=== PATIENT | male | born 1950 | race Caucasian/White ===

== ENCOUNTER 2017-06-23 09:01 | Observation (INO) ==
[2017-06-23 09:45] LABS: Basophils # 0.1 K/mm3 (0-0.2); Basophils % 0.6 % (0.1-2.0); Eosinophils # 0.2 K/mm3 (0.0-0.4); Eosinophils % 2.4 % (0.1-12.0); Hematocrit 41.6 % (42.0-52.0); Hemoglobin 13.8 g/dL (14.1-18.0); Lymphocytes # 0.9 K/mm3 (0.7-4.5); Lymphocytes % 11.2 K/mm3 (10-50); Mean Corpuscular HGB Conc 33.2 g/dL (31.8-35.4); Mean Corpuscular Hemoglobin 28.6 pg (27.0-31.2); Mean Corpuscular Volume 86.3 fl (80-94); Mean Platelet Volume 7.8 fl (7.4-10.4); Monocytes # 0.6 K/mm3 (0.1-1.0); Monocytes % 6.6 % (1.7-9.3); Neutrophils # 6.6 K/mm3 (1.8-7.8); Neutrophils % 79.2 % (37.0-80.0); Platelet Count 255 K/mm3 (142-424); Red Blood Count 4.83 M/mm3 (4.60-6.20); Red Cell Distribution Width 14.7 % (11.5-17.5); White Blood Count 8.3 K/mm3 (4.8-10.8)
[2017-06-23 09:49] LABS: INR 0.99 (0.9-1.1); Prothrombin Time 10.7 seconds (9.4-11.8)
[2017-06-23 09:51] LABS: Albumin Level 3.3 gm/dL (3.4-5.0); Albumin/Globulin Ratio 0.9 (1.1-1.8); Anion Gap 12.6 mEq/L (5-15); Bilirubin,Total 0.4 mg/dL (0.2-1.0); Calcium 8.9 mg/dL (8.5-10.1); Globulin 3.8 gm/dl (1.3-3.2); Total Protein,Serum 7.1 gm/dL (6.4-8.2)
[2017-06-23 09:55] LABS: Potassium 2.6 mmoL/L (3.5-5.1)
--- NOTE | 2017-06-23 10:07 | Emergency Department Note ---
ED Disposition Clinical Impression: Fall, Brain atrophy, Sinusitis, Diverticulosis, Degenerative arthritis, Esophageal abnormality, Post concussion syndrome, Anticoagulation management encounter, Nausea, Hypokalemia Disposition: Home, Self-Care Condition on Discharge: Fair Referrals: Riley Delatorre MD [Primary Care Provider] - - Critical Care Critical Care Time: No Attestation: On 06/23/17, the high probability of a clinically significant, sudden or life threatening deterioration of the following system(s) required my full and direct attention, intervention and personal management. The time I documented below is in addition to time spent performing reported procedures but includes the following listed in this critical care notation. Medical Decision Making - Atul Inquiry Pt receiving controlled substance: No Atul was queried for this patient: No Vital Signs: 06/23/17 09:02 06/23/17 10:02 Temperature 97.7 F 97.5 F L Temperature Source Oral Oral Pulse Rate [Right Radial] 65 63 Respiratory Rate 18 20 Blood Pressure [Right Arm] 186/99 187/99 Blood Pressure Mean [Right Arm] 128 128 Blood Pressure Source [Right Arm] Automatic Cuff Automatic Cuff Blood Pressure Position [Right Arm] Supine Supine 02 Sat by Pulse Oximetry 92 L 94 L Oxygen Delivery Method Room Air Room Air - Lab Data Lab Results 06/23/17 09:15: WBC 8.3, RBC 4.83, Hgb 13.8 L, Hct 41.6 L, MCV 86.3, MCH 28.6, MCHC 33.2, RDW 14.7, Plt Count 255, MPV 7.8, Neut % (Auto) 79.2, Lymph % (Auto) 11.2, [place] % (Auto) 6.6, Eos % (Auto) 2.4, Baso % (Auto) 0.6, Neut # (Auto) 6.6 , Lymph # (Auto) 0.9, [place] # (Auto) 0.6, Eos # (Auto) 0.2, Baso # (Auto) 0.1 06/23/17 09:15: PT 10.7, INR 0.99 06/23/17 09:15: Sodium 140, Potassium 2.6 L*, Chloride 100, Carbon Dioxide 30, Anion Gap 12.6, BUN 15, Creatinine 1.25, Estimated Creat Clear 95, Estimated GFR 58 L, Est GFR ( Amer) 70, Glucose 176 H, Calcium 8.9, Total Bilirubin 0.4, AST 11 L, ALT 41, Alkaline Phosphatase 130 H, Total Protein 7.1, Albumin 3.3 L, Globulin 3.8 H, Albumin/Globulin Ratio 0.9 L Result diagrams: 06/23/17 09:15 06/23/17 09:15 Orders (Tests/Meds): ED MEDICATIONS Discontinued Medications Generic Name Dose Route Start Last Admin Trade Name Milesq PRN Reason Stop Dose Admin Meclizine HCl 50 mg 06/23/17 11:13 06/23/17 11:20 Antivert 25mg Tablet PO 06/23/17 11:14 50 mg ONCE ONE Administration Morphine Sulfate 1 mg 06/23/17 10:24 06/23/17 10:37 Morphine 2mg/Ml Syringe IV 06/23/17 10:25 1 mg ONCE ONE Administration Ondansetron HCl 4 mg 06/23/17 10:07 06/23/17 10:08 Zofran 4mg/2ml Vial IV 06/23/17 10:08 4 mg ONCE ONE Administration Potassium Chloride 20 meq 06/23/17 10:24 06/23/17 10:37 Klor-Con 20meq Tablet PO 06/23/17 10:25 20 meq ONCE ONE Administration Potassium Chloride 20 meq 06/23/17 11:13 Klor-Con 20meq Tablet PO 06/23/17 11:14 ONCE ONE - Radiology Data #1 Image(s): Chest, Shoulder, Elbow Image Reviewed: Yes I have reviewed radiologist's interpretation Preliminary Findings: Normal/NAD Chest x-ray abnormality with limitations of exam. - CT Data CT Scan: Head, C-Spine, Pelvis, L-Spine Time Received: 11:[address] Reviewed: Yes: I have viewed the radiologist's interpretation Medical Decision Narrative: The patient underwent primary and secondary survey before going to CT scan. I repeated the secondary survey when he returned. Unchanged. She became nauseous and I gave him Zofran. 1020 patient complained of left facial numbness I did a neurological examination and he had equal bilateral symmetrical pinprick sensation. Moved 4 extremities with gravity, deep tendon reflexes are 2+ equal symmetrical and Babinski was downgoing. 1030 the patient was given potassium supplement 20 mEq p.o. 1130 Am Attempted attempted to ambulate the patient and he was very unsteady and had to go back to bed Fall HPI - General Chief Complaint: Fall Stated Complaint: fall Time Seen by Provider: 06/23/17 09:10 Mode of Arrival: EMS Limitations: Physical Limitations Description of Symptoms (Recalled from ER Triage Doc. by RN): pt fell around 0840 on back porch steps while trying to keep the dog inside. pt feel backwards onto the steps on concrete and onto . pt c/o lumbar and thoracic back pain, neck pain and right shoulder pain. breief loc for approx 2-3 min, pt on eliquis. pt a&o, denies clark or nausea - History of Present Illness HPI Narrative: I read the nursing triage above. 66 years old white male with multiple medical problems on Eliquis anticoagulation therapy. Him and his were going down the steps towards the garage when he lost his balance at the 6 step fell and landed on the right side of his body. He had momentary loss of consciousness. Ambulance was called and he was brought to the ED complaining of lower back pain and right shoulder pain. No nausea no vomiting no chest pain no abdominal pain. He has mild neck pain. The patient took his potassium and Eliquis this morning. Onset (ago): minute(s) (30 minutes.) Fall from: standing Fall witnessed: yes, by family Place fall occurred: home Loss of consciousness: yes Length of LOC: minutes(s) (2-3 minutes per nurisng staff.) Prolonged down time: no Symptoms prior to fall: none Context: tripped/slipped Location of injury: head, back (lower back and right shoulder pain. ) Location of injury - extremities: Right: shoulder Severity: moderate Quality: dull Associated symptoms (after fall): headache, other (nausea. ) - Related Data Home Medications Medication Instructions Recorded Confirmed apixaban 5 mg tablet 5 mg PO DAILY 90 Days 03/22/17 06/23/17 clonidine HCl 0.1 mg tablet 0.1 mg PO BID 90 Days 03/22/17 06/23/17 furosemide 40 mg tablet 20 mg PO DAILY 30 Days 03/22/17 06/23/17 hydrochlorothiazide 25 mg tablet 25 mg PO DAILY 90 Days 03/22/17 06/23/17 omeprazole 20 mg capsule,delayed 20 mg PO DAILY 30 Days 03/22/17 06/23/17 release Albuterol Sulfate [Albuterol HFA 2 puffs IH Q4-6H PRN 06/23/17 06/23/17 Inhaler] Aspirin [Aspir 81] 81 mg PO DAILY 06/23/17 06/23/17 Lisinopril [Lisinopril 40mg Tablet] 40 mg PO DAILY 06/23/17 06/23/17 Losartan/Hydrochlorothiazide 50 each PO DAILY 06/23/17 06/23/17 [Losartan-Hctz 50-12.5 mg Tab] Metformin HCl [Metformin 500mg 500 mg PO BID 06/23/17 06/23/17 Tablet] Potassium Chloride [K-Tab ER 20 40 meq PO HS 06/23/17 06/23/17 mEq] Pravastatin Sodium [Pravachol 20mg 20 mg PO HS 06/23/17 06/23/17 Tablet] diazePAM [Valium] 2 mg PO BID 06/23/17 06/23/17 Allergies Allergy/AdvReac Type Severity Reaction Status Date / Time No Known Allergies Allergy Unverified 06/14/17 08:21 [facility] History I have reviewed the patient's past medical history: Yes Medical History: Reports:: Atrial Fibrillation, Chronic Obstructive Pulmonary Disease (COPD), Coronary Artery Disease, Diabetes Mellitus Type 2, Gastroesophageal Reflux Disease(GERD), Hypertension Comment: TONIO, Anxiety, Hearing loss Laterality Cases: Bilateral: Myringotomy (Ear Tubes) Other Surgeries: Yes: Sinus Surgery - Social History Smoking Status: Former smoker Alcohol Intake: never Alcohol Intake Frequency:: other Substance Use Type: denies use Occupational Status: retired Housing: house Household Members: spouse - Psychiatric History Expresses thoughts of harming self/others: None Suicide Plan Description: No Plan Family Hx:: Diabetes, Hypertension, Coronary Artery Disease ROS Obtained: Yes All systems reviewed & no additional complaints Physical Exam - General General appearance: alert, in no apparent distress - Head Head exam: atraumatic, normocephalic, normal inspection - Eye Eye exam: Present: normal appearance, PERRL, EOMI - ENT ENT exam: Present: normal oropharynx, mucous membranes moist, TM's normal bilaterally, normal external ear exam, other (No obvious bleeding per nose or ears but he has some dried blood on the lower teeth with no gum laceration. ) - Neck Neck exam: Present: normal inspection, full ROM, trachea midline, tenderness ( Mild midline lower cervical tenderness.). Absent: meningismus, lymphadenopathy - Chest Chest inspection: Present: normal inspection, symmetric chest wall rise. Absent : tenderness - Respiratory Respiratory exam: Present: normal lung sounds bilaterally. Absent: respiratory distress, wheezes - Cardiovascular Cardiovascular exam: Present: regular rate, normal rhythm. Absent: JVD - Abdominal Exam Abdominal exam: Present: soft, normal bowel sounds. Absent: distention, tenderness, guarding, rebound, rigidity - Extremities Exam Extremities exam: Present: normal inspection, full ROM, normal capillary refill. Absent: calf tenderness - Back Exam Back exam: Present: tenderness, other (Midline lumbar tenderness. ) - Neurological Exam Neurological exam: Present: alert, oriented X3, CN II-XII intact, motor sensory deficit, reflexes normal. Absent: normal gait (Gait was not tested) - Psychiatric Psychiatric exam: Present: normal affect, normal mood - Skin Skin exam: Present: warm, dry, intact, normal color, other (Senile keratosis. ) - Lymphatic Lymphatic Findings: no adenopathy
--- NOTE | 2017-06-23 13:56 | Pharmacy Consult Notes ---
[facility] Pharmacy VTE Monitoring - Patient Demographics Admission date: 06/23/17 Report Date: 06/23/17 Time: 13:55 Allergies/Adverse Reactions: Patient Allergies No Known Allergies Allergy (Unverified 06/14/17 08:21) Height: 1.73 m Weight: 111.329 kg Patient Problems: Current Active Problems Fall (Acute) Brain atrophy (Acute) Sinusitis (Acute) Diverticulosis (Acute) Degenerative arthritis (Acute) Esophageal abnormality (Acute) Post concussion syndrome (Acute) Anticoagulation management encounter (Acute) Nausea (Acute) Hypokalemia (Acute) - VTE Risk Labs: VTE Related Lab Results Hgb 13.8 g/dL (14.1-18.0) L 06/23/17 09:15 Hct 41.6 % (42.0-52.0) L 06/23/17 09:15 Plt Count 255 K/mm3 (142-424) 06/23/17 09:15 PT 10.7 seconds (9.4-11.8) 06/23/17 09:15 INR 0.99 (0.9-1.1) 06/23/17 09:15 BUN 15 mg/dL (7-18) 06/23/17 09:15 Creatinine 1.25 mg/dL (0.70-1.30) 06/23/17 09:15 Estimated Creat Clear 95 mL/min (0-300) 06/23/17 09:15 Was VTE Risk Assessment Performed: Yes VTE Score: 5 VTE Risk Level: Low Risk - Prophylaxis VTE Prophylaxis Ordered?: Yes Types of VTE Prophylaxis: TEDS Knee High Location of Applied Device: Bilateral Lower Extremeties - VTE Diagnosis Confirmed Treatment or plan recommended: Continue Current Treatment
[2017-06-23 18:39] LABS: Anion Gap 8.8 mEq/L (5-15)
[2017-06-23 18:42] LABS: Potassium 2.8 mmoL/L (3.5-5.1)
[2017-06-24 07:10] LABS: Basophils # 0.1 K/mm3 (0-0.2); Basophils % 0.6 % (0.1-2.0); Eosinophils # 0.2 K/mm3 (0.0-0.4); Eosinophils % 2.3 % (0.1-12.0); Hematocrit 39.7 % (42.0-52.0); Hemoglobin 12.9 g/dL (14.1-18.0); Lymphocytes # 0.9 K/mm3 (0.7-4.5); Lymphocytes % 10.8 K/mm3 (10-50); Mean Corpuscular HGB Conc 32.4 g/dL (31.8-35.4); Mean Corpuscular Hemoglobin 28.7 pg (27.0-31.2); Mean Corpuscular Volume 88.6 fl (80-94); Monocytes # 0.6 K/mm3 (0.1-1.0); Monocytes % 7.2 % (1.7-9.3); Neutrophils # 6.7 K/mm3 (1.8-7.8); Platelet Count 235 K/mm3 (142-424); Red Blood Count 4.48 M/mm3 (4.60-6.20); Red Cell Distribution Width 14.7 % (11.5-17.5); White Blood Count 8.5 K/mm3 (4.8-10.8)
[2017-06-24 08:13] LABS: Anion Gap 7.2 mEq/L (5-15); Potassium 3.2 mmoL/L (3.5-5.1)
--- NOTE | 2017-06-24 08:28 | History & Physical Report ---
*Admission Date: 06/23/17 *Chief complaint: Fall with weakness *History of present illness: 66-year-old white female with multiple medical problems on blood thinners and on chronic cardiac medications with history of recurrent A. fib with SVT who yesterday morning was leaving his home in [place], [place] when he and his fell down some steps and he landed on some concrete while falling with his . She was uninjured, but he apparently struck part of his head on the concrete and may or may not have lost consciousness for a couple of minutes. Brought to the emergency department with a lot of aches pains and elbow, shoulders and knees, some blood around his mouth and the aforementioned history of loss of consciousness. ER workup consist of CAT scans of pelvis, CT of spine, x-rays of elbows and CT of his head which were unremarkable. He was hypokalemic, admitted to hospital for further evaluation and replacement of his potassium deficit. [facility] History I have reviewed the patient's past medical history: Yes Medical History: Reports:: Atrial Fibrillation, Cancer (skin), Chronic Obstructive Pulmonary Disease (COPD), Coronary Artery Disease, Diabetes Mellitus Type 2, Gastroesophageal Reflux Disease(GERD), Hypertension Denies:: Diabetes Mellitus Type 1, MRSA Other Medical History: Reports: Cataracts, Glaucoma ((L) eye), Hypothyroidism, Sinus Problems Comment: Recent positive cologuard test, scheduled for visit with GI today Laterality Cases: Left: Total Knee Replacement, Bilateral: Cataract, Myringotomy (Ear Tubes) Other Surgeries: Yes: Cardiac Catheterization, Sinus Surgery, Skin Cancer Excision Amputation: No Fractures: Yes ((R) dislocated shoulder) - *Social History Educational Level: Completed High School Smoking Status: Former smoker Smoking End Date: 1997 Alcohol Intake: current Alcohol Intake Frequency:: a few times a month Substance Use Type: denies use Occupational Status: retired Housing: house Household Members: spouse - Psychiatric History Expresses thoughts of harming self/others: None Suicide Plan Description: No Plan *Family Hx:: Cancer, Coronary Artery Disease, Diabetes, Hyperlipidemia, Hypertension, Thyroid Disorder Review of Systems - Review of Systems Review of systems:: unable to obtain, other, pertinent systems reviewed and negative unless documented below Meds Home Medications Medication Instructions Recorded Confirmed Type apixaban 5 mg tablet 5 mg PO BID 90 Days 03/22/17 06/23/17 History clonidine HCl 0.1 mg tablet 0.1 mg PO BID 90 Days 03/22/17 06/23/17 History furosemide 40 mg tablet 20 mg PO BID 30 Days 03/22/17 06/23/17 History hydrochlorothiazide 25 mg tablet 25 mg PO DAILY 90 Days 03/22/17 06/23/17 History omeprazole 20 mg capsule,delayed 20 mg PO DAILY 30 Days 03/22/17 06/23/17 History release Albuterol Sulfate [Albuterol HFA 2 puffs IH Q4-6H PRN 06/23/17 06/23/17 History Inhaler] Amiodarone HCl [Amiodarone 200mg 300 mg PO DAILY 06/23/17 06/23/17 History Tab] Aspirin [Aspir 81] 81 mg PO DAILY 06/23/17 06/23/17 History Carvedilol [Carvedilol 25mg Tab] 25 mg PO BID 06/23/17 06/23/17 History Citalopram Hydrobromide [Celexa 20 mg PO DAILY 06/23/17 06/23/17 History 20mg Tablet] Exenatide Microspheres [Bydureon 2 mg SQ WEEKLY 06/23/17 06/23/17 History Pen] Fluorouracil [Efudex 5% cream 40gm 1 applicatio TOPICAL DAILY 06/23/17 06/23/17 History tube] Latanoprost [Xalatan 0.005% Ophth 1 drop EYE-LEFT HS 06/23/17 06/23/17 History Soln 2.5mL] Levothyroxine Sodium 100 mg PO DAILY 06/23/17 06/23/17 History [Levothyroxine 100mcg (0.1MG) Tab] Lisinopril [Lisinopril 40mg Tablet] 5 mg PO DAILY 06/23/17 06/23/17 History Losartan/Hydrochlorothiazide 50 each PO DAILY 06/23/17 06/23/17 History [Losartan-Hctz 50-12.5 mg Tab] Meloxicam [Meloxicam] 15 mg PO DAILY 06/23/17 06/23/17 History Nitroglycerin [Nitroglycerin] 0.4 mg SL DIRECTED PRN 06/23/17 06/23/17 History Potassium Chloride [K-Tab ER 20 40 meq PO BID 06/23/17 06/23/17 History mEq] Pravastatin Sodium [Pravachol 20mg 20 mg PO HS 06/23/17 06/23/17 History Tablet] Sitagliptin Phos/Metformin HCl 50 - 1,000 mg PO DAILY 06/23/17 06/23/17 History [Janumet Xr 50-1,000 mg Tablet] diazePAM [Valium] 2 mg PO BID 06/23/17 06/23/17 History dilTIAZem HCl [Cartia Xt] 300 mg PO DAILY 06/23/17 06/23/17 History Allergies Allergy/AdvReac Type Severity Reaction Status Date / Time No Known Allergies Allergy Unverified 06/14/17 08:21 Exam Vital signs and Labs for Last 24 Hours: Temp Pulse Resp BP Pulse Ox 97.7 F 63 20 171/92 94 L 06/24/17 08:00 06/24/17 08:00 06/24/17 08:00 06/24/17 08:00 06/24/17 08:00 Laboratory Results - last 24 hr 06/23/17 18:15: Sodium 141, Potassium 2.8 L*, Chloride 101, Carbon Dioxide 34 H , Anion Gap 8.8, BUN 15, Creatinine 1.21, Estimated Creat Clear 95, Estimated GFR 60, Est GFR ( Amer) 73, Glucose 156 H 06/24/17 06:50: WBC 8.5, RBC 4.48 L, Hgb 12.9 L, Hct 39.7 L, MCV 88.6, MCH 28.7 , MCHC 32.4, RDW 14.7, Plt Count 235, MPV 8.0, Neut % (Auto) 79.0, Lymph % (Auto ) 10.8, [place] % (Auto) 7.2, Eos % (Auto) 2.3, Baso % (Auto) 0.6, Neut # (Auto) 6.7, Lymph # (Auto) 0.9, [place] # (Auto) 0.6, Eos # (Auto) 0.2, Baso # (Auto) 0.1 06/24/17 06:50: Sodium 139, Potassium 3.2 L, Chloride 102, Carbon Dioxide 33 H, Anion Gap 7.2, BUN 11 D, Creatinine 0.97, Estimated Creat Clear 114, Estimated GFR 77, Est GFR ( Amer) 94 D, Glucose 142 H I & O for Last 24 hours: Intake & Output 06/21/17 06/22/17 06/23/17 06/24/17 11:59 11:59 11:59 11:59 Intake Total 2454 / 2454 Balance 2454 / 2454 Weight 245 lb 7 oz Narrative: This morning patient is awake, alert, oriented 3. Cranial nerves are intact, no evidence of trauma around his face or in his mouth, lungs are clear, heart rate regular, abdomen soft, able to move all extremities. Does complain of some left knee pain is unable to flex the knee extensively. Of note this is his side with his joint replacement. No significant distal edema, wearing compression stockings. H&P: Result - Labs Labs: Short CBC 06/24/17 Range/Units 06:50 WBC 8.5 (4.8-10.8) K/mm3 Hgb 12.9 L (14.1-18.0) g/dL Hct 39.7 L (42.0-52.0) % Plt Count 235 (142-424) K/mm3 BMP 06/23/17 06/24/17 18:15 06:50 Sodium 141 139 Potassium 2.8 L* 3.2 L Chloride 101 102 Carbon Dioxide 34 H 33 H BUN 15 11 D Creatinine 1.21 0.97 Glucose 156 H 142 H Assessment and Plan (1) Ataxia Current visit: Yes Status: Acute Category: Medical Code(s): R27.0 - Ataxia , unspecified (2) Degenerative arthritis Current visit: Yes Status: Acute Category: Medical Code(s): M19.90 - Unspecified osteoarthritis, unspecified site (3) Diverticulosis Current visit: Yes Status: Acute Category: Medical Code(s): K57.90 - Diverticulosis of intestine, part unspecified, without perforation or abscess without bleeding (4) Fall Current visit: Yes Status: Acute Category: Medical Code(s): W19.XXXA - Unspecified fall, initial encounter (5) Hypokalemia Current visit: Yes Status: Acute Category: Medical Code(s): E87.6 - Hypokalemia - Assessment and plan all Dx Assessment and Plan for all problems:: Patient seems to have done well overnight. We will x-ray his knee given his pain complaints and history of fall. Potassium is improved. PT evaluation to assess for home safety versus need for rehabilitation given his ongoing problems with stability and walking.
--- NOTE | 2017-06-24 13:58 | Discharge Summary ---
General - General Admission date: 06/23/17 Discharge date: 06/24/17 HPI HPI: 66-year-old white female with multiple medical problems on blood thinners and on chronic cardiac medications with history of recurrent A. fib with SVT who yesterday morning was leaving his home in [place], [place] when he and his fell down some steps and he landed on some concrete while falling with his . She was uninjured, but he apparently struck part of his head on the concrete and may or may not have lost consciousness for a couple of minutes. Brought to the emergency department with a lot of aches pains and elbow, shoulders and knees, some blood around his mouth and the aforementioned history of loss of consciousness. ER workup consist of CAT scans of pelvis, CT of spine, x-rays of elbows and CT of his head which were unremarkable. He was hypokalemic, admitted to hospital for further evaluation and replacement of his potassium deficit. Hospital Course Hospital Course: Patient was admitted to hospital, potassium was corrected with oral replacement. Neurologic checks were done overnight, patient had no further episodes of falls, no loss of consciousness issues. This morning patient's left knee was x-rayed because of persistent pain but x- ray findings were unremarkable. Patient did well, able to walk around the room under his own power, physical therapy evaluation for safety was done and patient did well. Patient and his wish to be discharged home so they could do some other appointments today. Plan will be to discharge home with enhanced potassium supplementation. No other medication changes. Follow-up with GI this afternoon to discuss possible colonoscopy. Follow-up with me in 3 days. Objective Vital signs: Temp Pulse Resp BP Pulse Ox 97.7 F 63 20 171/92 94 L 06/24/17 08:00 06/24/17 08:00 06/24/17 08:00 06/24/17 08:00 06/24/17 08:00 Narrative: Unchanged from this morning. Please see H&P for details Results Labs on day of discharge: Labs from last 24 hours 06/24/17 06/24/17 06/23/17 06:50 06:50 18:15 WBC 8.5 RBC 4.48 L Hgb 12.9 L Hct 39.7 L MCV 88.6 MCH 28.7 MCHC 32.4 RDW 14.7 Plt Count 235 MPV 8.0 Neut % (Auto) 79.0 Lymph % (Auto) 10.8 [place] % (Auto) 7.2 Eos % (Auto) 2.3 Baso % (Auto) 0.6 Neut # (Auto) 6.7 Lymph # (Auto) 0.9 [place] # (Auto) 0.6 Eos # (Auto) 0.2 Baso # (Auto) 0.1 Sodium 139 141 Potassium 3.2 L 2.8 L* Chloride 102 101 Carbon Dioxide 33 H 34 H Anion Gap 7.2 8.8 BUN 11 D 15 Creatinine 0.97 1.21 Estimated Creat Clear 114 95 Estimated GFR 77 60 Est GFR ( Amer) 94 D 73 Glucose 142 H 156 H DS: Diagnosis - Discharge Diagnosis (1) Ataxia Status: Acute (2) Degenerative arthritis Status: Acute (3) Diverticulosis Status: Acute (4) Fall Status: Acute (5) Hypokalemia Status: Acute Discharge Plan - Patient Discharge Instructions ACTIVITY: Continue current activity DIET: continue same diet - Follow up Plan Follow up with: Riley Delatorre MD [Primary Care Provider] - 06/27/17 Disposition: Home, Self-Skilled Nursing Medications: Home Medications Medication Instructions Recorded Confirmed Type apixaban 5 mg tablet 5 mg PO BID 90 Days 03/22/17 06/23/17 History clonidine HCl 0.1 mg tablet 0.1 mg PO BID 90 Days 03/22/17 06/23/17 History furosemide 40 mg tablet 40 mg PO BID 30 Days 03/22/17 06/24/17 History hydrochlorothiazide 25 mg tablet 25 mg PO DAILY 90 Days 03/22/17 06/23/17 History omeprazole 20 mg capsule,delayed 20 mg PO DAILY 30 Days 03/22/17 06/23/17 History release Albuterol Sulfate [Albuterol HFA 2 puffs IH Q4-6H PRN 06/23/17 06/23/17 History Inhaler] Amiodarone HCl [Amiodarone 200mg 300 mg PO DAILY 06/23/17 06/23/17 History Tab] Aspirin [Aspir 81] 81 mg PO DAILY 06/23/17 06/23/17 History Carvedilol [Carvedilol 25mg Tab] 25 mg PO BID 06/23/17 06/23/17 History Citalopram Hydrobromide [Celexa 20 mg PO DAILY 06/23/17 06/23/17 History 20mg Tablet] Exenatide Microspheres [Bydureon 2 mg SQ WEEKLY 06/23/17 06/23/17 History Pen] Fluorouracil [Efudex 5% cream 40gm 1 applicatio TOPICAL DAILY 06/23/17 06/23/17 History tube] Latanoprost [Xalatan 0.005% Ophth 1 drop EYE-LEFT HS 06/23/17 06/23/17 History Soln 2.5mL] Levothyroxine Sodium 100 mcg PO DAILY 06/23/17 06/24/17 History [Levothyroxine 100mcg (0.1MG) Tab] Losartan/Hydrochlorothiazide 1 tab PO DAILY 06/23/17 06/24/17 History [Losartan-Hctz 50-12.5 mg Tab] Meloxicam [Meloxicam] 15 mg PO DAILY 06/23/17 06/23/17 History Nitroglycerin [Nitroglycerin] 0.4 mg SL Q5MINP PRN 06/23/17 06/24/17 History Potassium Chloride [K-Tab ER 20 40 meq PO BID 06/23/17 06/23/17 History mEq] Pravastatin Sodium [Pravachol 20mg 20 mg PO HS 06/23/17 06/23/17 History Tablet] Sitagliptin Phos/Metformin HCl 1 tab PO DAILY 06/23/17 06/24/17 History [Janumet Xr 50-1,000 mg Tablet] diazePAM [Valium] 2 mg PO BID 06/23/17 06/23/17 History dilTIAZem HCl [Cartia Xt] 300 mg PO DAILY 06/23/17 06/23/17 History Lisinopril [Lisinopril 5mg Tablet] 5 mg PO DAILY 06/24/17 06/24/17 History Prescriptions/Medication Reconciliation: Continue omeprazole 20 mg capsule,delayed release 20 mg PO DAILY 30 Days furosemide 40 mg tablet 40 mg PO BID 30 Days apixaban 5 mg tablet 5 mg PO BID 90 Days hydrochlorothiazide 25 mg tablet 25 mg PO DAILY 90 Days clonidine HCl 0.1 mg tablet 0.1 mg PO BID 90 Days Potassium Chloride [K-Tab ER 20 mEq] 40 meq PO BID diazePAM [Valium] 2 mg PO BID Losartan/Hydrochlorothiazide [Losartan-Hctz 50-12.5 mg Tab] 1 tab PO DAILY Aspirin [Aspir 81] 81 mg PO DAILY Pravastatin Sodium [Pravachol 20mg Tablet] 20 mg PO HS Albuterol Sulfate [Albuterol HFA Inhaler] 2 puffs IH Q4-6H PRN PRN Reason: Shortness Of Breath Or Wheezing Levothyroxine Sodium [Levothyroxine 100mcg (0.1MG) Tab] 100 mcg PO DAILY Carvedilol [Carvedilol 25mg Tab] 25 mg PO BID Citalopram Hydrobromide [Celexa 20mg Tablet] 20 mg PO DAILY dilTIAZem HCl [Cartia Xt] 300 mg PO DAILY Exenatide Microspheres [Bydureon Pen] 2 mg SQ WEEKLY Fluorouracil [Efudex 5% cream 40gm tube] 1 applicatio TOPICAL DAILY Latanoprost [Xalatan 0.005% Ophth Soln 2.5mL] 1 drop EYE-LEFT HS Nitroglycerin [Nitroglycerin] 0.4 mg SL Q5MINP PRN PRN Reason: Chest Pain Sitagliptin Phos/Metformin HCl [Janumet Xr 50-1,000 mg Tablet] 1 tab PO DAILY Amiodarone HCl [Amiodarone 200mg Tab] 300 mg PO DAILY Meloxicam [Meloxicam] 15 mg PO DAILY Lisinopril [Lisinopril 5mg Tablet] 5 mg PO DAILY
== END 2017-06-24 14:48 | disposition home or self-care (01) ==
LOC: 2ND 09:01 → ER 09:01 → OBSVTOIN 12:27 → INTOOBSV 12:27 → 2ND 12:42
PROVIDERS: ADMIT Family Medicine; ATTEND Internal Medicine Adolescent Medicine

== ENCOUNTER → 2017-06-24 14:42 | Outpatient (POV) | payer MEDICARE, SELFPAY | PROVIDERS: Family Provider Internal Medicine Adolescent Medicine; PCP Internal Medicine Adolescent Medicine; Visit Provider Nurse Practitioner Acute Care | DX: Z00.00 Encounter for general adult medical examination without abnormal findings (principal) ==

== ENCOUNTER → 2017-07-01 07:08 | Outpatient (CLI) | payer MEDICARE, SELFPAY ==
[2017-07-01 13:46] LABS: Anion Gap 8.4 mEq/L (5-15); Blood Urea Nitrogen 15 mg/dL (7-18); Carbon Dioxide 35 mmol/L (21.0-32.0); Chloride 103 mmol/L (98-107); Creatinine,Serum 1.08 mg/dL (0.70-1.30); Estimated Glomerular Filt Rate 68 ml/min (>60); GFR (African American) 83 ML/MIN (>60); Glucose 149 mg/dL (74-106); Potassium 3.4 mmoL/L (3.5-5.1); Sodium 143 mmol/L (136-145)
[2017-07-01 13:55] LABS: Basophils # 0.1 K/mm3 (0-0.2); Basophils % 0.6 % (0.1-2.0); Eosinophils # 0.4 K/mm3 (0.0-0.4); Eosinophils % 4.2 % (0.1-12.0); Hemoglobin 12.6 g/dL (14.1-18.0); Lymphocytes # 1.2 K/mm3 (0.7-4.5); Lymphocytes % 14.3 K/mm3 (10-50); Mean Corpuscular Hemoglobin 29.1 pg (27.0-31.2); Mean Corpuscular Volume 88.1 fl (80-94); Mean Platelet Volume 8.4 fl (7.4-10.4); Monocytes # 0.5 K/mm3 (0.1-1.0); Monocytes % 6.6 % (1.7-9.3); Neutrophils # 6.1 K/mm3 (1.8-7.8); Neutrophils % 74.2 % (37.0-80.0); Platelet Count 280 K/mm3 (142-424); Red Blood Count 4.32 M/mm3 (4.60-6.20); Red Cell Distribution Width 14.8 % (11.5-17.5); White Blood Count 8.2 K/mm3 (4.8-10.8)
== END ==
PROVIDERS: PCP Internal Medicine Adolescent Medicine; Visit Provider Internal Medicine Adolescent Medicine
DX: E87.6 Hypokalemia (principal)
CPT/HCPCS: 36415; 80048; 85025

== ENCOUNTER 2017-07-31 10:00 | Outpatient (RCR) | payer MEDICARE, SELFPAY | END 2017-07-31 10:01 | disposition home or self-care (01) | LOC: PT 10:00 | PROVIDERS: Family Provider Internal Medicine Adolescent Medicine; PCP Internal Medicine Adolescent Medicine; Visit Provider Internal Medicine Adolescent Medicine | DX: R26.9 Unspecified abnormalities of gait and mobility (principal); W10.8XXD Fall (on) (from) other stairs and steps, subsequent encounter | CPT/HCPCS: 97110; 97163 ==

== ENCOUNTER 2017-08-20 14:35 | Inpatient (IN) ==
--- NOTE | 2017-08-20 14:48 | Emergency Department Note ---
ED Disposition Clinical Impression: Lower gastrointestinal bleeding Disposition: Still a Patient Condition on Discharge: Good - Critical Care Critical Care Time: No Attestation: On , the high probability of a clinically significant, sudden or life threatening deterioration of the following system(s) required my full and direct attention, intervention and personal management. The time I documented below is in addition to time spent performing reported procedures but includes the following listed in this critical care notation. Medical Decision Making - Atul Inquiry Pt receiving controlled substance: No Vital Signs: 08/20/17 14:47 Temperature 97.9 F Temperature Source Oral Pulse Rate [Right Brachial] 75 Respiratory Rate 18 Blood Pressure [Right Arm] 135/67 Blood Pressure Mean [Right Arm] 89 Blood Pressure Source [Right Arm] Automatic Cuff Blood Pressure Position [Right Arm] Sitting 02 Sat by Pulse Oximetry 96 Oxygen Delivery Method Room Air - Lab Data Lab Results 08/20/17 14:45: WBC 8.5, RBC 3.60 L, Hgb 10.3 L, Hct 31.2 L, MCV 86.6, MCH 28.7 , MCHC 33.1, RDW 14.8, Plt Count 232, MPV 7.9, Neut % (Auto) 77.9, Lymph % (Auto ) 12.5, [place] % (Auto) 7.5, Eos % (Auto) 1.5, Baso % (Auto) 0.6, Neut # (Auto) 6.6, Lymph # (Auto) 1.1, [place] # (Auto) 0.6, Eos # (Auto) 0.1, Baso # (Auto) 0.1 08/20/17 14:45: Sodium 144, Potassium 3.3 L, Chloride 105, Carbon Dioxide 32, Anion Gap 10.3, BUN 28 H, Creatinine 1.69 H, Estimated Creat Clear 66, Estimated GFR 41 L, Est GFR ( Amer) 49 L, Glucose 165 H, Calcium 9.0, Total Bilirubin 0.3, AST 12 L, ALT 39, Alkaline Phosphatase 105, Troponin I < 0.02, Total Protein 6.0 L, Albumin 2.9 L, Globulin 3.1, Albumin/Globulin Ratio 0.9 L 08/20/17 14:45: PT 10.7, INR 1.04, APTT 27.5 Result diagrams: 08/20/17 14:45 08/20/17 14:45 - ECG Data Tracing #1 EKG interpreted by Chester Long MD: Rhythm: sinus Rate: 67 Gerber: normal Ectopy: none Conduction: First-degree AV block ST Segment Changes: Nonspecific T Wave Changes: Nonspecific Q Waves: none No evidence of acute ischemia or injury - Physician Consults Physician Consulted: Oj Time: 16:00 Reason -: Pt condition Comment/Response: Recommends admission overnight. He can be called if recurrent bleeding. Hold Eliquis. Additional Consult: Shanthi Delatorre Time: 16:01 Reason -: Admission Comment/Response: Agrees to admit the patient to the hospital. We discussed the patient's clinical information, including history, exam, laboratory and radiology results and ED course. Per hospital procedure, I will write temporary bridge inpatient orders on the patient. Specific orders requested by the admitting physician: Repeat hemoglobin tonight at 10 PM and in the morning, hold Eliquis General Adult HPI - General Stated complaint: needs blood work/Dr Mcwilliams Time Seen by Provider: 08/20/17 14:47 - History of Present Illness HPI narrative: I received a call from Dr. Mcwilliams prior to the patient's arrival. He reports that he removed 10 polyps during a colonoscopy on the patient yesterday. He was having a colonoscopy to evaluate a positive Cologuard test. The patient has been on Eliquis for atrial fibrillation. He was started back on Eliquis last night after the procedure. He has had 5-6 episodes of bleeding since then. The patient states that he has passed large amounts of dark blood about 6 times , he states it is cups rather than tablespoons. No abdominal pain. He said he had a 5-6 second episode of chest pain on the way here. No current chest pain. No faintness, but was lightheaded at home. Blood pressure was taken at home and was normal. - Related Data Home Medications Medication Instructions Recorded Confirmed apixaban 5 mg tablet 5 mg PO BID 90 Days 03/22/17 08/19/17 clonidine HCl 0.1 mg tablet 0.1 mg PO BID 90 Days 03/22/17 08/19/17 furosemide 40 mg tablet 40 mg PO BID 30 Days 03/22/17 08/19/17 hydrochlorothiazide 25 mg tablet 25 mg PO DAILY 90 Days 03/22/17 08/19/17 omeprazole 20 mg capsule,delayed 20 mg PO DAILY 30 Days 03/22/17 08/19/17 release Albuterol Sulfate [Albuterol HFA 2 puffs IH Q4-6H PRN 06/23/17 08/19/17 Inhaler] Amiodarone HCl [Amiodarone 200mg 300 mg PO DAILY 06/23/17 08/19/17 Tab] Carvedilol [Carvedilol 25mg Tab] 25 mg PO BID 06/23/17 08/19/17 Citalopram Hydrobromide [Celexa 20 mg PO DAILY 06/23/17 08/19/17 20mg Tablet] Exenatide Microspheres [Bydureon 2 mg SQ WEEKLY 06/23/17 08/19/17 Pen] Fluorouracil [Efudex 5% cream 40gm 1 applicatio TOPICAL DAILY 06/23/17 08/19/17 tube] Latanoprost [Xalatan 0.005% Ophth 1 drop EYE-LEFT HS 06/23/17 08/19/17 Soln 2.5mL] Levothyroxine Sodium 100 mcg PO DAILY 06/23/17 08/19/17 [Levothyroxine 100mcg (0.1MG) Tab] Losartan/Hydrochlorothiazide 1 tab PO DAILY 06/23/17 08/19/17 [Losartan-Hctz 50-12.5 mg Tab] Meloxicam 15 mg PO DAILY 06/23/17 08/19/17 Nitroglycerin 0.4 mg SL Q5MINP PRN 06/23/17 08/19/17 Potassium Chloride [K-Tab ER 20 40 meq PO BID 06/23/17 08/19/17 mEq] Pravastatin Sodium [Pravachol 20mg 20 mg PO HS 06/23/17 08/19/17 Tablet] Sitagliptin Phos/Metformin HCl 1 tab PO DAILY 06/23/17 08/19/17 [Janumet Xr 50-1,000 mg Tablet] diazePAM [Valium] 2 mg PO BID 06/23/17 08/19/17 dilTIAZem HCl [Cartia Xt] 300 mg PO DAILY 06/23/17 08/19/17 Lisinopril [Lisinopril 5mg Tablet] 5 mg PO DAILY 06/24/17 08/19/17 doxazosin 4 mg tablet 4 mg PO BID tab 07/12/17 08/19/17 meclizine 12.5 mg tablet 25 mg PO TID tab 07/12/17 08/19/17 mupirocin 2 % topical ointment 1 applic TOPICAL BID 07/12/17 08/19/17 Allergies Allergy/AdvReac Type Severity Reaction Status Date / Time No Known Allergies Allergy Verified 08/13/17 13:57 [facility] History I have reviewed the patient's past medical history: Yes Medical History: Reports:: Atrial Fibrillation (not currently), Cancer, Chronic Obstructive Pulmonary Disease (COPD), Coronary Artery Disease, Diabetes Mellitus Type 2 (on med), Gastroesophageal Reflux Disease(GERD), Hypertension, Lung Disease (sob with exertion) Denies:: Diabetes Mellitus Type 1, Internal Pacemaker, MRSA, Seizures Other Medical History: Reports: Cataracts, Glaucoma, Hypothyroidism, Sinus Problems Comment: Recent positive cologuard test, scheduled for visit with GI today Laterality Cases: Bilateral: Myringotomy (Ear Tubes) Other Surgeries: Yes: Cardiac Catheterization, Sinus Surgery, Skin Cancer Excision. No: Pacemaker Amputation: No Fractures: Yes ((R) dislocated shoulder) - Social History Smoking Status: Former smoker Alcohol Intake: current Alcohol Intake Frequency:: a few times a month Substance Use Type: denies use Occupational Status: retired Housing: house Household Members: spouse Family Hx:: Cancer, Coronary Artery Disease, Diabetes, Hyperlipidemia, Hypertension, Thyroid Disorder ROS Obtained: Yes All systems reviewed & no additional complaints - Constitutional Constitutional: Reports weakness - Cardiovascular Cardiovascular: Reports chest pain, Denies fainting - Respiratory Respiratory: No dyspnea - Gastrointestinal Gastrointestingal: Reports: black, tarry stools. Denies: abdominal pain, vomiting blood - Musculoskeletal Musculoskeletal: Reports back pain Physical Exam - General General appearance: alert, in no apparent distress - Head Head exam: atraumatic, normocephalic, normal inspection - Eye Eye exam: Present: normal appearance, PERRL, EOMI - ENT ENT exam: Present: normal exam, normal oropharynx, mucous membranes moist, TM's normal bilaterally, normal external ear exam - Neck Neck exam: Present: normal inspection, full ROM, trachea midline. Absent: meningismus, lymphadenopathy - Chest Chest inspection: Present: normal inspection, symmetric chest wall rise. Absent : tenderness - Respiratory Respiratory exam: Present: normal lung sounds bilaterally. Absent: respiratory distress - Cardiovascular Cardiovascular exam: Present: regular rate, normal rhythm. Absent: JVD - Abdominal Exam Abdominal exam: Present: soft, normal bowel sounds. Absent: distention, tenderness, guarding - Extremities Exam Extremities exam: Present: normal inspection, full ROM, normal capillary refill. Absent: calf tenderness - Back Exam Back exam: Present: normal inspection. Absent: tenderness - Neurological Exam Neurological exam: Present: alert, oriented X3 - Psychiatric Psychiatric exam: Present: normal affect, normal mood - Skin Skin exam: Present: warm, dry, intact, normal color - Lymphatic Lymphatic Findings: no adenopathy
[2017-08-20 14:59] LABS: Basophils # 0.1 K/mm3 (0-0.2); Basophils % 0.6 % (0.1-2.0); Eosinophils # 0.1 K/mm3 (0.0-0.4); Eosinophils % 1.5 % (0.1-12.0); Hematocrit 31.2 % (42.0-52.0); Hemoglobin 10.3 g/dL (14.1-18.0); Lymphocytes # 1.1 K/mm3 (0.7-4.5); Lymphocytes % 12.5 K/mm3 (10-50); Mean Corpuscular HGB Conc 33.1 g/dL (31.8-35.4); Mean Corpuscular Hemoglobin 28.7 pg (27.0-31.2); Mean Corpuscular Volume 86.6 fl (80-94); Mean Platelet Volume 7.9 fl (7.4-10.4); Monocytes # 0.6 K/mm3 (0.1-1.0); Monocytes % 7.5 % (1.7-9.3); Neutrophils # 6.6 K/mm3 (1.8-7.8); Neutrophils % 77.9 % (37.0-80.0); Platelet Count 232 K/mm3 (142-424); Red Cell Distribution Width 14.8 % (11.5-17.5); White Blood Count 8.5 K/mm3 (4.8-10.8)
[2017-08-20 15:04] LABS: Activated Partial Thrombo Time 27.5 seconds (23.6-34.0); INR 1.04 (0.9-1.1); Prothrombin Time 10.7 seconds (9.4-11.8)
[2017-08-20 15:11] LABS: Alanine Aminotransferase 39 U/L (12-78); Albumin Level 2.9 gm/dL (3.4-5.0); Albumin/Globulin Ratio 0.9 (1.1-1.8); Alkaline Phosphatase 105 U/L (46-116); Anion Gap 10.3 mEq/L (5-15); Aspartate Amino Transferase 12 U/L (15-37); Bilirubin,Total 0.3 mg/dL (0.2-1.0); Blood Urea Nitrogen 28 mg/dL (7-18); Carbon Dioxide 32 mmol/L (21.0-32.0); Chloride 105 mmol/L (98-107); Globulin 3.1 gm/dl (1.3-3.2); Glucose 165 mg/dL (74-106); Potassium 3.3 mmoL/L (3.5-5.1); Sodium 144 mmol/L (136-145)
[2017-08-20 22:14] LABS: Basophils # 0.1 K/mm3 (0-0.2); Basophils % 0.5 % (0.1-2.0); Eosinophils # 0.2 K/mm3 (0.0-0.4); Hematocrit 25.1 % (42.0-52.0); Lymphocytes # 1.4 K/mm3 (0.7-4.5); Lymphocytes % 14.8 K/mm3 (10-50); Mean Corpuscular HGB Conc 32.1 g/dL (31.8-35.4); Mean Corpuscular Hemoglobin 27.9 pg (27.0-31.2); Mean Platelet Volume 8.7 fl (7.4-10.4); Monocytes # 0.6 K/mm3 (0.1-1.0); Monocytes % 6.2 % (1.7-9.3); Neutrophils % 76.5 % (37.0-80.0); Platelet Count 207 K/mm3 (142-424); Red Blood Count 2.88 M/mm3 (4.60-6.20); Red Cell Distribution Width 14.8 % (11.5-17.5); White Blood Count 9.2 K/mm3 (4.8-10.8)
[2017-08-21 07:47] LABS: Basophils % 0.4 % (0.1-2.0); Eosinophils # 0.1 K/mm3 (0.0-0.4); Eosinophils % 1.3 % (0.1-12.0); Lymphocytes # 1.2 K/mm3 (0.7-4.5); Mean Corpuscular HGB Conc 32.5 g/dL (31.8-35.4); Mean Corpuscular Hemoglobin 27.8 pg (27.0-31.2); Mean Corpuscular Volume 85.5 fl (80-94); Mean Platelet Volume 8.8 fl (7.4-10.4); Monocytes # 0.4 K/mm3 (0.1-1.0); Monocytes % 4.5 % (1.7-9.3); Neutrophils # 6.3 K/mm3 (1.8-7.8); Neutrophils % 78.9 % (37.0-80.0); Platelet Count 186 K/mm3 (142-424); Red Blood Count 3.35 M/mm3 (4.60-6.20); Red Cell Distribution Width 15.1 % (11.5-17.5)
[2017-08-21 07:56] LABS: Hematocrit 28.8 % (42.0-52.0); Hemoglobin 9.4 g/dL (14.1-18.0)
[2017-08-21 07:59] LABS: Albumin Level 2.6 gm/dL (3.4-5.0); Anion Gap 8.7 mEq/L (5-15); Bilirubin,Total 0.4 mg/dL (0.2-1.0); Calcium 8.7 mg/dL (8.5-10.1); Globulin 2.7 gm/dl (1.3-3.2); Total Protein,Serum 5.3 gm/dL (6.4-8.2)
[2017-08-21 08:00] LABS: Potassium 2.7 mmoL/L (3.5-5.1)
--- NOTE | 2017-08-21 08:23 | Pharmacy Consult Notes ---
[facility] Pharmacy VTE Monitoring - Patient Demographics Admission date: 08/20/17 Report Date: 08/21/17 Time: 08:23 Allergies/Adverse Reactions: Patient Allergies No Known Allergies Allergy (Verified 08/13/17 13:57) Height: 1.73 m Weight: 107.53 kg Patient Problems: Current Active Problems Lower gastrointestinal bleeding (Acute) - VTE Risk Labs: VTE Related Lab Results Hgb 9.4 g/dL (14.1-18.0) L D 08/21/17 07:37 Hct 28.8 % (42.0-52.0) L 08/21/17 07:37 Plt Count 186 K/mm3 (142-424) 08/21/17 07:37 PT 10.7 seconds (9.4-11.8) 08/20/17 14:45 INR 1.04 (0.9-1.1) 08/20/17 14:45 APTT 27.5 seconds (23.6-34.0) 08/20/17 14:45 BUN 25 mg/dL (7-18) H 08/21/17 07:30 Creatinine 1.52 mg/dL (0.70-1.30) H 08/21/17 07:30 Estimated Creat Clear 73 mL/min (0-300) 08/21/17 07:30 VTE Risk Level: Very Low Risk Clinical Trial Participant: No - Prophylaxis VTE Prophylaxis Ordered?: Yes Types of VTE Prophylaxis: TEDS Knee High
--- NOTE | 2017-08-21 08:40 | History & Physical Report ---
*Admission Date: 08/20/17 *Chief complaint: weakness, bloody stools *History of present illness: 66 year old male with multiple chronic medical conditions who underwent a colonoscopy with Dr. Mcwilliams on Saturday presented to the ED with weakness and rectal bleeding. According to the ED report, patient had the colonoscopy as a result of a positive cologuard test and had 10 polyps removed. Patient has a history of A. fib for which he takes Eliquis and it was restarted yesterday morning. Patient reports he began having bright red bleeding from his rectum late Saturday night. He describes as cupfuls of blood. He became increasing weakness and short of breath. He presented to the ED last night for evaluation. In the ED, initial HGB was around 10. He was admitted for serial H& H's and further evaluation. Repeat hemoglobin last night was 8. He was tranfused with 2 units of PRBC's. This morning, patient reports he feels significantly better. Continues to have some weakness. No chest pain or shortness of breath. He has not had any bloody stools this morning. [facility] History I have reviewed the patient's past medical history: Yes Medical History: Reports:: Atrial Fibrillation (not currently), Chronic Obstructive Pulmonary Disease (COPD), Coronary Artery Disease, Diabetes Mellitus Type 2, Gastroesophageal Reflux Disease(GERD), Hypertension, Lung Disease (sob with exertion) Denies:: Cancer, Diabetes Mellitus Type 1, Internal Pacemaker, MRSA, Seizures Other Medical History: Reports: Cataracts, Glaucoma, Hypothyroidism, Sinus Problems Laterality Cases: Bilateral: Myringotomy (Ear Tubes) Other Surgeries: Yes: Cardiac Catheterization, Sinus Surgery, Skin Cancer Excision. No: Pacemaker Amputation: No Fractures: Yes ((R) dislocated shoulder) - *Social History Educational Level: Completed High School Smoking Status: Never smoker Alcohol Intake: never Alcohol Intake Frequency:: a few times a month Substance Use Type: denies use Occupational Status: retired Housing: house Household Members: spouse - Psychiatric History Expresses thoughts of harming self/others: None Suicide Plan Description: No Plan *Family Hx:: Cancer, Coronary Artery Disease, Diabetes, Hyperlipidemia, Hypertension, Thyroid Disorder Review of Systems - Review of Systems Review of systems:: pertinent systems reviewed and negative unless documented below - *Neurologic Reports weakness, Denies fainting Meds Home Medications Medication Instructions Recorded Confirmed Type apixaban 5 mg tablet 5 mg PO BID 90 Days 03/22/17 08/20/17 History clonidine HCl 0.1 mg tablet 0.1 mg PO BID 90 Days 03/22/17 08/20/17 History furosemide 40 mg tablet 40 mg PO BID 30 Days 03/22/17 08/20/17 History hydrochlorothiazide 25 mg tablet 25 mg PO DAILY 90 Days 03/22/17 08/20/17 History omeprazole 20 mg capsule,delayed 20 mg PO DAILY 30 Days 03/22/17 08/20/17 History release Albuterol Sulfate [Albuterol HFA 2 puffs IH Q4-6H PRN 06/23/17 08/20/17 History Inhaler] Amiodarone HCl [Amiodarone 200mg 300 mg PO DAILY 06/23/17 08/20/17 History Tab] Carvedilol [Carvedilol 25mg Tab] 25 mg PO DAILY 06/23/17 08/21/17 History Citalopram Hydrobromide [Celexa 20 mg PO DAILY 06/23/17 08/20/17 History 20mg Tablet] Exenatide Microspheres [Bydureon 2 mg SQ WEEKLY 06/23/17 08/20/17 History Pen] Fluorouracil [Efudex 5% cream 40gm 1 applicatio TOPICAL DAILY 06/23/17 08/20/17 History tube] Latanoprost [Xalatan 0.005% Ophth 1 drop EYE-BOTH HS 06/23/17 08/21/17 History Soln 2.5mL] Levothyroxine Sodium 100 mcg PO DAILY 06/23/17 08/20/17 History [Levothyroxine 100mcg (0.1MG) Tab] Losartan/Hydrochlorothiazide 1 tab PO DAILY 06/23/17 08/20/17 History [Losartan-Hctz 50-12.5 mg Tab] Meloxicam 15 mg PO DAILY 06/23/17 08/20/17 History Nitroglycerin 0.4 mg SL Q5MINP PRN 06/23/17 08/20/17 History Potassium Chloride [K-Tab ER 20 40 meq PO BID 06/23/17 08/20/17 History mEq] Pravastatin Sodium [Pravachol 20mg 20 mg PO HS 06/23/17 08/20/17 History Tablet] Sitagliptin Phos/Metformin HCl 1 tab PO DAILY 06/23/17 08/20/17 History [Janumet Xr 50-1,000 mg Tablet] diazePAM [Valium] 2 mg PO BID 06/23/17 08/20/17 History dilTIAZem HCl [Cartia Xt] 300 mg PO DAILY 06/23/17 08/20/17 History Lisinopril [Lisinopril 5mg Tablet] 5 mg PO DAILY 06/24/17 08/20/17 History doxazosin 4 mg tablet 4 mg PO DAILY tab 07/12/17 08/21/17 History meclizine 12.5 mg tablet 25 mg PO TID tab 07/12/17 08/20/17 History mupirocin 2 % topical ointment 1 applic TOPICAL BID 07/12/17 08/20/17 History Allergies Allergy/AdvReac Type Severity Reaction Status Date / Time No Known Allergies Allergy Verified 08/13/17 13:57 Exam Vital signs and Labs for Last 24 Hours: Temp Pulse Resp BP Pulse Ox 98.5 F 74 20 138/62 94 L 08/21/17 08:00 08/21/17 08:00 08/21/17 08:00 08/21/17 08:00 08/21/17 08:00 Laboratory Results - last 24 hr 08/20/17 14:45: WBC 8.5, RBC 3.60 L, Hgb 10.3 L, Hct 31.2 L, MCV 86.6, MCH 28.7 , MCHC 33.1, RDW 14.8, Plt Count 232, MPV 7.9, Neut % (Auto) 77.9, Lymph % (Auto ) 12.5, [place] % (Auto) 7.5, Eos % (Auto) 1.5, Baso % (Auto) 0.6, Neut # (Auto) 6.6, Lymph # (Auto) 1.1, [place] # (Auto) 0.6, Eos # (Auto) 0.1, Baso # (Auto) 0.1 08/20/17 14:45: Sodium 144, Potassium 3.3 L, Chloride 105, Carbon Dioxide 32, Anion Gap 10.3, BUN 28 H, Creatinine 1.69 H, Estimated Creat Clear 66, Estimated GFR 41 L, Est GFR ( Amer) 49 L, Glucose 165 H, Calcium 9.0, Total Bilirubin 0.3, AST 12 L, ALT 39, Alkaline Phosphatase 105, Troponin I < 0.02, Total Protein 6.0 L, Albumin 2.9 L, Globulin 3.1, Albumin/Globulin Ratio 0.9 L 08/20/17 14:45: PT 10.7, INR 1.04, APTT 27.5 08/20/17 21:44: POC Glucose 204 H 08/20/17 21:56: WBC 9.2, RBC 2.88 L, Hgb 8.0 L D, Hct 25.1 L, MCV 87.0, MCH 27.9 , MCHC 32.1, RDW 14.8, Plt Count 207, MPV 8.7, Neut % (Auto) 76.5, Lymph % (Auto ) 14.8, [place] % (Auto) 6.2, Eos % (Auto) 2.0, Baso % (Auto) 0.5, Neut # (Auto) 7.0, Lymph # (Auto) 1.4, [place] # (Auto) 0.6, Eos # (Auto) 0.2, Baso # (Auto) 0.1 08/20/17 23:15: Blood Type O Positive, Antibody Screen Negative, Crossmatch (AHG ) See Detail 08/20/17 23:20: Blood Type Confirm O Positive 08/21/17 06:19: POC Glucose 161 H 08/21/17 07:30: Sodium 141, Potassium 2.7 L*, Chloride 103, Carbon Dioxide 32, Anion Gap 8.7, BUN 25 H, Creatinine 1.52 H, Estimated Creat Clear 73, Estimated GFR 46 L, Est GFR ( Amer) 56 L, Glucose 158 H, Calcium 8.7, Total Bilirubin 0.4, AST 10 L, ALT 34, Alkaline Phosphatase 79, Total Protein 5.3 L, Albumin 2.6 L D, Globulin 2.7, Albumin/Globulin Ratio 1.0 L 08/21/17 07:37: WBC 8.0, RBC 3.35 L, Hgb 9.4 L D, Hct 28.8 L, MCV 85.5, MCH 27.8 , MCHC 32.5, RDW 15.1, Plt Count 186, MPV 8.8, Neut % (Auto) 78.9, Lymph % (Auto ) 15.0, [place] % (Auto) 4.5, Eos % (Auto) 1.3, Baso % (Auto) 0.4, Neut # (Auto) 6.3, Lymph # (Auto) 1.2, [place] # (Auto) 0.4, Eos # (Auto) 0.1, Baso # (Auto) 0.0 I & O for Last 24 hours: Intake & Output 08/18/17 08/19/17 08/20/17 08/21/17 11:59 11:59 11:59 11:59 Intake Total 600 / 600 Balance 600 / 600 Weight 237 lb 1 oz Narrative: Alert and oriented x3. Rate and rhythm regular. + murmur. Trace LE edema. Lung sounds clear and equal. Abdomen soft with mild diffuse tenderness, no guarding or rebound. Normoactive bowel sounds. Mucous membranes moist. Skin slightly pale, warm and dry. Neuro assessment unremarkable. H&P: Result - Labs Labs: Short CBC 08/20/17 08/20/17 08/21/17 Range/Units 14:45 21:56 07:37 WBC 8.5 9.2 8.0 (4.8-10.8) K/mm3 Hgb 10.3 L 8.0 L D 9.4 L D (14.1-18.0) g/dL Hct 31.2 L 25.1 L 28.8 L (42.0-52.0) % Plt Count 232 207 186 (142-424) K/mm3 BMP 08/20/17 08/21/17 14:45 07:30 Sodium 144 141 Potassium 3.3 L 2.7 L* Chloride 105 103 Carbon Dioxide 32 32 BUN 28 H 25 H Creatinine 1.69 H 1.52 H Glucose 165 H 158 H Calcium 9.0 8.7 Cardiac Enzymes 08/20/17 Range/Units 14:45 Troponin I < 0.02 (0.00-0.06) ng/ml Liver Function 08/20/17 08/21/17 Range/Units 14:45 07:30 Total Bilirubin 0.3 0.4 (0.2-1.0) mg/dL AST 12 L 10 L (15-37) U/L ALT 39 34 (12-78) U/L Alkaline Phosphatase 105 79 (46-116) U/L Albumin 2.9 L 2.6 L D (3.4-5.0) gm/dL Assessment and Plan (1) Anemia Current visit: Yes Status: Acute Qualifiers: Anemia type: other cause Category: Medical Code(s): D64.9 - Anemia, unspecified (2) Lower gastrointestinal bleeding Current visit: Yes Status: Acute Category: Medical Code(s): K92.2 - Gastrointestinal hemorrhage, unspecified (3) Hypokalemia Current visit: No Status: Acute Category: Medical Code(s): E87.6 - Hypokalemia - Assessment and plan all Dx Assessment and Plan for all problems:: Hemoglobin 9.4 this morning. Spoke with Dr. Mcwilliams who feels his bleeding will likely cease with the holding of his Eliquis. Will monitor serial H&Hs and inform Dr. Mcwilliams if hemoglobin continues to drop. K 2.7 this morning, continue oral replacement as ordered. Will recheck CMP and H&H this afternoon and treat as indicated
[2017-08-21 12:57] LABS: Basophils % 0.4 % (0.1-2.0); Eosinophils # 0.1 K/mm3 (0.0-0.4); Eosinophils % 1.4 % (0.1-12.0); Hematocrit 27.6 % (42.0-52.0); Hemoglobin 8.8 g/dL (14.1-18.0); Lymphocytes # 1.1 K/mm3 (0.7-4.5); Lymphocytes % 13.5 K/mm3 (10-50); Mean Corpuscular Hemoglobin 27.3 pg (27.0-31.2); Mean Corpuscular Volume 85.3 fl (80-94); Mean Platelet Volume 9.8 fl (7.4-10.4); Monocytes # 0.5 K/mm3 (0.1-1.0); Monocytes % 6.5 % (1.7-9.3); Neutrophils # 6.5 K/mm3 (1.8-7.8); Neutrophils % 78.1 % (37.0-80.0); Platelet Count 173 K/mm3 (142-424); Red Blood Count 3.23 M/mm3 (4.60-6.20); Red Cell Distribution Width 15.3 % (11.5-17.5); White Blood Count 8.3 K/mm3 (4.8-10.8)
[2017-08-21 13:02] LABS: Anion Gap 8.8 mEq/L (5-15); Calcium 8.6 mg/dL (8.5-10.1)
[2017-08-21 13:30] LABS: Potassium 2.8 mmoL/L (3.5-5.1)
[2017-08-21 19:02] LABS: Hematocrit 24.6 % (42.0-52.0)
[2017-08-21 19:21] LABS: Anion Gap 9.7 mEq/L (5-15); Calcium 8.2 mg/dL (8.5-10.1)
[2017-08-21 19:24] LABS: Potassium 2.7 mmoL/L (3.5-5.1)
[2017-08-22 06:04] LABS: Basophils # 0.1 K/mm3 (0-0.2); Basophils % 0.7 % (0.1-2.0); Eosinophils # 0.3 K/mm3 (0.0-0.4); Eosinophils % 3.5 % (0.1-12.0); Hematocrit 30.4 % (42.0-52.0); Lymphocytes # 0.9 K/mm3 (0.7-4.5); Lymphocytes % 12.1 K/mm3 (10-50); Mean Corpuscular HGB Conc 31.9 g/dL (31.8-35.4); Mean Corpuscular Hemoglobin 27.8 pg (27.0-31.2); Mean Corpuscular Volume 87.2 fl (80-94); Mean Platelet Volume 8.2 fl (7.4-10.4); Monocytes # 0.5 K/mm3 (0.1-1.0); Monocytes % 6.7 % (1.7-9.3); Neutrophils # 5.7 K/mm3 (1.8-7.8); Platelet Count 173 K/mm3 (142-424); Red Blood Count 3.49 M/mm3 (4.60-6.20); Red Cell Distribution Width 15.1 % (11.5-17.5); White Blood Count 7.4 K/mm3 (4.8-10.8)
[2017-08-22 06:15] LABS: Hemoglobin 9.8 g/dL (14.1-18.0)
[2017-08-22 06:24] LABS: Albumin Level 2.5 gm/dL (3.4-5.0); Anion Gap 8.7 mEq/L (5-15); Bilirubin,Total 0.4 mg/dL (0.2-1.0); Calcium 8.3 mg/dL (8.5-10.1); Globulin 2.6 gm/dl (1.3-3.2); Total Protein,Serum 5.1 gm/dL (6.4-8.2)
[2017-08-22 06:29] LABS: Potassium 2.7 mmoL/L (3.5-5.1)
--- NOTE | 2017-08-22 08:06 | Progress Note ---
Internal Medicine - PN: Subj *Date: 08/22/17 *Time: 08:03 Interval history: Transfused another 2 units overnight and this morning hemoglobin up to 9.8. Feels well other than a headache and has just taken some acetaminophen. No bowel movement in about 48 hours. No abdominal pain. Exam Vital signs and Labs for Last 24 Hours: Temp Pulse Resp BP Pulse Ox 98.0 F 62 16 162/67 98 08/22/17 02:35 08/22/17 03:35 08/22/17 03:35 08/22/17 03:35 08/22/17 03:35 Laboratory Results - last 24 hr 08/20/17 23:15: Blood Type O Positive, Antibody Screen Negative, Crossmatch (AHG ) See Detail 08/21/17 11:30: POC Glucose 180 H 08/21/17 12:50: WBC 8.3, RBC 3.23 L, Hgb 8.8 L, Hct 27.6 L, MCV 85.3, MCH 27.3, MCHC 32.0, RDW 15.3, Plt Count 173, MPV 9.8, Neut % (Auto) 78.1, Lymph % (Auto) 13.5, [place] % (Auto) 6.5, Eos % (Auto) 1.4, Baso % (Auto) 0.4, Neut # (Auto) 6.5 , Lymph # (Auto) 1.1, [place] # (Auto) 0.5, Eos # (Auto) 0.1, Baso # (Auto) 0.0 08/21/17 12:50: Sodium 140, Potassium 2.8 L*, Chloride 102, Carbon Dioxide 32, Anion Gap 8.8, BUN 24 H, Creatinine 1.56 H, Estimated Creat Clear 71, Estimated GFR 45 L, Est GFR ( Amer) 54 L, Glucose 173 H, Calcium 8.6 08/21/17 16:36: POC Glucose 131 H 08/21/17 18:50: Hgb 8.0 L, Hct 24.6 L 08/21/17 18:50: Sodium 141, Potassium 2.7 L*, Chloride 103, Carbon Dioxide 31, Anion Gap 9.7, BUN 20 H, Creatinine 1.49 H, Estimated Creat Clear 74, Estimated GFR 47 L, Est GFR ( Amer) 57 L, Glucose 174 H, Calcium 8.2 L 08/21/17 20:51: POC Glucose 161 H 08/22/17 05:40: WBC 7.4, RBC 3.49 L, Hgb 9.8 L D, Hct 30.4 L, MCV 87.2, MCH 27.8 , MCHC 31.9, RDW 15.1, Plt Count 173, MPV 8.2, Neut % (Auto) 77.0, Lymph % (Auto ) 12.1, [place] % (Auto) 6.7, Eos % (Auto) 3.5, Baso % (Auto) 0.7, Neut # (Auto) 5.7, Lymph # (Auto) 0.9, [place] # (Auto) 0.5, Eos # (Auto) 0.3, Baso # (Auto) 0.1 08/22/17 05:40: Sodium 143, Potassium 2.7 L*, Chloride 104, Carbon Dioxide 33 H , Anion Gap 8.7, BUN 15, Creatinine 1.24, Estimated Creat Clear 89, Estimated GFR 58 L, Est GFR ( Amer) 71 D, Glucose 139 H D, Calcium 8.3 L, Total Bilirubin 0.4, AST 12 L, ALT 31, Alkaline Phosphatase 71, Total Protein 5.1 L, Albumin 2.5 L, Globulin 2.6, Albumin/Globulin Ratio 1.0 L 08/22/17 06:03: POC Glucose 144 H I & O for Last 24 hours: Intake & Output 08/19/17 08/20/17 08/21/17 08/22/17 11:59 11:59 11:59 11:59 Intake Total 720 / 720 1480 / 1480 Output Total 200 / 200 1250 / 1250 Balance 520 / 520 230 / 230 Weight 237 lb 1 oz Narrative: Pleasant male, alert and oriented. Heart with RRR, systolic murmur. Lungs are clear. Abdomen is obese, soft, NT/ND, BS normal. No edema. Assessment and Plan (1) Anemia Current visit: Yes Status: Acute Qualifiers: Anemia type: other cause Category: Medical Code(s): D64.9 - Anemia, unspecified (2) Lower gastrointestinal bleeding Current visit: Yes Status: Acute Category: Medical Code(s): K92.2 - Gastrointestinal hemorrhage, unspecified (3) Hypokalemia Current visit: No Status: Acute Category: Medical Code(s): E87.6 - Hypokalemia (4) Chronic a-fib Current visit: Yes Status: Chronic Category: Medical Code(s): I48.2 - Chronic atrial fibrillation - Assessment and plan all Dx Assessment and Plan for all problems:: Repeat H&H this afternoon and in AM. If stable, may DC home tomorrow. Advance diet as tolerated today. Increase PO potassium to TID.
[2017-08-22 14:09] LABS: Hematocrit 29.1 % (42.0-52.0); Hemoglobin 9.5 g/dL (14.1-18.0)
[2017-08-22 14:16] LABS: Anion Gap 9.7 mEq/L (5-15); Calcium 8.3 mg/dL (8.5-10.1)
[2017-08-22 14:19] LABS: Potassium 2.7 mmoL/L (3.5-5.1)
[2017-08-23 06:29] LABS: Basophils % 0.3 % (0.1-2.0); Eosinophils # 0.3 K/mm3 (0.0-0.4); Eosinophils % 3.7 % (0.1-12.0); Hematocrit 29.9 % (42.0-52.0); Hemoglobin 9.6 g/dL (14.1-18.0); Lymphocytes # 1.1 K/mm3 (0.7-4.5); Lymphocytes % 15.1 K/mm3 (10-50); Mean Corpuscular HGB Conc 32.2 g/dL (31.8-35.4); Mean Corpuscular Hemoglobin 28.1 pg (27.0-31.2); Mean Corpuscular Volume 87.5 fl (80-94); Mean Platelet Volume 7.8 fl (7.4-10.4); Monocytes # 0.7 K/mm3 (0.1-1.0); Monocytes % 8.9 % (1.7-9.3); Neutrophils # 5.2 K/mm3 (1.8-7.8); Neutrophils % 72.1 % (37.0-80.0); Platelet Count 189 K/mm3 (142-424); Red Blood Count 3.41 M/mm3 (4.60-6.20); Red Cell Distribution Width 15.2 % (11.5-17.5); White Blood Count 7.2 K/mm3 (4.8-10.8)
[2017-08-23 07:12] LABS: Anion Gap 6.9 mEq/L (5-15); Calcium 8.6 mg/dL (8.5-10.1)
[2017-08-23 07:31] LABS: Potassium 2.9 mmoL/L (3.5-5.1)
--- NOTE | 2017-08-23 07:46 | Progress Note ---
Internal Medicine - PN: Subj *Date: 08/23/17 *Time: 07:42 Interval history: No events overnight. He continues to c/o headache but it is relieved with tylenol. No abdominal pain, no further bloody stools and tolerated regular diet. Exam Vital signs and Labs for Last 24 Hours: Temp Pulse Resp BP Pulse Ox 98.5 F 69 18 174/74 97 08/23/17 03:50 08/23/17 03:50 08/23/17 03:50 08/23/17 03:50 08/23/17 03:50 Laboratory Results - last 24 hr 08/22/17 11:55: POC Glucose 191 H 08/22/17 13:57: Sodium 143, Potassium 2.7 L*, Chloride 105, Carbon Dioxide 31, Anion Gap 9.7, BUN 13, Creatinine 1.34 H, Estimated Creat Clear 82, Estimated GFR 53 L, Est GFR ( Amer) 65, Glucose 172 H D, Calcium 8.3 L 08/22/17 13:57: Hgb 9.5 L, Hct 29.1 L 08/22/17 16:13: POC Glucose 154 H 08/22/17 20:29: POC Glucose 207 H 08/23/17 06:06: POC Glucose 146 H 08/23/17 06:10: WBC 7.2, RBC 3.41 L, Hgb 9.6 L, Hct 29.9 L, MCV 87.5, MCH 28.1, MCHC 32.2, RDW 15.2, Plt Count 189, MPV 7.8, Neut % (Auto) 72.1, Lymph % (Auto) 15.1, [place] % (Auto) 8.9, Eos % (Auto) 3.7, Baso % (Auto) 0.3, Neut # (Auto) 5.2 , Lymph # (Auto) 1.1, [place] # (Auto) 0.7, Eos # (Auto) 0.3, Baso # (Auto) 0.0 08/23/17 06:10: Sodium 142, Potassium 2.9 L*, Chloride 105, Carbon Dioxide 33 H , Anion Gap 6.9, BUN 12, Creatinine 1.18, Estimated Creat Clear 95, Estimated GFR 62, Est GFR ( Amer) 75, Glucose 136 H D, Calcium 8.6 I & O for Last 24 hours: Intake & Output 08/20/17 08/21/17 08/22/17 08/23/17 11:59 11:59 11:59 11:59 Intake Total 720 / 720 1480 / 1480 Output Total 200 / 200 1250 / 1250 Balance 520 / 520 230 / 230 Weight 237 lb 1 oz 240 lb 4.862 oz Narrative: Pleasant male, NAD. Sleeping but wakes easily. Alert and oriented with normal speech. Heart with RRR, systolic murmur. Lungs are clear. Abdomen soft, obese, NT/ND, BS normoactive all quadrants. No edema. Assessment and Plan (1) Anemia Current visit: Yes Status: Acute Qualifiers: Anemia type: other cause Category: Medical Code(s): D64.9 - Anemia, unspecified (2) Lower gastrointestinal bleeding Current visit: Yes Status: Acute Category: Medical Code(s): K92.2 - Gastrointestinal hemorrhage, unspecified (3) Hypokalemia Current visit: No Status: Acute Category: Medical Code(s): E87.6 - Hypokalemia (4) Chronic a-fib Current visit: Yes Status: Chronic Category: Medical Code(s): I48.2 - Chronic atrial fibrillation - Assessment and plan all Dx Assessment and Plan for all problems:: Plan is for discharge home later today. Hgb is stable for over 24 hours and potassium is slightly improved (baseline outpatient potassium 3-3.2). Will DC home on oral potassium 40meq TID and PO PPI therapy. Aspirin daily for chronic atrial fibrillation and resume Eliquis after follow-up next week.
--- NOTE | 2017-08-23 09:17 | Discharge Summary ---
General - General Admission date:: 08/20/17 Discharge date: 08/23/17 HPI HPI: 66 year old male with multiple chronic medical conditions who underwent a colonoscopy with Dr. Mcwilliams on Saturday presented to the ED with weakness and rectal bleeding. According to the ED report, patient had the colonoscopy as a result of a positive cologuard test and had 10 polyps removed. Patient has a history of A. fib for which he takes Eliquis and it was restarted yesterday morning. Patient reports he began having bright red bleeding from his rectum late Saturday night. He describes as cupfuls of blood. He became increasing weakness and short of breath. He presented to the ED last night for evaluation. In the ED, initial HGB was around 10. He was admitted for serial H& H's and further evaluation. Repeat hemoglobin last night was 8. He was tranfused with 2 units of PRBC's. This morning, patient reports he feels significantly better. Continues to have some weakness. No chest pain or shortness of breath. He has not had any bloody stools this morning. Hospital Course Hospital Course: Mr. Oates was admitted, anticoagulants held, and he was transfused a total of 4 units of PRBCS. After dropping to 8.0 just after admission, hemoglobin has stabilized around 9.5. He had no further blood per rectum after the day of admission. Diet was advanced to regular diet on 08/22/17 and he is tolerating this without difficulty. He was also treated for hypokalemia which has been a chronic problem for him. Baseline potassium on an outpatient basis has been around 3.1. He has had several runs of IV potassium and oral potassium was increased to TID. On day of discharge his hemoglobin has been stable above 9 for over 24 hours and no further blood per rectum. Dr Mcwilliams agreed with plan to discharge home with close outpatient follow-up to repeat hemoglobin and hematocrit. He will be discharged on aspirin 325mg daily with food and Eliquis will be resumed after outpatient follow-up next week. Objective Vital signs: Temp Pulse Resp BP Pulse Ox 98.5 F 69 18 174/74 97 08/23/17 03:50 08/23/17 03:50 08/23/17 03:50 08/23/17 03:50 08/23/17 03:50 Narrative: Pleasant male, alert and oriented x 3. Heart rhythm is regular by auscultation this morning, 2/6 systolic murmur. Lungs are clear. Abdomen is obese, soft, NT/ ND, BS present. No edema. Results Labs on day of discharge: Labs from last 24 hours 08/23/17 08/23/17 08/23/17 06:10 06:10 06:06 WBC 7.2 RBC 3.41 L Hgb 9.6 L Hct 29.9 L MCV 87.5 MCH 28.1 MCHC 32.2 RDW 15.2 Plt Count 189 MPV 7.8 Neut % (Auto) 72.1 Lymph % (Auto) 15.1 [place] % (Auto) 8.9 Eos % (Auto) 3.7 Baso % (Auto) 0.3 Neut # (Auto) 5.2 Lymph # (Auto) 1.1 [place] # (Auto) 0.7 Eos # (Auto) 0.3 Baso # (Auto) 0.0 Sodium 142 Potassium 2.9 L* Chloride 105 Carbon Dioxide 33 H Anion Gap 6.9 BUN 12 Creatinine 1.18 Estimated Creat Clear 95 Estimated GFR 62 Est GFR ( Amer) 75 Glucose 136 H D POC Glucose 146 H Calcium 8.6 08/22/17 08/22/17 08/22/17 20:29 16:13 13:57 WBC RBC Hgb 9.5 L Hct 29.1 L MCV MCH MCHC RDW Plt Count MPV Neut % (Auto) Lymph % (Auto) [place] % (Auto) Eos % (Auto) Baso % (Auto) Neut # (Auto) Lymph # (Auto) [place] # (Auto) Eos # (Auto) Baso # (Auto) Sodium Potassium Chloride Carbon Dioxide Anion Gap BUN Creatinine Estimated Creat Clear Estimated GFR Est GFR ( Amer) Glucose POC Glucose 207 H 154 H Calcium 08/22/17 08/22/17 13:57 11:55 WBC RBC Hgb Hct MCV MCH MCHC RDW Plt Count MPV Neut % (Auto) Lymph % (Auto) [place] % (Auto) Eos % (Auto) Baso % (Auto) Neut # (Auto) Lymph # (Auto) [place] # (Auto) Eos # (Auto) Baso # (Auto) Sodium 143 Potassium 2.7 L* Chloride 105 Carbon Dioxide 31 Anion Gap 9.7 BUN 13 Creatinine 1.34 H Estimated Creat Clear 82 Estimated GFR 53 L Est GFR ( Amer) 65 Glucose 172 H D POC Glucose 191 H Calcium 8.3 L DS: Diagnosis - Discharge Diagnosis (1) Anemia Status: Acute (2) Lower gastrointestinal bleeding Status: Acute (3) Hypokalemia Status: Chronic (4) Chronic a-fib Status: Chronic Discharge Plan - Patient Discharge Instructions ACTIVITY: Ambulate as tolerated DIET: cardiac Patient Instructions: Atrial Fibrillation, Anemia, DI for Obstructive Sleep Apnea -- Adult, DI for Gastrointestinal Bleeding - Follow up Plan Follow up with: Joy Diallo APRN [Nurse Practitioner] - 08/28/17 Disposition: Home, Self-Correction Medications: Home Medications Medication Instructions Recorded Confirmed Type apixaban 5 mg tablet 5 mg PO BID 90 Days 03/22/17 08/20/17 History clonidine HCl 0.1 mg tablet 0.1 mg PO BID 90 Days 03/22/17 08/20/17 History furosemide 40 mg tablet 40 mg PO BID 30 Days 03/22/17 08/20/17 History hydrochlorothiazide 25 mg tablet 25 mg PO DAILY 90 Days 03/22/17 08/20/17 History omeprazole 20 mg capsule,delayed 20 mg PO DAILY 30 Days 03/22/17 08/20/17 History release Albuterol Sulfate [Albuterol HFA 2 puffs IH Q4-6H PRN 06/23/17 08/20/17 History Inhaler] Amiodarone HCl [Amiodarone 200mg 300 mg PO DAILY 06/23/17 08/20/17 History Tab] Carvedilol [Carvedilol 25mg Tab] 25 mg PO DAILY 06/23/17 08/21/17 History Citalopram Hydrobromide [Celexa 20 mg PO DAILY 06/23/17 08/20/17 History 20mg Tablet] Exenatide Microspheres [Bydureon 2 mg SQ WEEKLY 06/23/17 08/20/17 History Pen] Fluorouracil [Efudex 5% cream 40gm 1 applicatio TOPICAL DAILY 06/23/17 08/20/17 History tube] Latanoprost [Xalatan 0.005% Ophth 1 drop EYE-BOTH HS 06/23/17 08/21/17 History Soln 2.5mL] Levothyroxine Sodium 100 mcg PO DAILY 06/23/17 08/20/17 History [Levothyroxine 100mcg (0.1MG) Tab] Losartan/Hydrochlorothiazide 1 tab PO DAILY 06/23/17 08/20/17 History [Losartan-Hctz 50-12.5 mg Tab] Meloxicam 15 mg PO DAILY 06/23/17 08/20/17 History Nitroglycerin 0.4 mg SL Q5MINP PRN 06/23/17 08/20/17 History Potassium Chloride [K-Tab ER 20 40 meq PO BID 06/23/17 08/20/17 History mEq] Pravastatin Sodium [Pravachol 20mg 20 mg PO HS 06/23/17 08/20/17 History Tablet] Sitagliptin Phos/Metformin HCl 1 tab PO DAILY 06/23/17 08/20/17 History [Janumet Xr 50-1,000 mg Tablet] diazePAM [Valium] 2 mg PO BID 06/23/17 08/20/17 History dilTIAZem HCl [Cartia Xt] 300 mg PO DAILY 06/23/17 08/20/17 History Lisinopril [Lisinopril 5mg Tablet] 5 mg PO DAILY 06/24/17 08/20/17 History doxazosin 4 mg tablet 4 mg PO DAILY tab 07/12/17 08/21/17 History meclizine 12.5 mg tablet 25 mg PO TID tab 07/12/17 08/20/17 History mupirocin 2 % topical ointment 1 applic TOPICAL BID 07/12/17 08/20/17 History Prescriptions/Medication Reconciliation: New Aspirin [Aspirin 325mg Tab] 325 mg PO DAILY 5 Days #30 tab Potassium Chloride [Klor-con 20 mEq tablet] 40 meq PO TID 30 Days #180 tab Continue omeprazole 20 mg capsule,delayed release 20 mg PO DAILY 30 Days furosemide 40 mg tablet 40 mg PO BID 30 Days hydrochlorothiazide 25 mg tablet 25 mg PO DAILY 90 Days clonidine HCl 0.1 mg tablet 0.1 mg PO BID 90 Days meclizine 12.5 mg tablet 25 mg PO TID tab doxazosin 4 mg tablet 4 mg PO DAILY tab diazePAM [Valium] 2 mg PO BID Pravastatin Sodium [Pravachol 20mg Tablet] 20 mg PO HS Albuterol Sulfate [Albuterol HFA Inhaler] 2 puffs IH Q4-6H PRN PRN Reason: Shortness Of Breath Or Wheezing Levothyroxine Sodium [Levothyroxine 100mcg (0.1MG) Tab] 100 mcg PO DAILY Citalopram Hydrobromide [Celexa 20mg Tablet] 20 mg PO DAILY dilTIAZem HCl [Cartia Xt] 300 mg PO DAILY Exenatide Microspheres [Bydureon Pen] 2 mg SQ WEEKLY Fluorouracil [Efudex 5% cream 40gm tube] 1 applicatio TOPICAL DAILY Latanoprost [Xalatan 0.005% Ophth Soln 2.5mL] 1 drop EYE-BOTH HS Nitroglycerin 0.4 mg SL Q5MINP PRN PRN Reason: Chest Pain Sitagliptin Phos/Metformin HCl [Janumet Xr 50-1,000 mg Tablet] 1 tab PO DAILY Amiodarone HCl [Amiodarone 200mg Tab] 300 mg PO DAILY Lisinopril [Lisinopril 5mg Tablet] 5 mg PO DAILY Changed Carvedilol [Carvedilol 25mg Tab] 25 mg PO BID #0 Discontinued apixaban 5 mg tablet 5 mg PO BID 90 Days mupirocin 2 % topical ointment 1 applic TOPICAL BID Potassium Chloride [K-Tab ER 20 mEq] 40 meq PO BID Losartan/Hydrochlorothiazide [Losartan-Hctz 50-12.5 mg Tab] 1 tab PO DAILY Meloxicam 15 mg PO DAILY
[2017-08-23 09:58] VITALS: BP 170/79
== END 2017-08-23 12:37 | disposition home or self-care (01) ==
LOC: ER 14:35 → 2ND 14:35 → OBSVTOIN 16:57 → 2ND 16:58
PROVIDERS: ADMIT Emergency Medicine; ATTEND Internal Medicine Adolescent Medicine

== ENCOUNTER → 2017-08-27 11:25 | Outpatient (CLI) | payer MEDICARE, SELFPAY ==
[2017-08-27 13:38] LABS: Alanine Aminotransferase 27 U/L (12-78); Albumin Level 2.8 gm/dL (3.4-5.0); Albumin/Globulin Ratio 0.9 (1.1-1.8); Alkaline Phosphatase 95 U/L (46-116); Anion Gap 9.1 mEq/L (5-15); Aspartate Amino Transferase 10 U/L (15-37); Basophils % 0.4 % (0.1-2.0); Bilirubin,Total 0.3 mg/dL (0.2-1.0); Blood Urea Nitrogen 18 mg/dL (7-18); Calcium 9.2 mg/dL (8.5-10.1); Carbon Dioxide 35 mmol/L (21.0-32.0); Chloride 102 mmol/L (98-107); Creatinine,Serum 1.27 mg/dL (0.70-1.30); Eosinophils # 0.3 K/mm3 (0.0-0.4); Eosinophils % 3.4 % (0.1-12.0); Estimated Glomerular Filt Rate 57 ml/min (>60); GFR (African American) 68 ML/MIN (>60); Globulin 3.1 gm/dl (1.3-3.2); Glucose 158 mg/dL (74-106); Hematocrit 31.1 % (42.0-52.0); Hemoglobin 9.8 g/dL (14.1-18.0); Lymphocytes # 0.8 K/mm3 (0.7-4.5); Lymphocytes % 10.3 K/mm3 (10-50); Mean Corpuscular HGB Conc 31.6 g/dL (31.8-35.4); Mean Corpuscular Hemoglobin 27.3 pg (27.0-31.2); Mean Corpuscular Volume 86.4 fl (80-94); Mean Platelet Volume 8.4 fl (7.4-10.4); Monocytes # 0.6 K/mm3 (0.1-1.0); Monocytes % 7.7 % (1.7-9.3); Neutrophils # 6.2 K/mm3 (1.8-7.8); Neutrophils % 78.2 % (37.0-80.0); Platelet Count 288 K/mm3 (142-424); Potassium 3.1 mmoL/L (3.5-5.1); Red Cell Distribution Width 14.7 % (11.5-17.5); Sodium 143 mmol/L (136-145); Total Protein,Serum 5.9 gm/dL (6.4-8.2); White Blood Count 7.9 K/mm3 (4.8-10.8)
== END ==
PROVIDERS: Visit Provider Internal Medicine Adolescent Medicine
DX: K92.2 Gastrointestinal hemorrhage, unspecified (principal)
CPT/HCPCS: 36415; 80053; 85025

== ENCOUNTER → 2017-09-05 10:18 | Outpatient (CLI) | payer MEDICARE, SELFPAY ==
[2017-09-05 13:55] LABS: Alanine Aminotransferase 29 U/L (12-78); Albumin Level 2.7 gm/dL (3.4-5.0); Albumin/Globulin Ratio 0.8 (1.1-1.8); Alkaline Phosphatase 99 U/L (46-116); Aspartate Amino Transferase 8 U/L (15-37); Bilirubin,Total 0.6 mg/dL (0.2-1.0); Blood Urea Nitrogen 14 mg/dL (7-18); Calcium 8.6 mg/dL (8.5-10.1); Carbon Dioxide 35 mmol/L (21.0-32.0); Chloride 102 mmol/L (98-107); Creatinine,Serum 1.22 mg/dL (0.70-1.30); Estimated Glomerular Filt Rate 59 ml/min (>60); GFR (African American) 72 ML/MIN (>60); Globulin 3.2 gm/dl (1.3-3.2); Glucose 145 mg/dL (74-106); Sodium 143 mmol/L (136-145); Total Protein,Serum 5.9 gm/dL (6.4-8.2)
[2017-09-05 14:03] LABS: Basophils % 0.4 % (0.1-2.0); Eosinophils # 0.2 K/mm3 (0.0-0.4); Eosinophils % 2.5 % (0.1-12.0); Hematocrit 28.9 % (42.0-52.0); Lymphocytes # 0.7 K/mm3 (0.7-4.5); Lymphocytes % 8.7 K/mm3 (10-50); Mean Corpuscular Volume 87.1 fl (80-94); Mean Platelet Volume 8.4 fl (7.4-10.4); Monocytes # 0.7 K/mm3 (0.1-1.0); Monocytes % 7.9 % (1.7-9.3); Neutrophils # 6.6 K/mm3 (1.8-7.8); Neutrophils % 80.5 % (37.0-80.0); Platelet Count 292 K/mm3 (142-424); Red Blood Count 3.32 M/mm3 (4.60-6.20); Red Cell Distribution Width 14.4 % (11.5-17.5); White Blood Count 8.2 K/mm3 (4.8-10.8)
== END ==
PROVIDERS: Visit Provider Internal Medicine Adolescent Medicine
DX: R53.83 Other fatigue (principal); N18.2 Chronic kidney disease, stage 2 (mild)
CPT/HCPCS: 36415; 80053; 83735; 85025

== ENCOUNTER → 2017-09-09 08:40 | Outpatient (CLI) | payer MEDICARE, SELFPAY ==
[2017-09-09 14:19] LABS: Basophils # 0.1 K/mm3 (0-0.2); Basophils % 0.5 % (0.1-2.0); Eosinophils # 0.4 K/mm3 (0.0-0.4); Eosinophils % 3.8 % (0.1-12.0); Hematocrit 31.6 % (42.0-52.0); Hemoglobin 9.6 g/dL (14.1-18.0); Lymphocytes # 1.1 K/mm3 (0.7-4.5); Lymphocytes % 10.5 K/mm3 (10-50); Mean Corpuscular HGB Conc 30.4 g/dL (31.8-35.4); Mean Corpuscular Hemoglobin 26.6 pg (27.0-31.2); Mean Corpuscular Volume 87.5 fl (80-94); Mean Platelet Volume 8.4 fl (7.4-10.4); Monocytes # 0.7 K/mm3 (0.1-1.0); Neutrophils # 7.8 K/mm3 (1.8-7.8); Neutrophils % 78.2 % (37.0-80.0); Platelet Count 365 K/mm3 (142-424); Red Blood Count 3.62 M/mm3 (4.60-6.20); Red Cell Distribution Width 14.3 % (11.5-17.5)
[2017-09-09 14:31] LABS: Anion Gap 9.2 mEq/L (5-15); Blood Urea Nitrogen 15 mg/dL (7-18); Calcium 8.3 mg/dL (8.5-10.1); Carbon Dioxide 32 mmol/L (21.0-32.0); Chloride 102 mmol/L (98-107); Creatinine,Serum 1.22 mg/dL (0.70-1.30); Estimated Glomerular Filt Rate 59 ml/min (>60); GFR (African American) 72 ML/MIN (>60); Glucose 168 mg/dL (74-106); Magnesium 1.9 mg/dL (1.4-2.2); Potassium 3.2 mmoL/L (3.5-5.1); Sodium 140 mmol/L (136-145)
== END ==
PROVIDERS: Visit Provider Internal Medicine Adolescent Medicine
DX: E87.6 Hypokalemia (principal); D50.0 Iron deficiency anemia secondary to blood loss (chronic)
CPT/HCPCS: 36415; 80048; 83735; 85025

== ENCOUNTER → 2017-09-16 07:15 | Outpatient (CLI) | payer MEDICARE, SELFPAY ==
[2017-09-16 13:24] LABS: Basophils # 0.1 K/mm3 (0-0.2); Basophils % 0.8 % (0.1-2.0); Eosinophils # 0.4 K/mm3 (0.0-0.4); Eosinophils % 4.6 % (0.1-12.0); Hematocrit 32.1 % (42.0-52.0); Hemoglobin 9.8 g/dL (14.1-18.0); Lymphocytes # 1.2 K/mm3 (0.7-4.5); Lymphocytes % 12.7 K/mm3 (10-50); Mean Corpuscular HGB Conc 30.5 g/dL (31.8-35.4); Mean Corpuscular Hemoglobin 26.6 pg (27.0-31.2); Mean Corpuscular Volume 87.2 fl (80-94); Mean Platelet Volume 7.8 fl (7.4-10.4); Monocytes # 0.6 K/mm3 (0.1-1.0); Monocytes % 6.6 % (1.7-9.3); Neutrophils # 6.8 K/mm3 (1.8-7.8); Neutrophils % 75.3 % (37.0-80.0); Platelet Count 370 K/mm3 (142-424); Red Blood Count 3.68 M/mm3 (4.60-6.20); Red Cell Distribution Width 14.3 % (11.5-17.5)
[2017-09-16 13:30] LABS: Anion Gap 13.7 mEq/L (5-15); Blood Urea Nitrogen 21 mg/dL (7-18); Calcium 8.9 mg/dL (8.5-10.1); Carbon Dioxide 30 mmol/L (21.0-32.0); Chloride 103 mmol/L (98-107); Creatinine,Serum 1.29 mg/dL (0.70-1.30); Estimated Glomerular Filt Rate 56 ml/min (>60); GFR (African American) 67 ML/MIN (>60); Glucose 157 mg/dL (74-106); Potassium 4.7 mmoL/L (3.5-5.1); Sodium 142 mmol/L (136-145)
== END ==
PROVIDERS: Visit Provider Internal Medicine Adolescent Medicine
DX: D50.0 Iron deficiency anemia secondary to blood loss (chronic) (principal); E87.6 Hypokalemia
CPT/HCPCS: 36415; 80048; 85025

== ENCOUNTER → 2017-09-30 07:03 | Outpatient (CLI) | payer MEDICARE, SELFPAY ==
[2017-09-30 14:00] LABS: Basophils # 0.1 K/mm3 (0-0.2); Basophils % 0.7 % (0.1-2.0); Eosinophils # 0.5 K/mm3 (0.0-0.4); Eosinophils % 6.1 % (0.1-12.0); Hemoglobin 10.2 g/dL (14.1-18.0); Lymphocytes # 1.1 K/mm3 (0.7-4.5); Lymphocytes % 12.9 K/mm3 (10-50); Mean Corpuscular HGB Conc 31.9 g/dL (31.8-35.4); Mean Corpuscular Hemoglobin 26.8 pg (27.0-31.2); Mean Corpuscular Volume 84.1 fl (80-94); Mean Platelet Volume 8.1 fl (7.4-10.4); Monocytes # 0.6 K/mm3 (0.1-1.0); Monocytes % 6.6 % (1.7-9.3); Neutrophils # 6.1 K/mm3 (1.8-7.8); Neutrophils % 73.7 % (37.0-80.0); Platelet Count 268 K/mm3 (142-424); Red Blood Count 3.81 M/mm3 (4.60-6.20); Red Cell Distribution Width 15.2 % (11.5-17.5); White Blood Count 8.3 K/mm3 (4.8-10.8)
[2017-09-30 14:16] LABS: Alanine Aminotransferase 33 U/L (12-78); Albumin Level 3.5 gm/dL (3.4-5.0); Albumin/Globulin Ratio 1.1 (1.1-1.8); Alkaline Phosphatase 124 U/L (46-116); Anion Gap 10.2 mEq/L (5-15); Aspartate Amino Transferase 7 U/L (15-37); Bilirubin,Total 0.3 mg/dL (0.2-1.0); Blood Urea Nitrogen 25 mg/dL (7-18); Calcium 8.9 mg/dL (8.5-10.1); Carbon Dioxide 30 mmol/L (21.0-32.0); Chloride 101 mmol/L (98-107); Creatinine,Serum 1.49 mg/dL (0.70-1.30); Estimated Glomerular Filt Rate 47 ml/min (>60); GFR (African American) 57 ML/MIN (>60); Globulin 3.3 gm/dl (1.3-3.2); Glucose 170 mg/dL (74-106); Potassium 4.2 mmoL/L (3.5-5.1); Sodium 137 mmol/L (136-145); Total Protein,Serum 6.8 gm/dL (6.4-8.2)
== END ==
PROVIDERS: Visit Provider Internal Medicine Adolescent Medicine
DX: I48.2 Chronic atrial fibrillation (principal); D50.0 Iron deficiency anemia secondary to blood loss (chronic)
CPT/HCPCS: 36415; 80053; 85025

== ENCOUNTER → 2017-10-14 07:27 | Outpatient (CLI) | payer MEDICARE, SELFPAY ==
[2017-10-14 13:51] LABS: Basophils % 0.4 % (0.1-2.0); Eosinophils # 0.4 K/mm3 (0.0-0.4); Hematocrit 33.5 % (42.0-52.0); Hemoglobin 10.8 g/dL (14.1-18.0); Lymphocytes # 1.2 K/mm3 (0.7-4.5); Lymphocytes % 16.3 K/mm3 (10-50); Mean Corpuscular HGB Conc 32.4 g/dL (31.8-35.4); Mean Corpuscular Hemoglobin 26.5 pg (27.0-31.2); Mean Corpuscular Volume 81.7 fl (80-94); Mean Platelet Volume 8.2 fl (7.4-10.4); Monocytes # 0.6 K/mm3 (0.1-1.0); Monocytes % 8.2 % (1.7-9.3); Neutrophils % 70.1 % (37.0-80.0); Platelet Count 282 K/mm3 (142-424); Red Cell Distribution Width 15.1 % (11.5-17.5); White Blood Count 7.2 K/mm3 (4.8-10.8)
[2017-10-14 13:53] LABS: Hemoglobin A1C 7.5 % (0.0-7.0)
[2017-10-14 13:57] LABS: Alanine Aminotransferase 35 U/L (12-78); Albumin Level 3.4 gm/dL (3.4-5.0); Alkaline Phosphatase 104 U/L (46-116); Anion Gap 14.1 mEq/L (5-15); Aspartate Amino Transferase 8 U/L (15-37); Bilirubin,Total 0.3 mg/dL (0.2-1.0); Blood Urea Nitrogen 42 mg/dL (7-18); Calcium 9.2 mg/dL (8.5-10.1); Carbon Dioxide 27 mmol/L (21.0-32.0); Chloride 102 mmol/L (98-107); Creatinine,Serum 1.82 mg/dL (0.70-1.30); Estimated Glomerular Filt Rate 37 ml/min (>60); GFR (African American) 45 ML/MIN (>60); Globulin 3.4 gm/dl (1.3-3.2); Glucose 169 mg/dL (74-106); Potassium 4.1 mmoL/L (3.5-5.1); Sodium 139 mmol/L (136-145); Thyroid Stimulating Hormone 2.54 uIU/ml (0.358-3.740); Total Protein,Serum 6.8 gm/dL (6.4-8.2)
== END ==
PROVIDERS: Visit Provider Internal Medicine Adolescent Medicine
DX: I48.2 Chronic atrial fibrillation (principal); E11.9 Type 2 diabetes mellitus without complications
CPT/HCPCS: 36415; 80053; 83036; 84443; 85025

== ENCOUNTER → 2017-11-04 08:07 | Outpatient (CLI) | payer MEDICARE, SELFPAY ==
[2017-11-04 13:40] LABS: Alanine Aminotransferase 55 U/L (12-78); Albumin Level 3.3 gm/dL (3.4-5.0); Alkaline Phosphatase 86 U/L (46-116); Anion Gap 12.4 mEq/L (5-15); Aspartate Amino Transferase 10 U/L (15-37); Bilirubin,Total 0.4 mg/dL (0.2-1.0); Blood Urea Nitrogen 22 mg/dL (7-18); Carbon Dioxide 28 mmol/L (21.0-32.0); Chloride 103 mmol/L (98-107); Estimated Glomerular Filt Rate 51 ml/min (>60); GFR (African American) 61 ML/MIN (>60); Globulin 3.3 gm/dl (1.3-3.2); Glucose 133 mg/dL (74-106); Potassium 4.4 mmoL/L (3.5-5.1); Sodium 139 mmol/L (136-145); Total Protein,Serum 6.6 gm/dL (6.4-8.2)
[2017-11-04 13:46] LABS: Basophils % 0.4 % (0.1-2.0); Eosinophils # 0.3 K/mm3 (0.0-0.4); Eosinophils % 3.5 % (0.1-12.0); Hematocrit 29.4 % (42.0-52.0); Hemoglobin 10.8 g/dL (14.1-18.0); Lymphocytes # 0.9 K/mm3 (0.7-4.5); Lymphocytes % 12.9 K/mm3 (10-50); Mean Corpuscular HGB Conc 36.6 g/dL (31.8-35.4); Mean Corpuscular Hemoglobin 29.4 pg (27.0-31.2); Mean Corpuscular Volume 80.4 fl (80-94); Mean Platelet Volume 7.7 fl (7.4-10.4); Monocytes # 0.5 K/mm3 (0.1-1.0); Monocytes % 7.1 % (1.7-9.3); Neutrophils # 5.6 K/mm3 (1.8-7.8); Neutrophils % 76.1 % (37.0-80.0); Platelet Count 239 K/mm3 (142-424); Red Blood Count 3.66 M/mm3 (4.60-6.20); Red Cell Distribution Width 15.9 % (11.5-17.5); White Blood Count 7.3 K/mm3 (4.8-10.8)
== END ==
PROVIDERS: PCP Internal Medicine Adolescent Medicine; Visit Provider Internal Medicine Adolescent Medicine
DX: N18.2 Chronic kidney disease, stage 2 (mild) (principal); D50.0 Iron deficiency anemia secondary to blood loss (chronic)
CPT/HCPCS: 36415; 80053; 85025

== ENCOUNTER → 2017-11-20 20:07 | Outpatient (CLI) | payer MEDICARE, SELFPAY | PROVIDERS: PCP Internal Medicine Adolescent Medicine; Visit Provider Nurse Practitioner Family | DX: G47.33 Obstructive sleep apnea (adult) (pediatric) (principal); G47.8 Other sleep disorders | CPT/HCPCS: 95811 ==

== ENCOUNTER 2018-01-07 14:59 | Observation (INO) ==
[2018-01-07 16:00] LABS: Basophils # 0.1 K/mm3 (0-0.2); Basophils % 0.5 % (0.1-2.0); Eosinophils # 0.3 K/mm3 (0.0-0.4); Eosinophils % 2.3 % (0.1-12.0); Hematocrit 34.8 % (42.0-52.0); Hemoglobin 11.6 g/dL (14.1-18.0); Lymphocytes % 8.8 K/mm3 (10-50); Mean Corpuscular HGB Conc 33.2 g/dL (31.8-35.4); Mean Corpuscular Hemoglobin 26.9 pg (27.0-31.2); Mean Platelet Volume 7.4 fl (7.4-10.4); Monocytes # 0.7 K/mm3 (0.1-1.0); Monocytes % 6.7 % (1.7-9.3); Neutrophils # 8.9 K/mm3 (1.8-7.8); Neutrophils % 81.6 % (37.0-80.0); Platelet Count 261 K/mm3 (142-424); Red Cell Distribution Width 18.7 % (11.5-17.5); White Blood Count 10.9 K/mm3 (4.8-10.8)
--- NOTE | 2018-01-07 16:10 | Emergency Department Note ---
ED Disposition Clinical Impression: TIA (transient ischemic attack), IDDM (insulin dependent diabetes mellitus), CAD (coronary artery disease), Obesity (BMI 30-39.9) Disposition: Still a Patient Condition on Discharge: Fair - Critical Care Critical Care Time: No Attestation: On 01/07/18, the high probability of a clinically significant, sudden or life threatening deterioration of the following system(s) required my full and direct attention, intervention and personal management. The time I documented below is in addition to time spent performing reported procedures but includes the following listed in this critical care notation. Medical Decision Making - Atul Inquiry Pt receiving controlled substance: No Atul was queried for this patient: No Vital Signs: 01/07/18 15:00 01/07/18 15:55 01/07/18 16:54 Temperature 97.7 F Temperature Source Oral Pulse Rate [Right Brachial] 67 74 67 Respiratory Rate 20 20 18 Blood Pressure [Right Arm] 174/94 H 142/81 H 178/87 H Blood Pressure Mean [Right Arm] 120 101 117 Blood Pressure Source [Right Arm] Automatic Cuff Automatic Cuff Automatic Cuff Blood Pressure Position [Right Arm] Sitting Supine Sitting 02 Sat by Pulse Oximetry 97 97 96 Oxygen Delivery Method Room Air Room Air Room Air - Lab Data Lab Results 01/07/18 15:50: WBC 10.9 H, RBC 4.30 L, Hgb 11.6 L, Hct 34.8 L, MCV 81.0, MCH 26.9 L, MCHC 33.2, RDW 18.7 H, Plt Count 261, MPV 7.4, Neut % (Auto) 81.6 H, Lymph % (Auto) 8.8 L, [place] % (Auto) 6.7, Eos % (Auto) 2.3, Baso % (Auto) 0.5, Neut # (Auto) 8.9 H, Lymph # (Auto) 1.0, [place] # (Auto) 0.7, Eos # (Auto) 0.3, Baso # (Auto) 0.1 01/07/18 15:50: Sodium 134 L, Potassium 5.4 H, Chloride 100, Carbon Dioxide 26, Anion Gap 13.4, BUN 32 H, Creatinine 1.79 H, Estimated Creat Clear 66, Estimated GFR 38 L, Est GFR ( Amer) 46 L, Glucose 156 H, Calcium 8.7, Total Bilirubin 0.5, AST 10 L, ALT 40, Alkaline Phosphatase 102, Total Protein 7.5, Albumin 3.5, Globulin 4.0 H, Albumin/Globulin Ratio 0.9 L 01/07/18 16:01: POC Glucose 163 H Result diagrams: 01/07/18 15:50 01/07/18 15:50 Orders (Tests/Meds): ORDERS Category Date Time Status Cardiac Enzymes Stat Lab 01/07/18 16:33 Ordered - CT Data CT Scan: Head Time Received: 16:[address] Reviewed: Yes: I have viewed the radiologist's interpretation Preliminary Findings: Abnormal Findings Narrative: MPRESSION: 1. No acute intracranial findings. 2. Chronic ischemic gliotic changes. 3. Sinusitis, left mastoid effusion 4. There is no evidence of intracranial hemorrhage, focal mass, or acute territorial infarction. A negative CT does not exclude an acute CVA. A follow-up head CT or MRI is recommended if neurological symptoms persist - ECG Data Tracing #1 Normal sinus rhythm with first-degree AV block 67/min baseline artifact no acute findings. ECG initial impression date: 01/07/18 ECG initial impression time: 17:05 Medical Decision Narrative: MPRESSION: 1. No acute intracranial findings. 2. Chronic ischemic gliotic changes. 3. Sinusitis, left mastoid effusion 4. There is no evidence of intracranial hemorrhage, focal mass, or acute territorial infarction. A negative CT does not exclude an acute CVA. A follow-up head CT or MRI is recommended if neurological symptoms persist I reviewed the above CT scan and repeated the neurological examination and the patient has markedly improved his flattening of the mid nasolabial fold has disappeared. Repeated Accu-Chek sugar is 160. Motor power of the upper and lower extremity has improved to 5/5 and was able to maintain it for 5 seconds. Upon the arrival she believes he is back to his baseline. He is on anticoagulation using Eliquis due to cardiac condition. I discussed his clinical scenario with Dr. Pendleton agreed to admit her for observation. Weakness HPI - General Stated complaint: R sided weakess, slurred speech Time Seen by Provider: 01/07/18 15:00 Mode of Arrival: EMS Limitations: No Limitations Description of Symptoms (Recalled from ER Triage Doc. by RN): Per pt report he began feeling weak at approx 1230, per EMS report-pt reported to them that he was having slurred speech and R side weakness. Upon arrival to ED speech is not slurred, pt appears to be weak on salo sides of body - History of Present Illness HPI Narrative: 67 years old white male with multiple medical problems including insulin- dependent diabetes mellitus, hypoglycemia, coronary artery disease and prior TIAs. Status prior to arrival the patient developed generalized weakness and slurred speech, the gave him peanut butter and contacted EMS upon arrival sugar was 166. She was brought to the ED, underwent a fast examination with a result of right deviation of the nasolabial fold negative of weakness on the left nasal labial fold. Patient was generally weak in both upper and lower extremity there is no focal deficit by fast exam. Patient was taken to CT scan with the results below: MPRESSION: 1. No acute intracranial findings. 2. Chronic ischemic gliotic changes. 3. Sinusitis, left mastoid effusion 4. There is no evidence of intracranial hemorrhage, focal mass, or acute territorial infarction. A negative CT does not exclude an acute CVA. A follow-up head CT or MRI is recommended if neurological symptoms persist MD Complaint: generalized weakness, focal weakness Onset (ago): minute(s) Duration: constant Migration: none Relieving factors: none Exacerbating factors: none Associated symptoms: denies other symptoms - Related Data Home Medications Medication Instructions Recorded Confirmed clonidine HCl 0.1 mg tablet 0.1 mg PO BID 90 Days 03/22/17 12/05/17 furosemide 40 mg tablet 40 mg PO BID 30 Days 03/22/17 12/05/17 omeprazole 20 mg capsule,delayed 20 mg PO DAILY 30 Days 03/22/17 12/05/17 release Albuterol Sulfate [Albuterol HFA 2 puffs IH Q4-6H PRN 06/23/17 12/05/17 Inhaler] Amiodarone HCl [Amiodarone 200mg 300 mg PO DAILY 06/23/17 12/05/17 Tab] Citalopram Hydrobromide [Celexa 20 mg PO DAILY 06/23/17 12/05/17 20mg Tablet] Exenatide Microspheres [Bydureon 2 mg SQ WEEKLY 06/23/17 12/05/17 Pen] Fluorouracil [Efudex 5% cream 40gm 1 applicatio TOPICAL DAILY 06/23/17 12/05/17 tube] Latanoprost [Xalatan 0.005% Ophth 1 drp EYE-BOTH HS 06/23/17 12/05/17 Soln 2.5mL] Levothyroxine Sodium 100 mcg PO DAILY 06/23/17 12/05/17 [Levothyroxine 100mcg (0.1MG) Tab] Nitroglycerin 0.4 mg SL Q5MINP PRN 06/23/17 12/05/17 Pravastatin Sodium [Pravachol 20mg 20 mg PO HS 06/23/17 12/05/17 Tablet] Sitagliptin Phos/Metformin HCl 1 tab PO DAILY 06/23/17 12/05/17 [Janumet Xr 50-1,000 mg Tablet] diazePAM [Valium] 2 mg PO BID 06/23/17 12/05/17 dilTIAZem HCl [Cartia Xt] 300 mg PO DAILY 06/23/17 12/05/17 Lisinopril [Lisinopril 5mg Tablet] 5 mg PO DAILY 06/24/17 12/05/17 doxazosin 4 mg tablet 4 mg PO DAILY tab 07/12/17 12/05/17 meclizine 12.5 mg tablet 25 mg PO TID tab 07/12/17 12/05/17 Aspirin [Aspirin 325mg Tab] 325 mg PO DAILY 10/24/17 12/05/17 Exenatide Microspheres [Bydureon 2 mg PO DAILY 10/24/17 12/05/17 Pen] Potassium Chloride [Klor-con 20 40 meq PO TID 10/24/17 12/05/17 mEq tablet] apixaban 5 mg tablet 5 mg PO 90 Days tab 10/29/17 12/05/17 meloxicam 15 mg tablet 15 mg PO 90 Days tab 10/29/17 12/05/17 spironolactone 25 mg tablet PO 30 Days 10/29/17 12/05/17 Previous Rx's Medication Instructions Recorded Carvedilol [Carvedilol 25mg Tab] 25 mg PO BID #0 08/23/17 Allergies Allergy/AdvReac Type Severity Reaction Status Date / Time No Known Allergies Allergy Verified 12/05/17 13:30 [facility] History I have reviewed the patient's past medical history: Yes Medical History: Reports:: Atrial Fibrillation, Chronic Obstructive Pulmonary Disease (COPD), Coronary Artery Disease, Diabetes Mellitus Type 2, Gastroesophageal Reflux Disease(GERD), Hypertension, Lung Disease Denies:: Cancer, Diabetes Mellitus Type 1, Internal Pacemaker, MRSA, Seizures Other Medical History: Reports: Cataracts, Glaucoma, Hypothyroidism, Sinus Problems. Denies: Blood Transfusion Reaction Comment: Recent positive cologuard test, scheduled for visit with GI today Laterality Cases: Bilateral: Myringotomy (Ear Tubes) Other Surgeries: Yes: Cardiac Catheterization, Sinus Surgery, Skin Cancer Excision. No: Pacemaker Amputation: No Fractures: Yes ((R) dislocated shoulder) - Social History Smoking Status: Former smoker Tobacco Type: cigarettes Alcohol Intake: never Alcohol Intake Frequency:: holidays/special occasions only Substance Use Type: denies use Occupational Status: retired Housing: house Household Members: spouse Family Hx:: Cancer, Coronary Artery Disease, Diabetes, Hyperlipidemia, Hypertension, Thyroid Disorder ROS Obtained: Yes All systems reviewed & no additional complaints Physical Exam - General General appearance: alert, in no apparent distress - Head Head exam: atraumatic, normocephalic, normal inspection - Eye Eye exam: Present: normal appearance, PERRL, EOMI - ENT ENT exam: Present: normal exam, normal oropharynx, mucous membranes moist, TM's normal bilaterally, normal external ear exam - Neck Neck exam: Present: normal inspection, full ROM, trachea midline. Absent: meningismus, lymphadenopathy - Chest Chest inspection: Present: normal inspection, symmetric chest wall rise. Absent: tenderness - Respiratory Respiratory exam: Present: normal lung sounds bilaterally. Absent: respiratory distress - Cardiovascular Cardiovascular exam: Present: regular rate, normal rhythm. Absent: JVD - Abdominal Exam Abdominal exam: Present: soft, normal bowel sounds, other (Obese soft abdomen with no focal tenderness. ). Absent: distention, tenderness, guarding, rebound, rigidity, Starr's sign, tenderness at McBurney's Point - exam: Present: normal inspection - Back Exam Back exam: Present: normal inspection. Absent: tenderness, CVA tenderness (R), CVA tenderness (L), paraspinal tenderness, vertebral tenderness - Neurological Exam Neurological exam: Present: alert, oriented X3, motor sensory deficit, reflexes normal, other (There was flattening of the left nasolabial fold, motor power in both upper and lower extremities 4/5. ) - Psychiatric Psychiatric exam: Present: normal affect, normal mood - Skin Skin exam: Present: warm, dry, intact, normal color - Lymphatic Lymphatic Findings: no adenopathy
[2018-01-07 16:19] LABS: Albumin Level 3.5 gm/dL (3.4-5.0); Albumin/Globulin Ratio 0.9 (1.1-1.8); Anion Gap 13.4 mEq/L (5-15); Bilirubin,Total 0.5 mg/dL (0.2-1.0); Calcium 8.7 mg/dL (8.5-10.1); Potassium 5.4 mmoL/L (3.5-5.1); Total Protein,Serum 7.5 gm/dL (6.4-8.2)
[2018-01-07 17:29] LABS: Creatine Kinase 92 U/L (39-308)
[2018-01-08 06:47] LABS: Basophils # 0.1 K/mm3 (0-0.2); Basophils % 0.8 % (0.1-2.0); Eosinophils # 0.3 K/mm3 (0.0-0.4); Eosinophils % 3.6 % (0.1-12.0); Hematocrit 34.8 % (42.0-52.0); Hemoglobin 11.3 g/dL (14.1-18.0); Lymphocytes # 1.3 K/mm3 (0.7-4.5); Lymphocytes % 17.3 K/mm3 (10-50); Mean Corpuscular HGB Conc 32.4 g/dL (31.8-35.4); Mean Corpuscular Hemoglobin 26.3 pg (27.0-31.2); Mean Corpuscular Volume 81.2 fl (80-94); Mean Platelet Volume 7.3 fl (7.4-10.4); Monocytes # 0.6 K/mm3 (0.1-1.0); Monocytes % 8.7 % (1.7-9.3); Neutrophils # 5.2 K/mm3 (1.8-7.8); Neutrophils % 69.6 % (37.0-80.0); Platelet Count 252 K/mm3 (142-424); Red Blood Count 4.29 M/mm3 (4.60-6.20); Red Cell Distribution Width 19.1 % (11.5-17.5); White Blood Count 7.4 K/mm3 (4.8-10.8)
[2018-01-08 06:56] LABS: Anion Gap 10.7 mEq/L (5-15); Calcium 8.9 mg/dL (8.5-10.1); Potassium 4.7 mmoL/L (3.5-5.1)
--- NOTE | 2018-01-08 07:34 | Pharmacy Consult Notes ---
[facility] Pharmacy VTE Monitoring - Patient Demographics Admission date: 01/07/18 Report Date: 01/08/18 Time: 07:34 Allergies/Adverse Reactions: Patient Allergies No Known Allergies Allergy (Verified 12/05/17 13:30) Height: 1.74 m Weight: 115.383 kg Patient Problems: Current Active Problems TIA (transient ischemic attack) (Acute) IDDM (insulin dependent diabetes mellitus) (Acute) CAD (coronary artery disease) (Acute) Obesity (BMI 30-39.9) (Acute) - VTE Risk Labs: VTE Related Lab Results Hgb 11.3 g/dL (14.1-18.0) L 01/08/18 06:25 Hct 34.8 % (42.0-52.0) L 01/08/18 06:25 Plt Count 252 K/mm3 (142-424) 01/08/18 06:25 BUN 28 mg/dL (7-18) H 01/08/18 06:25 Creatinine 1.76 mg/dL (0.70-1.30) H 01/08/18 06:25 Estimated Creat Clear 66 mL/min (0-300) 01/08/18 06:25 VTE Score: 4 VTE Risk Level: Low Risk - Prophylaxis VTE Prophylaxis Ordered?: Yes Types of VTE Prophylaxis: TEDS Knee High, Pharmacological Location of Applied Device: Bilateral Lower Extremeties Pharmacologic Type: Other (ELIQUIS) - VTE Diagnosis Confirmed Treatment or plan recommended: Continue Current Treatment
--- NOTE | 2018-01-08 08:32 | H&P/Discharge Summary ---
General - General Admission date:: 01/07/18 Discharge date: 01/08/18 *Admission Date: 01/07/18 *Chief complaint: Syncopal episode *History of present illness: 67-year-old white male with a host of medical problems, including chronic/recurrent atrial fibrillation, history of recurrent syncope of unclear etiology and chronic atherosclerotic vascular disease, along with chronic renal insufficiency and history of potassium instability both hypokalemia and hyperkalemia, along with type 2 diabetes, who came to the emergency department with an unusual syncopal episode. He states that he had been making his supper and became fairly weak and nauseated, and sat down. His then reported that he became "unresponsive." She thought he was having a hypoglycemic episode and gave him peanut butter which did not improve his weakness symptoms but he did wake up after a couple of minutes of "unresponsive." EMS arrived, glucose is 160. Transported to the emergency department. Workup was essentially unremarkable, chronic changes on CT scan, labs were unremarkable. Diagnosis of TIA was considered and he was admitted to hospital for overnight observation. [facility] History I have reviewed the patient's past medical history: Yes Medical History: Reports:: Atrial Fibrillation, Chronic Obstructive Pulmonary Disease (COPD), Coronary Artery Disease, Diabetes Mellitus Type 2, Gastroesophageal Reflux Disease(GERD), Hypertension, Lung Disease Denies:: Cancer, Diabetes Mellitus Type 1, Internal Pacemaker, MRSA, Seizures Other Medical History: Reports: Cataracts, Glaucoma, Hypothyroidism, Sinus Problems. Denies: Blood Transfusion Reaction Laterality Cases: Left: Total Knee Replacement, Bilateral: Myringotomy (Ear Tubes) Other Surgeries: Yes: Cardiac Catheterization, Sinus Surgery, Skin Cancer Excision. No: Pacemaker Amputation: No Fractures: Yes ((R) dislocated shoulder) - *Social History Smoking Status: Former smoker Tobacco Type: cigarettes Alcohol Intake: never Alcohol Intake Frequency:: holidays/special occasions only Substance Use Type: denies use Occupational Status: retired Housing: house Household Members: spouse - Psychiatric History Expresses thoughts of harming self/others: None Suicide Plan Description: No Plan *Family Hx:: Cancer, Coronary Artery Disease, Diabetes, Hyperlipidemia, Hypertension, Thyroid Disorder Review of Systems - Review of Systems Review of systems:: pertinent systems reviewed and negative unless documented be low - Constitutional Reports fatigue, Denies daytime sleepiness, Denies fever(s), Denies headache(s) - Eyes Denies blind spots, Denies blurry vision, Denies change in vision - ENT Denies abnormal hearing - *Cardiovascular Denies chest pain, Denies chest pain at rest, Denies shortness of breath, Denies irregular heart rhythm - *Respiratory Denies change in phlegm color, Denies chest congestion, Denies cough, Denies excessive phlegm production - *Gastrointestinal Reports feeling full early, Denies abdominal pain, Denies belching, Denies incontinent of stools - *Genitourinary Denies difficulty urinating - *Musculoskeletal Denies abnormal walking - Integumentary/Breasts Reports dry skin, Denies hair loss - *Neurologic Denies abnormal walking, Denies behavioral changes - Psychiatric Denies abnormal sleep pattern Exam Vital signs and Labs for Last 24 Hours: Temp Pulse Resp BP Pulse Ox 97.8 F 67 16 151/84 H 97 01/08/18 07:47 01/08/18 07:47 01/08/18 07:47 01/08/18 07:47 01/08/18 07:47 Laboratory Results - last 24 hr 01/07/18 15:50: WBC 10.9 H, RBC 4.30 L, Hgb 11.6 L, Hct 34.8 L, MCV 81.0, MCH 26.9 L, MCHC 33.2, RDW 18.7 H, Plt Count 261, MPV 7.4, Neut % (Auto) 81.6 H, Lymph % (Auto) 8.8 L, [place] % (Auto) 6.7, Eos % (Auto) 2.3, Baso % (Auto) 0.5, Neut # (Auto) 8.9 H, Lymph # (Auto) 1.0, [place] # (Auto) 0.7, Eos # (Auto) 0.3, Baso # (Auto) 0.1 01/07/18 15:50: Sodium 134 L, Potassium 5.4 H, Chloride 100, Carbon Dioxide 26, Anion Gap 13.4, BUN 32 H, Creatinine 1.79 H, Estimated Creat Clear 66, Estimated GFR 38 L, Est GFR ( Amer) 46 L, Glucose 156 H, Calcium 8.7, Total Bilirubin 0.5, AST 10 L, ALT 40, Alkaline Phosphatase 102, Total Protein 7.5, Albumin 3.5, Globulin 4.0 H, Albumin/Globulin Ratio 0.9 L 01/07/18 15:50: Total Creatine Kinase 92, CK-MB (CK-2) 2.2 D, CK-MB (CK-2) Rel Index 2.4, Troponin I < 0.02 01/07/18 16:01: POC Glucose 163 H 01/07/18 20:32: POC Glucose 205 H 01/08/18 05:43: POC Glucose 118 H 01/08/18 06:25: WBC 7.4 D, RBC 4.29 L, Hgb 11.3 L, Hct 34.8 L, MCV 81.2, MCH 26.3 L, MCHC 32.4, RDW 19.1 H, Plt Count 252, MPV 7.3 L, Neut % (Auto) 69.6, Lymph % (Auto) 17.3, [place] % (Auto) 8.7, Eos % (Auto) 3.6, Baso % (Auto) 0.8, Neut # (Auto) 5.2, Lymph # (Auto) 1.3, [place] # (Auto) 0.6, Eos # (Auto) 0.3, Baso # (Auto) 0.1 01/08/18 06:25: Sodium 135 L, Potassium 4.7, Chloride 100, Carbon Dioxide 29, Anion Gap 10.7, BUN 28 H, Creatinine 1.76 H, Estimated Creat Clear 66, Estimated GFR 39 L, Est GFR ( Amer) 47 L, Glucose 135 H, Calcium 8.9, Magnesium 2.4 H I & O for Last 24 hours: Intake & Output 01/05/18 01/06/18 01/07/18 01/08/18 11:59 11:59 11:59 11:59 Intake Total 530 / 530 Balance 530 / 530 Weight 254 lb 6 oz Narrative: Patient is pleasant, alert, oriented x3. Oropharynx clear no JVD noted. Cranial nerves are intact and symmetric, II-XII. Patient's able to walk, a little dizzy when he gets up but this passes quickly and this is his normal pattern. Able to walk about the room with a minimal limp to his left leg which is from hip pain. Otherwise power and movement in all 4 extremities are unremarkable. Heart rate regular lungs are clear, abdomen soft, no distal edema. Hospital Course Hospital Course: Patient was admitted, ruled out for myocardial infarction by enzyme and telemetry criteria. This morning neurologic examination remained normal. Potassium is found to be slightly high, it was held last night this morning is normal. Patient will be discharged home. We will schedule outpatient MRI. Discussed with him and his that this could have been a TIA and that he was on maximum preventative therapy with blood thinners, aspirin, blood pressure control. We will cut back potassium dosage to 1 tablet twice daily. I will see him on January 14. He will have his MRI and labs done before that visit. Results Labs on day of discharge: Labs from last 24 hours 01/08/18 01/08/18 01/08/18 06:25 06:25 05:43 WBC 7.4 D RBC 4.29 L Hgb 11.3 L Hct 34.8 L MCV 81.2 MCH 26.3 L MCHC 32.4 RDW 19.1 H Plt Count 252 MPV 7.3 L Neut % (Auto) 69.6 Lymph % (Auto) 17.3 [place] % (Auto) 8.7 Eos % (Auto) 3.6 Baso % (Auto) 0.8 Neut # (Auto) 5.2 Lymph # (Auto) 1.3 [place] # (Auto) 0.6 Eos # (Auto) 0.3 Baso # (Auto) 0.1 Sodium 135 L Potassium 4.7 Chloride 100 Carbon Dioxide 29 Anion Gap 10.7 BUN 28 H Creatinine 1.76 H Estimated Creat Clear 66 Estimated GFR 39 L Est GFR ( Amer) 47 L Glucose 135 H POC Glucose 118 H Calcium 8.9 Magnesium 2.4 H Total Bilirubin AST ALT Alkaline Phosphatase Total Creatine Kinase CK-MB (CK-2) CK-MB (CK-2) Rel Index Troponin I Total Protein Albumin Globulin Albumin/Globulin Ratio 01/07/18 01/07/18 01/07/18 20:32 16:01 15:50 WBC RBC Hgb Hct MCV MCH MCHC RDW Plt Count MPV Neut % (Auto) Lymph % (Auto) [place] % (Auto) Eos % (Auto) Baso % (Auto) Neut # (Auto) Lymph # (Auto) [place] # (Auto) Eos # (Auto) Baso # (Auto) Sodium Potassium Chloride Carbon Dioxide Anion Gap BUN Creatinine Estimated Creat Clear Estimated GFR Est GFR ( Amer) Glucose POC Glucose 205 H 163 H Calcium Magnesium Total Bilirubin AST ALT Alkaline Phosphatase Total Creatine Kinase 92 CK-MB (CK-2) 2.2 D CK-MB (CK-2) Rel Index 2.4 Troponin I < 0.02 Total Protein Albumin Globulin Albumin/Globulin Ratio 01/07/18 01/07/18 15:50 15:50 WBC 10.9 H RBC 4.30 L Hgb 11.6 L Hct 34.8 L MCV 81.0 MCH 26.9 L MCHC 33.2 RDW 18.7 H Plt Count 261 MPV 7.4 Neut % (Auto) 81.6 H Lymph % (Auto) 8.8 L [place] % (Auto) 6.7 Eos % (Auto) 2.3 Baso % (Auto) 0.5 Neut # (Auto) 8.9 H Lymph # (Auto) 1.0 [place] # (Auto) 0.7 Eos # (Auto) 0.3 Baso # (Auto) 0.1 Sodium 134 L Potassium 5.4 H Chloride 100 Carbon Dioxide 26 Anion Gap 13.4 BUN 32 H Creatinine 1.79 H Estimated Creat Clear 66 Estimated GFR 38 L Est GFR ( Amer) 46 L Glucose 156 H POC Glucose Calcium 8.7 Magnesium Total Bilirubin 0.5 AST 10 L ALT 40 Alkaline Phosphatase 102 Total Creatine Kinase CK-MB (CK-2) CK-MB (CK-2) Rel Index Troponin I Total Protein 7.5 Albumin 3.5 Globulin 4.0 H Albumin/Globulin Ratio 0.9 L DS: Diagnosis - Discharge Diagnosis (1) Syncope Status: Acute Discharge Medications - Medications for Discharge Home Medication List at Discharge: Continue omeprazole 20 mg capsule,delayed release 20 mg PO DAILY 30 Days furosemide 40 mg tablet 40 mg PO BID 30 Days clonidine HCl 0.1 mg tablet 0.1 mg PO BID PRN 90 Days PRN Reason: htn meloxicam 15 mg tablet 15 mg PO DAILY 90 Days tab apixaban 5 mg tablet 5 mg PO DAILY 90 Days tab spironolactone 25 mg tablet 25 mg PO DAILY 30 Days doxazosin 4 mg tablet 4 mg PO DAILY tab Pravastatin Sodium [Pravachol 20mg Tablet] 20 mg PO HS Levothyroxine Sodium [Levothyroxine 100mcg (0.1MG) Tab] 100 mcg PO DAILY dilTIAZem HCl [Cartia Xt] 300 mg PO DAILY Fluorouracil [Efudex 5% cream 40gm tube] 1 applicatio TOPICAL DAILY Latanoprost [Xalatan 0.005% Ophth Soln 2.5mL] 1 drp EYE-BOTH HS Nitroglycerin 0.4 mg SL Q5MINP PRN PRN Reason: Chest Pain Sitagliptin Phos/Metformin HCl [Janumet Xr 50-1,000 mg Tablet] 1 tab PO DAILY hydroCHLOROthiazide [HCTZ 25mg tab] 25 mg PO DAILY Magnesium Oxide 400 mg PO DAILY Amiodarone HCl [Amiodarone 100mg Tab] 200 mg PO DAILY Lisinopril [Lisinopril 5mg Tablet] 5 mg PO DAILY Carvedilol [Carvedilol 25mg Tab] 25 mg PO BID #0 Changed Potassium Chloride [Klor-con 20 mEq tablet] 40 meq PO BID 30 Days tablet Disposition Disposition: Home, Self-Care
== END 2018-01-08 09:48 | disposition home or self-care (01) ==
LOC: ER 14:59 → 2ND 14:59
PROVIDERS: ADMIT Internal Medicine Adolescent Medicine; ATTEND Internal Medicine Adolescent Medicine
CPT/HCPCS: 70450; 80048; 80053; 82550; 82553; 82962; 83735; 84484; 85025; 93005; 99283; G0378; J2405

== ENCOUNTER → 2018-01-09 07:48 | Outpatient (CLI) | payer MEDICARE, SELFPAY ==
--- NOTE | 2018-01-09 07:51 | MR_ITS ---
MR head/brain wo con HISTORY: Syncope, collapse, slurred speech with dizziness ITS.REASON: SYNCOPE AND COLLAPSE ORDERING PHYSICIAN: Riley Delatorre MD PATIENT AGE: 67 years Comparison: 01/07/2018 TECHNIQUE: Standard multiplanar multiecho sequences are performed without contrast. FINDINGS: No midline shift, mass effect, intracranial hemorrhage, or hydrocephalus. There is no evidence of acute infarction. Mild diffuse periventricular and 7 cortical T2 white matter hyperintensity is noted consistent with ischemic gliotic change from microvascular disease. No intra or extra-axial mass. The cerebellopontine angles, cerebellum, and brainstem have an unremarkable appearance. The pituitary and optic chiasm are unremarkable. There is some cerebellar tonsillar ectopia of approximately 6 mm. No hydrocephalus. There is fluid signal intensity within left mastoid air cells. There is complete opacification of the right maxillary sinus and opacified right ethmoid air cells as well as opacification of the right aspect of the sphenoid sinus. IMPRESSION: 1. No acute intracranial findings. No evidence of acute infarction. 2. Atrophy with chronic ischemic changes. 3. Left mastoid effusion. 4. Paranasal sinus disease
== END ==
PROVIDERS: PCP Internal Medicine Adolescent Medicine; Visit Provider Internal Medicine Adolescent Medicine
DX: R55 Syncope and collapse (principal)
CPT/HCPCS: 70551

== ENCOUNTER → 2018-01-13 08:13 | Outpatient (CLI) | payer MEDICARE, SELFPAY ==
[2018-01-13 13:56] LABS: Basophils % 0.5 % (0.1-2.0); Eosinophils # 0.4 K/mm3 (0.0-0.4); Eosinophils % 4.2 % (0.1-12.0); Hemoglobin 11.3 g/dL (14.1-18.0); Lymphocytes # 1.2 K/mm3 (0.7-4.5); Mean Corpuscular HGB Conc 31.2 g/dL (31.8-35.4); Mean Corpuscular Hemoglobin 26.3 pg (27.0-31.2); Mean Corpuscular Volume 84.1 fl (80-94); Mean Platelet Volume 8.1 fl (7.4-10.4); Monocytes # 0.6 K/mm3 (0.1-1.0); Monocytes % 7.3 % (1.7-9.3); Neutrophils # 6.3 K/mm3 (1.8-7.8); Platelet Count 268 K/mm3 (142-424); Red Blood Count 4.28 M/mm3 (4.60-6.20); Red Cell Distribution Width 19.2 % (11.5-17.5); White Blood Count 8.4 K/mm3 (4.8-10.8)
[2018-01-13 14:42] LABS: Alanine Aminotransferase 41 U/L (12-78); Albumin Level 3.4 gm/dL (3.4-5.0); Albumin/Globulin Ratio 1.1 (1.1-1.8); Alkaline Phosphatase 114 U/L (46-116); Anion Gap 13.7 mEq/L (5-15); Aspartate Amino Transferase 14 U/L (15-37); Bilirubin,Total 0.3 mg/dL (0.2-1.0); Blood Urea Nitrogen 26 mg/dL (7-18); Calcium 8.7 mg/dL (8.5-10.1); Carbon Dioxide 28 mmol/L (21.0-32.0); Chloride 102 mmol/L (98-107); Creatinine,Serum 1.89 mg/dL (0.70-1.30); Estimated Glomerular Filt Rate 36 ml/min (>60); GFR (African American) 43 ML/MIN (>60); Globulin 3.2 gm/dl (1.3-3.2); Glucose 125 mg/dL (74-106); Potassium 4.7 mmoL/L (3.5-5.1); Sodium 139 mmol/L (136-145); Total Protein,Serum 6.6 gm/dL (6.4-8.2)
== END ==
PROVIDERS: PCP Internal Medicine Adolescent Medicine; Visit Provider Internal Medicine Adolescent Medicine
DX: D50.0 Iron deficiency anemia secondary to blood loss (chronic) (principal); N18.2 Chronic kidney disease, stage 2 (mild)
CPT/HCPCS: 36415; 80053; 85025

== ENCOUNTER → 2018-02-10 07:55 | Outpatient (CLI) | payer MEDICARE, SELFPAY ==
[2018-02-10 13:38] LABS: Basophils # 0.1 K/mm3 (0-0.2); Basophils % 0.6 % (0.1-2.0); Eosinophils # 0.3 K/mm3 (0.0-0.4); Eosinophils % 3.5 % (0.1-12.0); Hematocrit 34.9 % (42.0-52.0); Hemoglobin 11.2 g/dL (14.1-18.0); Lymphocytes # 1.1 K/mm3 (0.7-4.5); Lymphocytes % 13.5 % (10-50); Mean Corpuscular HGB Conc 32.2 g/dL (31.8-35.4); Mean Corpuscular Hemoglobin 27.5 pg (27.0-31.2); Mean Corpuscular Volume 85.4 fl (80-94); Mean Platelet Volume 7.6 fl (7.4-10.4); Monocytes # 0.8 K/mm3 (0.1-1.0); Monocytes % 9.4 % (1.7-9.3); Neutrophils # 5.8 K/mm3 (1.8-7.8); Neutrophils % 72.9 % (37.0-80.0); Platelet Count 256 K/mm3 (142-424); Red Blood Count 4.09 M/mm3 (4.60-6.20)
[2018-02-10 13:46] LABS: Alanine Aminotransferase 42 U/L (12-78); Albumin Level 3.4 gm/dL (3.4-5.0); Alkaline Phosphatase 111 U/L (46-116); Anion Gap 16.2 mEq/L (5-15); Aspartate Amino Transferase 7 U/L (15-37); Bilirubin,Total 0.3 mg/dL (0.2-1.0); Blood Urea Nitrogen 32 mg/dL (7-18); Calcium 8.8 mg/dL (8.5-10.1); Carbon Dioxide 25 mmol/L (21.0-32.0); Chloride 102 mmol/L (98-107); Creatinine,Serum 2.43 mg/dL (0.70-1.30); Estimated Glomerular Filt Rate 27 ml/min (>60); Free Thyroxine Index 4.8 ug/dL (5.93-13.13); GFR (African American) 32 ML/MIN (>60); Globulin 3.3 gm/dl (1.3-3.2); Glucose 124 mg/dL (74-106); Potassium 5.2 mmoL/L (3.5-5.1); Sodium 138 mmol/L (136-145); T4 (Thyroxine) 13.6 ug/dl (4.7-13.3); Total Protein,Serum 6.7 gm/dL (6.4-8.2); Triiodothryronine (T3) Uptake 35 % (31-39)
[2018-02-10 14:07] LABS: Hemoglobin A1C 7.4 % (0.0-7.0)
[2018-02-10 14:10] LABS: Thyroid Stimulating Hormone 1.76 uIU/ml (0.358-3.740)
== END ==
PROVIDERS: PCP Internal Medicine Adolescent Medicine; Visit Provider Internal Medicine Adolescent Medicine
DX: E78.5 Hyperlipidemia, unspecified (principal); E11.9 Type 2 diabetes mellitus without complications; I48.2 Chronic atrial fibrillation; Z92.29 Personal history of other drug therapy
CPT/HCPCS: 36415; 80053; 83036; 84436; 84443; 84479; 85025

== ENCOUNTER → 2018-02-13 08:19 | Outpatient (CLI) | payer MEDICARE, SELFPAY ==
[2018-02-13 14:11] LABS: Anion Gap 15.8 mEq/L (5-15); Blood Urea Nitrogen 27 mg/dL (7-18); Carbon Dioxide 24 mmol/L (21.0-32.0); Chloride 105 mmol/L (98-107); Creatinine,Serum 1.81 mg/dL (0.70-1.30); Estimated Glomerular Filt Rate 38 ml/min (>60); GFR (African American) 45 ML/MIN (>60); Glucose 112 mg/dL (74-106); Potassium 5.8 mmoL/L (3.5-5.1); Sodium 139 mmol/L (136-145)
== END ==
PROVIDERS: PCP Internal Medicine Adolescent Medicine; Visit Provider Internal Medicine Adolescent Medicine
DX: E87.6 Hypokalemia (principal)
CPT/HCPCS: 36415; 80048

== ENCOUNTER 2018-02-28 11:01 | Observation (INO) ==
[2018-02-28 11:54] LABS: Basophils # 0.1 K/mm3 (0-0.2); Basophils % 0.8 % (0.1-2.0); Eosinophils # 0.3 K/mm3 (0.0-0.4); Eosinophils % 3.8 % (0.1-12.0); Hematocrit 34.1 % (42.0-52.0); Lymphocytes # 1.1 K/mm3 (0.7-4.5); Lymphocytes % 14.1 % (10-50); Mean Corpuscular HGB Conc 32.3 g/dL (31.8-35.4); Mean Corpuscular Hemoglobin 28.3 pg (27.0-31.2); Mean Corpuscular Volume 87.7 fl (80-94); Mean Platelet Volume 7.3 fl (7.4-10.4); Monocytes # 0.6 K/mm3 (0.1-1.0); Monocytes % 8.3 % (1.7-9.3); Neutrophils # 5.5 K/mm3 (1.8-7.8); Neutrophils % 72.9 % (37.0-80.0); Platelet Count 292 K/mm3 (142-424); Red Blood Count 3.89 M/mm3 (4.60-6.20); Red Cell Distribution Width 17.6 % (11.5-17.5); White Blood Count 7.5 K/mm3 (4.8-10.8)
[2018-02-28 12:05] LABS: Albumin Level 3.2 gm/dL (3.4-5.0); Albumin/Globulin Ratio 0.8 (1.1-1.8); Anion Gap 10.6 mEq/L (5-15); Bilirubin,Total 0.4 mg/dL (0.2-1.0); Calcium 9.2 mg/dL (8.5-10.1); Globulin 3.8 gm/dl (1.3-3.2); Potassium 3.6 mmoL/L (3.5-5.1)
--- NOTE | 2018-02-28 12:38 | History & Physical Report ---
*Admission Date: 02/28/18 *Chief complaint: LE edema and shortness of breath *History of present illness: 67 year old male with a h/o htn, hyperlipidemia, a.fib, diabetes and hypothyroidism presented to PCP office this morning with increased lower extremity edema and shortness of breath. Earlier this month routine labs revealed acute kidney injury and many of his medications were discontinued, including lasix and spironolactone. He reports gradual increase in LE edema and shortness of breath, especially with exertion. He had to stop twice from parking lot to office lobby to catch his breath. States "my legs hurt so bad I am miserable." + orthopnea. He was noted to have 2+ LE edema and bibasilar c rackles on exam. Patient was admitted to observation for diuresis and further evaluation. [facility] History I have reviewed the patient's past medical history: Yes Medical History: Reports:: Atrial Fibrillation, Cancer (skin cancer), Congestive Heart Failure, Chronic Obstructive Pulmonary Disease (COPD), Coronary Artery Disease, Diabetes Mellitus Type 2, Gastroesophageal Reflux Disease(GERD), Hyperlipidemia, Hypertension, Lung Disease, Transient Ischemic Attacks (TIA) Denies:: Diabetes Mellitus Type 1, Internal Pacemaker, MRSA, Seizures Other Medical History: Reports: Arthritis, Cataracts, Glaucoma, Hypothyroidism, Sinus Problems, Other. Denies: Blood Transfusion Reaction Laterality Cases: Bilateral: Cataract, Myringotomy (Ear Tubes) Other Surgeries: Yes: Cardiac Catheterization, Sinus Surgery, Skin Cancer Excision, Other (vasectomy). No: Pacemaker Amputation: No Fractures: Yes ((R) dislocated shoulder) - *Social History Smoking Status: Former smoker Tobacco Type: cigarettes Smoking End Date: 30 years Alcohol Intake: current Alcohol Intake Frequency:: holidays/special occasions only Substance Use Type: denies use Occupational Status: retired Housing: house Household Members: spouse - Psychiatric History Expresses thoughts of harming self/others: None Suicide Plan Description: No Plan *Family Hx:: Hyperlipidemia, Hypertension Review of Systems - Review of Systems Review of systems:: pertinent systems reviewed and negative unless documented below - Constitutional Reports weakness - *Cardiovascular Reports chest pain, Reports shortness of breath with activity, Reports leg swelling, Reports shortness of breath when lying down - *Respiratory Reports cough, Reports shortness of breath, Reports shortness of breath with activity Meds Home Medications Medication Instructions Recorded Confirmed Type furosemide 40 mg tablet 40 mg PO BID 30 Days 03/22/17 02/03/18 History omeprazole 20 mg capsule,delayed 20 mg PO DAILY 30 Days 03/22/17 02/03/18 History release Fluorouracil [Efudex 5% cream 40gm 1 applicatio TOPICAL DAILY 06/23/17 02/03/18 History tube] Latanoprost [Xalatan 0.005% Ophth 1 drp EYE-BOTH HS 06/23/17 02/03/18 History Soln 2.5mL] Levothyroxine Sodium 100 mcg PO DAILY 06/23/17 02/03/18 History [Levothyroxine 100mcg (0.1MG) Tab] Nitroglycerin 0.4 mg SL Q5MINP PRN 06/23/17 02/03/18 History Pravastatin Sodium [Pravachol 20mg 20 mg PO HS 06/23/17 02/03/18 History Tablet] Sitagliptin Phos/Metformin HCl 1 tab PO DAILY 06/23/17 02/03/18 History [Janumet Xr 50-1,000 mg Tablet] dilTIAZem HCl [Cartia Xt] 300 mg PO DAILY 06/23/17 02/03/18 History Lisinopril [Lisinopril 5mg Tablet] 5 mg PO DAILY 06/24/17 02/03/18 History doxazosin 4 mg tablet 4 mg PO DAILY tab 07/12/17 02/03/18 History Carvedilol [Carvedilol 25mg Tab] 25 mg PO BID #0 08/23/17 02/03/18 Rx apixaban 5 mg tablet 5 mg PO DAILY 90 Days tab 10/29/17 02/03/18 History meloxicam 15 mg tablet 15 mg PO DAILY 90 Days tab 10/29/17 02/03/18 History spironolactone 25 mg tablet 25 mg PO DAILY 30 Days 10/29/17 02/03/18 History Magnesium Oxide 400 mg PO DAILY 01/07/18 02/03/18 History hydroCHLOROthiazide [HCTZ 25mg 25 mg PO DAILY 01/07/18 02/03/18 History tab] Amiodarone HCl [Amiodarone 100mg 200 mg PO DAILY 01/08/18 02/03/18 History Tab] Allergies Allergy/AdvReac Type Severity Reaction Status Date / Time No Known Allergies Allergy Verified 02/03/18 14:13 Exam Vital signs and Labs for Last 24 Hours: Temp Pulse Resp BP Pulse Ox 97.6 F 68 20 150/86 H 97 02/28/18 11:29 02/28/18 11:29 02/28/18 11:29 02/28/18 11:29 02/28/18 11:29 Laboratory Results - last 24 hr 02/28/18 11:45: WBC 7.5, RBC 3.89 L, Hgb 11.0 L, Hct 34.1 L, MCV 87.7, MCH 28.3, MCHC 32.3, RDW 17.6 H, Plt Count 292, MPV 7.3 L, Neut % (Auto) 72.9, Lymph % (Auto) 14.1, [place] % (Auto) 8.3, Eos % (Auto) 3.8, Baso % (Auto) 0.8, Neut # (Auto) 5.5, Lymph # (Auto) 1.1, [place] # (Auto) 0.6, Eos # (Auto) 0.3, Baso # (Auto) 0.1 02/28/18 11:45: Sodium 140, Potassium 3.6, Chloride 105, Carbon Dioxide 28, Anion Gap 10.6, BUN 15, Creatinine 1.14, Estimated Creat Clear 107, Estimated GFR 64, Est GFR ( Amer) 78, Glucose 74, Calcium 9.2, Total Bilirubin 0.4, AST 7 L, ALT 55, Alkaline Phosphatase 107, Total Protein 7.0, Albumin 3.2 L, Globulin 3.8 H, Albumin/Globulin Ratio 0.8 L 02/28/18 11:45: B-Natriuretic Peptide 203 H I & O for Last 24 hours: Intake & Output 02/26/18 02/27/18 02/28/18 03/01/18 11:59 11:59 11:59 11:59 Weight 265 lb 6 oz Narrative: Alert and oriented white male in mild distress. Rate and rhythm regular, + murmur. 2+ LE edema extends to knee. No JVD. No carotid bruit. Crackles bilateral bases. Abdomen protuberant, but soft. Skin, with chronic erythematous dry, scattered lesions. ENT exam unremarkable. No acute neuro deficits Assessment and Plan (1) CHF exacerbation Current visit: Yes Status: Acute Category: Medical Code(s): I50.9 - Heart failure, unspecified (2) HTN (hypertension) Current visit: Yes Status: Chronic Qualifiers: Hypertension type: essential hypertension Qualified Code(s): I10 - Essential (primary) hypertension Category: Medical Code(s): I10 - Essential (primary) hypertension (3) Acquired hypothyroidism Current visit: Yes Status: Chronic Category: Medical Code(s): E03.9 - Hypothyroidism, unspecified (4) Hyperlipidemia Current visit: Yes Status: Chronic Category: Medical Code(s): E78.5 - Hyperlipidemia, unspecified (5) Diabetes Current visit: Yes Status: Chronic Qualifiers: Diabetes mellitus type: type 2 Category: Medical Code(s): E11.9 - Type 2 diabetes mellitus without complications (6) Chronic a-fib Current visit: No Status: Chronic Category: Medical Code(s): I48.2 - Chronic atrial fibrillation - Assessment and plan all Dx Assessment and Plan for all problems:: Admit for diuresis with IV Lasix. Monitor intake and output. Will obtain labs and CXR. FSBS with SSI. Likely able to d/c home tomorrow after diuresis.
--- NOTE | 2018-02-28 12:50 | Pharmacy Consult Notes ---
[facility] Pharmacy VTE Monitoring - Patient Demographics Admission date: 02/28/18 Report Date: 02/28/18 Time: 12:50 Allergies/Adverse Reactions: Patient Allergies No Known Allergies Allergy (Verified 02/03/18 14:13) Height: 1.73 m Weight: 120.372 kg Patient Problems: Current Active Problems CHF exacerbation (Acute) HTN (hypertension) (Chronic) Acquired hypothyroidism (Chronic) Hyperlipidemia (Chronic) Diabetes (Chronic) - VTE Risk Labs: VTE Related Lab Results Hgb 11.0 g/dL (14.1-18.0) L 02/28/18 11:45 Hct 34.1 % (42.0-52.0) L 02/28/18 11:45 Plt Count 292 K/mm3 (142-424) 02/28/18 11:45 BUN 15 mg/dL (7-18) 02/28/18 11:45 Creatinine 1.14 mg/dL (0.70-1.30) 02/28/18 11:45 Estimated Creat Clear 107 mL/min (50-200) 02/28/18 11:45 Was VTE Risk Assessment Performed: Yes VTE Score: 4 VTE Risk Level: Low Risk - Prophylaxis VTE Prophylaxis Ordered?: Yes Types of VTE Prophylaxis: TEDS Knee High Location of Applied Device: Bilateral Lower Extremeties - VTE Diagnosis Confirmed Treatment or plan recommended: Continue Current Treatment
[2018-03-01 06:06] LABS: Anion Gap 12.3 mEq/L (5-15); Calcium 8.5 mg/dL (8.5-10.1); Potassium 3.3 mmoL/L (3.5-5.1)
--- NOTE | 2018-03-01 08:47 | Discharge Summary ---
General - General Admission date:: 02/28/18 Discharge date: 03/01/18 HPI HPI: 67 year old male with a h/o htn, hyperlipidemia, a.fib, diabetes and hypothyroidism presented to PCP office this morning with increased lower extremity edema and shortness of breath. Earlier this month routine labs revealed acute kidney injury and many of his medications were discontinued, including lasix and spironolactone. He reports gradual increase in LE edema and shortness of breath, especially with exertion. He had to stop twice from parking lot to office lobby to catch his breath. States "my legs hurt so bad I am miserable." + orthopnea. He was noted to have 2+ LE edema and bibasilar crackles on exam. Patient was admitted to observation for diuresis and further evaluation. Hospital Course Hospital Course: Patient was admitted and given 2 doses of intravenous Lasix and responded very briskly to this with a 10 pound weight loss and a 5 L diuresis. He felt much better as far as breathing but did notice some leg cramping. This morning he was doing well. Lungs were much clearer. Edema was essentially resolved. Noted to have minimal hypokalemia. Plan will be to discharge him home. He will resume 1 dose of Lasix daily as well as 1 dose of potassium as prescribed. He already has follow-up scheduled with me on March 05 and he will keep this appointment. Encouraged a low-salt diet which I believe has been the trigger for this event. Objective Vital signs: Temp Pulse Resp BP Pulse Ox 97.8 F 75 18 150/68 H 98 03/01/18 07:55 03/01/18 07:55 03/01/18 07:55 03/01/18 07:55 03/01/18 07:55 Narrative: Patient is pleasant, alert. Talkative. Lungs are clear. Heart rate regular with occasional ectopic beats. Abdomen soft and nontender. Edema is trace in the ankles. Vastly improved over yesterday's exam. Results Labs on day of discharge: Labs from last 24 hours 03/01/18 03/01/18 02/28/18 05:50 05:36 20:04 WBC RBC Hgb Hct MCV MCH MCHC RDW Plt Count MPV Neut % (Auto) Lymph % (Auto) [place] % (Auto) Eos % (Auto) Baso % (Auto) Neut # (Auto) Lymph # (Auto) [place] # (Auto) Eos # (Auto) Baso # (Auto) Sodium 139 Potassium 3.3 L Chloride 99 Carbon Dioxide 31 Anion Gap 12.3 BUN 14 Creatinine 1.28 Estimated Creat Clear 95 Estimated GFR 56 L Est GFR ( Amer) 68 Glucose 114 H D POC Glucose 109 136 H Calcium 8.5 Total Bilirubin AST ALT Alkaline Phosphatase B-Natriuretic Peptide Total Protein Albumin Globulin Albumin/Globulin Ratio 02/28/18 02/28/18 02/28/18 16:19 11:45 11:45 WBC RBC Hgb Hct MCV MCH MCHC RDW Plt Count MPV Neut % (Auto) Lymph % (Auto) [place] % (Auto) Eos % (Auto) Baso % (Auto) Neut # (Auto) Lymph # (Auto) [place] # (Auto) Eos # (Auto) Baso # (Auto) Sodium 140 Potassium 3.6 Chloride 105 Carbon Dioxide 28 Anion Gap 10.6 BUN 15 Creatinine 1.14 Estimated Creat Clear 107 Estimated GFR 64 Est GFR ( Amer) 78 Glucose 74 POC Glucose 101 Calcium 9.2 Total Bilirubin 0.4 AST 7 L ALT 55 Alkaline Phosphatase 107 B-Natriuretic Peptide 203 H Total Protein 7.0 Albumin 3.2 L Globulin 3.8 H Albumin/Globulin Ratio 0.8 L 02/28/18 11:45 WBC 7.5 RBC 3.89 L Hgb 11.0 L Hct 34.1 L MCV 87.7 MCH 28.3 MCHC 32.3 RDW 17.6 H Plt Count 292 MPV 7.3 L Neut % (Auto) 72.9 Lymph % (Auto) 14.1 Whiteside % (Auto) 8.3 Eos % (Auto) 3.8 Baso % (Auto) 0.8 Neut # (Auto) 5.5 Lymph # (Auto) 1.1 Whiteside # (Auto) 0.6 Eos # (Auto) 0.3 Baso # (Auto) 0.1 Sodium Potassium Chloride Carbon Dioxide Anion Gap BUN Creatinine Estimated Creat Clear Estimated GFR Est GFR ( Amer) Glucose POC Glucose Calcium Total Bilirubin AST ALT Alkaline Phosphatase B-Natriuretic Peptide Total Protein Albumin Globulin Albumin/Globulin Ratio DS: Diagnosis - Discharge Diagnosis (1) CHF exacerbation Status: Acute (2) HTN (hypertension) Status: Chronic (3) Acquired hypothyroidism Status: Chronic (4) Hyperlipidemia Status: Chronic (5) Diabetes Status: Chronic (6) Chronic a-fib Status: Chronic Discharge Plan - Patient Discharge Instructions ACTIVITY: Continue current activity DIET: low salt diet Patient Instructions: DI for Heart Failure - Follow up Plan Follow up with: Riley Delatorre MD [Primary Care Provider] - 03/05/18 Disposition: Home, [facility] Medications: Home Medications Medication Instructions Recorded Confirmed Type furosemide 40 mg tablet 40 mg PO BID 30 Days 03/22/17 02/28/18 History omeprazole 20 mg capsule,delayed 20 mg PO DAILY 30 Days 03/22/17 02/28/18 History release Fluorouracil [Efudex 5% cream 40gm 1 applicatio TOPICAL BID 06/23/17 02/28/18 History tube] Latanoprost [Xalatan 0.005% Ophth 1 drp EYE-BOTH HS 06/23/17 02/28/18 History Soln 2.5mL] Levothyroxine Sodium 100 mcg PO DAILY 06/23/17 02/28/18 History [Levothyroxine 100mcg (0.1MG) Tab] Nitroglycerin 0.4 mg SL Q5MINP PRN 06/23/17 02/28/18 History Pravastatin Sodium [Pravachol 20mg 20 mg PO HS 06/23/17 02/28/18 History Tablet] dilTIAZem HCl [Cartia Xt] 300 mg PO DAILY 06/23/17 02/28/18 History Lisinopril [Lisinopril 5mg Tablet] 5 mg PO DAILY 06/24/17 02/28/18 History apixaban 5 mg tablet 5 mg PO BID 90 Days tab 10/29/17 02/28/18 History meloxicam 15 mg tablet 15 mg PO DAILY 90 Days tab 10/29/17 02/28/18 History Magnesium Oxide 400 mg PO DAILY 01/07/18 02/28/18 History Acetaminophen 500 mg PO Q4HP PRN 02/28/18 02/28/18 History Amiodarone HCl 200 mg PO BID 02/28/18 02/28/18 History Aspirin [Aspirin 325mg Tab] 325 mg PO DAILY 02/28/18 02/28/18 History Carvedilol [Carvedilol 25mg Tab] 25 mg PO BID 02/28/18 02/28/18 History Doxazosin Mesylate [Cardura 4mg 2 mg PO BID 02/28/18 02/28/18 History tablet] Exenatide Microspheres [Bydureon 2 mg SQ WEEKLY 02/28/18 02/28/18 History Pen] Fexofenadine HCl [Corin Allergy] 60 mg PO DAILY 02/28/18 02/28/18 History Methylcellulose [Citrucel] 1,000 mg PO DAILY 02/28/18 02/28/18 History Sitagliptin Phosphate [Januvia 50 mg PO DAILY 02/28/18 02/28/18 History 50mg Tablet] Furosemide [Lasix 40mg tab] 40 mg PO DAILY #30 tab 03/01/18 Rx Potassium Chloride [K-Tab ER 20 20 meq PO DAILY #30 tab 03/01/18 Rx mEq] Prescriptions/Medication Reconciliation: New Potassium Chloride [K-Tab ER 20 mEq] 20 meq PO DAILY #30 tab Furosemide [Lasix 40mg tab] 40 mg PO DAILY #30 tab Continue omeprazole 20 mg capsule,delayed release 20 mg PO DAILY 30 Days furosemide 40 mg tablet 40 mg PO BID 30 Days meloxicam 15 mg tablet 15 mg PO DAILY 90 Days tab apixaban 5 mg tablet 5 mg PO BID 90 Days tab Pravastatin Sodium [Pravachol 20mg Tablet] 20 mg PO HS Levothyroxine Sodium [Levothyroxine 100mcg (0.1MG) Tab] 100 mcg PO DAILY dilTIAZem HCl [Cartia Xt] 300 mg PO DAILY Fluorouracil [Efudex 5% cream 40gm tube] 1 applicatio TOPICAL BID Latanoprost [Xalatan 0.005% Ophth Soln 2.5mL] 1 drp EYE-BOTH HS Nitroglycerin 0.4 mg SL Q5MINP PRN PRN Reason: Chest Pain Magnesium Oxide 400 mg PO DAILY Exenatide Microspheres [Bydureon Pen] 2 mg SQ WEEKLY Sitagliptin Phosphate [Januvia 50mg Tablet] 50 mg PO DAILY Doxazosin Mesylate [Cardura 4mg tablet] 2 mg PO BID Carvedilol [Carvedilol 25mg Tab] 25 mg PO BID Fexofenadine HCl [Corin Allergy] 60 mg PO DAILY Methylcellulose [Citrucel] 1,000 mg PO DAILY Acetaminophen 500 mg PO Q4HP PRN PRN Reason: PAIN Lisinopril [Lisinopril 5mg Tablet] 5 mg PO DAILY Amiodarone HCl 200 mg PO BID Aspirin [Aspirin 325mg Tab] 325 mg PO DAILY
== END 2018-03-01 10:44 | disposition home or self-care (01) ==
LOC: 2ND
PROVIDERS: ADMIT Internal Medicine Adolescent Medicine; ATTEND Internal Medicine Adolescent Medicine

== ENCOUNTER → 2018-03-05 13:20 | Outpatient (CLI) | payer MEDICARE, SELFPAY ==
[2018-03-05 14:22] LABS: Basophils % 0.4 % (0.1-2.0); Eosinophils # 0.2 K/mm3 (0.0-0.4); Eosinophils % 2.6 % (0.1-12.0); Hematocrit 33.9 % (42.0-52.0); Hemoglobin 10.9 g/dL (14.1-18.0); Lymphocytes % 12.2 % (10-50); Mean Corpuscular HGB Conc 32.2 g/dL (31.8-35.4); Mean Corpuscular Hemoglobin 28.4 pg (27.0-31.2); Mean Platelet Volume 7.5 fl (7.4-10.4); Monocytes # 0.8 K/mm3 (0.1-1.0); Monocytes % 9.3 % (1.7-9.3); Neutrophils # 6.4 K/mm3 (1.8-7.8); Neutrophils % 75.5 % (37.0-80.0); Platelet Count 285 K/mm3 (142-424); Red Blood Count 3.85 M/mm3 (4.60-6.20); Red Cell Distribution Width 16.8 % (11.5-17.5); White Blood Count 8.5 K/mm3 (4.8-10.8)
[2018-03-05 14:39] LABS: Anion Gap 9.5 mEq/L (5-15); Blood Urea Nitrogen 23 mg/dL (7-18); Calcium 8.4 mg/dL (8.5-10.1); Carbon Dioxide 31 mmol/L (21.0-32.0); Chloride 102 mmol/L (98-107); Creatinine,Serum 1.27 mg/dL (0.70-1.30); Estimated Glomerular Filt Rate 57 ml/min (>60); GFR (African American) 68 ML/MIN (>60); Glucose 185 mg/dL (74-106); Sodium 139 mmol/L (136-145)
[2018-03-05 14:40] LABS: Potassium 3.5 mmoL/L (3.5-5.1)
== END ==
PROVIDERS: Visit Provider Internal Medicine Adolescent Medicine
DX: N18.2 Chronic kidney disease, stage 2 (mild) (principal)
CPT/HCPCS: 36415; 80048; 85025

== ENCOUNTER 2018-03-18 13:10 | Observation (INO) ==
[2018-03-18 13:47] LABS: Basophils # 0.1 K/mm3 (0-0.2); Basophils % 0.5 % (0.1-2.0); Eosinophils # 0.4 K/mm3 (0.0-0.4); Eosinophils % 3.4 % (0.1-12.0); Hematocrit 34.1 % (42.0-52.0); Hemoglobin 11.1 g/dL (14.1-18.0); Lymphocytes # 1.4 K/mm3 (0.7-4.5); Lymphocytes % 12.2 % (10-50); Mean Corpuscular HGB Conc 32.5 g/dL (31.8-35.4); Mean Corpuscular Hemoglobin 27.6 pg (27.0-31.2); Mean Corpuscular Volume 84.9 fl (80-94); Mean Platelet Volume 7.2 fl (7.4-10.4); Monocytes # 0.9 K/mm3 (0.1-1.0); Monocytes % 8.3 % (1.7-9.3); Neutrophils # 8.5 K/mm3 (1.8-7.8); Neutrophils % 75.6 % (37.0-80.0); Platelet Count 314 K/mm3 (142-424); Red Blood Count 4.02 M/mm3 (4.60-6.20); Red Cell Distribution Width 15.8 % (11.5-17.5); White Blood Count 11.3 K/mm3 (4.8-10.8)
[2018-03-18 14:01] LABS: Albumin Level 3.2 gm/dL (3.4-5.0); Albumin/Globulin Ratio 0.8 (1.1-1.8); Bilirubin,Total 0.4 mg/dL (0.2-1.0); Calcium 8.7 mg/dL (8.5-10.1); Globulin 3.8 gm/dl (1.3-3.2)
--- NOTE | 2018-03-18 14:12 | Emergency Department Note ---
ED Disposition Clinical Impression: Dizziness, Falls, Hypokalemia Disposition: Still a Patient Condition on Discharge: Fair Referrals: Provider,Referral, [Referring] - - Critical Care Critical Care Time: No Attestation: On 03/18/18, the high probability of a clinically significant, sudden or life t hreatening deterioration of the following system(s) required my full and direct attention, intervention and personal management. The time I documented below is in addition to time spent performing reported procedures but includes the following listed in this critical care notation. Medical Decision Making - Atul Inquiry Pt receiving controlled substance: Yes Atul was queried for this patient: No Reason not queried -: Emergent pt cond-no time Risks and benefits of using a controlled substance: were not discussed with pt by me Vital Signs: 03/18/18 13:10 03/18/18 14:24 03/18/18 15:54 Temperature 98.3 F Temperature Source Oral Pulse Rate [Right Radial] 63 61 54 L Respiratory Rate 20 20 Blood Pressure [Right Arm] 176/93 H 186/91 H 188/81 H Blood Pressure Mean [Right Arm] 120 122 116 Blood Pressure Source [Right Arm] Automatic Cuff Automatic Cuff Automatic Cuff Blood Pressure Position [Right Arm] Sitting Supine 02 Sat by Pulse Oximetry 97 95 94 L Oxygen Delivery Method Room Air Room Air Room Air - Lab Data Lab Results 03/18/18 13:35: WBC 11.3 H, RBC 4.02 L, Hgb 11.1 L, Hct 34.1 L, MCV 84.9, MCH 27.6, MCHC 32.5, RDW 15.8, Plt Count 314, MPV 7.2 L, Neut % (Auto) 75.6, Lymph % (Auto) 12.2, [place] % (Auto) 8.3, Eos % (Auto) 3.4, Baso % (Auto) 0.5, Neut # (Auto) 8.5 H, Lymph # (Auto) 1.4, [place] # (Auto) 0.9, Eos # (Auto) 0.4, Baso # (Auto) 0.1 03/18/18 13:35: Sodium 141, Potassium 3.0 L, Chloride 102, Carbon Dioxide 32, Anion Gap 10.0, BUN 14, Creatinine 1.26, Estimated Creat Clear 92, Estimated GFR 57 L, Est GFR ( Amer) 69, Glucose 124 H, Calcium 8.7, Total Bilirubin 0.4, AST 8 L, ALT 30, Alkaline Phosphatase 116, Total Protein 7.0, Albumin 3.2 L , Globulin 3.8 H, Albumin/Globulin Ratio 0.8 L 03/18/18 13:35: Troponin I < 0.02, TSH 1.64 Result diagrams: 03/18/18 13:35 03/18/18 13:35 Orders (Tests/Meds): ED MEDICATIONS Discontinued Medications Generic Name Dose Route Start Last Admin Trade Name Linda PRN Reason Stop Dose Admin Meclizine HCl 25 mg 03/18/18 15:00 03/18/18 15:07 Antivert 25mg Tablet PO 03/18/18 15:01 25 mg ONCE ONE Administration Morphine Sulfate 4 mg 03/18/18 14:56 03/18/18 15:07 Morphine 4mg/Ml Syringe IV 03/18/18 14:57 4 mg ONCE ONE Administration Ondansetron HCl 4 mg 03/18/18 15:54 03/18/18 15:58 Zofran 4mg/2ml Vial IV 03/18/18 15:55 4 mg ONCE ONE Administration Potassium Chloride 40 meq 03/18/18 14:12 03/18/18 15:07 Klor-Con 20meq Tablet PO 03/18/18 14:13 40 meq ONCE ONE Administration - Radiology Data #1 Image(s): Chest, Hip Image Reviewed: Yes I have reviewed radiologist's interpretation Preliminary Findings: Normal/NAD - CT Data CT Scan: Head, C-Spine Time Received: 14:46 Findings Narrative: Head: IMPRESSION: 1. No acute intracranial findings. 2. Atrophy with chronic ischemic gliotic change. 3. Sinusitis Dictated By: Sony Lawson MD Signed By: <Electronically signed by Sony Lawson MD in OV> 03/18/18 1439 Cervical spine: IMPRESSION: 1. Straightened cervical lordosis with limited patient positioning or muscle spasm. 2. No acute fracture Dictated By: Sony Lawson MD Signed By: <Electronically signed by Sony Lawson MD in OV> 03/18/18 1442 Lumbar spine: IMPRESSION: 1. No acute fracture. 2. Bulging disc with mild facet and ligamentum hypertrophy at L3-L4 L4-5 and L5-S1 Dictated By: Sony Lawson MD Signed By: <Electronically signed by Sony Lawson MD in OV> 03/18/18 2196 Right Hip: IMPRESSION: 1. No acute fracture. 2. Benign-appearing cystic lesion of the right femoral neck. Consider continued follow up to confirm long-term stability 3. Other nonacute findings as described above Dictated By: Sony Lawson MD Signed By: <Electronically signed by Sony Lawson MD in OV> 03/18/18 9583 - ECG Data Tracing #1 EKG interpreted by Chester Long MD: Rhythm: sinus Rate: 66 [employer]: normal Ectopy: none Conduction: First-degree AV block, QTc [address] Segment Changes: Nonspecific T Wave Changes: none Q Waves: none - Physician Consults Physician Consulted: Chary Delatorre Time: 16:24 Reason -: Admission Comment/Response: Agrees to admit the patient to the hospital. We discussed the patient's clinical information, including history, exam, laboratory and radiology results and ED course. Per hospital procedure, I will write temporary bridge inpatient orders on the patient. Specific orders requested by the admitting physician: Lactated Ringer's 100 cc/h, admit observation General Adult HPI - General Chief complaint: Fall Stated complaint: fall Time Seen by Provider: 03/18/18 14:48 Mode of Arrival: EMS Limitations: No Limitations Description of Symptoms (Recalled from ER Triage Doc. by RN): Pt brought in per EMS r/t fall at home. Pt reports he was trying to get up from the toilet and fell forward into the door and hit his head. Pt reports he then sat back down, attempted to get up again and fell over into the bathtub. Pt c/o pain in top of his head, R side of his neck and R groin area. Pt reports has been having intermittent feeling of lightheadedness recently, pt reports he was lighthead when he stood up from the toilet - History of Present Illness HPI narrative: History obtained from patient and . states that the patient has been dizzy today. Initially started when he was therapy. Continued while at home. He fell twice. The first time he fell forward getting off the commode and hit his head on a door. He then got up and sat on the edge of the tub and when he tried to get up fell backwards into the tub landing on his bottom. He complains of pain in his head going down into his right neck. Says that he has to hold his head to the right side. Complains of pain in his lower back into his right hip. states did not hit his chest or abdomen. No loss of consciousness. Continues to complain of dizziness which she says he has described as a spinning sensation. - Related Data Home Medications Medication Instructions Recorded Confirmed furosemide 40 mg tablet 40 mg PO BID 30 Days 03/22/17 03/18/18 omeprazole 20 mg capsule,delayed 20 mg PO DAILY 30 Days 03/22/17 03/18/18 release Fluorouracil [Efudex 5% cream 40gm 1 applicatio TOPICAL BID 06/23/17 03/18/18 tube] Latanoprost [Xalatan 0.005% Ophth 1 drp EYE-BOTH HS 06/23/17 03/18/18 Soln 2.5mL] Levothyroxine Sodium 100 mcg PO DAILY 06/23/17 03/18/18 [Levothyroxine 100mcg (0.1MG) Tab] Nitroglycerin 0.4 mg SL Q5MINP PRN 06/23/17 03/18/18 Pravastatin Sodium [Pravachol 20mg 20 mg PO HS 06/23/17 03/18/18 Tablet] dilTIAZem HCl [Cartia Xt] 300 mg PO DAILY 06/23/17 03/18/18 Lisinopril [Lisinopril 5mg Tablet] 5 mg PO DAILY 06/24/17 03/18/18 apixaban 5 mg tablet 5 mg PO BID 90 Days tab 10/29/17 03/18/18 meloxicam 15 mg tablet 15 mg PO DAILY 90 Days tab 10/29/17 03/18/18 Magnesium Oxide 400 mg PO DAILY 01/07/18 03/18/18 Acetaminophen 500 mg PO Q4HP PRN 02/28/18 03/18/18 Amiodarone HCl 200 mg PO BID 02/28/18 03/18/18 Carvedilol [Carvedilol 25mg Tab] 25 mg PO BID 02/28/18 03/18/18 Doxazosin Mesylate [Cardura 4mg 2 mg PO BID 02/28/18 03/18/18 tablet] Exenatide Microspheres [Bydureon 2 mg SQ WEEKLY 02/28/18 03/18/18 Pen] Fexofenadine HCl [Corin Allergy] 60 mg PO DAILY 02/28/18 03/18/18 Methylcellulose [Citrucel] 1,000 mg PO DAILY 02/28/18 03/18/18 Sitagliptin Phosphate [Januvia 50 mg PO DAILY 02/28/18 03/18/18 50mg Tablet] Potassium Chloride [K-Tab ER 20 20 meq PO DAILY 03/18/18 03/18/18 mEq] Allergies Allergy/AdvReac Type Severity Reaction Status Date / Time No Known Allergies Allergy Verified 03/18/18 13:12 [facility] History - Hepatitis A Screen Drug use history?: No High risk sexual behaviors?: No History of sexually transmitted infection?: No Currently employed?: No Childcare worker?: No Do you have indoor plumbing?: Yes Do you have electricity?: Yes Attestation statement:: This patient has been screened for Hepatitis A risk factors. Medical History: Reports:: Atrial Fibrillation, Cancer (skin cancer), Congestive Heart Failure, Chronic Obstructive Pulmonary Disease (COPD), Coronary Artery Disease, Diabetes Mellitus Type 2, Gastroesophageal Reflux Disease(GERD), Hyperlipidemia, Hypertension, Lung Disease, Transient Ischemic Attacks (TIA) Denies:: Diabetes Mellitus Type 1, Internal Pacemaker, MRSA, Seizures Other Medical History: Reports: Arthritis, Cataracts, Glaucoma, Hypothyroidism, Sinus Problems, Other. Denies: Blood Transfusion Reaction Comment: Recent positive cologuard test, scheduled for visit with GI today Laterality Cases: Bilateral: Myringotomy (Ear Tubes) Other Surgeries: Yes: Cardiac Catheterization, Sinus Surgery, Skin Cancer Excision, Other (vasectomy). No: Pacemaker Amputation: No Fractures: Yes ((R) dislocated shoulder) Comment: BMT, knee - Social History Smoking Status: Former smoker Tobacco Type: cigarettes Alcohol Intake: current Alcohol Intake Frequency:: holidays/special occasions only Substance Use Type: denies use Occupational Status: retired Housing: house Household Members: spouse Family Hx:: Hyperlipidemia, Hypertension ROS Obtained: Yes All systems reviewed & no additional complaints - Constitutional Constitutional: Denies fever(s) - Eyes Eyes: Denies change in vision - Cardiovascular Cardiovascular: Denies chest pain - Respiratory Respiratory: No dyspnea - Gastrointestinal Gastrointestingal: Denies: abdominal pain, nausea, vomiting - Musculoskeletal Musculoskeletal: Reports joint pain (Right hip), Reports back pain, Reports neck pain - Neurologic Neurologic: Reports headache(s), Denies numbness, Denies weakness Physical Exam - General General appearance: alert Comment: Moaning - Head Head exam: atraumatic, normocephalic - Eye Eye exam: Present: normal appearance, PERRL, EOMI - ENT ENT exam: Present: mucous membranes moist - Neck Neck exam: Present: trachea midline, tenderness - Chest Chest inspection: Present: normal inspection, symmetric chest wall rise - Respiratory Respiratory exam: Present: normal lung sounds bilaterally. Absent: respiratory distress - Cardiovascular Cardiovascular exam: Present: regular rate, normal rhythm, normal heart sounds - Abdominal Exam Abdominal exam: Present: soft. Absent: distention, tenderness - Extremities Exam Extremities exam: Present: normal inspection, other (Tender right hip/groin. No shortening or malrotation. Able to flex and rotate, but complains of pain.) - Neurological Exam Neurological exam: Present: alert, oriented X3, CN II-XII intact. Absent: motor sensory deficit - Psychiatric Psychiatric exam: Present: normal affect - Skin Skin exam: Present: warm, dry - Other Other exam information: Neurovascular intact in all 4 extremities
[2018-03-18 14:42] LABS: Thyroid Stimulating Hormone 1.64 uIU/ml (0.358-3.740)
[2018-03-18 17:29] LABS: Microscopic, Urine URINE MICROSCOPIC (MICROSCOPIC)
[2018-03-18 17:30] LABS: Appearance,Urine CLEAR (Clear); Bilirubin,Urine Negative (Negative); Blood, Urine Negative (Negative); Color,Urine YELLOW (Yellow); Glucose,Urine (UA) Negative (Negative); Ketones,Urine Negative (Negative); Leukocyte Esterase,Urine Negative (Negative); Protein,Urine Negative (Negative); Specific Gravity, Urine 1.015 (1.005-1.030); Urobilinogen,Urine 0.2 EU/dl (0.2)
[2018-03-18 17:43] LABS: Bacteria,Urine Trace /lpf; Mucus,Urine Trace /lpf; Squamous Epithelial Cell,Urine Occasional #/hpf (0-5); WBC,Urine Occasional #/hpf (0-3)
[2018-03-19 07:02] LABS: Anion Gap 9.4 mEq/L (5-15); Calcium 8.6 mg/dL (8.5-10.1); Potassium 3.4 mmoL/L (3.5-5.1)
--- NOTE | 2018-03-19 07:40 | Pharmacy Consult Notes ---
[facility] Pharmacy VTE Monitoring - Patient Demographics Admission date: 03/18/18 Report Date: 03/19/18 Time: 07:39 Allergies/Adverse Reactions: Patient Allergies No Known Allergies Allergy (Verified 03/18/18 13:12) Height: 1.73 m Weight: 114.022 kg Patient Problems: Current Active Problems Fall (Acute) Hypokalemia (Chronic) Dizziness (Acute) - VTE Risk Labs: VTE Related Lab Results Hgb 11.1 g/dL (14.1-18.0) L 03/18/18 13:35 Hct 34.1 % (42.0-52.0) L 03/18/18 13:35 Plt Count 314 K/mm3 (142-424) 03/18/18 13:35 BUN 12 mg/dL (7-18) 03/19/18 05:58 Creatinine 1.21 mg/dL (0.70-1.30) 03/19/18 05:58 Estimated Creat Clear 96 mL/min (50-200) 03/19/18 05:58 VTE Score: 4 VTE Risk Level: Low Risk - Prophylaxis VTE Prophylaxis Ordered?: Yes Types of VTE Prophylaxis: TEDS Knee High, Pharmacological Pharmacologic Type: Other (ELIQUIS) - VTE Diagnosis Confirmed Treatment or plan recommended: Continue Current Treatment
--- NOTE | 2018-03-19 09:19 | Carotid Imaging Report ---
"Cerebrovascular Exam IMPRESSIONS 1. The bilateral vertebral arteries are patent with normal antegrade flow. 2. Study suggests 20-49% stenosis involving the right internal carotid artery. 3. Study suggests 20-49% stenosis involving the left internal carotid artery. 4. Tortuous carotid arteries seen bilaterally. Carotid duplex study. Complete study and Doppler flow study including spectral analysis, color and contreras scale imaging. Height: Height: 2072.6cm. Height: 816in. Weight: Weight: 113.9kg. Weight: 250.5lb. Body mass index: BMI: 0.3kg/m^2. Body surface area: BSA: 6.39m^2. Location: Bedside. Patient status: Inpatient. Tables: Arterial flow: + +--------+--------+ |Location |V sys |V ed | + +--------+--------+ |Right CCA - proximal|88.8cm/s|10.2cm/s| + +--------+--------+ |Right CCA - distal |65.2cm/s|11cm/s | + +--------+--------+ |Right ECA |103cm/s |10.2cm/s| + +--------+--------+ |Right ICA - proximal|77cm/s |18.1cm/s| + +--------+--------+ |Right ICA - mid |71.5cm/s|13.4cm/s| + +--------+--------+ |Right ICA - distal |76.2cm/s|20.4cm/s| + +--------+--------+ |Right vertebral |75.4cm/s|18.1cm/s| + +--------+--------+ |Left CCA - proximal |76.2cm/s|12.6cm/s| + +--------+--------+ |Left CCA - distal |77cm/s |14.1cm/s| + +--------+--------+ |Left ECA |169cm/s |15.7cm/s| + +--------+--------+ |Left ICA - proximal |110cm/s |15.7cm/s| + +--------+--------+ |Left ICA - mid |127cm/s |30.6cm/s| + +--------+--------+ |Left ICA - distal |91.9cm/s|20.4cm/s| + +--------+--------+ |Left vertebral |65.1cm/s|12.3cm/s| + +--------+--------+ Velocity ratios: + + + + + + | |Right, V sys|Right, V ed|Left, V sys|Left, V ed| + + + + + + |Max ICA/dist CCA|1.18 |1.85 |1.65 |2.17 | + + + + + + (Report amended ) Electronically signed by: Sony Lawson [id number]"
--- NOTE | 2018-03-19 14:48 | H&P/Discharge Summary ---
General - General Admission date:: 03/18/18 Discharge date: 03/19/18 *Admission Date: 03/18/18 *Chief complaint: dizziness *History of present illness: 67 year old male with multiple chronic medical conditions presented to the ED for evaluation of dizziness. Patient reports acute onset of dizziness while he was exercising at [employer] yesterday. He left early, went home and continued to feel weak. States became light headed while sitting on the toilet and had a near-syncopal event when he went to stand up. He sat down on the side of the bathtub and lost his balance falling backwards into the tub striking his head. Denies LOC. In the ED, CT head, hip, and c-spine were negative for acute pathology. CXR, EKG and labs were unremarkable. Patient was admitted for observation. Today, patient reports he felt good through the night until an episode of dizziness and chest pain this morning. EKG obtained was unchanged. Chest pain worsens with movement and he was noted to have sternal border tenderness. [facility] History I have reviewed the patient's past medical history: Yes Medical History: Reports:: Atrial Fibrillation, Congestive Heart Failure, Chronic Obstructive Pulmonary Disease (COPD), Coronary Artery Disease, Diabetes Mellitus Type 2, Gastroesophageal Reflux Disease(GERD), Hyperlipidemia, Hypertension, Lung Disease, Transient Ischemic Attacks (TIA) Denies:: Cancer, Diabetes Mellitus Type 1, Internal Pacemaker, MRSA, Seizures Have you ever received a pneumonia vaccine?: Yes Have you received a flu vaccine this season?: Yes Other Medical History: Reports: Arthritis, Cataracts, Glaucoma, Hypothyroidism, Sinus Problems, Other. Denies: Blood Transfusion Reaction Laterality Cases: Bilateral: Myringotomy (Ear Tubes) Other Surgeries: Yes: Cardiac Catheterization, Sinus Surgery, Skin Cancer Excis ion, Other (vasectomy). No: Pacemaker Amputation: No Fractures: Yes ((R) dislocated shoulder) - *Social History Educational Level: Completed High School Smoking Status: Former smoker Tobacco Type: cigarettes Alcohol Intake: never Alcohol Intake Frequency:: holidays/special occasions only Substance Use Type: denies use Occupational Status: retired Housing: house Household Members: spouse Travel in the last 8 weeks: None - Psychiatric History Expresses thoughts of harming self/others: None Suicide Plan Description: No Plan *Family Hx:: Hyperlipidemia, Hypertension Review of Systems - Review of Systems Review of systems:: pertinent systems reviewed and negative unless documented below - Constitutional Reports weakness - *Cardiovascular Reports chest pain, Reports lightheadedness - *Neurologic Reports headache(s), Denies numbness, Denies weakness Exam Vital signs and Labs for Last 24 Hours: Temp Pulse Resp BP Pulse Ox 98.1 F 64 18 173/79 H 96 03/19/18 12:00 03/19/18 12:00 03/19/18 12:00 03/19/18 12:00 03/19/18 12:00 Laboratory Results - last 24 hr 03/18/18 13:35: TSH 1.64 03/18/18 : Urine Color Yellow, Urine Appearance Clear, Urine pH 8.0, Ur Specific Melrose 1.015, Urine Protein Negative, Urine Glucose (UA) Negative, Urine Ketones Negative, Urine Blood Negative, Urine Nitrate Negative, Urine Bilirubin Negative, Urine Urobilinogen 0.2, Ur Leukocyte Esterase Negative, Urine RBC None, Urine WBC Occasional, Ur Squamous Epith Cells Occasional, Urine Bacteria Trace, Urine Mucus Trace 03/19/18 05:58: Sodium 139, Potassium 3.4 L, Chloride 102, Carbon Dioxide 31, Anion Gap 9.4, BUN 12, Creatinine 1.21, Estimated Creat Clear 96, Estimated GFR 60, Est GFR ( Amer) 72, Glucose 138 H, Calcium 8.6 03/19/18 05:58: POC Glucose 128 H 03/19/18 11:02: POC Glucose 121 H I & O for Last 24 hours: Intake & Output 03/17/18 03/18/18 03/19/18 03/20/18 11:59 11:59 11:59 11:59 Intake Total 1262 / 1262 Balance 1262 / 1262 Weight 251 lb 6 oz Narrative: Alert and oriented x3. Rate and rhythm regular. Trace LE edema. Abdomen soft and nontender. Lung sounds clear and equal. No carotid bruit. No JVD. Neck with cervical paraspinal tenderness. Bernie Hallpike maneuver inconclusive. ENT exam unremarkable. Skin pink, warm and dry. Bilateral sternal border tenderness, no crepitus or deformity Hospital Course Hospital Course: Patient was admitted for observation. Carotid doppler and Echo were obtained which were unremarkable. HR 55-60's, no arrhythmias or ectopy. Orthostatic blood pressures were obtained which were normal. He was able to ambulate with PT without any dizziness. Gait was steady. Dizziness likely related to combination of vasovagal event and vertigo. Will monitor as outpatient, if symptoms persist will consider Holter Monitor and cardiology referral. Blood pressure remained elevated and he was given a dose of Avapro which he tolerated well. He has not had any further dizziness and is ready to go home. Discharge home on Losartan. Continue meclizine PRN for vertigo. See medication reconciliation for complete list. Short term FU with myself in [place] office in 2 days. Results Labs on day of discharge: Labs from last 24 hours 03/19/18 03/19/18 03/19/18 11:02 05:58 05:58 Sodium 139 Potassium 3.4 L Chloride 102 Carbon Dioxide 31 Anion Gap 9.4 BUN 12 Creatinine 1.21 Estimated Creat Clear 96 Estimated GFR 60 Est GFR ( Amer) 72 Glucose 138 H POC Glucose 121 H 128 H Calcium 8.6 TSH Urine Color Urine Appearance Urine pH Ur Specific Melrose Urine Protein Urine Glucose (UA) Urine Ketones Urine Blood Urine Nitrate Urine Bilirubin Urine Urobilinogen Ur Leukocyte Esterase Urine RBC Urine WBC Ur Squamous Epith Cells Urine Bacteria Urine Mucus 03/18/18 03/18/18 Unknown 13:35 Sodium Potassium Chloride Carbon Dioxide Anion Gap BUN Creatinine Estimated Creat Clear Estimated GFR Est GFR ( Amer) Glucose POC Glucose Calcium TSH 1.64 Urine Color Yellow Urine Appearance Clear Urine pH 8.0 Ur Specific Melrose 1.015 Urine Protein Negative Urine Glucose (UA) Negative Urine Ketones Negative Urine Blood Negative Urine Nitrate Negative Urine Bilirubin Negative Urine Urobilinogen 0.2 Ur Leukocyte Esterase Negative Urine RBC None Urine WBC Occasional Ur Squamous Epith Cells Occasional Urine Bacteria Trace Urine Mucus Trace DS: Diagnosis - Discharge Diagnosis (1) Vertigo Status: Acute (2) Vasovagal near syncope Status: Acute (3) Costochondral chest pain Status: Acute (4) Chronic a-fib Status: Chronic (5) Diabetes Status: Chronic (6) HTN (hypertension) Status: Chronic Discharge Medications - Medications for Discharge Home Medication List at Discharge: New Losartan Potassium 50 mg PO DAILY #30 tablet Continue omeprazole 20 mg capsule,delayed release 20 mg PO DAILY 30 Days apixaban 5 mg tablet 5 mg PO BID 90 Days tab Levothyroxine Sodium [Levothyroxine 100mcg (0.1MG) Tab] 100 mcg PO DAILY dilTIAZem HCl [Cartia Xt] 300 mg PO DAILY Fluorouracil [Efudex 5% cream 40gm tube] 1 applicatio TOPICAL BID Latanoprost [Xalatan 0.005% Ophth Soln 2.5mL] 1 drp EYE-BOTH HS Nitroglycerin 0.4 mg SL Q5MINP PRN PRN Reason: Chest Pain Magnesium Oxide 400 mg PO DAILY Exenatide Microspheres [Bydureon Pen] 2 mg SQ WEEKLY Sitagliptin Phosphate [Januvia 50mg Tablet] 50 mg PO DAILY Doxazosin Mesylate [Cardura 4mg tablet] 2 mg PO BID Carvedilol [Carvedilol 25mg Tab] 25 mg PO BID Fexofenadine HCl [Corin Allergy] 60 mg PO BID Methylcellulose [Citrucel] 1,000 mg PO DAILY Acetaminophen 1,000 mg PO Q4HP PRN PRN Reason: PAIN Furosemide [Furosemide 20mg Tab] 20 mg PO DAILY Amiodarone HCl 200 mg PO BID Potassium Chloride [K-Tab ER 20 mEq] 20 meq PO DAILY Meclizine HCl [Meclizine 12.5mg Tab] 25 mg PO TIDP PRN PRN Reason: Dizziness Disposition Disposition: Home, Self-Care
--- NOTE | 2018-03-20 12:19 | Cardiology Report ---
PROCEDURE: 2-D M-mode and color Doppler study INDICATIONS FOR THE TEST: Chest pain COPDX Heart Murmur Tobacco Smoking Palpitations Fatigue Syncope Edema HypertensionXDiabetes MellitusX Rheumatic Fever SOBXDOEXObesity XHyperlipidemia Family History HD Additional History CHRONIC AF,CAD,DIZZINESS TDS OBESITY,COPD PATIENT INFORMATION HEIGHT: 68 WEIGHT:251 GENDER: Male B/P:188/81 2-D/M-MODE INTERPRETATION: 2-D MEASUREMENTS OBSERVED VALUES IN CMS Right Ventricular Dimension (RVDd) 3.1 Interventricular Septum (Thickness)(IVsd) 1.2 Left Ventricular Internal Dimensions(LVIDd) 5.4 Left Ventricular Posterior Wall (Thickness)(LVPWd) 1.4 Aortic Root 3.2 Aortic Cusp Separation 1.3 Left Atrial Dimensions (LAD) 4.7 2D 1. Left atrium is mildly enlarged, left ventricle is normal size, mild concentric left ventricular hypertrophy, visually estimated ejection fraction 55% with no regional wall motion abnormality, endocardial surfaces are poorly visualized. 2. The right atrium and right ventricle are mildly enlarged with normal contractility. 3. The aortic valve is minimally thickened and fibrosed. 4. The mitral and tricuspid valve leaflets are minimally thickened. 5. The pulmonic valve is poorly visualized. 6. No significant pericardial effusion noted. DOPPLER INTERROGATION: Doppler interrogation of the aortic, mitral and tricuspid valve reveals presence of mild mitral and tricuspid regurgitation, tricuspid regurgitation jet velocity is inadequate for calculation of the right ventricular systolic pressure, diastolic parameters are inconclusive. CONCLUSION: 1. Mildly enlarged left atrium, normal left ventricular size, mild concentric left ventricular hypertrophy, visually estimated ejection fraction 55% with no regional wall motion abnormality, endocardial subsequent poorly visualized. Diastolic parameters are inconclusive. 2. Mildly enlarged ventricle with normal contractility. 3. Mild mitral and tricuspid regurgitation 4. No significant pericardial effusion noted.
== END 2018-03-19 15:25 | disposition home or self-care (01) ==
LOC: ER 13:10 → 2ND 13:10
PROVIDERS: ADMIT Internal Medicine Adolescent Medicine; ATTEND Internal Medicine Adolescent Medicine
CPT/HCPCS: 70450; 71010; 71045; 72125; 72131; 73502; 73700; 80048; 80053; 81001; 82962; 84443; 84484; 85025; 93005; 93306; 93880; 96374; 96375; 97162; 99284; G0378; J2405

== ENCOUNTER → 2018-04-21 08:26 | Outpatient (CLI) | payer MEDICARE, SELFPAY ==
[2018-04-21 13:59] LABS: Basophils % 0.5 % (0.1-2.0); Eosinophils # 0.4 K/mm3 (0.0-0.4); Eosinophils % 4.1 % (0.1-12.0); Hematocrit 35.3 % (42.0-52.0); Hemoglobin 11.4 g/dL (14.1-18.0); Lymphocytes # 1.2 K/mm3 (0.7-4.5); Lymphocytes % 13.5 % (10-50); Mean Corpuscular HGB Conc 32.3 g/dL (31.8-35.4); Mean Corpuscular Hemoglobin 27.6 pg (27.0-31.2); Mean Corpuscular Volume 85.3 fl (80-94); Mean Platelet Volume 7.6 fl (7.4-10.4); Monocytes # 0.5 K/mm3 (0.1-1.0); Monocytes % 6.1 % (1.7-9.3); Neutrophils # 6.7 K/mm3 (1.8-7.8); Neutrophils % 75.8 % (37.0-80.0); Platelet Count 261 K/mm3 (142-424); Red Blood Count 4.13 M/mm3 (4.60-6.20); Red Cell Distribution Width 15.5 % (11.5-17.5); White Blood Count 8.8 K/mm3 (4.8-10.8)
[2018-04-21 14:27] LABS: Alanine Aminotransferase 31 U/L (12-78); Albumin Level 3.3 gm/dL (3.4-5.0); Alkaline Phosphatase 112 U/L (46-116); Anion Gap 13.3 mEq/L (5-15); Aspartate Amino Transferase 4 U/L (15-37); Bilirubin,Total 0.4 mg/dL (0.2-1.0); Blood Urea Nitrogen 19 mg/dL (7-18); Calcium 8.8 mg/dL (8.5-10.1); Carbon Dioxide 30 mmol/L (21.0-32.0); Chloride 103 mmol/L (98-107); Creatinine,Serum 1.29 mg/dL (0.70-1.30); Estimated Glomerular Filt Rate 56 ml/min (>60); GFR (African American) 67 ML/MIN (>60); Globulin 3.2 gm/dl (1.3-3.2); Glucose 142 mg/dL (74-106); Potassium 3.3 mmoL/L (3.5-5.1); Sodium 143 mmol/L (136-145); Total Protein,Serum 6.5 gm/dL (6.4-8.2)
== END ==
PROVIDERS: PCP Internal Medicine Adolescent Medicine; Visit Provider Internal Medicine Adolescent Medicine
DX: I50.9 Heart failure, unspecified (principal)
CPT/HCPCS: 36415; 80053; 85025

== ENCOUNTER → 2018-06-02 08:16 | Outpatient (CLI) | payer MEDICARE, SELFPAY ==
[2018-06-02 14:16] LABS: Basophils % 0.5 % (0.1-2.0); Eosinophils # 0.4 K/mm3 (0.0-0.4); Eosinophils % 4.8 % (0.1-12.0); Hematocrit 37.3 % (42.0-52.0); Hemoglobin 12.2 g/dL (14.1-18.0); Lymphocytes % 13.2 % (10-50); Mean Corpuscular HGB Conc 32.6 g/dL (31.8-35.4); Mean Corpuscular Hemoglobin 27.4 pg (27.0-31.2); Mean Platelet Volume 8.2 fl (7.4-10.4); Monocytes # 0.6 K/mm3 (0.1-1.0); Monocytes % 7.6 % (1.7-9.3); Neutrophils # 5.5 K/mm3 (1.8-7.8); Neutrophils % 73.9 % (37.0-80.0); Platelet Count 216 K/mm3 (142-424); Red Blood Count 4.44 M/mm3 (4.60-6.20); Red Cell Distribution Width 15.6 % (11.5-17.5); White Blood Count 7.5 K/mm3 (4.8-10.8)
[2018-06-02 14:40] LABS: Alanine Aminotransferase 33 U/L (12-78); Albumin Level 3.4 gm/dL (3.4-5.0); Albumin/Globulin Ratio 1.1 (1.1-1.8); Alkaline Phosphatase 123 U/L (46-116); Anion Gap 13.4 mEq/L (5-15); Aspartate Amino Transferase 10 U/L (15-37); Bilirubin,Total 0.4 mg/dL (0.2-1.0); Blood Urea Nitrogen 13 mg/dL (7-18); Calcium 8.6 mg/dL (8.5-10.1); Carbon Dioxide 28 mmol/L (21.0-32.0); Chloride 103 mmol/L (98-107); Creatinine,Serum 1.07 mg/dL (0.70-1.30); Estimated Glomerular Filt Rate 69 ml/min (>60); GFR (African American) 83 ML/MIN (>60); Globulin 3.2 gm/dl (1.3-3.2); Glucose 161 mg/dL (74-106); Potassium 3.4 mmoL/L (3.5-5.1); Sodium 141 mmol/L (136-145); Total Protein,Serum 6.6 gm/dL (6.4-8.2)
[2018-06-02 14:57] LABS: Hemoglobin A1C 7.5 % (0.0-7.0)
== END ==
PROVIDERS: PCP Internal Medicine Adolescent Medicine; Visit Provider Internal Medicine Adolescent Medicine
DX: N18.2 Chronic kidney disease, stage 2 (mild) (principal); I50.9 Heart failure, unspecified; E11.9 Type 2 diabetes mellitus without complications; Z79.84 Long term (current) use of oral hypoglycemic drugs
CPT/HCPCS: 36415; 80053; 83036; 83880; 85025

== ENCOUNTER → 2018-09-01 08:13 | Outpatient (CLI) | payer MEDICARE, SELFPAY ==
[2018-09-01 08:52] LABS: Basophils # 0.1 K/mm3 (0-0.2); Basophils % 0.6 % (0.1-2.0); Eosinophils # 0.2 K/mm3 (0.0-0.4); Eosinophils % 2.4 % (0.1-12.0); Hematocrit 36.2 % (42.0-52.0); Hemoglobin 11.1 g/dL (14.1-18.0); Lymphocytes % 11.6 % (10-50); Mean Corpuscular HGB Conc 30.8 g/dL (31.8-35.4); Mean Corpuscular Hemoglobin 25.8 pg (27.0-31.2); Mean Corpuscular Volume 83.8 fl (80-94); Mean Platelet Volume 7.5 fl (7.4-10.4); Monocytes # 0.7 K/mm3 (0.1-1.0); Monocytes % 8.5 % (1.7-9.3); Neutrophils # 6.3 K/mm3 (1.8-7.8); Neutrophils % 76.9 % (37.0-80.0); Platelet Count 269 K/mm3 (142-424); Red Blood Count 4.32 M/mm3 (4.60-6.20); Red Cell Distribution Width 16.1 % (11.5-17.5); White Blood Count 8.2 K/mm3 (4.8-10.8)
[2018-09-01 10:40] LABS: Alanine Aminotransferase 38 U/L (12-78); Albumin Level 3.1 gm/dL (3.4-5.0); Albumin/Globulin Ratio 0.9 (1.1-1.8); Alkaline Phosphatase 136 U/L (46-116); Anion Gap 11.4 mEq/L (5-15); Aspartate Amino Transferase 12 U/L (15-37); Bilirubin,Total 0.4 mg/dL (0.2-1.0); Blood Urea Nitrogen 16 mg/dL (7-18); Calcium 8.7 mg/dL (8.5-10.1); Carbon Dioxide 32 mmol/L (21.0-32.0); Chloride 103 mmol/L (98-107); Chol/HDL Ratio 3.3 (1-3.5); Cholesterol 140 mg/dL (140-200); Creatinine,Serum 1.22 mg/dL (0.70-1.30); Estimated Glomerular Filt Rate 59 ml/min (>60); GFR (African American) 71 ML/MIN (>60); Globulin 3.4 gm/dl (1.3-3.2); Glucose 193 mg/dL (74-106); HDL Cholesterol 42 mg/dL (27-67); LDL Cholesterol 76 mg/dL (0-130); Potassium 3.4 mmoL/L (3.5-5.1); Sodium 143 mmol/L (136-145); Total Protein,Serum 6.5 gm/dL (6.4-8.2); Triglycerides 108 mg/dL (30-200); VLDL Cholesterol 22 mg/dL (0-40)
[2018-09-01 12:17] LABS: Hemoglobin A1C 7.1 % (0.0-7.0)
== END ==
PROVIDERS: Visit Provider Internal Medicine Adolescent Medicine
DX: E11.9 Type 2 diabetes mellitus without complications (principal); Z79.84 Long term (current) use of oral hypoglycemic drugs
CPT/HCPCS: 36415; 80053; 80061; 83036; 84443; 85025

== ENCOUNTER → 2018-10-02 09:28 | Outpatient (CLI) | payer MEDICARE, SELFPAY ==
--- NOTE | 2018-10-02 09:40 | XR_ITS ---
XR foot wt bearing RT 3V HISTORY: ITS.REASON: pain ORDERING PHYSICIAN: Eloise Mireles DPM PATIENT AGE: 68 years COMPARISON: None FINDINGS: Bone density is normal. There is moderate narrowing of the posterior tibiotalar joint with anterior small tibial spur. There is a prominent spur from the anterior superior talus. There is a 5 mm plantar calcaneal spur. There is flattening of the plantar arch. There is also narrowing of the first MTP joint with moderate hallux valgus angulation. There is no acute fracture. Impression: No acute process. Degenerative changes as described with first MTP joint degenerative arthritic change with hallux valgus angulation.
--- NOTE | 2018-10-02 09:40 | XR_ITS ---
XR foot wt bearing LT 3V HISTORY: ITS.REASON: pain ORDERING PHYSICIAN: Eloise Mireles DPM PATIENT AGE: 68 years COMPARISON: None FINDINGS: Bone density is normal. There is flattening of the plantar arch. There is narrowing of the tibiotalar joint with anterior tibial spur. There is a 5 mm plantar calcaneal spur. Lateral view shows a corticated ossific density measuring 8.6 mm superior to the talonavicular joint. There is mild narrowing of this joint with small superior proximal the ventricular spur. There is no acute fracture. Impression: Degenerative changes as described with flattening of the plantar arch. 8.6 mm ossific density superior to the talonavicular joint could be partial volume averaging with a spur or consider synovial osteochondromatosis.
--- NOTE | 2018-10-02 09:40 | XR_ITS ---
XR ankle wt bearing RT min 3V HISTORY: ITS.REASON: pain ORDERING PHYSICIAN: Eloise Mireles DPM PATIENT AGE: 68 years Comparison: None FINDINGS: Bone density is normal without acute fracture. There is moderate narrowing of the tibiotalar joint with anterior tibial spur. There is also spur from the anterior superior distal talus. There is a 5 mm plantar calcaneal spur. There is some flattening of the plantar arch. There are soft tissue vascular calcifications. Impression: No acute fracture. Degenerative change at the tibiotalar joint and also involving distal talus with a spur. Small plantar calcaneal spur.
--- NOTE | 2018-10-02 09:40 | XR_ITS ---
XR ankle wt bearing LT min 3V HISTORY: ITS.REASON: pain ORDERING PHYSICIAN: Eloise Mireles DPM PATIENT AGE: 68 years Comparison: None FINDINGS: Bone density is normal. There is at least mild narrowing of the posterior aspect of the tibial talar joint with anterior small tibial spur. There is a 5 mm plantar calcaneal spur. There is narrowing of the tibiotalar joint with a 8.6 mm corticated ossific density just superior to the talonavicular joint. There are some vascular calcified plaques. There is no acute fracture. Impression: Degenerative changes as described. 8.6 mm ossific density superior to talonavicular joint could be partial volume averaging with a spur or synovial osteochondromatosis.
[2018-10-02 14:00] VITALS: BP 107/53; PULSE 76; RESP 20; TEMP 36.6; O2SAT 95
--- NOTE | 2018-10-02 14:00 | P.PN_ITS ---
[facility] Anesthesia Record Part I Intake, IV Amount: 1,600 Estimated blood loss (mL): 100 Urine output (mL): 25 Blood Products used (#): none Blood Pressure: 107/53 SaO2: 95 Pulse Rate: 76 Respiratory Rate: 20 Temperature: 97.8 F Patient is:: Awake, Stable Stable to PACU at:: 13:52
--- NOTE | 2018-10-02 14:01 | P.PN_ITS ---
[facility] Anesthesia Checklist - Patient Identification Patient Identification: Arm Band, Verbal (Name & ) - Structural Data Admitted From: Home Planned Operative Procedure/s: orif humerous Consent for Planned Operative Procedure(s) Verified: Yes Verified Documents: History and Physical - NPO Status Verified Time NPO: 00:00 - Additional verifications Patient : No Anesthesia Reactions: No Hx Blood Transfusions: Yes (08/19/2017) Blood Transfusion Reaction: No Cephalosporin Allergy: No Previous Colonoscopy: No - Cardiovascular Assessment Heart Sounds: S1 & S2 Pulse Strength: Baseline Pulse Rhythm: Regular Peripheral Edema: No - Airway Assessment C-Spine Mobility Assessed: Yes TMJ Mobility Assessed: Yes Dentition: Edentulous - Neurological Assessment Level of Consciousness: Awake, Alert, Appropriate Hx Seizures: No Numbness or tingling in extremities: No - Anesthesia Plan Anesthesia Risk discussed: Yes Anesthesia Plan: Verified ASA Class: III Anesthesia Type: General [facility] History I have reviewed the patient's past medical history: Yes Medical History: Reports:: Atrial Fibrillation, Cancer, Congestive Heart Failure, Chronic Obstructive Pulmonary Disease (COPD), Coronary Artery Disease, Diabetes Mellitus Type 2, Gastroesophageal Reflux Disease(GERD), Hyperlipidemia, Hypertension, Lung Disease, Transient Ischemic Attacks (TIA) Denies:: Diabetes Mellitus Type 1, Internal Pacemaker, MRSA, Seizures *Have you ever received a pneumonia vaccine?: Yes *Have you received a flu vaccine this season?: No Other Medical History: Reports: Arthritis, Cataracts, Glaucoma, Hypothyroidism, Sinus Problems, Other. Denies: Blood Transfusion Reaction Laterality Cases: Other Surgeries: Yes: Cardiac Catheterization, Sinus Surgery, Skin Cancer Excision, Other (vasectomy). No: Pacemaker Amputation: No Fractures: Yes ((R) dislocated shoulder) - *Social History Smoking Status: Former smoker Tobacco Type: cigarettes Alcohol Intake: never Alcohol Intake Frequency:: other Substance Use Type: denies use *Occupational Status:: retired Housing: house Household Members: spouse *Travel in the last 8 weeks: None Family Hx:: Hyperlipidemia, Hypertension, Cancer
--- NOTE | 2018-10-02 14:02 | HMH.ANESII ---
[facility] Anesthesia Record Part II Discharge Time: 14:22 Destination: Surgical Day Care (OP Surgery) PACU nurse assessment reviewed?: Yes Patient Condition:: Good Anesthesia Complications:: None Swallowing reflex intact?: Yes Cyanosis?: No
== END ==
PROVIDERS: PCP Internal Medicine Adolescent Medicine; Visit Provider Podiatrist
DX: M25.572 Pain in left ankle and joints of left foot; M25.571 Pain in right ankle and joints of right foot
CPT/HCPCS: 73610; 73630

== ENCOUNTER → 2018-10-06 07:31 | Outpatient (CLI) | payer MEDICARE, SELFPAY ==
[2018-10-06 14:05] LABS: Basophils % 0.4 % (0.1-2.0); Eosinophils # 0.2 K/mm3 (0.0-0.4); Eosinophils % 1.7 % (0.1-12.0); Hematocrit 37.7 % (42.0-52.0); Hemoglobin 11.9 g/dL (14.1-18.0); Lymphocytes % 9.5 % (10-50); Mean Corpuscular HGB Conc 31.5 g/dL (31.8-35.4); Mean Corpuscular Hemoglobin 27.7 pg (27.0-31.2); Mean Corpuscular Volume 87.9 fl (80-94); Mean Platelet Volume 8.9 fl (7.4-10.4); Monocytes # 0.7 K/mm3 (0.1-1.0); Monocytes % 6.4 % (1.7-9.3); Neutrophils # 8.7 K/mm3 (1.8-7.8); Platelet Count 275 K/mm3 (142-424); Red Blood Count 4.29 M/mm3 (4.60-6.20); Red Cell Distribution Width 16.3 % (11.5-17.5); White Blood Count 10.6 K/mm3 (4.8-10.8)
[2018-10-06 14:40] LABS: Hemoglobin A1C 7.8 % (0.0-7.0)
[2018-10-06 15:23] LABS: Alanine Aminotransferase 32 U/L (12-78); Albumin Level 3.1 gm/dL (3.4-5.0); Albumin/Globulin Ratio 0.9 (1.1-1.8); Alkaline Phosphatase 118 U/L (46-116); Anion Gap 10.4 mEq/L (5-15); Aspartate Amino Transferase 6 U/L (15-37); Bilirubin,Total 0.5 mg/dL (0.2-1.0); Blood Urea Nitrogen 20 mg/dL (7-18); Calcium 8.9 mg/dL (8.5-10.1); Carbon Dioxide 32 mmol/L (21.0-32.0); Chloride 104 mmol/L (98-107); Chol/HDL Ratio 2.7 (1-3.5); Cholesterol 133 mg/dL (140-200); Creatinine,Serum 1.25 mg/dL (0.70-1.30); Estimated Glomerular Filt Rate 57 ml/min (>60); GFR (African American) 70 ML/MIN (>60); Globulin 3.4 gm/dl (1.3-3.2); Glucose 158 mg/dL (74-106); HDL Cholesterol 49 mg/dL (27-67); LDL Cholesterol 71 mg/dL (0-130); Potassium 3.4 mmoL/L (3.5-5.1); Sodium 143 mmol/L (136-145); Thyroid Stimulating Hormone 2.55 uIU/ml (0.358-3.740); Total Protein,Serum 6.5 gm/dL (6.4-8.2); Triglycerides 65 mg/dL (30-200); VLDL Cholesterol 13 mg/dL (0-40)
== END ==
PROVIDERS: PCP Internal Medicine Adolescent Medicine; Visit Provider Internal Medicine Adolescent Medicine
DX: E11.9 Type 2 diabetes mellitus without complications (principal); E03.9 Hypothyroidism, unspecified; I48.2 Chronic atrial fibrillation; Z79.84 Long term (current) use of oral hypoglycemic drugs
CPT/HCPCS: 36415; 80053; 80061; 83036; 84443; 85025

== ENCOUNTER → 2018-10-08 07:15 | Outpatient (CLI) | payer MEDICARE, SELFPAY ==
[2018-10-10 17:09] LABS: Renin Activity, Plasma 0.274 ng/mL/hr (0.167-5.380)
== END ==
PROVIDERS: PCP Internal Medicine Adolescent Medicine; Visit Provider Internal Medicine Adolescent Medicine
DX: I10 Essential (primary) hypertension (principal)
CPT/HCPCS: 36415; 82088; 82533; 84244

== ENCOUNTER → 2018-10-22 07:29 | Outpatient (CLI) | payer MEDICARE, SELFPAY ==
[2018-10-22 14:06] LABS: Basophils # 0.1 K/mm3 (0-0.2); Basophils % 0.6 % (0.1-2.0); Eosinophils # 0.2 K/mm3 (0.0-0.4); Eosinophils % 2.3 % (0.1-12.0); Hematocrit 39.9 % (42.0-52.0); Hemoglobin 12.6 g/dL (14.1-18.0); Lymphocytes # 1.1 K/mm3 (0.7-4.5); Lymphocytes % 13.8 % (10-50); Mean Corpuscular HGB Conc 31.5 g/dL (31.8-35.4); Mean Corpuscular Hemoglobin 27.2 pg (27.0-31.2); Mean Corpuscular Volume 86.3 fl (80-94); Mean Platelet Volume 7.7 fl (7.4-10.4); Monocytes # 0.6 K/mm3 (0.1-1.0); Monocytes % 7.4 % (1.7-9.3); Neutrophils % 75.8 % (37.0-80.0); Platelet Count 257 K/mm3 (142-424); Red Blood Count 4.62 M/mm3 (4.60-6.20); Red Cell Distribution Width 16.3 % (11.5-17.5); White Blood Count 7.9 K/mm3 (4.8-10.8)
[2018-10-22 15:20] LABS: Alanine Aminotransferase 58 U/L (12-78); Albumin Level 3.4 gm/dL (3.4-5.0); Alkaline Phosphatase 116 U/L (46-116); Anion Gap 11.2 mEq/L (5-15); Aspartate Amino Transferase 15 U/L (15-37); Bilirubin,Total 0.4 mg/dL (0.2-1.0); Blood Urea Nitrogen 24 mg/dL (7-18); Calcium 9.2 mg/dL (8.5-10.1); Carbon Dioxide 30 mmol/L (21.0-32.0); Chloride 103 mmol/L (98-107); Creatinine,Serum 1.42 mg/dL (0.70-1.30); Estimated Glomerular Filt Rate 50 ml/min (>60); GFR (African American) 60 ML/MIN (>60); Globulin 3.3 gm/dl (1.3-3.2); Glucose 141 mg/dL (74-106); Potassium 4.2 mmoL/L (3.5-5.1); Sodium 140 mmol/L (136-145); Total Protein,Serum 6.7 gm/dL (6.4-8.2)
== END ==
PROVIDERS: PCP Internal Medicine Adolescent Medicine; Visit Provider Internal Medicine Adolescent Medicine
DX: I50.9 Heart failure, unspecified (principal); N18.2 Chronic kidney disease, stage 2 (mild)
CPT/HCPCS: 36415; 80053; 85025

== ENCOUNTER → 2018-10-27 14:45 | Outpatient (CLI) | payer MEDICARE, SELFPAY ==
--- NOTE | 2018-10-27 14:53 | XR_ITS ---
PROCEDURE: XR CHEST 2V CLINICAL HISTORY: cough, recent pneumonia Cough, recent pneumonia COMPARISON: CXR2V XR chest 2V from 02/28/2018 CXR1VP XR chest portable from 03/18/2018 CXR2 XR chest AP from 04/24/2018 FINDINGS: The cardiomediastinal silhouette and pulmonary vascularity are within normal limits.The lungs are clear without infiltrates, suspicious nodules, or pleural effusions. No acute bony abnormalities. IMPRESSION: No change with no acute finding Dictated by: Sony Lwason MD 10/27/2018 15:56 Signed by: <Electronically signed by Sony Lawson MD in [place]> 10/27/2018 15:56
== END ==
PROVIDERS: PCP Internal Medicine Adolescent Medicine; Visit Provider Specialist
DX: G47.33 Obstructive sleep apnea (adult) (pediatric) (principal); R05 Cough; Z87.01 Personal history of pneumonia (recurrent)
CPT/HCPCS: 71046

== ENCOUNTER → 2018-11-18 07:21 | Outpatient (CLI) | payer MEDICARE, SELFPAY ==
--- NOTE | 2018-11-18 07:37 | ECG_ITS ---
APPROVED REPORT Exam: Resting ECG HR:61 bpm ECG Measurements Heart Rate 61 AXES AZ 294 P 72 QRSd 106 QRS 40 QT 460 T 82 QTc 463 <Conclusion> Sinus rhythm with 1st degree AV block Prolonged QT Abnormal ECG Electronically signed by : Riley Delatorre, 11/18/2018 19:58:13
[2018-11-18 07:40] LABS: Basophils # 0.1 K/mm3 (0-0.2); Basophils % 0.7 % (0.1-2.0); Eosinophils # 0.2 K/mm3 (0.0-0.4); Eosinophils % 1.9 % (0.1-12.0); Hemoglobin 12.9 g/dL (14.1-18.0); Lymphocytes % 13.4 % (10-50); Mean Corpuscular HGB Conc 32.3 g/dL (31.8-35.4); Mean Corpuscular Hemoglobin 27.7 pg (27.0-31.2); Mean Corpuscular Volume 85.8 fl (80-94); Mean Platelet Volume 7.3 fl (7.4-10.4); Monocytes # 0.7 K/mm3 (0.1-1.0); Monocytes % 8.9 % (1.7-9.3); Neutrophils # 5.9 K/mm3 (1.8-7.8); Neutrophils % 75.3 % (37.0-80.0); Platelet Count 250 K/mm3 (142-424); Red Blood Count 4.66 M/mm3 (4.60-6.20); Red Cell Distribution Width 16.5 % (11.5-17.5); White Blood Count 7.8 K/mm3 (4.8-10.8)
== END ==
PROVIDERS: Visit Provider Otolaryngology
DX: Z01.818 Encounter for other preprocedural examination (principal); H66.3X3 Other chronic suppurative otitis media, bilateral; H91.93 Unspecified hearing loss, bilateral
CPT/HCPCS: 36415; 85025; 93005

== ENCOUNTER → 2018-11-26 07:57 | Outpatient (CLI) | payer MEDICARE, SELFPAY ==
[2018-11-26 14:14] LABS: Basophils % 0.5 % (0.1-2.0); Eosinophils # 0.2 K/mm3 (0.0-0.4); Eosinophils % 2.7 % (0.1-12.0); Hematocrit 39.5 % (42.0-52.0); Hemoglobin 12.5 g/dL (14.1-18.0); Lymphocytes % 12.6 % (10-50); Mean Corpuscular HGB Conc 31.7 g/dL (31.8-35.4); Mean Corpuscular Hemoglobin 27.7 pg (27.0-31.2); Mean Corpuscular Volume 87.3 fl (80-94); Mean Platelet Volume 7.9 fl (7.4-10.4); Monocytes # 0.7 K/mm3 (0.1-1.0); Monocytes % 8.7 % (1.7-9.3); Neutrophils # 5.9 K/mm3 (1.8-7.8); Neutrophils % 75.5 % (37.0-80.0); Platelet Count 260 K/mm3 (142-424); Red Blood Count 4.52 M/mm3 (4.60-6.20); Red Cell Distribution Width 16.6 % (11.5-17.5); White Blood Count 7.9 K/mm3 (4.8-10.8)
[2018-11-26 15:28] LABS: Alanine Aminotransferase 81 U/L (12-78); Albumin Level 3.4 gm/dL (3.4-5.0); Alkaline Phosphatase 106 U/L (46-116); Anion Gap 16.7 mEq/L (5-15); Aspartate Amino Transferase 25 U/L (15-37); Bilirubin,Total 0.4 mg/dL (0.2-1.0); Blood Urea Nitrogen 35 mg/dL (7-18); Calcium 9.6 mg/dL (8.5-10.1); Carbon Dioxide 25 mmol/L (21.0-32.0); Chloride 103 mmol/L (98-107); Creatinine,Serum 1.74 mg/dL (0.70-1.30); Estimated Glomerular Filt Rate 39 ml/min (>60); GFR (African American) 47 ML/MIN (>60); Globulin 3.3 gm/dl (1.3-3.2); Glucose 141 mg/dL (74-106); Potassium 4.7 mmoL/L (3.5-5.1); Sodium 140 mmol/L (136-145); Thyroid Stimulating Hormone 1.65 uIU/ml (0.358-3.740); Total Protein,Serum 6.7 gm/dL (6.4-8.2)
== END ==
PROVIDERS: PCP Internal Medicine Adolescent Medicine; Visit Provider Internal Medicine Adolescent Medicine
DX: I48.2 Chronic atrial fibrillation (principal); E03.9 Hypothyroidism, unspecified; N18.2 Chronic kidney disease, stage 2 (mild)
CPT/HCPCS: 36415; 80053; 84443; 85025

== ENCOUNTER 2018-12-09 11:00 | Outpatient (RCR) | payer MEDICARE, SELFPAY ==
--- NOTE | 2018-11-11 12:24 | HMH.PTOPEV ---
PT Outpatient Evaluation Rehab PT Outpatient Evaluation Start: 11/11/18 11:32 Freq: Status: Active Protocol: Document 11/11/18 11:32 [email or web address] (Rec: 11/11/18 12:24 PDESEROUX [id number]) Electronically Signed By Po Villa, PT 11/11/18 11:32 Outpatient Therapy Subjective History Subjective History Pt. is a 68 year old male who presents to outpatient PT for complaints of chronic and intermittent bilateral medial ankle(R>L) P! of insidious onset for 4 months. Pt. reports having similar symptoms 4 years ago that had symptom relief with PT. Pt. reports, the P! will shoot up the calf sometimes, but is worse at night before I go to bed. Recent diagnostic imaging positive for OA per pt. report. Pt. denies having recent injections for current pathology. See chart for list of current medications. PMH includes type II diabetes, Atrial fibrillation, Hyperlipedmia, HTN, Chronic kidney disease, hypothyroidism , CHF, and lumbar disc disease . Chief Complaint Pain Symptom Type Ache,Sharp,Dull,Numbness Symptoms Relieved By Rest/Positioning,Brace/Support ,Prescription Meds Symptoms Aggravated By Standing,Physical Activity, Walking Prior Functional Limitations None Current Functional Limitations Housework,Standing,Recreation Activity,Walking,Stairs Symptom Description Intermittent Level of pain today (0-10) 0 Pain scale - at its best (0-10) 0 Pain scale - at its worst (0-10) 10 Ankle/Foot Eval Gait Observation General Gait Pattern Observation No Deviations/Normal Assistive Device Ambulation Assistive Device None Palpation Tenderness bilateral Ankle/Foot Palpation Findings Tenderness Ankle/Foot Palpation Overall Comment grade 3 +TTP posterior tibialis mm. belly/tendon ATF TTP negative PTF TTP negative CF TTP negative Deltoid ligament TTP negative ROM right Ankle/Foot Dorsiflexion w/Knee Extended 0 Active Range Motion (degrees)
== END 2018-12-09 13:00 | disposition home or self-care (01) ==
LOC: PT.CARL 11:00
PROVIDERS: PCP Internal Medicine Adolescent Medicine; Visit Provider Podiatrist
DX: M19.071 Primary osteoarthritis, right ankle and foot (principal); M77.9 Enthesopathy, unspecified
CPT/HCPCS: 97014; 97033; 97035; 97110; 97112; 97163; G0283

== ENCOUNTER 2019-01-20 12:12 | Outpatient (CLI) | payer MEDICARE, SELFPAY ==
[2019-01-20] VITALS (9 sets, daily range): BP systolic 112–139; BP diastolic 56–76; PULSE 64–69; RESP 18; TEMP 36.5; O2SAT 97–99; BMI 36.8
[2019-01-20 12:36] LABS: Basophils # 0.1 K/mm3 (0-0.2); Basophils % 1.1 % (0.1-2.0); Eosinophils # 0.2 K/mm3 (0.0-0.4); Eosinophils % 2.9 % (0.1-12.0); Hematocrit 42.2 % (42.0-52.0); Hemoglobin 13.6 g/dL (14.1-18.0); Lymphocytes % 12.5 % (10-50); Mean Corpuscular HGB Conc 32.2 g/dL (31.8-35.4); Mean Corpuscular Hemoglobin 30.3 pg (27.0-31.2); Monocytes # 0.8 K/mm3 (0.1-1.0); Monocytes % 10.6 % (1.7-9.3); Neutrophils # 5.8 K/mm3 (1.8-7.8); Platelet Count 264 K/mm3 (142-424); Red Blood Count 4.49 M/mm3 (4.60-6.20); Red Cell Distribution Width 16.9 % (11.5-17.5); White Blood Count 7.9 K/mm3 (4.8-10.8)
[2019-01-20 12:49] LABS: Alanine Aminotransferase 89 U/L (12-78); Albumin Level 3.6 gm/dL (3.4-5.0); Albumin/Globulin Ratio 0.9 (1.1-1.8); Alkaline Phosphatase 136 U/L (46-116); Anion Gap 12.1 mEq/L (5-15); Aspartate Amino Transferase 17 U/L (15-37); Bilirubin,Total 0.4 mg/dL (0.2-1.0); Blood Urea Nitrogen 56 mg/dL (7-18); Calcium 9.1 mg/dL (8.5-10.1); Carbon Dioxide 28 mmol/L (21.0-32.0); Chloride 100 mmol/L (98-107); Creatinine Clearance Estimated 33 mL/min (50-200); Creatinine,Serum 3.35 mg/dL (0.70-1.30); Estimated Glomerular Filt Rate 18 ml/min (>60); GFR (African American) 22 ML/MIN (>60); Globulin 4.1 gm/dl (1.3-3.2); Glucose 87 mg/dL (74-106); Potassium 5.1 mmoL/L (3.5-5.1); Sodium 135 mmol/L (136-145); Total Protein,Serum 7.7 gm/dL (6.4-8.2)
== END 2019-01-20 15:00 | disposition home or self-care (01) ==
PROVIDERS: PCP Internal Medicine Adolescent Medicine; Visit Provider Internal Medicine Adolescent Medicine
DX: E86.0 Dehydration (principal)
CPT/HCPCS: 80053; 85025; 96360; 96361

== ENCOUNTER → 2019-01-26 07:21 | Outpatient (CLI) | payer MEDICARE, SELFPAY ==
[2019-01-26 14:09] LABS: Basophils # 0.1 K/mm3 (0-0.2); Basophils % 0.7 % (0.1-2.0); Eosinophils # 0.5 K/mm3 (0.0-0.4); Eosinophils % 5.3 % (0.1-12.0); Hematocrit 37.6 % (42.0-52.0); Lymphocytes # 1.1 K/mm3 (0.7-4.5); Lymphocytes % 12.5 % (10-50); Mean Corpuscular Hemoglobin 29.5 pg (27.0-31.2); Mean Corpuscular Volume 92.1 fl (80-94); Monocytes # 0.7 K/mm3 (0.1-1.0); Monocytes % 7.6 % (1.7-9.3); Neutrophils # 6.5 K/mm3 (1.8-7.8); Neutrophils % 73.9 % (37.0-80.0); Platelet Count 250 K/mm3 (142-424); Red Blood Count 4.08 M/mm3 (4.60-6.20); White Blood Count 8.8 K/mm3 (4.8-10.8)
[2019-01-26 14:20] LABS: Alanine Aminotransferase 73 U/L (12-78); Albumin Level 3.2 gm/dL (3.4-5.0); Alkaline Phosphatase 102 U/L (46-116); Anion Gap 11.5 mEq/L (5-15); Aspartate Amino Transferase 19 U/L (15-37); Bilirubin,Total 0.4 mg/dL (0.2-1.0); Blood Urea Nitrogen 26 mg/dL (7-18); Calcium 8.7 mg/dL (8.5-10.1); Carbon Dioxide 27 mmol/L (21.0-32.0); Chloride 104 mmol/L (98-107); Creatinine,Serum 2.14 mg/dL (0.70-1.30); Estimated Glomerular Filt Rate 31 ml/min (>60); GFR (African American) 37 ML/MIN (>60); Globulin 3.1 gm/dl (1.3-3.2); Glucose 123 mg/dL (74-106); Potassium 4.5 mmoL/L (3.5-5.1); Sodium 138 mmol/L (136-145); Total Protein,Serum 6.3 gm/dL (6.4-8.2)
== END ==
PROVIDERS: PCP Internal Medicine Adolescent Medicine; Visit Provider Internal Medicine Adolescent Medicine
DX: D64.9 Anemia, unspecified (principal)
CPT/HCPCS: 36415; 80053; 85025

== ENCOUNTER → 2019-02-02 08:51 | Outpatient (CLI) | payer MEDICARE, SELFPAY ==
[2019-02-02 13:53] LABS: Anion Gap 9.2 mEq/L (5-15); Blood Urea Nitrogen 24 mg/dL (7-18); Calcium 8.8 mg/dL (8.5-10.1); Carbon Dioxide 30 mmol/L (21.0-32.0); Chloride 104 mmol/L (98-107); Creatinine,Serum 1.61 mg/dL (0.70-1.30); Estimated Glomerular Filt Rate 43 ml/min (>60); GFR (African American) 52 ML/MIN (>60); Glucose 123 mg/dL (74-106); Potassium 4.2 mmoL/L (3.5-5.1); Sodium 139 mmol/L (136-145)
[2019-02-02 14:17] LABS: Basophils # 0.1 K/mm3 (0-0.2); Basophils % 0.9 % (0.1-2.0); Eosinophils # 0.3 K/mm3 (0.0-0.4); Eosinophils % 3.7 % (0.1-12.0); Hematocrit 39.3 % (42.0-52.0); Hemoglobin 12.6 g/dL (14.1-18.0); Lymphocytes # 0.9 K/mm3 (0.7-4.5); Lymphocytes % 10.3 % (10-50); Mean Corpuscular Hemoglobin 29.7 pg (27.0-31.2); Mean Platelet Volume 8.7 fl (7.4-10.4); Monocytes # 0.8 K/mm3 (0.1-1.0); Monocytes % 8.8 % (1.7-9.3); Neutrophils # 6.7 K/mm3 (1.8-7.8); Neutrophils % 76.4 % (37.0-80.0); Platelet Count 241 K/mm3 (142-424); Red Blood Count 4.23 M/mm3 (4.60-6.20); Red Cell Distribution Width 16.3 % (11.5-17.5); White Blood Count 8.7 K/mm3 (4.8-10.8)
== END ==
PROVIDERS: PCP Internal Medicine Adolescent Medicine; Visit Provider Internal Medicine Adolescent Medicine
DX: N18.2 Chronic kidney disease, stage 2 (mild) (principal)
CPT/HCPCS: 36415; 80048; 85025

== ENCOUNTER → 2019-03-09 07:58 | Outpatient (CLI) | payer MEDICARE, SELFPAY ==
[2019-03-09 13:27] LABS: Basophils # 0.1 K/mm3 (0-0.2); Basophils % 0.7 % (0.1-2.0); Eosinophils # 0.3 K/mm3 (0.0-0.4); Eosinophils % 3.5 % (0.1-12.0); Hematocrit 38.5 % (42.0-52.0); Hemoglobin 11.7 g/dL (14.1-18.0); Lymphocytes # 1.2 K/mm3 (0.7-4.5); Lymphocytes % 11.8 % (10-50); Mean Corpuscular HGB Conc 30.3 g/dL (31.8-35.4); Mean Corpuscular Hemoglobin 28.1 pg (27.0-31.2); Mean Corpuscular Volume 92.8 fl (80-94); Mean Platelet Volume 8.1 fl (7.4-10.4); Monocytes # 0.8 K/mm3 (0.1-1.0); Monocytes % 7.7 % (1.7-9.3); Neutrophils # 7.4 K/mm3 (1.8-7.8); Neutrophils % 76.2 % (37.0-80.0); Platelet Count 309 K/mm3 (142-424); Red Blood Count 4.15 M/mm3 (4.60-6.20); Red Cell Distribution Width 15.1 % (11.5-17.5); White Blood Count 9.7 K/mm3 (4.8-10.8)
[2019-03-09 14:40] LABS: Alanine Aminotransferase 29 U/L (12-78); Albumin Level 3.1 gm/dL (3.4-5.0); Alkaline Phosphatase 117 U/L (46-116); Anion Gap 13.4 mEq/L (5-15); Aspartate Amino Transferase 7 U/L (15-37); Bilirubin,Total 0.5 mg/dL (0.2-1.0); Blood Urea Nitrogen 16 mg/dL (7-18); Calcium 8.5 mg/dL (8.5-10.1); Carbon Dioxide 30 mmol/L (21.0-32.0); Chloride 104 mmol/L (98-107); Cholesterol 149 mg/dL (140-200); Creatinine,Serum 1.22 mg/dL (0.70-1.30); Estimated Glomerular Filt Rate 59 ml/min (>60); GFR (African American) 71 ML/MIN (>60); Globulin 3.1 gm/dl (1.3-3.2); Glucose 150 mg/dL (74-106); HDL Cholesterol 50 mg/dL (27-67); LDL Cholesterol 82 mg/dL (0-130); Potassium 3.4 mmoL/L (3.5-5.1); Sodium 144 mmol/L (136-145); Total Protein,Serum 6.2 gm/dL (6.4-8.2); Triglycerides 87 mg/dL (30-200); VLDL Cholesterol 17 mg/dL (0-40)
[2019-03-09 16:08] LABS: Hemoglobin A1C 6.9 % (0.0-7.0)
== END ==
PROVIDERS: PCP Internal Medicine Adolescent Medicine; Visit Provider Internal Medicine Adolescent Medicine
DX: E11.9 Type 2 diabetes mellitus without complications (principal); E78.5 Hyperlipidemia, unspecified; I48.20 Chronic atrial fibrillation, unspecified
CPT/HCPCS: 36415; 80053; 80061; 83036; 85025

== ENCOUNTER → 2019-06-25 12:05 | Outpatient (CLI) | payer MEDICARE, SELFPAY ==
--- NOTE | 2019-06-25 12:28 | ECG_ITS ---
APPROVED REPORT Exam: Resting ECG HR:58 bpm ECG Measurements Heart Rate 58 AXES NE 300 P 60 QRSd 108 QRS 99 QT 538 T 37 QTc 528 <Conclusion> Sinus bradycardia with 1st degree AV block Rightward axis Nonspecific ST and T wave abnormality Prolonged QT Abnormal ECG Electronically signed by : Riley Delatorre, 06/26/2019 08:04:53
[2019-06-25 13:26] LABS: Basophils # 0.1 K/mm3 (0-0.2); Basophils % 0.7 % (0.1-2.0); Eosinophils # 0.3 K/mm3 (0.0-0.4); Eosinophils % 3.4 % (0.1-12.0); Lymphocytes # 1.1 K/mm3 (0.7-4.5); Lymphocytes % 13.8 % (10-50); Mean Corpuscular HGB Conc 31.6 g/dL (31.8-35.4); Mean Corpuscular Hemoglobin 26.4 pg (27.0-31.2); Mean Corpuscular Volume 83.6 fl (80-94); Mean Platelet Volume 8.6 fl (7.4-10.4); Monocytes # 0.7 K/mm3 (0.1-1.0); Monocytes % 9.3 % (1.7-9.3); Neutrophils # 5.6 K/mm3 (1.8-7.8); Neutrophils % 72.8 % (37.0-80.0); Platelet Count 238 K/mm3 (142-424); Red Blood Count 4.54 M/mm3 (4.60-6.20); Red Cell Distribution Width 16.5 % (11.5-17.5); White Blood Count 7.7 K/mm3 (4.8-10.8)
[2019-06-25 13:47] LABS: Anion Gap 9.4 mEq/L (5-15); Blood Urea Nitrogen 14 mg/dl (9-20); Calcium 9.4 mg/dl (8.4-10.2); Carbon Dioxide 34 mmol/L (22.0-30.0); Chloride 98 mmol/L (98-107); Estimated Glomerular Filt Rate 74 ml/min (>60); GFR (African American) 90 ML/MIN (>60); Glucose 138 mg/dl (74-100); Potassium 3.4 mmoL/L (3.5-5.1); Sodium 138 mmol/L (136-145)
== END ==
PROVIDERS: Visit Provider Otolaryngology
DX: Z01.818 Encounter for other preprocedural examination (principal); H93.90 Unspecified disorder of ear, unspecified ear; L98.9 Disorder of the skin and subcutaneous tissue, unspecified
CPT/HCPCS: 36415; 80048; 85025; 93005

== ENCOUNTER 2019-07-02 05:49 | Day surgery (SDC) | payer MEDICARE, SELFPAY ==
[2019-06-30 09:40] VITALS: BMI 37.7
[2019-07-02 06:34] VITALS: BP 200/85; PULSE 58; RESP 20; TEMP 36.8; O2SAT 96
[2019-07-02 06:49] LABS: POC Glucose,Bedside 163 (70-110)
--- NOTE | 2019-07-02 07:13 | P.PN_ITS ---
[facility] Anesthesia Checklist - Patient Identification Patient Identification: Arm Band, Verbal (Name & ) - Structural Data Admitted From: Home Planned Operative Procedure/s: ex. lession Consent for Planned Operative Procedure(s) Verified: Yes Verified Documents: History and Physical - NPO Status Verified Time NPO: 00:00 - Additional verifications Patient : No Anesthesia Reactions: No Hx Blood Transfusions: Yes (08/19/2017) Blood Transfusion Reaction: No Cephalosporin Allergy: No Previous Colonoscopy: Yes - Cardiovascular Assessment Heart Sounds: S1 & S2 Pulse Strength: Baseline Pulse Rhythm: Regular Peripheral Edema: No - Airway Assessment C-Spine Mobility Assessed: Yes TMJ Mobility Assessed: Yes Dentition: Good Dentition - Neurological Assessment Level of Consciousness: Awake, Alert, Appropriate Hx Seizures: No Numbness or tingling in extremities: No - Anesthesia Plan Anesthesia Risk discussed: Yes Anesthesia Plan: Verified ASA Class: III Anesthesia Type: MAC [facility] History I have reviewed the patient's past medical history: Yes Medical History: Reports:: Atrial Fibrillation, Cancer (skin), Congestive Heart Failure, Chronic Obstructive Pulmonary Disease (COPD), Coronary Artery Disease, Diabetes Mellitus Type 2, Gastroesophageal Reflux Disease(GERD), Hyperlipidemia, Hypertension, Lung Disease, Transient Ischemic Attacks (TIA) Denies:: Diabetes Mellitus Type 1, Internal Pacemaker, MRSA, Seizures *Have you ever received a pneumonia vaccine?: Yes *Have you received a flu vaccine this season?: Yes Other Medical History: Reports: Arthritis, Cataracts, Glaucoma, Hypothyroidism, Sinus Problems, Other. Denies: Blood Transfusion Reaction Anesthesia experience/problems:: none Laterality Cases: Bilateral: Myringotomy (Ear Tubes) Other Surgeries: Yes: Cardiac Catheterization, Colonoscopy, Sinus Surgery, Skin Cancer Excision, Other (vasectomy). No: Pacemaker Amputation: No Fractures: Yes ((R) dislocated shoulder) - *Social History Smoking Status: Former smoker Tobacco Type: cigarettes # Packs/Day (cigarettes): 1 Alcohol Intake: current Alcohol Intake Frequency:: holidays/special occasions only Substance Use Type: denies use *Occupational Status:: retired Housing: house Household Members: spouse *Travel in the last 8 weeks: None Family Hx:: Hyperlipidemia, Hypertension, Cancer
[2019-07-02 09:00] VITALS: BP 165/75; PULSE 62; RESP 16; TEMP 36.6; O2SAT 96
[2019-07-02 09:15] VITALS: BP 144/73; PULSE 58; RESP 18; O2SAT 96
[2019-07-02 09:30] VITALS: BP 161/73; PULSE 60; RESP 18; O2SAT 96
[2019-07-02 09:45] VITALS: BP 159/80; PULSE 61; RESP 18; TEMP 36.6; O2SAT 96
--- NOTE | 2019-07-02 16:34 | HMH.OPNOTE ---
Date of procedure: 07/02/19 Pre-op Diagnosis:: 1. 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 Malignant neoplasm left ear 3 cm Post-op Diagnosis:: same Procedure performed:: 1. Excision of malignant neoplasm right anabaptist 3.2 cm with tissue rearrangement geometric plastic repair 2. Excision of malignant neoplasm right ear 3.5 cm with tissue rearrangement geometric plastic repair 3. Excision of malignant neoplasm left ear 3.0 cm with tissue rearrangement geometric plastic repair Surgeon:: Julius Villafuerte MD MANAGER FOREIGN:: Chris Singleton Anesthesia: MAC Estimated blood loss (mL): 6 Operative findings:: same Operative note:: The right side of the face and the right ear was prepped and draped. The perilesional areas on the right side were infiltrated with a total of 6 cc of 2% lidocaine containing epinephrine. Lesion on the right anabaptist was marked out and the luanne out measured 3.2 cm. The luanne out was incised and the lesion was excised and submitted. Bleeding was stopped with bipolar cautery. Surgicel snow was placed in the defect and an anterior and posterior incision was made so that a tissue rearrangement geometric plastic repair could be done with 4-0 nylon sutures. A Dermabond dressing was applied. The lesion on the right ear measured 3.5 cm. The luanne out was incised and the lesion was excised to the perichondrium of the cartilage. Superior and inferior incisions were made and a tissue rearrangement geometric plastic repair was done with interrupted 4-0 nylon sutures. The left ear was prepped and draped in the luanne out was incised the lesion was excised to the level of the cartilage and submitted. Superior and inferior incisions were made and a tissue rearrangement geometric plastic repair was done after bleeding was stopped with bipolar cautery and Surgicel snow was placed in the defect. A Dermabond dressing was applied to all 3 sites along with Band-Aid dressings. Patient tolerated the procedure well and was sent to recovery in good general condition. Condition: stable Disposition: PACU Complications:: none
== END 2019-07-02 09:45 | disposition home or self-care (01) ==
LOC: OR 05:50
PROVIDERS: PCP Internal Medicine Adolescent Medicine; Visit Provider Otolaryngology
PROC: (CPT 14040; principal; 2019-07-02 07:30)
DX: C44.329 Squamous cell carcinoma of skin of other parts of face (principal); C44.219 Basal cell carcinoma of skin of left ear and external auricular canal; C44.212 Basal cell carcinoma of skin of right ear and external auricular canal; E11.9 Type 2 diabetes mellitus without complications; Z79.84 Long term (current) use of oral hypoglycemic drugs; I11.0 Hypertensive heart disease with heart failure; I50.9 Heart failure, unspecified; I48.91 Unspecified atrial fibrillation; I25.10 Atherosclerotic heart disease of native coronary artery without angina pectoris; Z79.899 Other long term (current) drug therapy
CPT/HCPCS: 14040; 14060 ×2; 82962; 88305; 96374

== ENCOUNTER → 2019-08-31 09:26 | Outpatient (CLI) | payer MEDICARE, SELFPAY ==
[2019-08-31 09:58] LABS: Basophils # 0.1 K/mm3 (0-0.2); Basophils % 0.5 % (0.1-2.0); Eosinophils # 0.2 K/mm3 (0.0-0.4); Eosinophils % 2.3 % (0.1-12.0); Hematocrit 39.2 % (42.0-52.0); Hemoglobin 13.2 g/dL (14.1-18.0); Lymphocytes % 9.9 % (10-50); Mean Corpuscular HGB Conc 33.6 g/dL (31.8-35.4); Mean Corpuscular Hemoglobin 27.7 pg (27.0-31.2); Mean Corpuscular Volume 82.6 fl (80-94); Mean Platelet Volume 7.9 fl (7.4-10.4); Monocytes # 0.7 K/mm3 (0.1-1.0); Monocytes % 6.8 % (1.7-9.3); Neutrophils # 8.1 K/mm3 (1.8-7.8); Neutrophils % 80.6 % (37.0-80.0); Platelet Count 244 K/mm3 (142-424); Red Blood Count 4.75 M/mm3 (4.60-6.20); Red Cell Distribution Width 16.3 % (11.5-17.5); White Blood Count 10.1 K/mm3 (4.8-10.8)
[2019-08-31 14:18] LABS: Coronavirus 19 IgG Antibody Negative (Negative)
[2019-08-31 14:19] LABS: Coronavirus 19 IgM Antibody Negative (Negative)
== END ==
PROVIDERS: Visit Provider Otolaryngology
DX: Z01.818 Encounter for other preprocedural examination (principal)
CPT/HCPCS: 36415; 85025; 86328

== ENCOUNTER 2019-09-01 06:36 | Day surgery (SDC) | payer MEDICARE, SELFPAY ==
[2019-08-31 09:09] VITALS: BMI 38.0
[2019-09-01] VITALS (8 sets, daily range): BP systolic 149–178; BP diastolic 47–89; PULSE 61–71; RESP 16–24; TEMP 36.3–36.8; O2SAT 93–97
--- NOTE | 2019-09-01 | ECG_ITS ---
APPROVED REPORT Exam: Resting ECG HR:70 bpm ECG Measurements Heart Rate 70 AXES OK 242 P 62 QRSd 120 QRS 77 QT 500 T 110 QTc 540 <Conclusion> Sinus rhythm with 1st degree AV block Cannot rule out Inferior infarct, age undetermined ST & T wave abnormality, consider lateral ischemia Abnormal ECG Electronically signed by : Riley Delatorre, 09/01/2019 14:05:18
--- NOTE | 2019-09-01 09:15 | HMH.ANESCL ---
[facility] Anesthesia Checklist - Patient Identification Patient Identification: Arm Band, Verbal (Name & ) - Structural Data Admitted From: Home Planned Operative Procedure/s: Excision of skin lesions, right scalp, left amish, right arm Consent for Planned Operative Procedure(s) Verified: Yes Verified Documents: Surgical Consent, History and Physical - NPO Status Verified Time NPO: 00:00 - Chart Verification Results Verified: CBC, BMP - Additional verifications Fingerstick Blood Glucose: 160 Anesthesia Reactions: No Hx Blood Transfusions: Yes (08/19/2017) Blood Transfusion Reaction: No - Airway Assessment C-Spine Mobility Assessed: Yes TMJ Mobility Assessed: Yes Dentition: Dentures-good fit (removed) - Neurological Assessment Level of Consciousness: Awake, Alert, Appropriate, Follows Commands Hx Seizures: No Numbness or tingling in extremities: No - Anesthesia Plan Anesthesia Risk discussed: Yes Anesthesia Plan: Verified ASA Class: III Anesthesia Type: MAC [facility] History I have reviewed the patient's past medical history: Yes Medical History: Reports:: Atrial Fibrillation, Cancer (skin), Congestive Heart Failure, Chronic Obstructive Pulmonary Disease (COPD), Coronary Artery Disease, Diabetes Mellitus Type 2, Gastroesophageal Reflux Disease(GERD), Hyperlipidemia, Hypertension, Lung Disease, Transient Ischemic Attacks (TIA) Denies:: Diabetes Mellitus Type 1, Internal Pacemaker, MRSA, Seizures *Have you ever received a pneumonia vaccine?: Yes *Have you received a flu vaccine this season?: Yes Other Medical History: Reports: Arthritis, Cataracts, Glaucoma, Hypothyroidism, Sinus Problems, Other. Denies: Blood Transfusion Reaction Anesthesia experience/problems:: none Laterality Cases: Left: Total Knee Replacement, Bilateral: Myringotomy (Ear Tubes) Other Surgeries: Yes: Cardiac Catheterization, Colonoscopy, Sinus Surgery, Skin Cancer Excision, Other. No: Pacemaker Amputation: No Fractures: Yes ((R) dislocated shoulder) - *Social History Educational Level: Completed High School Smoking Status: Never smoker Tobacco Type: cigarettes # Packs/Day (cigarettes): 1 Alcohol Intake: current Alcohol Intake Frequency:: a few times a month Substance Use Type: denies use *Occupational Status:: retired Housing: house Household Members: spouse *Travel in the last 8 weeks: None Family Hx:: Hyperlipidemia, Hypertension, Cancer
[2019-09-01 11:39] LABS: POC Glucose,Bedside 257 (70-110)
[2019-09-01 11:40] LABS: POC Glucose,Bedside 160 (70-110)
--- NOTE | 2019-09-01 15:00 | P.OP_ITS ---
Date of procedure: 09/01/19 Pre-op Diagnosis:: 1. Neoplasm left judaism 2 cm 2. Neoplasm right judaism anterior 2 cm 3. Neoplasm right judaism posterior 3 cm 4. Neoplasm right arm 4 cm Post-op Diagnosis:: same Procedure performed:: 1. Excision of neoplasm left judaism 2 cm with simple repair 2. Excision of neoplasm right judaism anteriorly 2 cm with simple repair 3. Excision of neoplasm right judaism posteriorly 3 cm with tissue rearrangement Z-plasty repair 4. Excision of neoplasm right arm 4 cm with tissue rearrangement geometric plastic repair Surgeon:: Julius Villafuerte MD CLINICAL MASSAGE THERAPIST:: Manuel Anderson Anesthesia: MAC Estimated blood loss (mL): 5 Operative findings:: same Operative note:: With the patient under MAC anesthesia the face and right arm were prepped and draped. The perilesional areas were infiltrated with a total of 12 cc of 2% lidocaine containing epinephrine. The lesion on the left judaism measured 2 cm. The luanne out was incised and the lesion was excised and submitted. Bleeding was stopped with bipolar cautery. Surgicel snow was placed in the defect and a simple repair was done with 4-0 nylon sutures. The lesion on the right judaism anterior was marked out it measured 2 cm the luanne out was incised and the lesion was excised and submitted. Bleeding was stopped with bipolar cautery. Surgicel snow was placed in the defect and a simple repair was done with running 2-0 nylon sutures. Lesion on the right judaism posterior measured 3 cm. The markout was incised and the lesion was excised and submitted. Anterior and posterior incisions were made and a tissue rearrangement Z-plasty repair was done with interrupted 4-0 nylon sutures after Surgicel snow was placed in the defect. The lesion on the right arm was marked out it measured 4 cm the luanne out was incised and the lesion was excised well into the subcutaneous layer. Superior and inferior incisions were made and a tissue rearrangement Z-plasty repair was done with interrupted 4-0 nylon sutures. Blood loss for all the procedure was less than 10 cc and stopped. A Dermabond dressing was applied to all 4 sites as well as a dot dressing and the patient was sent to recovery in good general condition. Condition: stable Disposition: PACU Complications:: none
== END 2019-09-01 11:20 | disposition home or self-care (01) ==
LOC: OR 06:37
PROVIDERS: PCP Internal Medicine Adolescent Medicine; Visit Provider Otolaryngology
DX: C44.622 Squamous cell carcinoma of skin of right upper limb, including shoulder (principal); C44.329 Squamous cell carcinoma of skin of other parts of face; L57.0 Actinic keratosis; Z79.51 Long term (current) use of inhaled steroids; Z79.899 Other long term (current) drug therapy; Z85.9 Personal history of malignant neoplasm, unspecified; E11.9 Type 2 diabetes mellitus without complications; I11.0 Hypertensive heart disease with heart failure; I48.91 Unspecified atrial fibrillation; J44.9 Chronic obstructive pulmonary disease, unspecified; I25.10 Atherosclerotic heart disease of native coronary artery without angina pectoris; M19.90 Unspecified osteoarthritis, unspecified site
CPT/HCPCS: 11442; 11642; 14020; 14040; 82962; 88305; 93005; 96374; 96375

== ENCOUNTER → 2019-09-07 07:36 | Outpatient (CLI) | payer MEDICARE, SELFPAY ==
[2019-09-07 14:47] LABS: Chloride 100 mmol/L (98-107); Sodium 136 mmol/L (136-145)
[2019-09-07 14:48] LABS: Potassium 3.5 mmoL/L (3.5-5.1)
[2019-09-07 14:50] LABS: Alanine Aminotransferase 46 U/L (12-78); Albumin Level 3.4 g/dl (3.5-5.0); Albumin/Globulin Ratio 1.3 (1.1-1.8); Alkaline Phosphatase 125 U/L (38-126); Anion Gap 7.5 mEq/L (5-15); Aspartate Amino Transferase 27 U/L (17-59); Bilirubin,Total 0.6 mg/dl (0.2-1.3); Blood Urea Nitrogen 14 mg/dl (9-20); Carbon Dioxide 32 mmol/L (22.0-30.0); Estimated Glomerular Filt Rate 66 ml/min (>60); GFR (African American) 80 ML/MIN (>60); Globulin 2.7 g/dL (1.3-3.2); Total Protein,Serum 6.1 g/dl (6.3-8.2); Triglycerides 131 mg/dl (30-150); VLDL Cholesterol 26 mg/dL (0-40)
[2019-09-07 14:51] LABS: Chol/HDL Ratio 2.6 (1-3.5); Cholesterol 136 mg/dl (140-200); Glucose 168 mg/dl (74-100); HDL Cholesterol 53 mg/dl (40-60)
[2019-09-07 14:55] LABS: Basophils % 0.4 % (0.1-2.0); Eosinophils # 0.3 K/mm3 (0.0-0.4); Eosinophils % 3.3 % (0.1-12.0); Hematocrit 36.7 % (42.0-52.0); Hemoglobin 12.4 g/dL (14.1-18.0); Lymphocytes # 1.1 K/mm3 (0.7-4.5); Lymphocytes % 11.5 % (10-50); Mean Corpuscular HGB Conc 33.7 g/dL (31.8-35.4); Mean Corpuscular Hemoglobin 27.9 pg (27.0-31.2); Mean Platelet Volume 9.4 fl (7.4-10.4); Monocytes # 0.7 K/mm3 (0.1-1.0); Monocytes % 6.7 % (1.7-9.3); Neutrophils # 7.6 K/mm3 (1.8-7.8); Platelet Count 222 K/mm3 (142-424); Red Blood Count 4.42 M/mm3 (4.60-6.20); Red Cell Distribution Width 16.1 % (11.5-17.5); White Blood Count 9.7 K/mm3 (4.8-10.8)
[2019-09-07 15:02] LABS: Direct LDL Cholesterol 63.77 mg/dL (100-129)
[2019-09-07 15:26] LABS: Triiodothryronine (T3) Uptake 36 % (23.5-40.5)
[2019-09-07 15:27] LABS: T4 (Thyroxine) 16.6 ug/dl (5.53-11.0)
[2019-09-07 16:32] LABS: Hemoglobin A1C 7.9 % (4.0-6.0)
== END ==
PROVIDERS: PCP Internal Medicine Adolescent Medicine; Visit Provider Internal Medicine Adolescent Medicine
DX: I50.9 Heart failure, unspecified (principal); N18.2 Chronic kidney disease, stage 2 (mild); E11.9 Type 2 diabetes mellitus without complications
CPT/HCPCS: 36415; 80053; 80061; 83036; 84436; 84443; 84479; 85025

== ENCOUNTER → 2019-10-14 10:08 | Outpatient (CLI) | payer MEDICARE, SELFPAY ==
--- NOTE | 2019-10-14 10:37 | ECG_ITS ---
APPROVED REPORT Exam: Resting ECG HR:62 bpm ECG Measurements Heart Rate 62 AXES VT 282 P 72 QRSd 110 QRS 67 QT 504 T 54 QTc 511 <Conclusion> Sinus rhythm with 1st degree AV block Nonspecific ST and T wave abnormality Prolonged QT Abnormal ECG Electronically signed by : Riley Delatorre, 10/17/2019 08:34:08
[2019-10-14 10:45] LABS: Basophils # 0.1 K/mm3 (0-0.2); Basophils % 0.7 % (0.1-2.0); Eosinophils # 0.2 K/mm3 (0.0-0.4); Eosinophils % 2.8 % (0.1-12.0); Hematocrit 38.2 % (42.0-52.0); Hemoglobin 12.7 g/dL (14.1-18.0); Lymphocytes # 0.8 K/mm3 (0.7-4.5); Lymphocytes % 9.2 % (10-50); Mean Corpuscular HGB Conc 33.2 g/dL (31.8-35.4); Mean Corpuscular Hemoglobin 28.2 pg (27.0-31.2); Mean Corpuscular Volume 84.8 fl (80-94); Mean Platelet Volume 8.1 fl (7.4-10.4); Monocytes # 0.6 K/mm3 (0.1-1.0); Monocytes % 6.7 % (1.7-9.3); Neutrophils # 6.8 K/mm3 (1.8-7.8); Neutrophils % 80.6 % (37.0-80.0); Platelet Count 219 K/mm3 (142-424); Red Blood Count 4.51 M/mm3 (4.60-6.20); Red Cell Distribution Width 16.4 % (11.5-17.5); White Blood Count 8.5 K/mm3 (4.8-10.8)
[2019-10-14 12:08] LABS: Coronavirus 19 IgG Antibody Negative (Negative); Coronavirus 19 IgM Antibody Negative (Negative)
== END ==
PROVIDERS: Visit Provider Otolaryngology
DX: Z01.812 Encounter for preprocedural laboratory examination (principal); Z79.899 Other long term (current) drug therapy; Z20.828 Contact with and (suspected) exposure to other viral communicable diseases
CPT/HCPCS: 36415; 85025; 86328; 93005

== ENCOUNTER 2019-10-15 06:40 | Day surgery (SDC) | payer MEDICARE, SELFPAY ==
[2019-10-13 11:16] VITALS: BMI 37.5
[2019-10-15] VITALS (12 sets, daily range): BP systolic 164–195; BP diastolic 78–94; PULSE 59–68; RESP 12–22; TEMP 36.3–36.9; O2SAT 91–98
[2019-10-15 07:16] LABS: POC Glucose,Bedside 142 (70-110)
--- NOTE | 2019-10-15 07:34 | HMH.ANESCL ---
[facility] Anesthesia Checklist - Structural Data Admitted From: Home Planned Operative Procedure/s: lmt,excision neoplasm ear Consent for Planned Operative Procedure(s) Verified: Yes - Additional verifications Anesthesia Reactions: No Hx Blood Transfusions: Yes (08/19/2017) Blood Transfusion Reaction: No - Airway Assessment C-Spine Mobility Assessed: Yes TMJ Mobility Assessed: Yes Dentition: Dentures-good fit - Neurological Assessment Level of Consciousness: Awake, Alert, Appropriate - Anesthesia Plan Anesthesia Risk discussed: Yes Anesthesia Plan: Verified ASA Class: III Anesthesia Type: General [facility] History I have reviewed the patient's past medical history: Yes Medical History: Reports:: Asthma, Atrial Fibrillation, Cancer (skin), Congestive Heart Failure, Chronic Obstructive Pulmonary Disease (COPD), Coronary Artery Disease, Cerebrovascular Accident, Diabetes Mellitus Type 2, Gastroesophageal Reflux Disease(GERD), Hyperlipidemia, Hypertension, Lung Disease, Transient Ischemic Attacks (TIA) Denies:: Diabetes Mellitus Type 1, Internal Pacemaker, MRSA, Seizures *Have you ever received a pneumonia vaccine?: Yes *Have you received a flu vaccine this season?: Yes Other Medical History: Reports: Arthritis, Cataracts, Glaucoma, Hypothyroidism, Sinus Problems, Thyroid Disease, Other. Denies: Blood Transfusion Reaction Anesthesia experience/problems:: none Laterality Cases: Bilateral: Myringotomy (Ear Tubes) Other Surgeries: Yes: Cardiac Catheterization, Colonoscopy, Sinus Surgery, Skin Cancer Excision, Other. No: Pacemaker Amputation: No Fractures: No ((R) dislocated shoulder) - *Social History Last grade of school completed: High school graduate Smoking Status: Never smoker Tobacco Type: cigarettes # Packs/Day (cigarettes): 1 Alcohol Intake: never Alcohol Intake Frequency:: a few times a month Substance Use Type: denies use *Occupational Status:: retired Housing: house Household Members: spouse *Travel in the last 8 weeks: None Family Hx:: Cancer
--- NOTE | 2019-10-15 09:02 | P.PN_ITS ---
[facility] Anesthesia Record Part I Intake, IV Amount: 1,200 Estimated blood loss (mL): 0 Urine output (mL): 0 Blood Pressure: 171/94 SaO2: 94 Pulse Rate: 68 Respiratory Rate: 12 Temperature: 97.6 F Patient is:: Awake, Stable Stable to PACU at:: 09:00
--- NOTE | 2019-10-15 09:10 | P.OP_ITS ---
Date of procedure: 10/15/19 Pre-op Diagnosis:: 1. Bilateral impacted cerumen both ears 2. Bilateral recurrent serous otitis media 3. 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 Removal of impacted cerumen both ears 2. bilateral myringotomies and tubes 3. Removal of malignant neoplasm right ear 2.5 cm with tissue rearrangement geometric plastic repair Surgeon:: Julius Villafuerte MD ONLINE COMMUNITY MANAGER:: Qamar Pacheco Anesthesia: GETA Estimated blood loss (mL): 10 Operative findings:: same Operative note:: With the patient under general anesthesia the right ear was prepped and draped. Lesion on the perimeter of the right ear was marked out and it measured 2.5 cm. The luanne out was incised and the lesion was excised and submitted. The patient had rather brisk bleeding because he was still on his Eliquis. Bleeding was stopped with bipolar cautery. Superior and inferior incisions were made and a tissue rearrangement geometric plastic repair was done with interrupted 4-0 nylon sutures after Surgicel snow was placed in the defect. Dermabond dressing was applied. Using the operating microscope the right ear canal was examined, there was impacted cerumen in the right ear and the cerumen it completely surrou nded a previously placed ventilation tube. The impacted cerumen along with the tube was removed. At that point it was evident that there was recurrent right serous otitis media. An incision was made in the posterior inferior quadrant serous fluid was aspirated and a Triune T-tube was placed Gelfoam was placed around the Joni T-tube in order to support the tube because the tympanic membrane was extremely frail. Ciprodex drops were applied. The left ear was prepped and draped, there was impacted cerumen in the left ear completely surrounding a previously placed ventilation tube and all of the cerumen was cleared and the ventilation tube which was encompassed with the cerumen was removed. An incision was made in the posterior inferior quadrant serous fluid was aspirated and a Cent[place] T-tube was placed. Ciprodex drops were applied. The operating microscope was used for all of the ear procedure and the patient was sent to recovery in good general condition. Condition: stable Disposition: PACU Complications:: none
--- NOTE | 2019-10-16 06:40 | HMH.ANESII ---
[facility] Anesthesia Record Part II Discharge Time: 09:35 Destination: Surgical Day Care (OP Surgery) PACU nurse assessment reviewed?: Yes Patient Condition:: Good Anesthesia Complications:: None Swallowing reflex intact?: Yes Cyanosis?: No Blood Pressure: 164/81 Pulse Rate: 59 Temperature: 97.5 F Mental Status: Alert & Oriented Pain level:: 0 Nausea and/or vomitting:: None Intake, IV Amount: 0
[2019-10-16 06:43] VITALS: BP 164/81; PULSE 59; TEMP 36.4
== END 2019-10-15 10:43 | disposition home or self-care (01) ==
LOC: OR 06:42
PROVIDERS: PCP Internal Medicine Adolescent Medicine; Visit Provider Otolaryngology
PROC: (CPT 14060; principal; 2019-10-15 08:30)
DX: H90.6 Mixed conductive and sensorineural hearing loss, bilateral (principal); H61.23 Impacted cerumen, bilateral; H65.93 Unspecified nonsuppurative otitis media, bilateral; C44.212 Basal cell carcinoma of skin of right ear and external auricular canal; Z79.01 Long term (current) use of anticoagulants; J44.9 Chronic obstructive pulmonary disease, unspecified; E11.9 Type 2 diabetes mellitus without complications; I48.91 Unspecified atrial fibrillation; I50.9 Heart failure, unspecified; I11.0 Hypertensive heart disease with heart failure; G45.9 Transient cerebral ischemic attack, unspecified; Z79.899 Other long term (current) drug therapy; Z96.652 Presence of left artificial knee joint
CPT/HCPCS: 14060; 69436; 82962; 88305; 96374; 96375; J2405

== ENCOUNTER 2019-10-30 17:14 | Emergency (ER) | payer MEDICARE, SELFPAY ==
[2019-10-30] VITALS (7 sets, daily range): BP systolic 168–205; BP diastolic 84–95; PULSE 60–64; RESP 16–25; TEMP 36.7; O2SAT 93–97; BMI 38.0
--- NOTE | 2019-10-30 17:19 | ECG_ITS ---
APPROVED REPORT Exam: Resting ECG HR:65 bpm ECG Measurements Heart Rate 65 AXES UT 264 P 70 QRSd 110 QRS 85 QT 462 T 44 QTc 480 <Conclusion> Sinus rhythm with 1st degree AV block Nonspecific ST and T wave abnormality Prolonged QT Abnormal ECG Electronically signed by : Riley Delatorre, 10/31/2019 05:51:45
--- NOTE | 2019-10-30 18:35 | XR_ITS ---
PROCEDURE: XR CHEST PORTABLE CLINICAL HISTORY: WEAKNESS COMPARISON: CR [id number] XR chest portable from 03/18/2018 CR CXR2 XR chest AP from 04/24/2018 CR XR CHEST 2V from 10/27/2018 FINDINGS: There is mild cardiomegaly with mild pulmonary venous congestion suggesting mild CHF. In the right upper lobe there is a 18 by 8 mm nodular opacity overlying the right 2nd rib anteriorly possibly due to vessel overlap. Cannot exclude developing nodule. No lobar consolidation or collapse No acute bony abnormalities. IMPRESSION: Mild CHF with possible right upper lobe nodule. Consider upright PA and lateral chest for further evaluation Dictated by: Sony Lawson MD 10/30/2019 23:29 Sony Lawson MD in [place] 10/30/2019 23:29
--- NOTE | 2019-10-30 18:38 | PC.NURSE ---
PT AMBULATED UP TO BATHROOM WITH ASSISTANCE
[2019-10-30 18:44] LABS: Basophils # 0.1 K/mm3 (0-0.2); Basophils % 0.7 % (0.1-2.0); Eosinophils # 0.2 K/mm3 (0.0-0.4); Eosinophils % 2.5 % (0.1-12.0); Hematocrit 37.7 % (42.0-52.0); Hemoglobin 12.8 g/dL (14.1-18.0); Lymphocytes # 1.2 K/mm3 (0.7-4.5); Lymphocytes % 12.2 % (10-50); Mean Corpuscular HGB Conc 33.9 g/dL (31.8-35.4); Mean Corpuscular Hemoglobin 28.4 pg (27.0-31.2); Mean Corpuscular Volume 83.7 fl (80-94); Mean Platelet Volume 8.4 fl (7.4-10.4); Monocytes # 0.7 K/mm3 (0.1-1.0); Monocytes % 6.8 % (1.7-9.3); Neutrophils # 7.4 K/mm3 (1.8-7.8); Neutrophils % 77.7 % (37.0-80.0); Platelet Count 232 K/mm3 (142-424); Red Blood Count 4.51 M/mm3 (4.60-6.20); Red Cell Distribution Width 16.4 % (11.5-17.5); White Blood Count 9.5 K/mm3 (4.8-10.8)
[2019-10-30 18:46] LABS: Chloride 101 mmol/L (98-107); Sodium 139 mmol/L (136-145)
[2019-10-30 18:47] LABS: Potassium 3.2 mmoL/L (3.5-5.1)
[2019-10-30 18:50] LABS: Anion Gap 12.2 mEq/L (5-15); Blood Urea Nitrogen 16 mg/dl (9-20); Calcium 9.6 mg/dl (8.4-10.2); Carbon Dioxide 29 mmol/L (22.0-30.0); Creatinine Clearance Estimated 114 mL/min (50-200); Estimated Glomerular Filt Rate 66 ml/min (>60); GFR (African American) 80 ML/MIN (>60); Glucose 168 mg/dl (74-100)
[2019-10-30 18:54] LABS: Microscopic, Urine URINE MICROSCOPIC (MICROSCOPIC)
[2019-10-30 18:58] LABS: Appearance,Urine CLEAR (Clear); Bilirubin,Urine Negative (Negative); Blood, Urine Negative (Negative); Color,Urine YELLOW (Yellow); Glucose,Urine (UA) TRACE (Negative); Ketones,Urine Negative (Negative); Leukocyte Esterase,Urine Negative (Negative); Nitrate,Urine Negative (Negative); Protein,Urine 2+ (Negative); Specific Gravity, Urine 1.015 (1.005-1.030); Urobilinogen,Urine 0.2 EU/dl (0.2)
[2019-10-30 19:09] LABS: Troponin I 0.01 ng/ml (0.00-0.034)
--- NOTE | 2019-10-30 21:42 | HMH.EDWEAK ---
ED Disposition Clinical Impression: Lightheadedness Disposition: Home, Self-Care Condition on Discharge: Good Instructions: DI for Vertigo Additional Instructions: fluids and see pcp in am or return if needed Referrals: Riley Delatorre MD [Primary Care Provider] - - Critical Care Critical Care Time: No Attestation: On 10/30/19, the high probability of a clinically significant, sudden or life threatening deterioration of the following system(s) required my full and direct attention, intervention and personal management. The time I documented below is in addition to time spent performing reported procedures but includes the following listed in this critical care notation. Medical Decision Making - Medical Records Medical records reviewed: Yes: I reviewed the patient's medical records. - Atul Inquiry Pt receiving controlled substance: No Vital Signs: 10/30/19 17:16 10/30/19 18:16 10/30/19 19:28 Temperature 98.1 F Temperature Source Oral Pulse Rate [Right] 64 64 63 Respiratory Rate 17 20 25 H Blood Pressure [Right Arm] 205/93 H 198/95 H 202/85 H Blood Pressure Mean [Right Arm] 130 129 124 Blood Pressure Source [Right Arm] Automatic Cuff Blood Pressure Position [Right Arm] Sitting Sitting 02 Sat by Pulse Oximetry 96 96 94 L Oxygen Delivery Method Room Air Room Air 10/30/19 20:07 10/30/19 20:19 Temperature Temperature Source Pulse Rate [Right] 60 62 Respiratory Rate 18 19 Blood Pressure [Right Arm] 186/90 H 186/90 H Blood Pressure Mean [Right Arm] 122 122 Blood Pressure Source [Right Arm] Automatic Cuff Blood Pressure Position [Right Arm] Sitting 02 Sat by Pulse Oximetry 95 96 Oxygen Delivery Method Room Air - Lab Data Lab results reviewed: Yes: I reviewed the patient's lab results. Lab Results 10/30/19 17:20: WBC 9.5, RBC 4.51 L, Hgb 12.8 L, Hct 37.7 L, MCV 83.7, MCH 28.4, MCHC 33.9, RDW 16.4, Plt Count 232, MPV 8.4, Neut % (Auto) 77.7, Lymph % (Auto) 12.2, [place] % (Auto) 6.8, Eos % (Auto) 2.5, Baso % (Auto) 0.7, Neut # (Auto) 7.4, Lymph # (Auto) 1.2, [place] # (Auto) 0.7, Eos # (Auto) 0.2, Baso # (Auto) 0.1 10/30/19 17:20: Sodium 139, Potassium 3.2 L, Chloride 101, Carbon Dioxide 29, Anion Gap 12.2, BUN 16, Creatinine 1.10, Estimated Creat Clear 114, Estimated GFR 66, Est GFR ( Amer) 80, Glucose 168 H, Calcium 9.6, Troponin I 0.01 10/30/19 18:37: Urine Color Yellow, Urine Appearance Clear, Urine pH 7.0, Ur Specific [place] 1.015, Urine Protein 2+, Urine Glucose (UA) Trace, Urine Ketones Negative, Urine Blood Negative, Urine Nitrate Negative, Urine Bilirubin Negative, Urine Urobilinogen 0.2, Ur Leukocyte Esterase Negative, Urine RBC 3-5, Urine WBC 3-5 Result diagrams: 10/30/19 17:20 10/30/19 17:20 Orders (Tests/Meds): ED MEDICATIONS Discontinued Medications Generic Name Dose Route Start Last Admin Trade Name Linda PRN Reason Stop Dose Admin Acetaminophen 650 mg 10/30/19 19:34 10/30/19 19:39 Acetaminophen 325mg Tab PO 10/30/19 19:35 650 mg ONCE ONE Administration Ondansetron HCl 4 mg 10/30/19 19:37 10/30/19 19:43 Zofran 4mg/2ml Vial IV 10/30/19 19:38 4 mg ONCE ONE Administration ORDERS Category Date Time Status XR chest portable Stat Exams 10/30/19 18:35 Taken Troponin I Q3H Lab 10/30/19 21:45 Ordered Troponin I Q3H Lab 10/31/19 00:45 Ordered - ECG Data Tracing #1 Normal Sinus Rhythm: Yes Ischemic changes: non-specific ST-T wave changes Weakness HPI - General Chief complaint: Weakness Stated complaint: weakness, dizzy Time Seen by Provider: 10/30/19 20:40 Mode of Arrival: Ambulatory Source of Information: Patient, Relative, Medical Record Limitations: No Limitations Description of Symptoms (Recalled from ER Triage Doc. by RN): c/O weakness in his knees and burning in his face for several days. Denies pain anywhere. - History of Present Illness HPI Narrative: after light housework- felt tired but no
== END 2019-10-30 22:00 | disposition home or self-care (01) ==
PROVIDERS: Emergency Provider Emergency Medicine; PCP Internal Medicine Adolescent Medicine
DX: R42 Dizziness and giddiness (principal); E03.9 Hypothyroidism, unspecified; I10 Essential (primary) hypertension; E78.5 Hyperlipidemia, unspecified; I48.20 Chronic atrial fibrillation, unspecified; J44.9 Chronic obstructive pulmonary disease, unspecified; I25.10 Atherosclerotic heart disease of native coronary artery without angina pectoris; E11.9 Type 2 diabetes mellitus without complications; K21.9 Gastro-esophageal reflux disease without esophagitis; Z79.899 Other long term (current) drug therapy
CPT/HCPCS: 71045; 80048; 81001; 84484; 85025; 93005; 96365; 96375; 99284; J2405

== ENCOUNTER → 2020-01-12 10:54 | Outpatient (CLI) | payer MEDICARE, SELFPAY ==
[2020-01-12 11:38] LABS: Basophils # 0.1 K/mm3 (0-0.2); Basophils % 0.6 % (0.1-2.0); Eosinophils # 0.2 K/mm3 (0.0-0.4); Eosinophils % 2.2 % (0.1-12.0); Hematocrit 37.8 % (42.0-52.0); Lymphocytes # 0.9 K/mm3 (0.7-4.5); Lymphocytes % 9.8 % (10-50); Mean Corpuscular HGB Conc 31.9 g/dL (31.8-35.4); Mean Corpuscular Hemoglobin 27.3 pg (27.0-31.2); Mean Corpuscular Volume 85.8 fl (80-94); Mean Platelet Volume 8.2 fl (7.4-10.4); Monocytes # 0.7 K/mm3 (0.1-1.0); Monocytes % 7.7 % (1.7-9.3); Neutrophils # 7.5 K/mm3 (1.8-7.8); Neutrophils % 79.6 % (37.0-80.0); Platelet Count 304 K/mm3 (142-424); Red Cell Distribution Width 15.9 % (11.5-17.5); White Blood Count 9.4 K/mm3 (4.8-10.8)
[2020-01-12 12:06] LABS: Chloride 99 mmol/L (98-107); Potassium 3.6 mmoL/L (3.5-5.1); Sodium 140 mmol/L (136-145)
[2020-01-12 12:08] LABS: Alanine Aminotransferase 28 U/L (12-78); Aspartate Amino Transferase 26 U/L (17-59); Blood Urea Nitrogen 19 mg/dl (9-20); Estimated Glomerular Filt Rate 55 ml/min (>60); GFR (African American) 66 ML/MIN (>60)
[2020-01-12 12:09] LABS: Albumin Level 3.6 g/dl (3.5-5.0); Albumin/Globulin Ratio 1.3 (1.1-1.8); Alkaline Phosphatase 117 U/L (38-126); Anion Gap 11.6 mEq/L (5-15); Bilirubin,Total 0.5 mg/dl (0.2-1.3); Calcium 9.3 mg/dl (8.4-10.2); Carbon Dioxide 33 mmol/L (22.0-30.0); Chol/HDL Ratio 3.9 (1-3.5); Cholesterol 145 mg/dl (140-200); Globulin 2.8 g/dL (1.3-3.2); Glucose 181 mg/dl (74-100); HDL Cholesterol 37 mg/dl (40-60); Total Protein,Serum 6.4 g/dl (6.3-8.2); Triglycerides 106 mg/dl (30-150); VLDL Cholesterol 21 mg/dL (0-40)
[2020-01-12 12:21] LABS: Direct LDL Cholesterol 78.81 mg/dL (100-129)
[2020-01-12 12:41] LABS: Thyroid Stimulating Hormone 2.99 uIU/mL (0.465-4.68)
[2020-01-12 13:05] LABS: Hemoglobin A1C 7.5 % (4.0-6.0)
== END ==
PROVIDERS: Visit Provider Internal Medicine Adolescent Medicine
DX: E11.9 Type 2 diabetes mellitus without complications (principal); E03.9 Hypothyroidism, unspecified; I48.20 Chronic atrial fibrillation, unspecified
CPT/HCPCS: 36415; 80053; 80061; 83036; 84443; 85025

== ENCOUNTER → 2020-05-17 09:26 | Outpatient (CLI) | payer MEDICARE, SELFPAY ==
--- NOTE | 2020-05-17 09:50 | ECG_ITS ---
APPROVED REPORT Exam: Resting ECG HR:64 bpm ECG Measurements Heart Rate 64 AXES OK P 77 QRSd 112 QRS 104 QT 498 T 44 QTc 513 Conclusion Atrial flutter with 5:[address] conduction Rightward axis ST abnormality, possible digitalis effect Prolonged QT Abnormal ECG Electronically signed by : Riley Delatorre, 05/17/2020 14:47:13
[2020-05-17 10:34] LABS: Chloride 101 mmol/L (98-107); Potassium 3.5 mmoL/L (3.5-5.1); Sodium 140 mmol/L (136-145)
[2020-05-17 10:36] LABS: Alanine Aminotransferase 23 U/L (12-78); Aspartate Amino Transferase 19 U/L (17-59); Blood Urea Nitrogen 18 mg/dl (9-20); Estimated Glomerular Filt Rate 55 ml/min (>60); GFR (African American) 66 ML/MIN (>60)
[2020-05-17 10:37] LABS: Albumin Level 3.6 g/dl (3.5-5.0); Albumin/Globulin Ratio 1.2 (1.1-1.8); Alkaline Phosphatase 120 U/L (38-126); Anion Gap 10.5 mEq/L (5-15); Bilirubin,Total 0.8 mg/dl (0.2-1.3); Calcium 9.3 mg/dl (8.4-10.2); Carbon Dioxide 32 mmol/L (22.0-30.0); Globulin 2.9 g/dL (1.3-3.2); Glucose 231 mg/dl (74-100); Total Protein,Serum 6.5 g/dl (6.3-8.2)
[2020-05-17 10:42] LABS: Basophils # 0.1 K/mm3 (0-0.2); Basophils % 0.7 % (0.1-2.0); Eosinophils # 0.2 K/mm3 (0.0-0.4); Eosinophils % 2.4 % (0.1-12.0); Hematocrit 36.2 % (42.0-52.0); Hemoglobin 11.2 g/dL (14.1-18.0); Lymphocytes # 0.9 K/mm3 (0.7-4.5); Lymphocytes % 10.6 % (10-50); Mean Corpuscular HGB Conc 30.8 g/dL (31.8-35.4); Mean Corpuscular Hemoglobin 26.6 pg (27.0-31.2); Mean Corpuscular Volume 86.3 fl (80-94); Mean Platelet Volume 8.5 fl (7.4-10.4); Monocytes # 0.6 K/mm3 (0.1-1.0); Monocytes % 7.2 % (1.7-9.3); Neutrophils # 6.7 K/mm3 (1.8-7.8); Neutrophils % 79.2 % (37.0-80.0); Platelet Count 249 K/mm3 (142-424); Red Cell Distribution Width 17.5 % (11.5-17.5); White Blood Count 8.4 K/mm3 (4.8-10.8)
[2020-05-17 10:51] LABS: Coronavirus 19 IgG Antibody Negative (Negative); Coronavirus 19 IgM Antibody Negative (Negative)
== END ==
PROVIDERS: Internal Medicine; Visit Provider Otolaryngology
DX: Z01.818 Encounter for other preprocedural examination (principal); Z11.52 Encounter for screening for COVID-19
CPT/HCPCS: 36415; 80053; 85025; 86328; 93005

== ENCOUNTER 2020-05-19 07:59 | Day surgery (SDC) | payer MEDICARE, SELFPAY ==
[2020-05-17 15:37] VITALS: BMI 35.5
[2020-05-19 08:38] VITALS: BP 218/90; PULSE 71; RESP 18; TEMP 36.8; O2SAT 96
[2020-05-19 08:58] LABS: POC Glucose,Bedside 149 (70-110)
--- NOTE | 2020-05-19 11:39 | P.PN_ITS ---
[facility] Anesthesia Checklist - Structural Data Admitted From: Home Planned Operative Procedure/s: excision neoplasm head/wrist Consent for Planned Operative Procedure(s) Verified: Yes - Additional verifications Anesthesia Reactions: No Hx Blood Transfusions: Yes (08/19/2017) Blood Transfusion Reaction: No - Airway Assessment C-Spine Mobility Assessed: Yes TMJ Mobility Assessed: Yes Dentition: Poor Dentition - Neurological Assessment Level of Consciousness: Awake, Alert, Appropriate - Anesthesia Plan Anesthesia Risk discussed: Yes Anesthesia Plan: Verified ASA Class: III Anesthesia Type: MAC [facility] History I have reviewed the patient's past medical history: Yes Medical History: Reports:: Asthma, Atrial Fibrillation, Cancer (skin ca), Congestive Heart Failure, Chronic Obstructive Pulmonary Disease (COPD), Coronary Artery Disease, Cerebrovascular Accident, Diabetes Mellitus Type 2, Gastroesophageal Reflux Disease(GERD), Hyperlipidemia, Hypertension, Lung Disease, Transient Ischemic Attacks (TIA) Denies:: Diabetes Mellitus Type 1, Internal Pacemaker, MRSA, Seizures *Have you ever received a pneumonia vaccine?: Yes *Have you received a flu vaccine this season?: Yes Other Medical History: Reports: Arthritis, Cataracts, Glaucoma, Hypothyroidism, Sinus Problems, Thyroid Disease, Other. Denies: Blood Transfusion Reaction Anesthesia experience/problems:: none Laterality Cases: Left: Total Knee Replacement, Bilateral: Myringotomy (Ear Tubes) Other Surgeries: Yes: Cardiac Catheterization, Colonoscopy, Sinus Surgery, Skin Cancer Excision, Other. No: Pacemaker Amputation: No Fractures: No ((R) dislocated shoulder) - *Social History Last grade of school completed: High school graduate Smoking Status: Former smoker Tobacco Type: cigarettes # Packs/Day (cigarettes): 1 Alcohol Intake: current Alcohol Intake Frequency:: holidays/special occasions only Substance Use Type: denies use *Occupational Status:: retired Housing: house Household Members: spouse *Travel in the last 8 weeks: None Family Hx:: Cancer
[2020-05-19 12:55] VITALS: BP 196/90; PULSE 71; RESP 18; TEMP 36.6; O2SAT 94
--- NOTE | 2020-05-19 13:06 | P.PN_ITS ---
[facility] Anesthesia Record Part I Intake, IV Amount: 300 Estimated blood loss (mL): 0 Urine output (mL): 0 Blood Pressure: 196/90 SaO2: 94 Pulse Rate: 70 Respiratory Rate: 16 Temperature: 97.8 F Patient is:: Awake Stable to PACU at:: 12:55
[2020-05-19 13:07] VITALS: BP 196/90; PULSE 70; RESP 16; TEMP 36.6; O2SAT 94
[2020-05-19 13:12] VITALS: BP 196/94; PULSE 68; RESP 18; O2SAT 94
[2020-05-19 13:41] VITALS: BP 194/86; PULSE 69; RESP 18; O2SAT 95
--- NOTE | 2020-05-19 13:46 | SUR.PHASEII ---
DISCUSSED ELEVATED BP WITH PT. INSTRUCTED TO CHECK BP AT HOME THIS EVENING AND IN THE AM AND IF STILL ELEVATED NEED TO CALL DR SUMMERS TO FOLLOW UP. PT VERY AGREEABLE AND VERBALIZED WOULD DO THIS. ALSO DISCUSSED S/S TO WATCH FOR LIKE SUDDEN SEVERE CASAS, DIZZINESS, OR WEAKNESS, CHANGES IN VISION NEEDS TO SEEK IMMEDIATE HELP, VERBALIZED UNDERSTANDING.
--- NOTE | 2020-05-19 13:57 | SUR.PHASEII ---
DISCUSEED DISCHARGE INSTRUCTIONS AND ELEVATED BP WITH NEPHEW BEFORE DISCHARGE.
--- NOTE | 2020-05-19 16:10 | HMH.OPNOTE ---
Date of procedure: 05/19/20 Pre-op Diagnosis:: 1. Neoplasm upper left wrist 2.8 cm 2. Neoplasm lower left wrist 2.8 cm 3. Neoplasm left forehead 2.5 cm Post-op Diagnosis:: Same Procedure performed:: 1. Excision of neoplasm left upper wrist 2.8 cm with tissue rearrangement geometric plastic repair 2. Excision of neoplasm left lower arm with tissue rearrangement Z-plasty repair 2.8 cm 3. Excision of neoplasm left forehead 2.5 cm with tissue rearrangement geometric plastic repair Surgeon:: Julius Villafuerte MD MAGNETIC PROSPECTOR:: Other (Thuri) Anesthesia: MAC Estimated blood loss (mL): 15 Operative findings:: Same Operative note:: With the patient prepped and draped the lesion on the upper left arm was marked out. And excised it measured 2.8 cm. Bleeding was stopped with bipolar cautery. Lateral incisions were made and a tissue rearrangement Z-plasty repair was done with interrupted 4-0 nylon sutures a Dermabond dressing was applied. The lesion on the lower left arm measured also measured 2.8 cm and the Clare was incised and the lesion was excised and submitted it extended deeply into the cavity. The bleeding was brisk and was stopped with bipolar cautery. Surgicel snow was placed in the defect and after superior and inferior incisions a tissue rearrangement geometric plastic repair was done with interrupted foot 4-0 nylon sutures. The lesion on the forehead measured 2.5 cm and was very vascular. The Clare was excised and the lesion was excised it extended deeply to the level of the periosteum. Bleeding was stopped with bipolar cautery. Lateral incisions were made and a tissue rearrangement geometric plastic repair was done with interrupted 4-0 nylon sutures after Surgicel snow was placed in the defect. Dressings were applied and the patient was sent to recovery in good general condition. Condition: stable Disposition: PACU Complications:: None
== END 2020-05-19 13:45 | disposition home or self-care (01) ==
LOC: OR 08:00
PROVIDERS: PCP Internal Medicine Adolescent Medicine; Visit Provider Otolaryngology
PROC: (CPT 14020; principal; 2020-05-19 10:00)
DX: D04.62 Carcinoma in situ of skin of left upper limb, including shoulder (principal); C44.319 Basal cell carcinoma of skin of other parts of face; E11.9 Type 2 diabetes mellitus without complications; E78.5 Hyperlipidemia, unspecified; I11.0 Hypertensive heart disease with heart failure; I25.10 Atherosclerotic heart disease of native coronary artery without angina pectoris; J44.9 Chronic obstructive pulmonary disease, unspecified; I48.91 Unspecified atrial fibrillation; Z85.828 Personal history of other malignant neoplasm of skin; I50.9 Heart failure, unspecified; K21.9 Gastro-esophageal reflux disease without esophagitis; Z86.73 Personal history of transient ischemic attack (TIA), and cerebral infarction without residual deficits
CPT/HCPCS: 14020 ×2; 14040; 82962; 88305; 96374; 96375

== ENCOUNTER → 2020-06-20 11:51 | Outpatient (CLI) | payer MEDICARE, SELFPAY ==
--- NOTE | 2020-06-20 11:58 | XR_ITS ---
PROCEDURE: XR FOOT WT BEARING RT 3V CLINICAL INDICATION: foot and ankle pain COMPARISON: CR XR ANKLE WT BEARING RT MIN 3V from 06/20/2020 FINDINGS: Right ankle: Mild osteoarthritic changes with slight decrease in the joint space and mild spurring the distal tibia. Right foot: Mild hallux valgus with osteoarthritic change at the 1st MTP joint. Osteoarthritis also noted at the 1st tarsal metatarsal junction, talonavicular joint, and navicular cuneiform joint. No fracture or dislocation. No lytic or blastic change. There is a small calcaneal spur and there is mild pes planus. Hammertoe deformity involves the 2nd and 3rd toe. IMPRESSION: Osteoarthritic changes with pes planus and hallux valgus Dictated by: Sony Lawson MD 06/20/2020 13:22 Sony Lawson MD in [place] 06/20/2020 13:22
--- NOTE | 2020-06-20 11:58 | XR_ITS ---
PROCEDURE: XR ANKLE WT BEARING LT MIN 3V CLINICAL INDICATION: foot and ankle pain COMPARISON: CR XR FOOT WT BEARING LT 3V from 06/20/2020 FINDINGS: Left ankle: Mild osteoarthritic changes are present at the ankle. There is spurring along the anterior distal tibia. There is generalized vascular calcification. Left foot: Pes planus. Mild osteoarthritic changes are present at talonavicular and navicular cuneiform joint. Hypertrophy is present involving the distal and anterior aspect of the talus. There is a small calcaneal spur. IMPRESSION: Osteoarthritic changes with pes planus Dictated by: Sony Lawson MD 06/20/2020 13:13 Sony Lawson MD in [place] 06/20/2020 13:13
== END ==
PROVIDERS: PCP Internal Medicine Adolescent Medicine; Visit Provider Nurse Practitioner
DX: M25.572 Pain in left ankle and joints of left foot (principal); M25.571 Pain in right ankle and joints of right foot
CPT/HCPCS: 73610; 73630

== ENCOUNTER 2020-06-23 17:34 | Observation (INO) | payer MEDICARE, SELFPAY ==
[2020-06-23] VITALS (10 sets, daily range): BP systolic 139–189; BP diastolic 69–91; PULSE 59–89; RESP 18–20; TEMP 36.6–36.8; O2SAT 92–99; BMI 36.5; BMI 36.7
--- NOTE | 2020-06-23 17:35 | ECG_ITS ---
APPROVED REPORT Exam: Resting ECG HR:64 bpm ECG Measurements Heart Rate 64 AXES OR 280 P 55 QRSd 90 QRS 79 QT 478 T 71 QTc 493 Conclusion Sinus rhythm with 1st degree AV block Prolonged QT Abnormal ECG Electronically signed by : Riley Delatorre, 06/26/2020 07:33:07
--- NOTE | 2020-06-23 17:39 | XR_ITS ---
PROCEDURE: XR CHEST PORTABLE CLINICAL HISTORY: soa COMPARISON: Chest 10/30/2019 10/27/2018 FINDINGS: There is moderate generalized cardiomegaly and there is diffuse vascular congestion with some prominence of the the upper lobe vessels. There is thickening of the minor fissure. Is diffuse faint nodular opacities in both lung allison probably representing interstitial pulmonary edema though a diffuse viral pneumonia is a possibility. There is minimal blunting of both costophrenic angles and a small amount of pleural effusion cannot excluded either side. IMPRESSION: Generalized cardiomegaly with findings of acute congestive heart failure, underlying diffuse pneumonic infiltrate cannot be entirely excluded Dictated by: Dr. Leonidas Mitchell MD 06/24/2020 07:26 Dr. Leonidas Mitchell MD in [place] 06/24/2020 07:26
[2020-06-23 17:46] LABS: Basophils # 0.1 K/mm3 (0-0.2); Basophils % 0.7 % (0.1-2.0); Eosinophils # 0.2 K/mm3 (0.0-0.4); Hematocrit 36.1 % (42.0-52.0); Hemoglobin 11.5 g/dL (14.1-18.0); Lymphocytes # 1.3 K/mm3 (0.7-4.5); Mean Corpuscular HGB Conc 31.7 g/dL (31.8-35.4); Mean Corpuscular Hemoglobin 26.1 pg (27.0-31.2); Mean Corpuscular Volume 82.3 fl (80-94); Mean Platelet Volume 8.4 fl (7.4-10.4); Monocytes # 0.7 K/mm3 (0.1-1.0); Monocytes % 6.3 % (1.7-9.3); Neutrophils # 8.6 K/mm3 (1.8-7.8); Platelet Count 245 K/mm3 (142-424); Red Blood Count 4.39 M/mm3 (4.60-6.20); White Blood Count 10.9 K/mm3 (4.8-10.8)
[2020-06-23 17:55] LABS: Anion Gap 10.4 mEq/L (5-15); Blood Urea Nitrogen 19 mg/dl (9-20); Calcium 9.2 mg/dl (8.4-10.2); Carbon Dioxide 29 mmol/L (22.0-30.0); Chloride 103 mmol/L (98-107); Creatinine Clearance Estimated 89 mL/min (50-200); Estimated Glomerular Filt Rate 60 ml/min (>60); GFR (African American) 73 ML/MIN (>60); Glucose 162 mg/dl (74-100); Magnesium 2.1 mg/dl (1.6-2.3); Potassium 3.4 mmoL/L (3.5-5.1); Sodium 139 mmol/L (136-145)
[2020-06-23 18:07] LABS: NT Pro Brain Natriuretic Pep. 1770 pg/mL (0-125)
--- NOTE | 2020-06-23 18:09 | HMH.EDGENADL ---
ED Disposition Clinical Impression: Congestive heart failure, Pulmonary edema Disposition: Admitted as Observation Condition on Discharge: Good Referrals: Riley Delatorre MD [Primary Care Provider] - - Critical Care Critical Care Time: No Attestation: On 06/23/20, the high probability of a clinically significant, sudden or life threatening deterioration of the following system(s) required my full and direct attention, intervention and personal management. The time I documented below is in addition to time spent performing reported procedures but includes the following listed in this critical care notation. Medical Decision Making - Medical Records Medical records reviewed: Yes: I reviewed the patient's medical records. - Atul Inquiry Pt receiving controlled substance: No Vital Signs: 06/23/20 17:34 Temperature 98.1 F Temperature Source Oral Pulse Rate [Right] 89 Respiratory Rate 18 Blood Pressure [Right Arm] 167/78 H Blood Pressure Mean [Right Arm] 107 02 Sat by Pulse Oximetry 96 Oxygen Delivery Method Nasal Cannula Oxygen Flow Rate (LPM) 2 - Lab Data Lab Results 06/23/20 17:30: WBC 10.9 H, RBC 4.39 L, Hgb 11.5 L, Hct 36.1 L, MCV 82.3, MCH 26.1 L, MCHC 31.7 L, RDW 17.0, Plt Count 245, MPV 8.4, Neut % (Auto) 79.0, Lymph % (Auto) 12.0, [place] % (Auto) 6.3, Eos % (Auto) 2.0, Baso % (Auto) 0.7, Neut # (Auto) 8.6 H, Lymph # (Auto) 1.3, [place] # (Auto) 0.7, Eos # (Auto) 0.2, Baso # (Auto) 0.1 06/23/20 17:30: Sodium 139, Potassium 3.4 L, Chloride 103, Carbon Dioxide 29, Anion Gap 10.4, BUN 19, Creatinine 1.20, Estimated Creat Clear 89, Estimated GFR 60, Est GFR ( Amer) 73, Glucose 162 H, Calcium 9.2, Magnesium 2.1, Troponin I < 0.01, NT-Pro-B Natriuret Pep 1770 H 06/23/20 17:39: VBG pH 7.43 H, VBG pCO2 43.0, VBG pO2 203.9 H, VBG HCO3 27.7, VBG Total CO2 29.0 H, VBG O2 Saturation 99.3 H, VBG Base Excess 3.3 H Result diagrams: 06/23/20 17:30 06/23/20 17:30 Orders (Tests/Meds): ED MEDICATIONS Generic Name Dose Route Start Last Admin Trade Name Freq PRN Reason Stop Dose Admin Nitroglycerin 0.4 mg 06/23/20 18:11 Nitroglycerin 0.4mg Sl Tablet SL 07/23/20 18:10 [id number] PRN Chest Pain ORDERS Category Date Time Status XR chest portable Stat Exams 06/23/20 17:39 Ordered Basic Metabolic Panel AMLAB Lab 06/24/20 06:00 Ordered Complete Blood Count Auto Diff AMLAB Lab 06/24/20 06:00 Ordered Lipid Panel AMLAB Lab 06/24/20 06:00 Ordered Magnesium AMLAB Lab 06/24/20 06:00 Ordered Phosphorous AMLAB Lab 06/24/20 06:00 Ordered Troponin I Q3H Lab 06/23/20 20:45 Ordered Troponin I Q3H Lab 06/23/20 23:45 Ordered Medical Decision Narrative: 69-year-old male with history of CHF presents with worsening dyspnea on exertion. Exam and history are most consistent with CHF exacerbation. Given Lasix in route. Will give nitroglycerin as well in her chest x-ray and labs have been obtained. EKG was unremarkable for signs of angina. Saturated to 90% when he was ambulatory and he is still tachypneic. His blood pressure has been normal. Chest x-ray does show pulmonary edema. Recommend admission for diuresis. Discussed with Dr. Lester who is on-call for Dr. Pendleton and plan to admit to the [facility] General Adult HPI - General Chief complaint: Shortness of Breath/Dyspnea Stated complaint: SOA Time Seen by Provider: 06/23/20 17:35 Mode of Arrival: EMS Limitations: No Limitations Description of Symptoms (Recalled from ER Triage Doc. by RN): PATIENT C/O SOA STARTING YESTERDAY. PT REPORTS HX OF COPD AND CHF. EMS REPORTS PATIENT RECEIVED LASIX IV 40MG ENROUTE. PT REPORTS HE TAKES LASIX DAILY. - History of Present Illness HPI narrative: -year-old male presents with worsening shortness of breath. He has history of heart failure and feels like he has gained weight recently. He has shortness of breath especially worse with walking and is using more pillows to breathe at night. He was gi
[2020-06-23 18:10] LABS: Troponin I < 0.01 ng/ml (0.00-0.034)
[2020-06-23 18:11] LABS: VBG Base Excess 3.3 mmol/L (-2.4-2.3); VBG HCO3 27.7 mmol/L (23-30); VBG Oxygen Saturation 99.3 % (50-70); VBG PH 7.43 mmol/L (7.31-7.41); VBG PO2 203.9 mmol/L (28-40)
--- NOTE | 2020-06-23 18:20 | PC.NURSE ---
Dr Tayler murphy.
[2020-06-23 18:35] LABS: Adenovirus,PCR Not Detected (NotDetected); Bordetella Pertussis Not Detected (NotDetected); Chlamydophila Pneumoniae, PCR Not Detected (NotDetected); Coronavirus 19, PCR Not Detected (NotDetected); Coronavirus 229E Not Detected (NotDetected); Coronavirus NL63 Not Detected (NotDetected); Coronavirus OC43 Not Detected (NotDetected); Coronovirus HKU1,PCR Not Detected (NotDetected); Human Metapneumovirus Not Detected (NotDetected); Influenza A, PCR Not Detected (NotDetected); Influenza AH1, 2009 Not Detected (NotDetected); Influenza AH1, PCR Not Detected (NotDetected); Influenza AH3,PCR Not Detected (NotDetected); Influenza B, PCR Not Detected (NotDetected); Mycoplasma Pneumoniae, PCR Not Detected (NotDetected); Parainfluenza 1, PCR Not Detected (NotDetected); Parainfluenza 2, PCR Not Detected (NotDetected); Parainfluenza 3, PCR Not Detected (NotDetected); Parainfluenza 4, PCR Not Detected (NotDetected); Respiratory Syncytial Virus Not Detected (NotDetected); Rhinovirus/Enterovirus Not Detected (NotDetected)
[2020-06-23 21:11] LABS: Troponin I < 0.01 ng/ml (0.00-0.034)
--- NOTE | 2020-06-23 21:12 | PC.NURSE ---
PT ARRIVED TO FLOOR VIA STRETCHER FROM ED W/STAFF AT 2110
[2020-06-24] VITALS (10 sets, daily range): BP systolic 154–194; BP diastolic 63–103; PULSE 60–70; RESP 16–20; TEMP 36.5–37; O2SAT 92–95; BMI 36.4
[2020-06-24 00:18] LABS: Troponin I < 0.01 ng/ml (0.00-0.034)
--- NOTE | 2020-06-24 06:27 | HMH.HP ---
*Admission Date: 06/23/20 *Chief complaint: SOA *History of present illness: Mr. Marguerite Lemus is a pleasant 69-year-old male with history of multiple chronic conditions including CHF, COPD, A. fib, TONIO, type 2 diabetes. He presented to the ER because of progressive cough and shortness of breath over the past 3 to 4 days. States cough started approximately Saturday and has been mildly productive. Responding fairly well to inhalers but shortness of breath got to the point that he had to come to the ER yesterday. Came in by ambulance and received Lasix in route. Responded well to diuresis but noted to have significant elevation in BNP upon arrival. Imaging concerning for CHF exacerbation. Initially had oxygen requirement as well. This morning he remains hypertensive, improved shortness of breath however. Stable on room air with saturations in the mid 90s. Still having a cough with a sputum sample at bedside that shows thick white chunky sputum. Remained afebrile. No chest pain, headache, confusion. [facility] History I have reviewed the patient's past medical history: Yes Medical History: Reports:: Asthma, Atrial Fibrillation, Cancer, Congestive Heart Failure, Chronic Obstructive Pulmonary Disease (COPD), Coronary Artery Disease, Cerebrovascular Accident, Diabetes Mellitus Type 2, Gastroesophageal Reflux Disease(GERD), Hyperlipidemia, Hypertension, Lung Disease, Transient Ischemic Attacks (TIA) Denies:: Diabetes Mellitus Type 1, Internal Pacemaker, MRSA, Seizures *Have you ever received a pneumonia vaccine?: Yes *Have you received a flu vaccine this season?: Yes Other Medical History: Reports: Arthritis, Cataracts, Glaucoma, Hypothyroidism, Sinus Problems, Thyroid Disease, Other. Denies: Blood Transfusion Reaction Laterality Cases: Bilateral: Myringotomy (Ear Tubes) Other Surgeries: Yes: Cardiac Catheterization, Colonoscopy, Sinus Surgery, Skin Cancer Excision, Other. No: Pacemaker Amputation: No Fractures: No ((R) dislocated shoulder) - *Social History Last grade of school completed: High school graduate Smoking Status: Former smoker Tobacco Type: cigarettes # Packs/Day (cigarettes): 1 Alcohol Intake: current Alcohol Intake Frequency:: holidays/special occasions only Substance Use Type: denies use *Occupational Status:: retired Housing: house Household Members: spouse *Travel in the last 8 weeks: Inside the [facility] Family Hx:: No significant family history Review of Systems - Review of Systems Review of systems:: pertinent systems reviewed and negative unless documented below (14 point review of systems performed, pertinent positives and negatives as per HPI) - *Neurologic Denies abnormal walking, Denies unsteadiness, Denies dizziness, Denies headache(s), Denies numbness, Denies weakness Meds Home Medications Medication Instructions Recorded Confirmed Type omeprazole 20 mg capsule,delayed 20 mg PO DAILY 30 Days 03/22/17 06/23/20 History release Latanoprost [Xalatan 0.005% Ophth 1 drp EYE-BOTH HS 06/23/17 06/23/20 History Soln 2.5mL] Levothyroxine Sodium 100 mcg PO DAILY 06/23/17 06/23/20 History [Levothyroxine 100mcg (0.1MG) Tab] fluorouraciL [Efudex 5% cream 40gm 1 applicatio TOPICAL BID 06/23/17 06/24/20 History tube] Magnesium Oxide 400 mg PO DAILY 01/07/18 06/24/20 History Acetaminophen 1,000 mg PO Q4HP PRN 02/28/18 06/24/20 History Doxazosin Mesylate [Cardura 4mg 2 mg PO BID 02/28/18 06/23/20 History tablet] Methylcellulose [Citrucel] 1,000 mg PO DAILY 02/28/18 06/24/20 History Sitagliptin Phosphate [Januvia 50 mg PO DAILY 02/28/18 06/23/20 History 50mg Tablet] Potassium Chloride [K-Tab ER 20 20 meq PO DAILY 03/18/18 06/23/20 History mEq] albuterol sulfate 90 mcg/actuation 1 puff INHALATION NEEDED PRN g 07/02/18 06/24/20 History aerosol inhaler furosemide 40 mg tablet 40 mg PO BID #0 tab 07/02/18 06/23/20 History carvedilol 25 mg tablet 25 mg PO BID tab 10/02/18 06/23/20 History diltiaz
--- NOTE | 2020-06-24 06:34 | PC.NURSE ---
Patient BP at 0015 195/80 with tightness in chest and wheezing inspiratory & expiratory; spoke with Dr. Lester received order for Clonidine 0.1 mg PO x 2, Furosemide 40mg IVP x 1 dose and Duoneb x 1 dose. Patient state felt some relief. Has had good output this shift post the Lasix dose. Patient BP at 0415 189/86; will pass to next nurse to discuss with physician. Patient has been asymptomatic and shows no s/s of acute distress at this time. Call light within reach; will continue to monitor.
--- NOTE | 2020-06-24 07:30 | HMH.PHAVTE ---
[facility] Pharmacy VTE Monitoring - Patient Demographics Admission date: 06/23/20 Report Date: 06/24/20 Time: 07:30 Allergies/Adverse Reactions: Patient Allergies No Known Allergies Allergy (Verified 06/20/20 10:34) Height: 1.73 m Weight: 109.089 kg Patient Problems: Current Active Problems Congestive heart failure (Acute) Pulmonary edema (Acute) - VTE Risk Labs: VTE Related Lab Results Hgb 11.5 g/dL (14.1-18.0) L 06/23/20 17:30 Hct 36.1 % (42.0-52.0) L 06/23/20 17:30 Plt Count 245 K/mm3 (142-424) 06/23/20 17:30 BUN 19 mg/dl (9-20) 06/23/20 17:30 Creatinine 1.20 mg/dl (0.66-1.25) 06/23/20 17:30 Estimated Creat Clear 89 mL/min (50-200) 06/23/20 17:30 - Prophylaxis VTE Prophylaxis Ordered?: Yes Types of VTE Prophylaxis: TEDS Knee High, Pharmacological Location of Applied Device: Bilateral Lower Extremeties Pharmacologic Type: Other (ELIQUIS)
[2020-06-24 07:58] LABS: Basophils # 0.1 K/mm3 (0-0.2); Basophils % 0.7 % (0.1-2.0); Eosinophils # 0.2 K/mm3 (0.0-0.4); Eosinophils % 2.1 % (0.1-12.0); Hematocrit 35.1 % (42.0-52.0); Lymphocytes % 10.5 % (10-50); Mean Corpuscular HGB Conc 31.4 g/dL (31.8-35.4); Mean Corpuscular Hemoglobin 25.8 pg (27.0-31.2); Mean Corpuscular Volume 82.2 fl (80-94); Monocytes # 0.8 K/mm3 (0.1-1.0); Monocytes % 8.2 % (1.7-9.3); Neutrophils # 7.8 K/mm3 (1.8-7.8); Neutrophils % 78.5 % (37.0-80.0); Platelet Count 253 K/mm3 (142-424); Red Blood Count 4.27 M/mm3 (4.60-6.20); Red Cell Distribution Width 16.9 % (11.5-17.5); White Blood Count 9.9 K/mm3 (4.8-10.8)
[2020-06-24 08:01] LABS: Chloride 99 mmol/L (98-107); Potassium 3.7 mmoL/L (3.5-5.1); Sodium 138 mmol/L (136-145)
[2020-06-24 08:04] LABS: Anion Gap 9.7 mEq/L (5-15); Blood Urea Nitrogen 17 mg/dl (9-20); Carbon Dioxide 33 mmol/L (22.0-30.0); Cholesterol 152 mg/dl (140-200); Creatinine Clearance Estimated 98 mL/min (50-200); Estimated Glomerular Filt Rate 66 ml/min (>60); GFR (African American) 80 ML/MIN (>60); Triglycerides 91 mg/dl (30-150); VLDL Cholesterol 18 mg/dL (0-40)
[2020-06-24 08:05] LABS: Calcium 9.1 mg/dl (8.4-10.2); Glucose 170 mg/dl (74-100); HDL Cholesterol 50 mg/dl (40-60); Phosphorous 3.8 mg/dl (2.5-4.5)
--- NOTE | 2020-06-24 08:11 | HMH.PHAINT ---
MEDICATION RECONCILIATION COMPLETED USING EXTERNAL FILL HISTORY AND PHYSICIAN OFFICE NOTE
[2020-06-24 08:16] LABS: Direct LDL Cholesterol 73.02 mg/dL (100-129)
--- NOTE | 2020-06-24 08:56 | CA_ITS ---
APPROVED REPORT EXAM: Comprehensive 2D, Doppler, and color-flow Echocardiogram Trading Manager: Jasmine Viveros RT(R) Ht: 5 ft 8 in Wt: 240lbs BSA: 2.21 BP: 189/86 mmHg Indications: COPD, SOB, cough, HTN, hyperlipidemia, AFIB, TONIO, CAD, hx TIA, CVA, CHF 2D Dimensions LVOT 2.29 cm (M/F) 1.5-2.5 M-Mode Dimensions RVDd 3.58 cm (0.9-2.6) LA Diam 4.48 cm (1.9-4.0) LVDd 4.92 cm (3.5-5.7) Ao Diam 3.36 cm (2.0-3.7) LVDs 2.60 cm (3.5-5.7) IVSd 1.39 cm (0.6-1.1) PWd 1.25 cm (0.6-1.1) EF (Teich) 78.40% FS 47.20% EDV (Teich) 113.90 mL TAPSE 2.78 (<1.7) ESV (Teich) 24.60 mL LV Diastology E Decel Time 190.00 (160-240 msec) E/A Ratio 1.5 MED E' 10.70 (< 7 cm/sec) E'/MED E' Ratio 12.96 (>14) LAT E' 4.10 (<10 cm/sec) E/LAT E' Ratio 33.83 (>14) Mitral Valve MV E Max Temo. 139.00 (40-130 cm/s) MV A Velocity 92.00 (40-130 cm/s) E/A Ratio 1.51 MV Decel. Time 190.00 (160-240 ms) MV PHT 56.00 ms Left Ventricle Left atrium is mildly enlarged, left ventricle is normal size, mild concentric left ventricular hypertrophy, visually estimated ejection fraction 55% with no regional wall motion abnormality, grade 2 diastolic dysfunction seen with tissue Doppler evidence of raise left atrial pressure. Right Ventricle Right atrium and right ventricle are mildly enlarged with normal contractility. Aortic Valve Aortic valve is minimally thickened and fibrosed, there is no aortic stenosis or aortic insufficiency. Mitral Valve Mitral valve is minimally thickened, there is mild mitral annular calcification present, there is no mitral stenosis, there is mild mitral regurgitation. Tricuspid Valve Tricuspid valve is grossly normal, there is mild tricuspid regurgitation, tricuspid regurgitation jet velocity is inadequate for calculation of the right ventricular systolic pressure. Pulmonic Valve Pulmonic valve is poorly visualized. Great Vessels Aortic root is normal size. Pericardium No significant pericardial effusion noted. Conclusion 1. Biatrial enlargement, normal left ventricular size, mild concentric left ventricular hypertrophy, visually estimated ejection fraction 55% with no regional wall motion abnormality, grade 2 diastolic dysfunction seen with tissue Doppler evidence of raise left atrial pressure. 2. Mild mitral and tricuspid regurgitation. 3. No significant pericardial effusion noted. Electronically signed by : Kenton Viera, 06/24/2020 14:47:59
--- NOTE | 2020-06-24 09:15 | PC.NURSE ---
Morning meds held per patient request due to him not wanting to be charged for his meds. Family to bring in his home meds.
--- NOTE | 2020-06-24 11:10 | PC.NURSE ---
Spoke with patient again about taking hospital meds as his home meds haven't arrived yet. Pt stated he wanted to hold of as his home meds should be here soon.
--- NOTE | 2020-06-24 16:52 | PC.NURSE ---
Pt is alert and oriented x4. Lungs are clear, bowel sounds active x4. He remains on RA with O2 sats in the 90's. He has ambulated to the bathroom independently with no distress. Lasix given this morning, urine output thus far has been 2450 mls. He denies sob or chest pain. Appetite is good. He has been very pleasant with staff. No complaints verbalized. Family at bedside and supportive.
[2020-06-25] VITALS: BP 171/91; PULSE 72; RESP 16; TEMP 36.8; O2SAT 96
--- NOTE | 2020-06-25 03:31 | PC.NURSE ---
No acute changes this shift. Pt continues to remain hypertensive. Has improved some overnight. Pt has had 1200cc urine output thus far. Has not c/o any soa. Pt remains on RA. Lungs are diminished. Intermittent cough noted this shift. Pt has ambulated in room and had a shower. No other concerns. Will continue to monitor.
[2020-06-25 04:00] VITALS: BP 170/79; PULSE 66; RESP 16; TEMP 36.9; O2SAT 99
[2020-06-25 05:00] VITALS: BMI 36.1
--- NOTE | 2020-06-25 06:46 | PC.NURSE ---
Pt had an additional 700 ml urine output
[2020-06-25 08:00] VITALS: BP 156/86; PULSE 67; RESP 19; TEMP 36.5; O2SAT 94
[2020-06-25 12:00] VITALS: BP 165/89; PULSE 65; RESP 18; TEMP 36.5; O2SAT 95
--- NOTE | 2020-06-25 12:42 | HMH.DCSUM ---
General - General Admission date:: 06/23/20 Discharge date: 06/25/20 HPI HPI: Mr. Marguerite Lemus is a pleasant 69-year-old male with history of multiple chronic conditions including CHF, COPD, A. fib, TONIO, type 2 diabetes. He presented to the ER because of progressive cough and shortness of breath over the past 3 to 4 days. States cough started approximately Saturday and has been mildly productive. Responding fairly well to inhalers but shortness of breath got to the point that he had to come to the ER yesterday. Came in by ambulance and received Lasix in route. Responded well to diuresis but noted to have significant elevation in BNP upon arrival. Imaging concerning for CHF exacerbation. Initially had oxygen requirement as well. This morning he remains hypertensive, improved shortness of breath however. Stable on room air with saturations in the mid 90s. Still having a cough with a sputum sample at bedside that shows thick white chunky sputum. Remained afebrile. No chest pain, headache, confusion. Hospital Course Hospital Course: 69-year-old male who presented to the ER with shortness of breath, new oxygen requirement, elevated BNP. Found to be in acute CHF exacerbation with acute hypoxemic respiratory failure secondary to volume overload. Was diuresed aggressively with adjustments made to blood pressure regimen. Tolerated diuresis well with resolution of oxygen requirement. Stable on room air for the past 24 hours. Continue home regimen except for MAICOL/ARB combo. Will continue ARB at time of discharge but have stopped MAICOL inhibitor and will continue new calcium channel radha (nifedipine) daily. We will have close follow-up to monitor blood pressure and check for response. Patient overall feeling better with resolution of his symptoms. Denies chest pain, nausea, vomiting, diarrhea, shortness of breath, headache. Tolerating good p.o. intake. Afebrile. Medically stable for discharge home Objective Vital signs: Temp Pulse Resp BP Pulse Ox 97.7 F 67 19 156/86 H 94 L 06/25/20 08:00 06/25/20 08:00 06/25/20 08:00 06/25/20 08:00 06/25/20 08:00 Narrative: - Constitutional no acute distress, obese, chronically ill appearing; stable on ambient air - *Routine HEENT Exam Head: Present: normocephalic Eye: Present: EOMI, PERRL ENT: Present: mucous membranes moist - *Routine Neck Exam Present: supple. Absent: lymphadenopathy - *Routine Respiratory Exam Present: Distant breath sounds, clear to auscultation bilaterally however. No respiratory distress. No wheeze, accessory muscle use, crackles. Interval improvement - *Routine Cardiovascular Exam Present: RRR - *Routine Abdominal Exam Present: soft, normoactive bowel sounds. Absent: tenderness - *Routine Extremities Exam Present: edema (1+ to mid jauregui). Absent: cyanosis, clubbing - *Routine Skin Exam Present: warm. Absent: rash - *Routine Neurological Exam Present: alert, oriented X3 Results Labs on day of discharge: Preliminary micro results at discharge 06/24/20 Unknown Sputum Culture - Preliminary Sputum - Expectorated Sputum DS: Diagnosis - Discharge Diagnosis (1) Acute hypoxemic respiratory failure Status: Resolved (2) Acute exacerbation of CHF (congestive heart failure) Status: Resolved (3) CAD (coronary artery disease) Status: Chronic (4) COPD (chronic obstructive pulmonary disease) Status: Chronic (5) Diabetes mellitus type 2 in obese Status: Chronic (6) History of atrial fibrillation Status: Chronic (7) Obesity, Class II, BMI 35-39.9 Status: Chronic Discharge Plan - Patient Discharge Instructions ACTIVITY: Continue current activity DIET: low fat, low cholesterol Patient Instructions: Heart Failure, DI for Heart Failure - Follow up Plan Follow up with: Riley Delatorre MD [Primary Care Provider] - 06/28/20 9:45 am Disposition: Home, Self-[facility]
== END 2020-06-25 13:56 | disposition home or self-care (01) ==
LOC: ER 18:24 → 2ND 18:41
PROVIDERS: Admitting Provider Family Medicine; Emergency Provider Emergency Medicine; PCP Internal Medicine Adolescent Medicine; Visit Provider Internal Medicine Adolescent Medicine
DX: I50.9 Heart failure, unspecified (principal); I11.0 Hypertensive heart disease with heart failure; J44.9 Chronic obstructive pulmonary disease, unspecified; J96.01 Acute respiratory failure with hypoxia; Z87.891 Personal history of nicotine dependence; Z79.51 Long term (current) use of inhaled steroids; Z79.899 Other long term (current) drug therapy; I25.10 Atherosclerotic heart disease of native coronary artery without angina pectoris; E11.9 Type 2 diabetes mellitus without complications
CPT/HCPCS: 36415; 71045; 80048; 80061; 82803; 83735; 83880; 84100; 84484; 85025; 87070; 87077; 87205; 87581; 87633; 87798; 93005; 93306; 94640; 99284; G0378; Q9957

== ENCOUNTER → 2020-07-18 10:53 | Outpatient (CLI) | payer MEDICARE, SELFPAY ==
--- NOTE | 2020-07-18 10:58 | FL_ITS ---
PROCEDURE: FL BARIUM SWALLOW MODIFIED CLINICAL INDICATION: OROPHARYNGEAL DYSPHAGIA COMPARISON: No exams were available for comparison FINDINGS: There is transient penetration of the barium is noted to the vocal cords on ingestion of thin liquids with cup and straw. Normal swallowing is noted on putting and solids. This clears spontaneously. No evidence of persistent penetration or aspiration is noted. Normal swallowing mechanism is noted on ingestion of pudding and solids. IMPRESSION: Transient penetration to the cords on ingestion of thin liquids with cup and straw. Dictated by: Henny Ramirez 07/18/2020 13:26 Henny Ramirez in [facility] 07/18/2020 13:26
--- NOTE | 2020-07-18 12:22 | HMH.SLMBS2 ---
Speech & Language Evaluation Speech/Language Mod Barium Swallow Start: 07/18/20 12:15 Freq: once Status: Complete Protocol: Document 07/18/20 12:15 JOHNY (Rec: 07/18/20 12:22 JOHNY [id number]) General Information General Current Food Consistancy Regular,Thin Liquids Dentition Partial - Lower,Good Dentition Oxygen Status Room Air Facial Symmetry Symmetrical Patient Orientation Person,Place,Time,Situation Ability to Follow Directions Excellent Communication Ability No Impairment MBS Recommendations Diet Dietary Recommendations Regular,Thin Liquids Treatment/Strategies Strategy/Precaution Recommend Sitting Upright (90 deg),Chin Tuck,No Straw,Liquids from Cup ,Small Bites and Sips, Alternate Liquids/Solids Mod Barium Swallow Impressions Summary and Impressions Oral Phase Impression No Impairment (WFL) Oral Phase Summary Mr. Oates was given the following consistencies: thins via open cup and straw, pudding, mechancial soft, regular, and pill with thin wash. No oral phase impairments noted. Pharyngeal Phase Impression Mild Impairment Pharyngeal Phase Summary Mr. Oates exhibited flash penetration to the vocal folds with thin liquids from cup and straw. Mr. Oates exhibited a natural chin tuck but did not improve due to large volume intake. Speech/Language MBS Assessment/Goals/Plan Assessment Date of Evaluation: 07/18/20 Evaluation Type Initial Certification Assessment/Problems Dysphagia Does Patient Qualify for Service Yes Qualify/Failure Comment It is recommended that Mr. Oates be seen in the outpatient clinic setting for dysphagia. Recommendations PHYSICIAN CERTIFICATION: The specified therapy services are required, authorized, and reviewed every 30 days. Pt will be seen # times/week 2 for # weeks 4 Diet Recommendations Normal Liquid Type Recommendations Normal/Thin SL Swallow Guidelines Standard Aspiration Prec. Dysphagia Swallow Precautions/Strategies Sitting Upright (90 deg),No Straw,Liquids from Cup,Small Bites and Sips,Alternate Liquids/Solids Plan Pt/Guardian verbally ack understanding Yes
== END ==
PROVIDERS: PCP Internal Medicine Adolescent Medicine; Visit Provider Internal Medicine Adolescent Medicine
DX: R13.12 Dysphagia, oropharyngeal phase (principal)
CPT/HCPCS: 70371; 92611

== ENCOUNTER → 2020-07-28 08:32 | Outpatient (CLI) | payer MEDICARE, SELFPAY ==
[2020-07-28 14:20] LABS: Chloride 97 mmol/L (98-107); Potassium 3.4 mmoL/L (3.5-5.1); Sodium 139 mmol/L (136-145)
[2020-07-28 14:23] LABS: Alanine Aminotransferase 41 U/L (12-78); Albumin/Globulin Ratio 1.5 (1.1-1.8); Alkaline Phosphatase 133 U/L (38-126); Anion Gap 12.4 mEq/L (5-15); Aspartate Amino Transferase 27 U/L (17-59); Bilirubin,Total 0.5 mg/dl (0.2-1.3); Blood Urea Nitrogen 18 mg/dl (9-20); Carbon Dioxide 33 mmol/L (22.0-30.0); Cholesterol 147 mg/dl (140-200); Estimated Glomerular Filt Rate 60 ml/min (>60); GFR (African American) 73 ML/MIN (>60); Globulin 2.7 g/dL (1.3-3.2); Total Protein,Serum 6.7 g/dl (6.3-8.2); Triglycerides 95 mg/dl (30-150); VLDL Cholesterol 19 mg/dL (0-40)
[2020-07-28 14:24] LABS: Basophils # 0.1 K/mm3 (0-0.2); Basophils % 0.7 % (0.1-2.0); Calcium 9.8 mg/dl (8.4-10.2); Eosinophils # 0.3 K/mm3 (0.0-0.4); Eosinophils % 2.8 % (0.1-12.0); Glucose 154 mg/dl (74-100); HDL Cholesterol 49 mg/dl (40-60); Hematocrit 35.9 % (42.0-52.0); Hemoglobin 11.9 g/dL (14.1-18.0); Lymphocytes # 0.8 K/mm3 (0.7-4.5); Lymphocytes % 8.1 % (10-50); Mean Corpuscular HGB Conc 33.2 g/dL (31.8-35.4); Mean Corpuscular Hemoglobin 26.4 pg (27.0-31.2); Mean Corpuscular Volume 79.4 fl (80-94); Mean Platelet Volume 8.4 fl (7.4-10.4); Monocytes # 0.9 K/mm3 (0.1-1.0); Monocytes % 9.1 % (1.7-9.3); Neutrophils % 79.2 % (37.0-80.0); Platelet Count 282 K/mm3 (142-424); Red Blood Count 4.52 M/mm3 (4.60-6.20); Red Cell Distribution Width 16.5 % (11.5-17.5); White Blood Count 10.1 K/mm3 (4.8-10.8)
[2020-07-28 14:35] LABS: Direct LDL Cholesterol 71.95 mg/dL (100-129)
[2020-07-28 14:40] LABS: Hemoglobin A1C 7.4 % (4.0-6.0)
== END ==
PROVIDERS: Visit Provider Internal Medicine Adolescent Medicine
DX: E11.9 Type 2 diabetes mellitus without complications (principal); N18.2 Chronic kidney disease, stage 2 (mild)
CPT/HCPCS: 36415; 80053; 80061; 83036; 85025

== ENCOUNTER → 2020-09-05 14:42 | Outpatient (CLI) | payer MEDICARE, SELFPAY ==
[2020-09-05 14:47] LABS: Microscopic, Urine URINE MICROSCOPIC (MICROSCOPIC)
--- NOTE | 2020-09-05 15:17 | XR_ITS ---
PROCEDURE: XR CHEST 2V CLINICAL HISTORY: OTHER MALAISE,COUGH COMPARISON: CR XR CHEST 2V from 10/27/2018 CR XR CHEST PORTABLE from 10/30/2019 CR XR CHEST PORTABLE from 06/23/2020 FINDINGS: Mild cardiomegaly. Pulmonary vessels are slightly prominent. Mild CHF or plasma volume overload is considered. No lobar consolidation or collapse. The lungs are clear without infiltrates, suspicious nodules, or pleural effusions. No acute bony abnormalities. IMPRESSION: Cardiomegaly with mild pulmonary venous congestion suggesting mild CHF or plasma volume overload Dictated by: Sony Lawson MD 09/05/2020 17:25 Sony Lawson MD in [facility] 09/05/2020 17:25
[2020-09-05 15:32] LABS: Appearance,Urine SL CLOUDY (Clear); Bilirubin,Urine Negative (Negative); Blood, Urine TRACE-I (Negative); Color,Urine YELLOW (Yellow); Glucose,Urine (UA) Negative (Negative); Ketones,Urine Negative (Negative); Leukocyte Esterase,Urine 1+ (Negative); Nitrate,Urine Negative (Negative); PH,Urine 6.5 (5.0-8.5); Protein,Urine 2+ (Negative)
[2020-09-05 15:35] LABS: Basophils # 0.1 K/mm3 (0-0.2); Basophils % 0.6 % (0.1-2.0); Eosinophils # 0.4 K/mm3 (0.0-0.4); Eosinophils % 3.1 % (0.1-12.0); Hematocrit 32.8 % (42.0-52.0); Hemoglobin 10.8 g/dL (14.1-18.0); Lymphocytes # 1.1 K/mm3 (0.7-4.5); Lymphocytes % 8.9 % (10-50); Mean Corpuscular Hemoglobin 26.1 pg (27.0-31.2); Mean Platelet Volume 8.5 fl (7.4-10.4); Monocytes # 1.1 K/mm3 (0.1-1.0); Monocytes % 8.8 % (1.7-9.3); Neutrophils # 9.6 K/mm3 (1.8-7.8); Neutrophils % 78.6 % (37.0-80.0); Platelet Count 274 K/mm3 (142-424); Red Blood Count 4.15 M/mm3 (4.60-6.20); Red Cell Distribution Width 17.4 % (11.5-17.5); White Blood Count 12.3 K/mm3 (4.8-10.8)
[2020-09-05 16:08] LABS: Bacteria,Urine Trace /lpf; RBC,Urine Occasional #/hpf (0-3); WBC,Urine Occasional #/hpf (0-3)
[2020-09-05 17:03] LABS: Alanine Aminotransferase 54 U/L (12-78); Albumin Level 3.6 g/dl (3.5-5.0); Albumin/Globulin Ratio 1.2 (1.1-1.8); Alkaline Phosphatase 123 U/L (38-126); Anion Gap 13.1 mEq/L (5-15); Aspartate Amino Transferase 26 U/L (17-59); Bilirubin,Total 0.9 mg/dl (0.2-1.3); Blood Urea Nitrogen 23 mg/dl (9-20); Calcium 8.9 mg/dl (8.4-10.2); Carbon Dioxide 29 mmol/L (22.0-30.0); Chloride 100 mmol/L (98-107); Estimated Glomerular Filt Rate 46 ml/min (>60); GFR (African American) 56 ML/MIN (>60); Globulin 2.9 g/dL (1.3-3.2); Glucose 150 mg/dl (74-100); Magnesium 2.3 mg/dl (1.6-2.3); Potassium 4.1 mmoL/L (3.5-5.1); Sodium 138 mmol/L (136-145); Total Protein,Serum 6.5 g/dl (6.3-8.2)
[2020-09-05 18:48] LABS: Thyroid Stimulating Hormone 3.87 uIU/mL (0.465-4.68)
== END ==
PROVIDERS: Visit Provider Internal Medicine Adolescent Medicine
DX: R50.9 Fever, unspecified (principal); R05 Cough; R00.2 Palpitations; R53.81 Other malaise
CPT/HCPCS: 36415; 71046; 80053; 81001; 83735; 84443; 85025; 87086

== ENCOUNTER → 2020-09-14 10:13 | Outpatient (CLI) | payer MEDICARE, SELFPAY ==
[2020-09-14 10:46] LABS: Chloride 97 mmol/L (98-107)
[2020-09-14 10:47] LABS: Potassium 3.7 mmoL/L (3.5-5.1); Sodium 139 mmol/L (136-145)
[2020-09-14 10:49] LABS: Blood Urea Nitrogen 16 mg/dl (9-20)
[2020-09-14 10:50] LABS: Anion Gap 9.7 mEq/L (5-15); Calcium 9.3 mg/dl (8.4-10.2); Carbon Dioxide 36 mmol/L (22.0-30.0); Estimated Glomerular Filt Rate 60 ml/min (>60); GFR (African American) 72 ML/MIN (>60); Glucose 140 mg/dl (74-100)
--- NOTE | 2020-09-14 10:58 | CT_ITS ---
PROCEDURE: CT ABDOMEN PELVIS WO/W CON CLINICAL INDICATION: EPIGASTRIC PAIN,WEIGHT LOSS K C okay COMPARISON: CT ABDPELW CT abdomen pelvis w con from 04/24/2018 TECHNIQUE: IV Contrast: 75ML Isovue 370 Oral Contrast None Axial images obtained with sagittal and coronal reformats. All CT scans at the facility use one or more dose reduction, viz: automated exposure control, ma/kV adjustment per patient size (including targeted exams where dose is matched to indication, i.e. head), or iterative reconstruction technique. FINDINGS: LOWER THORAX: No acute finding ABDOMEN & PELVIS: The liver, spleen, pancreas, adrenal glands, and kidneys show no acute finding. No intestinal obstruction or free air. No evidence of appendicitis or diverticulitis. No pelvic mass, abnormal fluid collection, or focal inflammatory change of the pelvis. No acute bony anomalies. IMPRESSION: Dictated by: Sony Lawson MD 09/14/2020 15:33 Sony Lawson MD in [facility] 09/14/2020 15:33
== END ==
PROVIDERS: PCP Internal Medicine Adolescent Medicine; Visit Provider Internal Medicine Adolescent Medicine
DX: R10.13 Epigastric pain (principal); R63.4 Abnormal weight loss
CPT/HCPCS: 36415; 74178; 80048; Q9967

== ENCOUNTER 2020-09-28 14:00 | Outpatient (RCR) | payer MEDICARE, SELFPAY ==
--- NOTE | 2020-08-01 16:40 | HMH.SLDYSPHA ---
Speech & Language Evaluation Speech/Language Dysphagia Evaluation Start: 08/01/20 16:29 Freq: ONCE Status: Active Protocol: Document 08/01/20 16:33 JOHNY (Rec: 08/01/20 16:40 JOHNY [id number]) Dysphagia Assess/Goals/Plan Assessment Date of Evaluation: 08/01/20 Evaluation Type Initial Certification Assessment/Problems Dysphagia Does Patient Qualify for Service Yes Qualify/Failure Comment Based on [facility] report dated 07/18, Mr. Oates would benefit from outpatient therapy for dysphagia. Recommendations PHYSICIAN CERTIFICATION: The specified therapy services are required, authorized, and reviewed every 30 days. Pt will be seen # times/week 2 Diet Recommendations Normal Liquid Type Recommendations Normal/Thin SL Swallow Guidelines Alt bite w/sip thru meal, Standard Aspiration Prec. Dysphagia Swallow Precautions/Strategies Sitting Upright (90 deg),Chin Tuck,Liquids from Straw,Small Bites and Sips,Alternate Liquids/Solids Plan Anticipate reaching STG in # weeks 4 Anticipate reaching LTG in # weeks 6 Pt/Guardian verbally ack understanding Yes of dx/prognosis/goals G -code Required No STG-Asp During/Laryngeal Closure Control bolus size w/wo cues #trials 5 Use cut-out cup/cup/straw/spoon for all 5 liquid intake in #trials Use chin-down position w/wo cues #trials 5 Use Valsalva maneuver w/wo cues in # 5 trials STG-Asp Aft/Vallec-Laryng elevation Produce /i/ in continuous fashion, incl. 20 fasetto in # trials Detention Goals Diet Regular with Liquids Thin Liquids Speech & Language HPI History Present Illness Description of Patient Problem Dysphagia Hearing Hearing Ability Hard of Hearing Language Primary Language Swedish General Information General Current Food Consistancy Regular,Mechanical Soft,Thin Liquids,Pudding Liquids Dentition Good Dentition Oxygen Status Room Air Facial Symmetry Symmetrical Patient Orientation Person,Place,Time,Situation Ability to Follow Directions Excellent Communication Ability No Impairment Dysphagia:Food Presentation Evaluation Food Type Mechanical Soft,Regular,Liquid ,Pudding Dysphagia Evaluation Summary Based on the report from [facility] dated 07/18/20: Mr. Oates was given the following consistencies: thins
== END 2020-09-28 14:05 | disposition home or self-care (01) ==
LOC: ST 14:00
PROVIDERS: PCP Internal Medicine Adolescent Medicine; Visit Provider Internal Medicine Adolescent Medicine
DX: R13.12 Dysphagia, oropharyngeal phase (principal)
CPT/HCPCS: 92526; 92610

== ENCOUNTER → 2020-10-04 13:40 | Outpatient (CLI) | payer MEDICARE, SELFPAY ==
--- NOTE | 2020-10-04 13:40 | MR_ITS ---
PROCEDURE: MR LUMBAR SPINE WO CON CLINICAL INDICATION: eval for lesion, mass, compression, spinal stenosi Low back pain into rt leg. Rt leg numbness. COMPARISON: MR BRAINWO MR head/brain wo con from 01/09/[address] lumbar spine wo con from 03/18/2018 TECHNIQUE: Standard multiplanar multiecho sequences are performed without contrast. 3-D MIP and myelographic images are also rendered and reviewed FINDINGS: The spinal cord ends at the L1 level. Mild lumbar scoliosis convex left L1-L2: Unremarkable. L2-L3: Unremarkable. L3-L4: Bulging disc slightly eccentric toward the right along with facet and ligamentum hypertrophic change with moderate to severe bilateral lateral recess narrowing and bilateral foraminal narrowing. There is a small central disc herniation with minimal superior extrusion with borderline canal stenosis. The lateral recess and foraminal narrowing slightly greater on the right compared to the left. There is 4 mm anterolisthesis of L3 on L4 L4-5: 3 mm anterolisthesis of L4 on L5 with concentric bulging disc along with facet and ligamentum hypertrophic change with moderate bilateral foraminal narrowing right greater than left. L5-S1: Mild facet hypertrophic change. Minimal bulging disc IMPRESSION: 1. L3-L4: Bulging disc slightly eccentric toward the right along with facet and ligamentum hypertrophic change with moderate to severe bilateral lateral recess narrowing and bilateral foraminal narrowing. There is a small central disc herniation with minimal superior extrusion with borderline canal stenosis. The lateral recess and foraminal narrowing slightly greater on the right compared to the left. There is 4 mm anterolisthesis of L3 on L4 2. L4-5: 3 mm anterolisthesis of L4 on L5 with concentric bulging disc along with facet and ligamentum hypertrophic change with moderate bilateral foraminal narrowing right greater than left. 3. L5-S1: Mild facet hypertrophic change. Minimal bulging disc Dictated by: Sony Lawson MD 10/05/2020 12:21 Sony Lawson MD in [place] 10/05/2020 12:21
[2020-10-04 17:19] LABS: Vitamin B12 851 pg/mL (239-931)
[2020-10-04 18:26] LABS: Ferritin 18.9 ng/ml (17.9-464)
[2020-10-04 20:15] LABS: Folate > 20.00 ng/mL
[2020-10-06 15:34] LABS: Angiotensin Converting Enzyme 47 U/L (14-82)
[2020-10-14 08:23] LABS: Albumin 3.3; Protein, Total 6.4
[2020-10-14 08:24] LABS: Gamma Globulin 1
[2020-10-14 08:25] LABS: Immunoglobulin A, Qn, CHARGE YES; Immunoglobulin A, Qn, Serum 354; Immunoglobulin G, Qn, CHARGE YES; Immunoglobulin G, Qn, Serum 1003; Immunoglobulin M, Qn, CHARGE YES; Immunoglobulin M, Qn, Serum 121
== END ==
PROVIDERS: Nurse Practitioner Family; PCP Internal Medicine Adolescent Medicine; Visit Provider Specialist
DX: G62.9 Polyneuropathy, unspecified (principal); M54.5 Low back pain; R93.7 Abnormal findings on diagnostic imaging of other parts of musculoskeletal system; D50.9 Iron deficiency anemia, unspecified
CPT/HCPCS: 36415; 72148; 76376; 82164; 82607; 82728; 82746; 82784; 84155; 84165; 86334

== ENCOUNTER → 2020-10-04 15:30 | Outpatient (CLI) | payer MEDICARE, SELFPAY | PROVIDERS: Visit Provider Nurse Practitioner Family | DX: G62.9 Polyneuropathy, unspecified (principal) | CPT/HCPCS: 36415; 82164; 82607; 82728; 82746; 84155; 84165 ==

== ENCOUNTER → 2020-11-30 07:10 | Outpatient (CLI) | payer MEDICARE, SELFPAY ==
[2020-11-30 14:14] LABS: Chloride 99 mmol/L (98-107); Sodium 140 mmol/L (136-145)
[2020-11-30 14:15] LABS: Potassium 3.4 mmoL/L (3.5-5.1)
[2020-11-30 14:17] LABS: Alanine Aminotransferase 37 U/L (12-78); Alkaline Phosphatase 122 U/L (38-126); Anion Gap 11.4 mEq/L (5-15); Aspartate Amino Transferase 26 U/L (17-59); Bilirubin,Total 0.3 mg/dl (0.2-1.3); Blood Urea Nitrogen 22 mg/dl (9-20); Calcium 9.1 mg/dl (8.4-10.2); Carbon Dioxide 33 mmol/L (22.0-30.0); Estimated Glomerular Filt Rate 55 ml/min (>60); GFR (African American) 66 ML/MIN (>60); Glucose 157 mg/dl (74-100)
[2020-11-30 14:18] LABS: Albumin Level 3.5 g/dl (3.5-5.0); Albumin/Globulin Ratio 1.2 (1.1-1.8); Globulin 2.9 g/dL (1.3-3.2); Total Protein,Serum 6.4 g/dl (6.3-8.2)
[2020-11-30 14:23] LABS: Basophils # 0.1 K/mm3 (0-0.2); Basophils % 0.7 % (0.1-2.0); Eosinophils # 0.3 K/mm3 (0.0-0.4); Eosinophils % 3.1 % (0.1-12.0); Hemoglobin 13.6 g/dL (14.1-18.0); Lymphocytes # 0.9 K/mm3 (0.7-4.5); Lymphocytes % 10.1 % (10-50); Mean Corpuscular HGB Conc 32.5 g/dL (31.8-35.4); Mean Corpuscular Hemoglobin 28.5 pg (27.0-31.2); Mean Corpuscular Volume 87.8 fl (80-94); Mean Platelet Volume 9.5 fl (7.4-10.4); Monocytes # 0.7 K/mm3 (0.1-1.0); Monocytes % 7.3 % (1.7-9.3); Neutrophils # 7.2 K/mm3 (1.8-7.8); Neutrophils % 78.7 % (37.0-80.0); Platelet Count 287 K/mm3 (142-424); Red Blood Count 4.78 M/mm3 (4.60-6.20); Red Cell Distribution Width 17.6 % (11.5-17.5); White Blood Count 9.1 K/mm3 (4.8-10.8)
[2020-11-30 14:45] LABS: Thyroid Stimulating Hormone 3.88 uIU/mL (0.465-4.68)
== END ==
PROVIDERS: Visit Provider Internal Medicine Adolescent Medicine
DX: E11.9 Type 2 diabetes mellitus without complications (principal); D12.6 Benign neoplasm of colon, unspecified; I48.20 Chronic atrial fibrillation, unspecified
CPT/HCPCS: 36415; 80053; 84443; 85025

== ENCOUNTER → 2020-12-26 07:14 | Outpatient (CLI) | payer MEDICARE, SELFPAY ==
[2020-12-26 13:50] LABS: Basophils # 0.1 K/mm3 (0-0.2); Basophils % 0.8 % (0.1-2.0); Eosinophils # 0.2 K/mm3 (0.0-0.4); Eosinophils % 2.2 % (0.1-12.0); Hematocrit 44.2 % (42.0-52.0); Hemoglobin 14.3 g/dL (14.1-18.0); Lymphocytes # 1.1 K/mm3 (0.7-4.5); Mean Corpuscular HGB Conc 32.5 g/dL (31.8-35.4); Mean Corpuscular Volume 89.2 fl (80-94); Mean Platelet Volume 8.6 fl (7.4-10.4); Monocytes # 0.8 K/mm3 (0.1-1.0); Monocytes % 7.7 % (1.7-9.3); Neutrophils # 8.4 K/mm3 (1.8-7.8); Neutrophils % 79.3 % (37.0-80.0); Platelet Count 237 K/mm3 (142-424); Red Blood Count 4.95 M/mm3 (4.60-6.20); Red Cell Distribution Width 16.6 % (11.5-17.5); White Blood Count 10.5 K/mm3 (4.8-10.8)
[2020-12-26 14:12] LABS: Chloride 94 mmol/L (98-107); Sodium 139 mmol/L (136-145)
[2020-12-26 14:15] LABS: Blood Urea Nitrogen 33 mg/dl (9-20); Calcium 9.4 mg/dl (8.4-10.2); Carbon Dioxide 37 mmol/L (22.0-30.0); Estimated Glomerular Filt Rate 50 ml/min (>60); GFR (African American) 61 ML/MIN (>60); Glucose 166 mg/dl (74-100)
== END ==
PROVIDERS: Visit Provider Internal Medicine Adolescent Medicine
DX: I10 Essential (primary) hypertension (principal); N18.2 Chronic kidney disease, stage 2 (mild)
CPT/HCPCS: 36415; 80048; 85025

== ENCOUNTER → 2021-01-10 10:41 | Outpatient (CLI) | payer MEDICARE, SELFPAY | PROVIDERS: Visit Provider Surgery | DX: Z01.812 Encounter for preprocedural laboratory examination (principal); Z11.52 Encounter for screening for COVID-19; Z12.11 Encounter for screening for malignant neoplasm of colon | CPT/HCPCS: C9803; U0003; U0005 ==

== ENCOUNTER 2021-01-12 06:40 | Day surgery (SDC) | payer MEDICARE, SELFPAY ==
[2021-01-04 13:09] VITALS: BMI 34.9
[2021-01-12] VITALS (11 sets, daily range): BP systolic 125–179; BP diastolic 58–78; PULSE 53–59; RESP 14–22; TEMP 36.2–36.9; O2SAT 92–99
--- NOTE | 2021-01-12 08:12 | HMH.ANESCL ---
[facility] Anesthesia Checklist - Structural Data Admitted From: Home Planned Operative Procedure/s: colonoscopy Consent for Planned Operative Procedure(s) Verified: Yes - Additional verifications Anesthesia Reactions: No Hx Blood Transfusions: Yes (08/19/2017) Blood Transfusion Reaction: No - Airway Assessment C-Spine Mobility Assessed: Yes TMJ Mobility Assessed: Yes Dentition: Poor Dentition - Neurological Assessment Level of Consciousness: Awake, Alert, Appropriate - Anesthesia Plan Anesthesia Risk discussed: Yes ASA Class: III Anesthesia Type: MAC [facility] History I have reviewed the patient's past medical history: Yes Medical History: Reports:: Asthma, Atrial Fibrillation, Cancer, Congestive Heart Failure, Chronic Obstructive Pulmonary Disease (COPD), Coronary Artery Disease, Cerebrovascular Accident, Diabetes Mellitus Type 2, Gastroesophageal Reflux Disease(GERD), Hyperlipidemia, Hypertension, Lung Disease, Transient Ischemic Attacks (TIA) Denies:: Diabetes Mellitus Type 1, Internal Pacemaker, MRSA, Seizures *Have you ever received a pneumonia vaccine?: Yes *Have you received a flu vaccine this season?: No Other Medical History: Reports: Arthritis, Cataracts, Glaucoma, Hypothyroidism, Sinus Problems, Thyroid Disease, Other. Denies: Blood Transfusion Reaction Anesthesia experience/problems:: none Laterality Cases: Left: Partial Knee Replacement, Bilateral: Myringotomy (Ear Tubes) Other Surgeries: Yes: Cardiac Catheterization, Colonoscopy, Sinus Surgery, Skin Cancer Excision, Other. No: Pacemaker Amputation: No Fractures: No ((R) dislocated shoulder) - *Social History Last grade of school completed: High school graduate Smoking Status: Former smoker Tobacco Type: cigarettes # Packs/Day (cigarettes): 1 Alcohol Intake: current Alcohol Intake Frequency:: holidays/special occasions only Substance Use Type: denies use *Occupational Status:: retired Housing: house Household Members: spouse *Travel in the last 8 weeks: None Family Hx:: Cancer
--- NOTE | 2021-01-12 09:26 | HMH.SCOPE ---
- Procedure: Date: 01/12/21 Patient Date of :: 1950 Procedure Performed:: Colonoscopy with polypectomy Indications:: Multiple complex polyps noted in August 2017 at time of colonoscopy performed by Dr. Indra Mcwilliams. Diverticulosis and left prostate nodule also noted on prior colonoscopy. Performing Provider:: Herman Kam MD Referring Provider:: . Sedation:: Monitored anesthesia care Procedure:: After informed consent was obtained the patient was taken to the endoscopy suite. Sedation ensued after the patient was transferred to the left lateral decubitus position. Pulse, blood pressure, and oxygen saturation were monitored throughout the procedure. Digital rectal exam revealed no significant abnormality. The colonoscope was placed in position. The entire colon was evaluated. The colonoscope was carefully removed and the patient was transferred to recovery in stable condition. Please see findings and specimens below for detail. Findings:: Bowel preparation moderate to poor Fairly severe spasticity/lack of relaxation Scattered diverticulosis most significant in sigmoid colon Prostate nodule noted by Dr. Mcwilliams likely beyond reach on DAVID Multiple large complex polyps (see specimens) Specimens:: Complex adjacent periappendiceal polyps (snare) Ileocecal valve biopsy Adjacent complex lobulated right colon polyps - x5 (snare) Hepatic flexure polyp (snare) Distal transverse colon polyps - x3 (snare) Polyp at 20 cm Recommendations:: The patient is aware of prostate nodule noted by Dr. Mcwilliams in 2018. He states that he will talk to the doctor about it . He is not interested in urology in consultation at this time. Timing of repeat colonoscopy is pending pathology but will likely be around 1 year secondary to limited bowel preparation, spasticity/lack of relaxation, and polyp burden. Complications:: No immediate Estimated blood obtained (mL): 1
--- NOTE | 2021-01-12 10:59 | SUR.PHASEII ---
1035: Dary Pacheco CRNA at bedside to asses pt. complaint of chest tightness and difficulty breathing. Pt. O2 sat remains between 93-97% on room air. Vitals are stable. Orders for pt. to have 2 mg Versed IV once for anxiety.
[2021-12-07 10:54] LABS: POC Glucose,Bedside 136 (70-110)
== END 2021-01-12 11:25 | disposition home or self-care (01) ==
LOC: OUTP 06:41
PROVIDERS: PCP Internal Medicine Adolescent Medicine; Visit Provider Surgery
PROC: 0DJD8ZZ Inspection of Lower Intestinal Tract, Via Natural or Artificial Opening Endoscopic (ICD-10-PCS; principal; 2021-01-12 08:00)
DX: Z12.11 Encounter for screening for malignant neoplasm of colon (principal); Z86.010 Personal history of colon polyps; K62.89 Other specified diseases of anus and rectum; K57.32 Diverticulitis of large intestine without perforation or abscess without bleeding; K63.5 Polyp of colon; N40.0 Benign prostatic hyperplasia without lower urinary tract symptoms
CPT/HCPCS: 45380; 45385; 82962; 88305; 94640

== ENCOUNTER 2021-01-13 12:45 | Emergency (ER) | payer MEDICARE, SELFPAY ==
[2021-01-13] VITALS (12 sets, daily range): BP systolic 135–182; BP diastolic 63–82; PULSE 58–78; RESP 16–21; TEMP 36.7–37.1; O2SAT 95–99; BMI 34.4
--- NOTE | 2021-01-13 13:01 | HMH.EDGENADL ---
ED Disposition Clinical Impression: Hypokalemia Pneumonia, community acquired Qualifiers: Laterality: left Lung location: upper lobe of lung Qualified Code(s): J18.9 - Pneumonia, unspecified organism Sinusitis Qualifiers: Sinusitis location: unspecified location Chronicity: acute Recurrence: not specified as recurrent Qualified Code(s): J01.90 - Acute sinusitis, unspecified Disposition: Home, Self-Care Condition on Discharge: Good Instructions: DI for Pneumonia -- Adult, DI for Sinusitis, DI for Hypokalemia Additional Instructions: Take antibiotics as prescribed, begin first dose tomorrow afternoon. Take an extra tablet of potassium daily until seen by your primary care provider next week. See Dr. Delatorre in the office next week. Prescriptions: Cefdinir [Omnicef 300mg Capsule] 300 mg PO BID #20 cap Transmission Status: Pending to [facility] Azithromycin [Zithromax 250mg tab] 250 mg PO DAILY #4 tab Transmission Status: Pending to [facility] Referrals: Riley Delatorre MD [Primary Care Provider] - - Critical Care Critical Care Time: No Attestation: On 01/13/21, the high probability of a clinically significant, sudden or life threatening deterioration of the following system(s) required my full and direct attention, intervention and personal management. The time I documented below is in addition to time spent performing reported procedures but includes the following listed in this critical care notation. Medical Decision Making - Medical Records Medical records reviewed: Yes: I reviewed the patient's medical records. MR Comment: Reviewed procedure note from colonoscopy. The patient's anesthesia was MAC, no intubation or LMA noted. - Atul Inquiry Pt receiving controlled substance: No Vital Signs: 01/13/21 12:47 01/13/21 12:55 01/13/21 13:01 Temperature 98.7 F Temperature Source Oral Pulse Rate 63 60 Pulse Rate [Right] 62 Respiratory Rate 16 Blood Pressure 164/80 H 156/76 H Blood Pressure [Right Arm] 164/80 H Blood Pressure Mean 119 110 Blood Pressure Mean [Right Arm] 108 Blood Pressure Source Blood Pressure Source [Right Arm] Automatic Cuff Blood Pressure Position Blood Pressure Position [Right Arm] Sitting 02 Sat by Pulse Oximetry 96 95 96 Oxygen Delivery Method Room Air 01/13/21 13:31 01/13/21 14:01 01/13/21 14:29 Temperature Temperature Source Pulse Rate 61 61 78 Pulse Rate [Right] Respiratory Rate 16 16 Blood Pressure 155/70 H 160/78 H 160/78 H Blood Pressure [Right Arm] Blood Pressure Mean 98 94 Blood Pressure Mean [Right Arm] Blood Pressure Source Automatic Cuff Blood Pressure Source [Right Arm] Blood Pressure Position Sitting Blood Pressure Position [Right Arm] 02 Sat by Pulse Oximetry 95 95 98 Oxygen Delivery Method Room Air 01/13/21 14:31 01/13/21 15:41 01/13/21 17:30 Temperature Temperature Source Pulse Rate 62 58 L 62 Pulse Rate [Right] Respiratory Rate 16 17 Blood Pressure 146/68 H 135/63 182/82 H Blood Pressure [Right Arm] Blood Pressure Mean 91 115 Blood Pressure Mean [Right Arm] Blood Pressure Source Automatic Cuff Blood Pressure Source [Right Arm] Blood Pressure Position Sitting Blood Pressure Position [Right Arm] 02 Sat by Pulse Oximetry 96 95 96 Oxygen Delivery Method Room Air - Lab Data Lab Results 01/13/21 14:16: WBC 13.6 H, RBC 4.88, Hgb 14.1, Hct 42.8, MCV 87.7, MCH 28.9, MCHC 33.0, RDW 16.4, Plt Count 260, MPV 8.5, Neut % (Auto) 81.6 H, Lymph % (Auto) 10.3, Taliaferro % (Auto) 6.7, Eos % (Auto) 0.8, Baso % (Auto) 0.5, Neut # (Auto) 11.1 H, Lymph # (Auto) 1.4, Taliaferro # (Auto) 0.9, Eos # (Auto) 0.1, Baso # (Auto) 0.1 01/13/21 14:16: Sodium 139, Potassium 2.4 L*, Chloride 94 L, Carbon Dioxide 38 H, Anion Gap 9.4, BUN 18, Creatinine 1.20, Estimated Creat Clear 83, Estimated GFR 60, Est GFR ( Amer) 72, Glucose 134 H, Calcium 9.0, Total Biliru
--- NOTE | 2021-01-13 13:08 | CT_ITS ---
PROCEDURE: CT SOFT TISSUE NECK W CON CLINICAL HISTORY: coughing up blood, lost voice, throat pain COMPARISON: No exams were available for comparison TECHNIQUE: Oral Contrast: None IV Contrast: 30 mL Isovue 370 Axial images obtained with sagittal and coronal reformats. All CT scans at the facility use one or more dose reduction, viz: automated exposure control, ma/kV adjustment per patient size (including targeted exams where dose is matched to indication, i.e. head), or iterative reconstruction technique. FINDINGS: Mucosal thickening involves the lateral aspect of the sphenoid sinus on the right. There is complete opacification of the right maxillary sinus as well as opacified right ethmoid air cells. There is slight increased density in the right nasal canal medial to the maxillary sinus. An antral choanal polyp is a consideration. The nasopharynx, oropharynx, and hypopharynx have an unremarkable appearance. The uvula and epiglottis have an unremarkable appearance as do the vocal folds and larynx. There are few scattered small nodes in the neck on both sides nonspecific. The parotids, and submandibular glands are unremarkable. 4 mm hypodensity is present in the right lobe of the thyroid gland suggesting a small nodule. IMPRESSION: 1. Opacified right maxillary sinus with slight increased soft tissue density in the nasal canal just medial to the maxillary antrum. Antral choanal polyp is considered. 2. Mucosal thickening of the right aspect of the sphenoid sinus with opacification also noted of the ethmoid air cells on the right. Dictated by: Sony Lawson MD 01/13/2021 15:49 Sony Lawson MD in [place] 01/13/2021 15:49
--- NOTE | 2021-01-13 13:08 | CT_ITS ---
PROCEDURE: CT ANGIO CHEST PE PROTOCOL CLINCIAL INDICATION: coughing up blood COMPARISON: CT CT ABDOMEN PELVIS WO/W CON from 09/14/2020 TECHNIQUE: IV Contrast: 70ML Isovue 370 Axial images obtained with sagittal and coronal reformats. All CT scans at the facility use one or more dose reduction, viz: automated exposure control, ma/kV adjustment per patient size (including targeted exams where dose is matched to indication, i.e. head), or iterative reconstruction technique. FINDINGS: HEART AND MEDIASTINAL STRUCTURES: No evidence of aortic aneurysm or dissection. No evidence of pulmonary embolus. There are atherosclerotic changes involving the thoracic aorta. Coronary artery calcifications are present. There are few small mediastinal lymph nodes. LUNGS AND PLEURAL SPACES: Scattered consolidation is present involving the left upper lobe consistent with pneumonia. There are minimal atelectatic changes in the left lower lobe. No effusions. BONY STRUCTURES: No acute bony abnormalities apparent. UPPER ABDOMEN: Unremarkable. ADDITIONAL FINDINGS: Gynecomastia . IMPRESSION: Left upper lobe pneumonia No evidence of pulmonary embolus. Dictated by: Sony Lawson MD 01/13/2021 15:43 Sony Lawson MD in [place] 01/13/2021 15:43
[2021-01-13 14:32] LABS: Chloride 94 mmol/L (98-107); Sodium 139 mmol/L (136-145)
[2021-01-13 14:35] LABS: Alanine Aminotransferase 57 U/L (12-78); Albumin Level 3.8 g/dl (3.5-5.0); Albumin/Globulin Ratio 1.2 (1.1-1.8); Alkaline Phosphatase 107 U/L (38-126); Aspartate Amino Transferase 37 U/L (17-59); Basophils # 0.1 K/mm3 (0-0.2); Basophils % 0.5 % (0.1-2.0); Bilirubin,Total 0.7 mg/dl (0.2-1.3); Blood Urea Nitrogen 18 mg/dl (9-20); Carbon Dioxide 38 mmol/L (22.0-30.0); Creatinine Clearance Estimated 83 mL/min (50-200); Eosinophils # 0.1 K/mm3 (0.0-0.4); Eosinophils % 0.8 % (0.1-12.0); Estimated Glomerular Filt Rate 60 ml/min (>60); GFR (African American) 72 ML/MIN (>60); Globulin 3.1 g/dL (1.3-3.2); Glucose 134 mg/dl (74-100); Hematocrit 42.8 % (42.0-52.0); Hemoglobin 14.1 g/dL (14.1-18.0); Lymphocytes # 1.4 K/mm3 (0.7-4.5); Lymphocytes % 10.3 % (10-50); Mean Corpuscular Hemoglobin 28.9 pg (27.0-31.2); Mean Corpuscular Volume 87.7 fl (80-94); Mean Platelet Volume 8.5 fl (7.4-10.4); Monocytes # 0.9 K/mm3 (0.1-1.0); Monocytes % 6.7 % (1.7-9.3); Neutrophils # 11.1 K/mm3 (1.8-7.8); Neutrophils % 81.6 % (37.0-80.0); Platelet Count 260 K/mm3 (142-424); Red Blood Count 4.88 M/mm3 (4.60-6.20); Red Cell Distribution Width 16.4 % (11.5-17.5); Total Protein,Serum 6.9 g/dl (6.3-8.2); White Blood Count 13.6 K/mm3 (4.8-10.8)
[2021-01-13 14:37] LABS: Anion Gap 9.4 mEq/L (5-15); Potassium 2.4 mmoL/L (3.5-5.1)
--- NOTE | 2021-01-13 14:37 | PC.NURSE ---
Lab called and reported critical potassium of 2.4. Repeated and verified with Brandi in the lab. Notified
[2021-01-13 14:48] LABS: Strep Scrn Group A (Rapid) Negative (Negative)
--- NOTE | 2021-01-13 15:12 | PC.NURSE ---
Pt returned from CT
--- NOTE | 2021-01-13 15:40 | PC.NURSE ---
Pt moved to room 6 and placed on polisher apprentice prior to starting IV potassium
--- NOTE | 2021-01-13 16:42 | PC.NURSE ---
call center assistant doctor jennifer Delatorre has been paged.
--- NOTE | 2021-01-13 16:53 | PC.NURSE ---
Walked to bathroom and back from bathroom.
--- NOTE | 2021-01-13 17:20 | PC.NURSE ---
Doctor paged again
--- NOTE | 2021-01-13 17:56 | PC.NURSE ---
Addendum entered by Sonal Byrne RN 01/13/21 17:57: Dr. Diez paged Original Note: Dr. Diez
--- NOTE | 2021-01-13 18:39 | PC.NURSE ---
[facility] called r/t pt prescription for azithromycin and pt is home amiodarone at home. Notified ER MD, ER MD states to not fill azithromycin only fill the omnicef prescription.
== END 2021-01-13 19:11 | disposition home or self-care (01) ==
PROVIDERS: Emergency Provider Emergency Medicine; PCP Internal Medicine Adolescent Medicine
DX: J18.9 Pneumonia, unspecified organism (principal); J01.90 Acute sinusitis, unspecified; E87.6 Hypokalemia; I10 Essential (primary) hypertension; E03.9 Hypothyroidism, unspecified; I48.91 Unspecified atrial fibrillation; J44.9 Chronic obstructive pulmonary disease, unspecified; E11.9 Type 2 diabetes mellitus without complications; K21.9 Gastro-esophageal reflux disease without esophagitis
CPT/HCPCS: 70491; 71275; 80053; 85025; 87430; 96365; 96366; 96367; 96375; 99284; J0456; Q9967

== ENCOUNTER → 2021-01-23 08:52 | Outpatient (CLI) | payer MEDICARE, SELFPAY ==
[2021-01-23 10:27] LABS: Blood Urea Nitrogen 23 mg/dl (9-20); Calcium 8.8 mg/dl (8.4-10.2); Carbon Dioxide 40 mmol/L (22.0-30.0); Chloride 95 mmol/L (98-107); Estimated Glomerular Filt Rate 60 ml/min (>60); GFR (African American) 72 ML/MIN (>60); Glucose 168 mg/dl (74-100); Sodium 140 mmol/L (136-145)
[2021-01-23 12:29] LABS: Anion Gap 8.1 mEq/L (5-15); Potassium 3.1 mmoL/L (3.5-5.1)
== END ==
PROVIDERS: Visit Provider Internal Medicine Adolescent Medicine
DX: I10 Essential (primary) hypertension (principal)
CPT/HCPCS: 36415; 80048

== ENCOUNTER → 2021-04-19 15:04 | Outpatient (CLI) | payer MEDICARE, SELFPAY ==
--- NOTE | 2021-04-19 15:04 | CT_ITS ---
FINAL REPORT TECHNIQUE: Thin section axial CT images of the facial bones and sinuses were obtained without contrast. Coronal reformatted images were also obtained.This study was performed with techniques to keep radiation doses as low as reasonably achievable, (ALARA). Individualized dose reduction techniques using automated exposure control or adjustment of mA and/or kV according to the patient''''s size were employed. CLINICAL HISTORY: nasal polyp FINDINGS: There is total opacification of the right maxillary sinus. There is soft tissue in the right nasal cavity which may represent polyposis and is similar to the prior exam. There is opacification of multiple right ethmoid air cells and right frontal sinus. There is mucosal thickening in the right sphenoid sinus which is partially improved. There is mild mucosal thickening in the left maxillary sinus. No fluid levels are identified. The ostiomeatal units have an unremarkable appearance. The nasal septum is in the midline. No fracture or acute bony abnormality is identified. IMPRESSION: Sinusitis. Persistent soft tissue right navel cavity may represent nasal polyposis. Reviewed, Interpreted and Dictated by Sam Gatica III, MD Transcribed by Unique Simmons Authenticated by Sam Gatica III, MD on 04/19/2021 04:59:24 PM [facility]
== END ==
PROVIDERS: PCP Internal Medicine Adolescent Medicine; Visit Provider Otolaryngology
DX: J33.9 Nasal polyp, unspecified (principal)
CPT/HCPCS: 70486

== ENCOUNTER → 2021-05-29 07:45 | Outpatient (CLI) | payer MEDICARE, SELFPAY ==
--- NOTE | 2021-05-29 08:20 | ECG_ITS ---
APPROVED REPORT Exam: Resting ECG HR:60 bpm ECG Measurements Heart Rate 60 AXES QRSd 118 QRS 62 QT 467 T 64 QTc 467 Conclusion SINUS RHYTHM WITH HIGH GRADE AV BLOCK MODERATE INTRAVENTRICULAR CONDUCTION DELAY [110+ ms QRS DURATION] NONSPECIFIC ST & T-WAVE ABNORMALITY PROLONGED QT INTERVAL CRITICAL TEST RESULT UNCONFIRMED REPORT Electronically signed by : Riley Delatorre MD 05/30/2021 16:39:51
[2021-05-29 08:38] LABS: Basophils # 0.1 K/mm3 (0-0.2); Basophils % 0.8 % (0.1-2.0); Eosinophils # 0.2 K/mm3 (0.0-0.4); Eosinophils % 2.6 % (0.1-12.0); Hematocrit 43.1 % (42.0-52.0); Hemoglobin 13.9 g/dL (14.1-18.0); Lymphocytes # 1.1 K/mm3 (0.7-4.5); Lymphocytes % 11.3 % (10-50); Mean Corpuscular HGB Conc 32.3 g/dL (31.8-35.4); Mean Corpuscular Hemoglobin 30.6 pg (27.0-31.2); Mean Corpuscular Volume 94.7 fl (80-94); Mean Platelet Volume 8.5 fl (7.4-10.4); Monocytes # 0.7 K/mm3 (0.1-1.0); Monocytes % 7.4 % (1.7-9.3); Neutrophils # 7.2 K/mm3 (1.8-7.8); Neutrophils % 77.9 % (37.0-80.0); Platelet Count 208 K/mm3 (142-424); Red Blood Count 4.55 M/mm3 (4.60-6.20); Red Cell Distribution Width 14.2 % (11.5-17.5); White Blood Count 9.2 K/mm3 (4.8-10.8)
[2021-05-29 09:20] LABS: Chloride 93 mmol/L (98-107); Sodium 136 mmol/L (136-145)
[2021-05-29 09:23] LABS: Alanine Aminotransferase 40 U/L (12-78); Albumin Level 3.7 g/dl (3.5-5.0); Albumin/Globulin Ratio 1.4 (1.1-1.8); Alkaline Phosphatase 138 U/L (38-126); Anion Gap 9.9 mEq/L (5-15); Aspartate Amino Transferase 26 U/L (17-59); Bilirubin,Total 0.6 mg/dl (0.2-1.3); Blood Urea Nitrogen 30 mg/dl (9-20); Calcium 8.7 mg/dl (8.4-10.2); Carbon Dioxide 36 mmol/L (22.0-30.0); Estimated Glomerular Filt Rate 46 ml/min (>60); GFR (African American) 56 ML/MIN (>60); Globulin 2.6 g/dL (1.3-3.2); Glucose 279 mg/dl (74-100); Total Protein,Serum 6.3 g/dl (6.3-8.2)
[2021-05-29 10:23] LABS: Potassium 2.9 mmoL/L (3.5-5.1)
== END ==
PROVIDERS: PCP Internal Medicine Adolescent Medicine; Visit Provider Otolaryngology
DX: Z01.812 Encounter for preprocedural laboratory examination (principal); Z11.52 Encounter for screening for COVID-19; J32.9 Chronic sinusitis, unspecified
CPT/HCPCS: 36415; 80053; 85025; 93005; C9803; U0003; U0005

== ENCOUNTER 2021-05-31 07:34 | Day surgery (SDC) | payer MEDICARE, SELFPAY ==
[2021-05-31 07:56] VITALS: BMI 35.1
[2021-05-31 08:01] VITALS: BP 154/66; PULSE 63; RESP 18; TEMP 36.4; O2SAT 97
[2021-05-31 08:45] LABS: Alanine Aminotransferase 44 U/L (12-78); Albumin/Globulin Ratio 1.5 (1.1-1.8); Alkaline Phosphatase 119 U/L (38-126); Anion Gap 8.1 mEq/L (5-15); Aspartate Amino Transferase 28 U/L (17-59); Bilirubin,Total 0.7 mg/dl (0.2-1.3); Blood Urea Nitrogen 24 mg/dl (9-20); Calcium 9.3 mg/dl (8.4-10.2); Carbon Dioxide 36 mmol/L (22.0-30.0); Chloride 96 mmol/L (98-107); Creatinine Clearance Estimated 85 mL/min (50-200); Estimated Glomerular Filt Rate 60 ml/min (>60); GFR (African American) 72 ML/MIN (>60); Globulin 2.6 g/dL (1.3-3.2); Glucose 175 mg/dl (74-100); Potassium 3.1 mmoL/L (3.5-5.1); Sodium 137 mmol/L (136-145); Total Protein,Serum 6.6 g/dl (6.3-8.2)
--- NOTE | 2021-05-31 08:54 | HMH.ANESCL ---
[facility] Anesthesia Checklist - Patient Identification Patient Identification: Arm Band - Structural Data Admitted From: Home Planned Operative Procedure/s: FESS Consent for Planned Operative Procedure(s) Verified: Yes - NPO Status Verified Time NPO: 05:00 (Sip of water with meds) - Additional verifications Anesthesia Reactions: No Hx Blood Transfusions: Yes (08/19/2017) Blood Transfusion Reaction: No - Airway Assessment C-Spine Mobility Assessed: Yes TMJ Mobility Assessed: Yes Dentition: Poor Dentition - Neurological Assessment Level of Consciousness: Awake Hx Seizures: No Numbness or tingling in extremities: No - Anesthesia Plan Anesthesia Risk discussed: Yes Anesthesia Plan: Verified ASA Class: III Anesthesia Type: General [facility] History I have reviewed the patient's past medical history: Yes Medical History: Reports:: Asthma, Atrial Fibrillation, Cancer (skin), Congestive Heart Failure, Chronic Obstructive Pulmonary Disease (COPD), Coronary Artery Disease, Cerebrovascular Accident, Diabetes Mellitus Type 2, Gastroesophageal Reflux Disease(GERD), Hyperlipidemia, Hypertension, Lung Disease, Transient Ischemic Attacks (TIA) Denies:: Diabetes Mellitus Type 1, Internal Pacemaker, MRSA, Seizures *Have you ever received a pneumonia vaccine?: Yes *Have you received a flu vaccine this season?: Yes Other Medical History: Reports: Arthritis, Cataracts, Glaucoma, Hypothyroidism, Sinus Problems, Thyroid Disease, Other. Denies: Blood Transfusion Reaction Anesthesia experience/problems:: None Laterality Cases: Bilateral: Cataract, Myringotomy (Ear Tubes) Other Surgeries: Yes: Cardiac Catheterization, Colonoscopy, Sinus Surgery, Skin Cancer Excision, Other. No: Pacemaker Amputation: No Fractures: No ((R) dislocated shoulder) - *Social History Last grade of school completed: High school graduate Smoking Status: Former smoker Tobacco Type: cigarettes # Packs/Day (cigarettes): 1 Alcohol Intake: never Alcohol Intake Frequency:: holidays/special occasions only Substance Use Type: denies use *Occupational Status:: retired Housing: house Household Members: spouse *Travel in the last 8 weeks: None Family Hx:: No significant family history
--- NOTE | 2021-05-31 10:19 | HMH.OPNOTE ---
Date of procedure: 05/31/21 Pre-op Diagnosis:: Left buddhist skin lesion Post-op Diagnosis:: Left buddhist skin lesion Procedure performed:: Incisional biopsy Surgeon:: Gume Edwards MD SERVICE TECHNICIAN COPIER:: Qamar Pacheco Anesthesia: MAC Estimated blood loss (mL): 0 Operative findings:: Exophytic 7 mm skin lesion with no surrounding induration suspicious for squamous cell cancer Operative note:: Patient was brought to the operating room and after adequate IV sedation 1% lidocaine with epinephrine was used to locally infiltrate the left buddhist and then the area was prepped and draped and then full-thickness wedge excision performed the specimen sent for permanent section analysis. Hemostasis was established with bipolar cautery and then a sterile dressing applied and the procedure concluded. All counts correct. Blood loss minimal. Condition: stable Disposition: PACU Complications:: none
[2021-05-31 10:25] VITALS: BP 194/102; PULSE 60; RESP 18; TEMP 36.2; O2SAT 96
[2021-05-31 10:35] VITALS: BP 202/103; PULSE 61; RESP 18; O2SAT 98
[2021-05-31 10:45] VITALS: BP 167/78; PULSE 61; RESP 18; O2SAT 96
[2021-05-31 10:48] VITALS: BP 130/85; PULSE 62; RESP 18; O2SAT 95
[2021-12-07 10:58] LABS: POC Glucose,Bedside 165 (70-110)
== END 2021-05-31 10:48 | disposition home or self-care (01) ==
LOC: OR 07:35
PROVIDERS: PCP Internal Medicine Adolescent Medicine; Visit Provider Otolaryngology
DX: C44.329 Squamous cell carcinoma of skin of other parts of face (principal); Z85.828 Personal history of other malignant neoplasm of skin; J45.909 Unspecified asthma, uncomplicated; I48.91 Unspecified atrial fibrillation; J44.9 Chronic obstructive pulmonary disease, unspecified; I11.0 Hypertensive heart disease with heart failure; I50.9 Heart failure, unspecified; I25.10 Atherosclerotic heart disease of native coronary artery without angina pectoris; Z86.73 Personal history of transient ischemic attack (TIA), and cerebral infarction without residual deficits; E11.9 Type 2 diabetes mellitus without complications; K21.9 Gastro-esophageal reflux disease without esophagitis; E78.5 Hyperlipidemia, unspecified
CPT/HCPCS: 11106; 80053; 82962; 88305

== ENCOUNTER → 2021-06-02 08:32 | Outpatient (CLI) | payer MEDICARE, SELFPAY ==
[2021-06-02 09:59] LABS: Chloride 98 mmol/L (98-107); Potassium 3.3 mmoL/L (3.5-5.1); Sodium 139 mmol/L (136-145)
[2021-06-02 10:02] LABS: Anion Gap 8.3 mEq/L (5-15); Blood Urea Nitrogen 23 mg/dl (9-20); Calcium 8.7 mg/dl (8.4-10.2); Carbon Dioxide 36 mmol/L (22.0-30.0); Estimated Glomerular Filt Rate 55 ml/min (>60); GFR (African American) 66 ML/MIN (>60); Glucose 178 mg/dl (74-100)
== END ==
PROVIDERS: PCP Internal Medicine Adolescent Medicine; Visit Provider Internal Medicine Adolescent Medicine
DX: E87.6 Hypokalemia (principal)
CPT/HCPCS: 36415; 80048

== ENCOUNTER → 2021-06-05 09:06 | Outpatient (CLI) | payer MEDICARE, SELFPAY ==
[2021-06-05 17:03] LABS: Chloride 101 mmol/L (98-107); Sodium 139 mmol/L (136-145)
[2021-06-05 17:04] LABS: Potassium 3.8 mmoL/L (3.5-5.1)
[2021-06-05 17:06] LABS: Blood Urea Nitrogen 27 mg/dl (9-20); Estimated Glomerular Filt Rate 60 ml/min (>60); GFR (African American) 72 ML/MIN (>60)
[2021-06-05 17:07] LABS: Anion Gap 7.8 mEq/L (5-15); Calcium 8.6 mg/dl (8.4-10.2); Carbon Dioxide 34 mmol/L (22.0-30.0); Glucose 177 mg/dl (74-100)
== END ==
PROVIDERS: Visit Provider Internal Medicine Adolescent Medicine
DX: I10 Essential (primary) hypertension (principal)
CPT/HCPCS: 36415; 80048

== ENCOUNTER → 2021-06-22 13:48 | Outpatient (CLI) | payer MEDICARE, SELFPAY ==
[2021-06-22 13:55] LABS: MANUAL DIFFERENTIAL MANUAL DIFFERENTIAL (MANUAL DIFF)
[2021-06-22 15:04] LABS: Basophils # 0.1 K/mm3 (0-0.2); Basophils % 1.6 % (0.1-2.0); Eosinophils # 0.2 K/mm3 (0.0-0.4); Eosinophils % 3.1 % (0.1-12.0); Hematocrit 42.5 % (42.0-52.0); Hemoglobin 14.2 g/dL (14.1-18.0); Lymphocytes # 1.2 K/mm3 (0.7-4.5); Lymphocytes % 16.3 % (10-50); Mean Corpuscular HGB Conc 33.5 g/dL (31.8-35.4); Mean Corpuscular Hemoglobin 31.9 pg (27.0-31.2); Mean Corpuscular Volume 95.4 fl (80-94); Mean Platelet Volume 8.7 fl (7.4-10.4); Monocytes # 0.6 K/mm3 (0.1-1.0); Monocytes % 7.8 % (1.7-9.3); Neutrophils # 5.3 K/mm3 (1.8-7.8); Neutrophils % 71.3 % (37.0-80.0); Platelet Count 191 K/mm3 (142-424); Red Blood Count 4.45 M/mm3 (4.60-6.20); Red Cell Distribution Width 14.5 % (11.5-17.5); White Blood Count 7.5 K/mm3 (4.8-10.8)
[2021-06-22 15:47] LABS: Alanine Aminotransferase 44 U/L (12-78); Albumin Level 3.7 g/dl (3.5-5.0); Albumin/Globulin Ratio 1.5 (1.1-1.8); Alkaline Phosphatase 104 U/L (38-126); Anion Gap 8.1 mEq/L (5-15); Aspartate Amino Transferase 27 U/L (17-59); Bilirubin,Total 0.6 mg/dl (0.2-1.3); Blood Urea Nitrogen 25 mg/dl (9-20); Calcium 8.7 mg/dl (8.4-10.2); Carbon Dioxide 31 mmol/L (22.0-30.0); Chloride 100 mmol/L (98-107); Estimated Glomerular Filt Rate 55 ml/min (>60); GFR (African American) 66 ML/MIN (>60); Globulin 2.5 g/dL (1.3-3.2); Glucose 192 mg/dl (74-100); Potassium 3.1 mmoL/L (3.5-5.1); Sodium 136 mmol/L (136-145); Total Protein,Serum 6.2 g/dl (6.3-8.2)
[2021-06-22 19:31] LABS: Eosinophils % 3 % (0-3); Lymphocytes % 16 % (10-50); Monocytes % 5 % (2-9); Neutrophils % 75 % (42-76); Platelet Estimate Normal; Total Cells Counted 100
== END ==
PROVIDERS: Visit Provider Otolaryngology
DX: H65.93 Unspecified nonsuppurative otitis media, bilateral (principal); J32.9 Chronic sinusitis, unspecified; J33.9 Nasal polyp, unspecified
CPT/HCPCS: 36415; 80053; 85007; 85014; 85018; 85048; 85049

== ENCOUNTER → 2021-07-17 08:36 | Outpatient (CLI) | payer MEDICARE, SELFPAY ==
[2021-07-17 13:26] LABS: MANUAL DIFFERENTIAL MANUAL DIFFERENTIAL (MANUAL DIFF)
[2021-07-17 14:05] LABS: Basophils # 0.1 K/mm3 (0-0.2); Basophils % 1.2 % (0.1-2.0); Eosinophils # 0.2 K/mm3 (0.0-0.4); Eosinophils % 1.9 % (0.1-12.0); Hemoglobin 14.8 g/dL (14.1-18.0); Lymphocytes # 1.2 K/mm3 (0.7-4.5); Mean Corpuscular HGB Conc 32.9 g/dL (31.8-35.4); Mean Corpuscular Hemoglobin 30.4 pg (27.0-31.2); Mean Corpuscular Volume 92.3 fl (80-94); Mean Platelet Volume 8.8 fl (7.4-10.4); Monocytes # 0.7 K/mm3 (0.1-1.0); Monocytes % 7.3 % (1.7-9.3); Neutrophils # 6.9 K/mm3 (1.8-7.8); Neutrophils % 76.6 % (37.0-80.0); Platelet Count 213 K/mm3 (142-424); Red Blood Count 4.88 M/mm3 (4.60-6.20); Red Cell Distribution Width 14.3 % (11.5-17.5)
[2021-07-17 15:13] LABS: Alanine Aminotransferase 32 U/L (12-78); Albumin Level 3.9 g/dl (3.5-5.0); Albumin/Globulin Ratio 1.6 (1.1-1.8); Alkaline Phosphatase 112 U/L (38-126); Anion Gap 12.1 mEq/L (5-15); Aspartate Amino Transferase 20 U/L (17-59); Bilirubin,Total 0.6 mg/dl (0.2-1.3); Blood Urea Nitrogen 26 mg/dl (9-20); Calcium 9.4 mg/dl (8.4-10.2); Carbon Dioxide 32 mmol/L (22.0-30.0); Chloride 98 mmol/L (98-107); Estimated Glomerular Filt Rate 50 ml/min (>60); GFR (African American) 61 ML/MIN (>60); Globulin 2.5 g/dL (1.3-3.2); Glucose 159 mg/dl (74-100); Potassium 3.1 mmoL/L (3.5-5.1); Sodium 139 mmol/L (136-145); Total Protein,Serum 6.4 g/dl (6.3-8.2)
[2021-07-17 17:16] LABS: Hypochromasia 2+; Lymphocytes % 9 % (10-50); Monocytes % 7 % (2-9); Neutrophils % 84 % (42-76); Platelet Estimate Normal; Total Cells Counted 100
== END ==
PROVIDERS: PCP Internal Medicine Adolescent Medicine; Visit Provider Otolaryngology
DX: J32.9 Chronic sinusitis, unspecified (principal); Z01.812 Encounter for preprocedural laboratory examination; Z11.52 Encounter for screening for COVID-19
CPT/HCPCS: 36415; 80053; 85007; 85014; 85018; 85048; 85049; C9803; U0003; U0005

== ENCOUNTER 2021-07-18 09:45 | Outpatient (CLI) | payer MEDICARE, SELFPAY ==
[2021-07-18] VITALS (13 sets, daily range): BP systolic 144–187; BP diastolic 62–82; PULSE 57–72; RESP 18; TEMP 36.6; O2SAT 98–99; BMI 35.6
[2021-07-18 14:36] LABS: Anion Gap 10.1 mEq/L (5-15); Blood Urea Nitrogen 26 mg/dl (9-20); Calcium 8.8 mg/dl (8.4-10.2); Carbon Dioxide 31 mmol/L (22.0-30.0); Chloride 100 mmol/L (98-107); Creatinine Clearance Estimated 79 mL/min (50-200); Estimated Glomerular Filt Rate 55 ml/min (>60); GFR (African American) 66 ML/MIN (>60); Glucose 206 mg/dl (74-100); Potassium 3.1 mmoL/L (3.5-5.1); Sodium 138 mmol/L (136-145)
--- NOTE | 2021-07-18 15:15 | PC.NURSE ---
1515-NOTIFIED MD WITH LAB RESULTS; MD WANTS TO BRING PT BACK IN AND GIVE POTASSIUM CHLORIDE 20 MEQ IV AND RECHECK BNP AFTER INFUSION AND NOTIFY MD WITH RESULTS.
--- NOTE | 2021-07-18 17:25 | PC.NURSE ---
1725-PLACED PT ON HEART MONITOR FOR REST OF POTASSIUM CHLORIDE INFUSION; PT SINUS CECILE AT 57 WITH A FIRST DEGREE BLOCK.
--- NOTE | 2021-07-18 17:45 | PC.NURSE ---
9564-INFUSION FINISHED; PT RHYTHM IS NORMAL SINUS WITH FIRST DEGREE BLOCK RATE OF 64; PT UNHOOKED FROM INFUSION; COLLECTED BMP AND FLUSHED WITH NS
[2021-07-18 18:07] LABS: Anion Gap 10.1 mEq/L (5-15); Blood Urea Nitrogen 26 mg/dl (9-20); Calcium 9.1 mg/dl (8.4-10.2); Carbon Dioxide 32 mmol/L (22.0-30.0); Chloride 100 mmol/L (98-107); Creatinine Clearance Estimated 79 mL/min (50-200); Estimated Glomerular Filt Rate 55 ml/min (>60); GFR (African American) 66 ML/MIN (>60); Glucose 200 mg/dl (74-100); Potassium 3.1 mmoL/L (3.5-5.1); Sodium 139 mmol/L (136-145)
--- NOTE | 2021-07-18 18:10 | PC.NURSE ---
1809-NOTIFIED WITH K+ LEVEL OF 3.1 NEW ORDERS FOR PT TO TAKE 4 EXTRA POTASSIUM TABLETS TONIGHT AND IN THE MORNING AT HOME AND TO COME TO PROCEDURE LIKE NORMAL AND HAVE LABS RECHECKED.
== END 2021-07-18 18:20 | disposition home or self-care (01) ==
LOC: INF 09:45
PROVIDERS: PCP Internal Medicine Adolescent Medicine; Visit Provider Internal Medicine Adolescent Medicine
DX: E87.6 Hypokalemia (principal)
CPT/HCPCS: 80048; 96365; 96366; 96367

== ENCOUNTER 2021-07-19 07:30 | Day surgery (SDC) | payer MEDICARE, SELFPAY ==
[2021-07-19] VITALS (10 sets, daily range): BP systolic 110–173; BP diastolic 66–88; PULSE 48–62; RESP 12–18; TEMP 36.1–38; O2SAT 92–98; BMI 35.6
[2021-07-19 08:00] LABS: Anion Gap 8.5 mEq/L (5-15); Blood Urea Nitrogen 22 mg/dl (9-20); Calcium 9.5 mg/dl (8.4-10.2); Carbon Dioxide 35 mmol/L (22.0-30.0); Chloride 99 mmol/L (98-107); Creatinine Clearance Estimated 79 mL/min (50-200); Estimated Glomerular Filt Rate 55 ml/min (>60); GFR (African American) 66 ML/MIN (>60); Glucose 182 mg/dl (74-100); Potassium 3.5 mmoL/L (3.5-5.1); Sodium 139 mmol/L (136-145)
[2021-07-19 09:10] LABS: POC Glucose,Bedside 158 (70-110)
--- NOTE | 2021-07-19 10:42 | HMH.ANESCL ---
[facility] Anesthesia Checklist - Patient Identification Patient Identification: Arm Band - Structural Data Admitted From: Home Planned Operative Procedure/s: FESS Consent for Planned Operative Procedure(s) Verified: Yes - NPO Status Verified Time NPO: 00:00 - Additional verifications Anesthesia Reactions: No Hx Blood Transfusions: Yes (08/19/2017) Blood Transfusion Reaction: No - Airway Assessment C-Spine Mobility Assessed: Yes TMJ Mobility Assessed: Yes Dentition: Poor Dentition - Neurological Assessment Level of Consciousness: Awake Hx Seizures: No Numbness or tingling in extremities: No - Anesthesia Plan Anesthesia Risk discussed: Yes Anesthesia Plan: Verified ASA Class: III Anesthesia Type: General [facility] History I have reviewed the patient's past medical history: Yes Medical History: Reports:: Asthma, Atrial Fibrillation, Cancer (skin), Congestive Heart Failure, Chronic Obstructive Pulmonary Disease (COPD), Coronary Artery Disease, Cerebrovascular Accident, Diabetes Mellitus Type 2, Gastroesophageal Reflux Disease(GERD), Hyperlipidemia, Hypertension, Lung Disease, Transient Ischemic Attacks (TIA) Denies:: Diabetes Mellitus Type 1, Internal Pacemaker, MRSA, Seizures *Have you ever received a pneumonia vaccine?: Yes *Have you received a flu vaccine this season?: Yes Other Medical History: Reports: Anemia, Arthritis, Cataracts, Glaucoma, Hypothyroidism, Sinus Problems, Thyroid Disease, Other. Denies: Blood Transfusion Reaction Anesthesia experience/problems:: None Laterality Cases: Bilateral: Myringotomy (Ear Tubes) Other Surgeries: Yes: Cardiac Catheterization, Colonoscopy, Sinus Surgery, Skin Cancer Excision, Other. No: Pacemaker Amputation: No Fractures: No ((R) dislocated shoulder) - *Social History Last grade of school completed: High school graduate Smoking Status: Former smoker Tobacco Type: cigarettes # Packs/Day (cigarettes): 1 Alcohol Intake: never Alcohol Intake Frequency:: holidays/special occasions only Substance Use Type: denies use *Occupational Status:: retired Housing: house Household Members: spouse *Travel in the last 8 weeks: None Family Hx:: Cancer
--- NOTE | 2021-07-19 13:26 | P.OP_ITS ---
Date of procedure: 07/19/21 Pre-op Diagnosis:: Chronic right ethmoid, maxillary, frontal, and sphenoid sinusitis, chronic serous otitis media, squamous cell cancer left church Post-op Diagnosis:: Same Procedure performed:: Image guided functional endoscopic sinus surgery with nasal endoscopy and right complete ethmoidectomy, nasal endoscopy and right frontal sinusotomy, nasal endoscopy and right sphenoidotomy, nasal endoscopy and right maxillary enterostomy and removal of antral mucosa disease, bilateral tympanostomy and tube placement, wide excision squamous cell cancer left church with multilayer closure Surgeon:: Gume Edwards MD CLINICAL NURSING ASSISTANT:: Mirna Portillo Anesthesia: GETA Estimated blood loss (mL): 50 Operative findings:: Chronic serous otitis media bilaterally, acute and chronic right frontal, ethmoid, maxillary, and sphenoid sinusitis with purulent material completely filling the anterior neck and posterior ethmoid, and right maxillary sinus Operative note:: The patient was brought to the operating room and after adequate general anesthesia the ears were draped in the usual sterile fashion and operating microscope employed to visualize tympanic membranes. Tympanostomies were made in the anterior-inferior quadrant and this was done bilaterally and suction employed to clear the middle ear space of effusion. T tubes were then placed and Ciprodex drops applied and attention drawn to the face. The face was prepped and draped in the usual sterile fashion and 1% lidocaine with epinephrine used to locally infiltrate the previous biopsy scar on his left church and then his septum and right middle meatus was also locally infiltrated. First attention was drawn to the left church. Wide excision of the scar was performed with 5 mm margins and this was done elliptically in order to fit into a natural skin fold and the specimen was marked and sent for permanent section analysis and then closure accomplished in 2 layers with 4-0 Vicryl and 5-0 nylon and a sterile dressing was applied. Next the image guided system was calibrated and deployed and then using a 0 degree sinus endoscope the right millimeters was visualized and polyp disease was seen to completely obstruct the right middle meatus and this was cleared with Blakesley forceps and a microdebrider until the middle turbinate was identified. Uncinectomy was then performed with a pediatric backbiter and microdebrider clearing the nasal from tract and infundibulum the natural ostium to the maxillary sinus was then enlarged and then purulent material within the sinus was first cultured and then irrigated and suctioned clear with normal saline. There was inflammatory polyp disease in the anterior and posterior ethmoid along with purulent material and ethmoid cultures were also performed and then a microdebrider and straight and up-biting Blakesley forceps was employed to clear the anterior and posterior ethmoid inflammatory polyp disease and purulent material while using image guidance to avoid injury. Dissection was performed laterally to the medial wall of the orbit and superiorly to the skull base and posteriorly to the sphenoid face. Normal mucosa was spared at the margins of dissection. The nasofrontal tract was then cleared of obstructing inflammatory polyp disease to the frontal sinuses well aerated and then the sphenoid recess cleared of obstructing polyp disease until the sphenoid sinus was well aerated. Nova pack was placed in the anterior and posterior ethmoid and the procedure concluded. All counts correct, blood loss was less than 50 mL and the patient was sent recovery in stable condition. Condition: stable Disposition: PACU Complications:: None
--- NOTE | 2021-07-19 13:27 | P.PN_ITS ---
[facility] Anesthesia Record Part I Intake, IV Amount: 150 Estimated blood loss (mL): 5 Urine output (mL): 0 Blood Pressure: 110/66 SaO2: 93 Pulse Rate: 48 Respiratory Rate: 12 Temperature: 97 F Patient is:: Drowsy, Oral/Nasal airway Stable to PACU at:: 13:25
[2021-07-19 13:47] LABS: POC Glucose,Bedside 143 (70-110)
--- NOTE | 2021-07-19 13:55 | PC.NURSE ---
Pt arrived to post op with c/o L eye itching. pt rubbing with cool cloth. Says feels like there is sand in the eye. Both eyes are red, no tearing or drng noted.
--- NOTE | 2021-07-20 15:08 | HMH.ANESII ---
[facility] Anesthesia Record Part II Discharge Time: 13:55 Destination: Surgical Day Care (OP Surgery) PACU nurse assessment reviewed?: Yes Patient Condition:: Good Anesthesia Complications:: None Swallowing reflex intact?: Yes Cyanosis?: No Blood Pressure: 153/79 Pulse Rate: 54 Temperature: 97.3 F Mental Status: Alert & Oriented Pain level:: 0 Nausea and/or vomitting:: None Intake, IV Amount: 0
[2021-07-20 15:09] VITALS: BP 153/79; PULSE 54; TEMP 36.3
== END 2021-07-19 14:37 | disposition home or self-care (01) ==
PROVIDERS: PCP Internal Medicine Adolescent Medicine; Visit Provider Otolaryngology
DX: J01.90 Acute sinusitis, unspecified (principal); H65.23 Chronic serous otitis media, bilateral; C44.329 Squamous cell carcinoma of skin of other parts of face; J32.2 Chronic ethmoidal sinusitis; J32.0 Chronic maxillary sinusitis; J32.1 Chronic frontal sinusitis; J32.3 Chronic sphenoidal sinusitis; J45.909 Unspecified asthma, uncomplicated; I48.91 Unspecified atrial fibrillation; J44.9 Chronic obstructive pulmonary disease, unspecified; I25.10 Atherosclerotic heart disease of native coronary artery without angina pectoris; E11.9 Type 2 diabetes mellitus without complications
CPT/HCPCS: 11646; 12051; 31259; 31267; 31276; 69436; 36415; 80048; 82962; 87070; 87075; 87077; 87186; 87205; 88305; 88311; 96374; J0131; J2405

== ENCOUNTER → 2021-09-20 14:47 | Outpatient (CLI) | payer MEDICARE, SELFPAY | PROVIDERS: Visit Provider Otolaryngology | DX: J32.9 Chronic sinusitis, unspecified (principal); Z22.322 Carrier or suspected carrier of Methicillin resistant Staphylococcus aureus | CPT/HCPCS: 87070; 87077; 87186 ==

== ENCOUNTER → 2021-12-19 15:40 | Outpatient (CLI) | payer MEDICARE, SELFPAY ==
--- NOTE | 2021-12-19 15:56 | MR_ITS ---
PROCEDURE INFORMATION: Exam: MR Head Without Contrast Exam date and time: 12/19/2021 3:55 PM Age: 71 years old Clinical indication: Dizziness; Additional info: Ataxia. Headaches. Dizziness. X 3 weeks TECHNIQUE: Imaging protocol: Magnetic resonance imaging of the head without contrast. COMPARISON: HEADWO CT head/brain wo con 04/24/2018 7:55 PM FINDINGS: Brain: No restricted diffusion is seen to suggest acute infarction. There is no acute intracranial hemorrhage, cerebral edema, or midline shift. Age-related cerebral and cerebellar substance loss is present. Confluent increased T2 and FLAIR signal within the periventricular and subcortical white matter is present. This is nonspecific but likely related to chronic microangiopathic ischemic change. Cerebral ventricles: Mild ex vacuo dilation of the lateral ventricles is noted. Bones/joints: Unremarkable. Paranasal sinuses: There is complete opacification of the right maxillary sinus. Near complete opacification of the right frontal and ethmoid sinuses is also noted. Mastoid air cells: There is minimal fluid in the right mastoid air cells. Chronic opacification of the left mastoid air cells is noted. Orbital cavities: The patient is likely status post bilateral cataract surgery. Soft tissues: Unremarkable. IMPRESSION: 1. No acute intracranial abnormality. 2. Chronic findings as discussed above.
== END ==
PROVIDERS: PCP Internal Medicine Adolescent Medicine; Visit Provider Internal Medicine Adolescent Medicine
DX: R27.0 Ataxia, unspecified (principal)
CPT/HCPCS: 70551

== ENCOUNTER 2022-02-13 07:40 | Day surgery (SDC) | payer MEDICARE, SELFPAY ==
[2022-02-09 08:32] VITALS: BMI 34.4
[2022-02-13] VITALS (13 sets, daily range): BP systolic 133–168; BP diastolic 64–92; PULSE 54–70; RESP 16–18; TEMP 36.1–36.6; O2SAT 93–96
--- NOTE | 2022-02-13 08:10 | ECG_ITS ---
APPROVED REPORT Exam: Resting ECG HR:65 bpm ECG Measurements Heart Rate 65 AXES SC 305 P 69 QRSd 113 QRS 81 QT 448 T 76 QTc 459 Conclusion SINUS RHYTHM WITH FIRST DEGREE AV BLOCK MODERATE INTRAVENTRICULAR CONDUCTION DELAY [110+ ms QRS DURATION] MODERATE ST DEPRESSION [0.05+ mV ST DEPRESSION] ABNORMAL ECG UNCONFIRMED REPORT Electronically signed by : Riley Delatorre MD 02/13/2022 20:54:37
[2022-02-13 08:48] LABS: Basophils # 0.1 K/mm3 (0-0.2); Eosinophils # 0.2 K/mm3 (0.0-0.4); Eosinophils % 2.7 % (0.1-12.0); Hematocrit 46.7 % (42.0-52.0); Hemoglobin 15.2 g/dL (14.1-18.0); Lymphocytes # 1.2 K/mm3 (0.7-4.5); Lymphocytes % 14.5 % (10-50); Mean Corpuscular HGB Conc 32.5 g/dL (31.8-35.4); Mean Corpuscular Hemoglobin 29.4 pg (27.0-31.2); Mean Corpuscular Volume 90.6 fl (80-94); Mean Platelet Volume 8.4 fl (7.4-10.4); Monocytes # 0.6 K/mm3 (0.1-1.0); Monocytes % 7.4 % (1.7-9.3); Neutrophils % 74.3 % (37.0-80.0); Platelet Count 220 K/mm3 (142-424); Red Blood Count 5.15 M/mm3 (4.60-6.20); Red Cell Distribution Width 14.3 % (11.5-17.5); White Blood Count 8.1 K/mm3 (4.8-10.8)
[2022-02-13 08:49] LABS: Chloride 98 mmol/L (98-107); Sodium 135 mmol/L (136-145)
[2022-02-13 08:50] LABS: Potassium 3.2 mmoL/L (3.5-5.1)
[2022-02-13 08:52] LABS: Alanine Aminotransferase 22 U/L (12-78); Alkaline Phosphatase 137 U/L (38-126); Anion Gap 9.2 mEq/L (5-15); Aspartate Amino Transferase 17 U/L (17-59); Bilirubin,Total 0.5 mg/dl (0.2-1.3); Blood Urea Nitrogen 21 mg/dl (9-20); Carbon Dioxide 31 mmol/L (22.0-30.0); Creatinine Clearance Estimated 91 mL/min (50-200); Estimated Glomerular Filt Rate 66 ml/min (>60); GFR (African American) 80 ML/MIN (>60)
[2022-02-13 08:53] LABS: Albumin Level 3.8 g/dl (3.5-5.0); Albumin/Globulin Ratio 1.4 (1.1-1.8); Calcium 9.1 mg/dl (8.4-10.2); Globulin 2.7 g/dL (1.3-3.2); Glucose 196 mg/dl (74-100); Total Protein,Serum 6.5 g/dl (6.3-8.2)
--- NOTE | 2022-02-13 10:39 | P.PN_ITS ---
[facility] Disclaimer: The information contained in this section may have been updated after the patient was seen, as this information can be updated by other users. Medical History Acquired hammer toes of both feet Acquired hypothyroidism Anemia Asthma Atrial fibrillation Brain atrophy CAD (coronary artery disease) CHF exacerbation Chronic a-fib Concussion COPD (chronic obstructive pulmonary disease) Degenerative arthritis Diabetes mellitus type 2 in obese Diabetes mellitus, type 2 Diverticulosis Esophageal abnormality History of transient ischemic attack (TIA) HTN (hypertension) Hyperlipidemia Hypothyroid Lower gastrointestinal bleeding MRSA (methicillin resistant staph aureus) culture positive Obesity, Class II, BMI 35-39.9 Obstructive Sleep Apnea-Hypopnea Syndrome Plantar fasciitis of right foot Skin lesion of face Skin lesion of left ear Skin lesion of right ear Sleep apnea TIA (transient ischemic attack) Surgical History History of cataract surgery History of placement of ear tubes History of vasectomy Hx of knee surgery Family History Sister Thyroid cancer Social History (Updated 02/13/22 @ 08:20 by Tara Chawla RN) Smoking Status: Former smoker second hand exposure: No alcohol intake: current counseling provided: none substance use type: denies use current occupational status: retired Travel in the last 8 weeks: None household members: spouse housing: house current occupational exposures/hazards: No caffeine: Yes [facility] Anesthesia Checklist Patient Identification Patient Identification: Arm Band Structural Data Admitted From: Home Planned Operative Procedure/s: BMT/Nasal Endoscopy Consent for Planned Operative Procedure(s) Verified: Yes Verified Documents: Surgical Consent and History and Physical NPO Status Verified Time NPO: 00:00 Additional verifications Anesthesia Reactions: No Hx Blood Transfusions: Yes (08/19/2017) Blood Transfusion Reaction: No Airway Assessment C-Spine Mobility Assessed: Yes TMJ Mobility Assessed: Yes Dentition: Good Dentition Neurological Assessment Level of Consciousness: Awake and Alert Anesthesia Plan Anesthesia Risk discussed: Yes Anesthesia Plan: Verified ASA Class: III Anesthesia Type: General
--- NOTE | 2022-02-13 11:16 | EXP.OP.NOTE ---
Date of procedure: 02/13/22 Pre-op Diagnosis:: cChronic sinusitis, chronic serous otitis media Post-op Diagnosis:: Chronic sinusitis, chronic serous otitis media Procedure performed:: Bilateral tympanostomy and tube placement, functional endoscopic sinus surgery with nasal endoscopy and right complete ethmoidectomy, nasal endoscopy and right maxillary antrostomy and removal of antral mucosa disease, nasal endoscopy and right frontal sinusotomy Surgeon:: Gume Edwards MD BONDING EQUIPMENT OPERATOR:: Chris Singleton Anesthesia: GETMac Estimated blood loss (mL): 20 Operative findings:: Serous middle ear effusion bilaterally, purulent material in the right maxillary sinus, right frontal sinus, and right posterior ethmoid sinus. Appropriate cultures were performed Operative note:: The patient was brought to the operating room and after adequate general anesthesia the ears and nose were prepped and draped in the usual sterile fashion and attention first drawn to the ears. Using an operating microscope the right tympanic membrane was visualized and the old ear tube removed and then tympanostomy was made in the anterior-inferior quadrant and suction employed to clear the middle ear space of effusion. A router bobbin tube was then placed and Ciprodex drops applied and then this was done bilaterally. Attention was then drawn to the nose. 1% lidocaine with epinephrine was used to locally infiltrate the septum and right middle meatus and then using a 0 degree sinus endoscope the right middle meatus was visualized the middle turbinate was medialized and then polypoid disease in the anterior and posterior ethmoid cleared using a microdebrider and the natural ostium the maxillary sinus was also cleared of obstructing polyp disease and then purulent material from the right maxillary sinus, posterior ethmoid, and frontal sinus was were then suctioned clear and then further irrigated clear using nasal saline and vancomycin solution. Nova pack impregnated with saline and vancomycin was then placed in the right middle meatus and the procedure concluded. All counts correct. Blood loss minimal. Patient was sent recovery in stable condition. Condition: stable Disposition: PACU Complications:: none
--- NOTE | 2022-02-13 11:20 | EXP.ANES.I ---
[facility] Anesthesia Record Part I Anesthesia Record I Intake, IV Amount: 1,100 Estimated blood loss (mL): 5 Urine output (mL): 0 Blood Pressure: 160/92 SaO2: 94 Pulse Rate: 62 Respiratory Rate: 16 Temperature: 97 F Patient is:: Drowsy and Stable Stable to PACU at:: 11:15
[2022-02-13 11:33] LABS: POC Glucose,Bedside 168 (70-110)
--- NOTE | 2022-02-13 12:00 | PC.NURSE ---
1141-detailed report called to [facility] 1145-pt transported to [facility] with salo rails up and left in care of NONA Rendon with bed locked in lowest position, vss, pt stable
--- NOTE | 2022-02-13 12:03 | EXP.ANES.II ---
[facility] Anesthesia Record Part II Anesthesia Record Part II Discharge Time: 11:45 Destination: Surgical Day Care (OP Surgery) PACU nurse assessment reviewed?: Yes Patient Condition:: Good Anesthesia Complications:: None Swallowing reflex intact?: Yes Cyanosis?: No Blood Pressure: 158/78 Pulse Rate: 55 Temperature: 97.4 F Mental Status: Alert & Oriented Pain level:: 0 Nausea and/or vomitting:: None Intake, IV Amount: 0
--- NOTE | 2022-02-13 12:54 | SUR.PHASEI ---
late entry... 1127-checked fsbs with results of 168, notified PUMP MECHANIC, no further orders
[2022-02-14 07:11] LABS: POC Glucose,Bedside 192 (70-110)
== END 2022-02-13 13:30 | disposition home or self-care (01) ==
PROVIDERS: PCP Internal Medicine Adolescent Medicine; Visit Provider Otolaryngology
PROC: (CPT 30520; principal; 2022-02-13 09:30)
DX: J32.9 Chronic sinusitis, unspecified (principal); H65.23 Chronic serous otitis media, bilateral; E11.9 Type 2 diabetes mellitus without complications; Z79.899 Other long term (current) drug therapy
CPT/HCPCS: 31253; 31267; 69436; 80053; 82962; 85025; 87070; 87075; 87077; 87186; 87205; 88305; 93005; J2405; J2710; J3370

== ENCOUNTER → 2022-07-09 13:31 | Outpatient (CLI) | payer MEDICARE, SELFPAY ==
[2022-07-09 14:19] LABS: Basophils # 0.1 K/mm3 (0-0.2); Basophils % 0.6 % (0.1-2.0); Eosinophils # 0.2 K/mm3 (0.0-0.4); Eosinophils % 2.1 % (0.1-12.0); Hematocrit 49.8 % (42.0-52.0); Hemoglobin 16.7 g/dL (14.1-18.0); Lymphocytes # 1.3 K/mm3 (0.7-4.5); Lymphocytes % 14.8 % (10-50); Mean Corpuscular HGB Conc 33.5 g/dL (31.8-35.4); Mean Corpuscular Volume 89.5 fl (80-94); Mean Platelet Volume 8.7 fl (7.4-10.4); Monocytes # 0.7 K/mm3 (0.1-1.0); Monocytes % 8.1 % (1.7-9.3); Neutrophils # 6.4 K/mm3 (1.8-7.8); Neutrophils % 74.5 % (37.0-80.0); Platelet Count 208 K/mm3 (142-424); Red Blood Count 5.56 M/mm3 (4.60-6.20); Red Cell Distribution Width 13.9 % (11.5-17.5); White Blood Count 8.6 K/mm3 (4.8-10.8)
[2022-07-09 14:23] LABS: Chloride 91 mmol/L (98-107)
[2022-07-09 14:24] LABS: Potassium 3.6 mmoL/L (3.5-5.1); Sodium 136 mmol/L (136-145)
[2022-07-09 14:27] LABS: Anion Gap 13.6 mEq/L (5-15); Blood Urea Nitrogen 20 mg/dl (9-20); Calcium 9.2 mg/dl (8.4-10.2); Carbon Dioxide 35 mmol/L (22.0-30.0); Estimated Glomerular Filt Rate 60 ml/min (>60); GFR (African American) 72 ML/MIN (>60); Glucose 297 mg/dl (74-100)
== END ==
PROVIDERS: PCP Internal Medicine Adolescent Medicine; Visit Provider Otolaryngology
DX: H65.23 Chronic serous otitis media, bilateral (principal); G47.33 Obstructive sleep apnea (adult) (pediatric)
CPT/HCPCS: 36415; 80048; 85025

== ENCOUNTER → 2022-07-17 11:25 | Outpatient (CLI) | payer MEDICARE, SELFPAY ==
--- NOTE | 2022-07-17 11:39 | ECG_ITS ---
APPROVED REPORT Exam: Resting ECG HR:66 bpm ECG Measurements Heart Rate 66 AXES NH 269 P 65 QRSd 105 QRS 47 QT 430 T 82 QTc 443 Conclusion SINUS RHYTHM WITH FIRST DEGREE AV BLOCK NONSPECIFIC ST & T-WAVE ABNORMALITY ABNORMAL ECG UNCONFIRMED REPORT Electronically signed by : Riley Delatorre MD 07/17/2022 22:03:49
== END ==
PROVIDERS: PCP Internal Medicine Adolescent Medicine; Visit Provider Otolaryngology
DX: Z01.810 Encounter for preprocedural cardiovascular examination (principal)
CPT/HCPCS: 93005

== ENCOUNTER 2022-07-18 08:26 | Day surgery (SDC) | payer MEDICARE, SELFPAY ==
[2022-07-18] VITALS (12 sets, daily range): BP systolic 133–156; BP diastolic 61–76; PULSE 56–62; RESP 16–18; TEMP 36.1–36.8; O2SAT 96–98; BMI 35.1
--- NOTE | 2022-07-18 09:23 | SUR.PREOP ---
RFeebackCRNA-okayed EKG
[2022-07-18 10:46] LABS: POC Glucose,Bedside 226 (70-110)
--- NOTE | 2022-07-18 10:47 | P.OP_ITS ---
Date of procedure: 07/18/22 Pre-op Diagnosis:: Chronic serous otitis media Post-op Diagnosis:: Chronic serous otitis media Procedure performed:: Bilateral tympanostomy and tube placement Surgeon:: Gume Edwards MD HIGH FREQUENCY MILL OPERATOR:: Chris Singleton Anesthesia: GETA Estimated blood loss (mL): 0 Operative findings:: Serous middle ear effusion bilaterally Operative note:: The patient was brought to the operating room and after adequate general anesthesia the ears were draped in the usual sterile fashion and operating microscope employed to visualize the ear canals and tympanic membranes. Cerumen and extruded ear tubes were removed from the ear canals bilaterally and the tympanic membranes visualized. Tympanostomies were made in the anterior superior quadrant and this was done bilaterally and then suction employed to clear the middle ear space of effusion. T tubes were then placed and Ciprodex drops applied and the procedure concluded. All counts correct. Blood loss 0. Patient was sent recovery in stable condition. Condition: stable Disposition: PACU Complications:: None
--- NOTE | 2022-07-18 10:51 | P.PN_ITS ---
[facility] Disclaimer: The information contained in this section may have been updated after the patient was seen, as this information can be updated by other users. Medical History Acquired hammer toes of both feet Acquired hypothyroidism Anemia Asthma Atrial fibrillation Brain atrophy CAD (coronary artery disease) CHF exacerbation Chronic a-fib Concussion COPD (chronic obstructive pulmonary disease) Degenerative arthritis Diabetes mellitus type 2 in obese Diabetes mellitus, type 2 Diverticulosis Esophageal abnormality History of transient ischemic attack (TIA) HTN (hypertension) Hyperlipidemia Hypothyroid Lower gastrointestinal bleeding MRSA (methicillin resistant staph aureus) culture positive Obesity, Class II, BMI 35-39.9 Obstructive Sleep Apnea-Hypopnea Syndrome Onychoincurvatum Plantar fasciitis of right foot Skin lesion of face Skin lesion of left ear Skin lesion of right ear Sleep apnea TIA (transient ischemic attack) Surgical History History of cataract surgery History of placement of ear tubes History of vasectomy Hx of knee surgery S/P sinus surgery Family History Sister Thyroid cancer Social History Smoking Status: Former smoker second hand exposure: No alcohol intake: current counseling provided: none substance use type: denies use current occupational status: retired Travel in the last 8 weeks: None household members: spouse housing: house current occupational exposures/hazards: No caffeine: Yes [facility] Anesthesia Checklist Patient Identification Patient Identification: Arm Band Structural Data Admitted From: Home Planned Operative Procedure/s: BMT Consent for Planned Operative Procedure(s) Verified: Yes Verified Documents: Surgical Consent and History and Physical NPO Status Verified Time NPO: 00:00 Additional verifications Anesthesia Reactions: No Hx Blood Transfusions: Yes (08/19/2017) Blood Transfusion Reaction: No Airway Assessment C-Spine Mobility Assessed: Yes TMJ Mobility Assessed: Yes Dentition: Good Dentition Neurological Assessment Level of Consciousness: Awake and Alert Anesthesia Plan Anesthesia Risk discussed: Yes Anesthesia Plan: Verified ASA Class: III Anesthesia Type: General
--- NOTE | 2022-07-18 10:52 | EXP.ANES.I ---
[facility] Anesthesia Record Part I Anesthesia Record I Intake, IV Amount: 100 Estimated blood loss (mL): 0 Urine output (mL): 0 Blood Pressure: 142/70 SaO2: 98 Pulse Rate: 56 Respiratory Rate: 16 Temperature: 97.2 F Patient is:: Drowsy and Stable Stable to PACU at:: 10:50
--- NOTE | 2022-07-18 11:25 | SUR.PHASEI ---
1120- detailed report given to adryan vu in post op 1121- pt left in stable condition with adryan vu in post op. VSS FSBS- 245
[2022-07-18 11:27] LABS: POC Glucose,Bedside 245 (70-110)
--- NOTE | 2022-07-18 12:22 | P.PNANES_ITS ---
[facility] Anesthesia Record Part II Anesthesia Record Part II Discharge Time: 11:20 Destination: Surgical Day Care (OP Surgery) PACU nurse assessment reviewed?: Yes Patient Condition:: Good Anesthesia Complications:: None Swallowing reflex intact?: Yes Cyanosis?: No Blood Pressure: 146/74 Pulse Rate: 61 Temperature: 97.1 F Mental Status: Alert & Oriented Pain level:: 0 Nausea and/or vomitting:: None Intake, IV Amount: 0
== END 2022-07-18 12:05 | disposition home or self-care (01) ==
PROVIDERS: PCP Internal Medicine Adolescent Medicine; Visit Provider Otolaryngology
DX: H65.23 Chronic serous otitis media, bilateral (principal); Z79.899 Other long term (current) drug therapy; E11.9 Type 2 diabetes mellitus without complications
CPT/HCPCS: 69436; 82962; J2405

== ENCOUNTER → 2022-09-20 11:05 | Outpatient (CLI) | payer MEDICARE, SELFPAY ==
--- NOTE | 2022-09-20 11:19 | XR_ITS ---
FINAL REPORT CLINICAL HISTORY: BRONCHOPNEUMONIA COMPARISON: 09/05/2020 FINDINGS: Two views of the chest were obtained. The heart size and pulmonary vascularity are within normal limits. The mediastinum is normal. Partial improvement in pulmonary opacities. No new pulmonary abnormality identified. There is no pneumothorax. The bony thorax is intact. IMPRESSION: Partially improved pulmonary opacities. Reviewed, Interpreted and Dictated by Sam Gatica III, MD Transcribed by Ivone Palacios Authenticated and [facility]
== END ==
PROVIDERS: PCP Internal Medicine Adolescent Medicine; Visit Provider Internal Medicine Adolescent Medicine
DX: J18.0 Bronchopneumonia, unspecified organism (principal)
CPT/HCPCS: 71046

== ENCOUNTER 2023-09-26 06:15 | Day surgery (SDC) | payer MEDICARE, SELFPAY ==
[2023-09-26 06:33] VITALS: BMI 32.1
[2023-09-26 06:40] VITALS: BP 146/77; PULSE 76; RESP 18; TEMP 36.2; O2SAT 97
[2023-09-26 06:40] LABS: POC Glucose,Bedside 290 (70-110)
--- NOTE | 2023-09-26 07:55 | P.OP_ITS ---
Date of procedure: 09/26/23 Pre-op Diagnosis:: Right forearm squamous cell carcinoma Mid upper chest skin lesion Post-op Diagnosis:: Same Procedure performed:: Re-excision right forearm squamous cell carcinoma (2 cm) Punch biopsy (5 mm) of mid upper chest skin lesion Surgeon:: Herman Kam MD Anesthesia: local Estimated blood loss (mL): 10 Operative findings:: Right upper extremity lesion excised in toto with surgical margin Operative note:: After informed consent was obtained the patient was taken to the procedure room. His right forearm and mid upper chest was prepped and draped in a sterile fashion. After infiltration local anesthetic an elliptical incision was made around the prior right forearm squamous cell carcinoma excision site. A combination of sharp dissection and electrocautery was utilized to transect around the lesion with surgical margin. The dissection was taken into the subcutaneous tissue with electrocautery. The lesion was excised in toto and passed off for pathologic evaluation after being marked for margin (short proximal/long lateral). Electrocautery was utilized to achieve hemostasis and skin was reapproximated with interrupted 4-0 nylon in a mattress fashion. Attention was then turned to the mid upper chest skin lesion. A 5 mm punch was utilized to excise the lesion after infiltration with local anesthetic. Electrocautery was utilized to achieve hemostasis and a single 4-[address] aced to loosely reapproximate skin. Dressings were applied and the patient was discharged home in stable condition. Condition: stable Disposition: no change Specimens:: Re-excision right upper extremity (forearm) squamous cell carcinoma Punch biopsy mid upper chest skin lesion Complications:: No immediate
[2023-09-26 08:00] VITALS: BP 132/71; PULSE 72; RESP 18; TEMP 36.9; O2SAT 97
[2023-09-26 08:20] VITALS: BP 132/70; PULSE 74; RESP 16; O2SAT 98
== END 2023-09-26 08:22 | disposition home or self-care (01) ==
PROVIDERS: PCP Internal Medicine Adolescent Medicine; Visit Provider Surgery
PROC: (CPT 11104; principal; 2023-09-26 07:30)
DX: C44.622 Squamous cell carcinoma of skin of right upper limb, including shoulder (principal); L98.9 Disorder of the skin and subcutaneous tissue, unspecified; E11.8 Type 2 diabetes mellitus with unspecified complications
CPT/HCPCS: 11104; 11602; 82962; 88305

== ENCOUNTER 2023-12-14 12:06 | Emergency (ER) | payer MEDICARE, SELFPAY ==
[2023-12-14] VITALS (17 sets, daily range): BP systolic 168–225; BP diastolic 89–124; PULSE 74–103; RESP 18–20; TEMP 36.5–36.9; O2SAT 94–98; BMI 32.3
--- NOTE | 2023-12-14 12:48 | EXP.UTC ---
Discharge Plan Disposition Chief Complaint: PAIN Prescriptions Prescriptions: No Action tamsulosin 0.4 mg capsule 1 mg PO HS potassium chloride 20 mEq tablet extended release 40 meq PO BID Rx Instructions: 3 tabs bid (DME) blood-glucose meter [True Metrix Glucose Meter] Kit See Rx Instructions .Route Rx Instructions: As directed (DME) True Metrix Glucose Test Strip Strip See Rx Instructions .Route Rx Instructions: As directed neomycin-polymyxin B-dexameth 3.5mg/mL-10,000 unit/mL-0.1 % drops,suspension 1 drp Eye-Left ONCE Invokana 300 mg tablet 300 mg PO DAILY Patient Comments: TAKE 1 TABLET BY MOUTH ONCE DAILY omeprazole 20 mg capsule,delayed release(DR/EC) 20 mg PO DAILY 30 Days Patient Comments: hydrochlorothiazide 25 mg tablet 25 mg PO DAILY losartan 50 mg tablet 100 mg PO DAILY furosemide 40 mg tablet 40 mg PO DAILY carvedilol 25 mg tablet 25 mg PO BID Rx Instructions: 1/2 tablet fluorouracil 5 % cream topical Patient Comments: APPLY A THIN LAYER TO ARMS TWICE DAILY FOR 2 WEEKS, THEN APPLY TO FACE/SCALP ONCE DAILY FOR ONE WEEK calcipotriene 0.005 % ointment topical Patient Comments: APPLY A THIN LAYER OF OINTMENT TOPICALLY TO AFFECTED AREA WITH 5-FLUOROURACIL levothyroxine 100 MCG tablet 100 mcg PO DAILY latanoprost 0.005 % bottle 1 drp EYE-BOTH HS Patient Comments: magnesium oxide 400 MG tablet 400 mg PO DAILY zligzqlxuqpc-ilat-hhzab acid 1 EACH tablet 1 each PO DAILY apixaban 5 MG tablet 5 mg PO BID pravastatin 20 MG tablet 20 mg PO DAILY diltiazem HCl [Cartia XT] 300 mg Capsule,Extended Release 24hr 300 mg PO DAILY nitroglycerin 0.4 mg Tablet, Sublingual 0.4 mg SUBLINGUAL Q5M PRN (Reason: Chest Pain) Rx Instructions: do not exceed 3 doses per episode buspirone 10 mg tablet 10 mg PO BID Referrals Follow up/Referrals: Riley Delatorre MD [Primary Care Provider] - See instructions Clinical Impressions Clinical Impression: Neck pain, High blood pressure Print Language Print Language: Tunisian Discharge ED Provider: Mulu Anderson [facility] [place] [facility]PI <María Chopra APRN - Last Filed: 12/14/23 13:17> General Chief complaint: PAIN Stated complaint: neck pain Mode of Arrival: Ambulatory Source of Information: Patient Time Seen by Provider: 12/14/23 12:47 Description of Symptoms (Recalled from Triage Doc. by RN): STIFF NECK WITH HEADACHE INTERMITTENT HEENT Symptoms (Recalled from RN notes): No Resp Symptoms (Recalled from RN notes): No Skin Symptoms (Recalled from RN notes): No MS Symptoms (Recalled from RN notes): Yes Functional Status (Recalled from RN notes): STIFF NECK History of Present Illness Provider Complaint: pt/ report that pt has been hurting in the back part of his neck up into his head for the past couple of days. Pt states that he has been unable to sleep due to the pain. He reports taking Tylenol for his symptoms as well as using diclofenac on the back of his neck without any relief. He states that he has taken his blood pressure medications this morning. ER called and report given as pt is having hypertension with dizziness. Pt reports that he is dizzy and wobbly today. He reports that last night he couldn't hardly make it to the bathroom and felt as if he had had another mini stroke. Pt transferred to ER. Related Data Home Medications ?Medication ?Instructions ?Recorded ?Confirmed omeprazole 20 mg capsule,delayed 20 mg PO DAILY Reflux/Acid reflux 03/22/17 11/27/23 release 30 days latanoprost 0.005 % eye drops 1 drp Eye-Both HS Glaucoma 06/23/17 11/27/23 levothyroxine 100 mcg tablet 100 mcg PO DAILY thyroid 06/23/17 11/27/23 magnesium oxide 400 mg PO DAILY Supplement 01/07/18 11/27/23 apixaban 5 mg tablet 5 mg PO BID Blood thinner 05/19/20 11/27/23 multivitamin-ferrous 1 each PO DAILY Supplement 05/19/20 11/27/23 fumarate-folic acid 18 mg-400 mcg tablet pravastatin 20 mg tablet 20 mg PO DAILY High cholesterol 06/24/20 11/27/23 tamsulosin 0.4 mg capsule 1 mg PO HS urination 10/27/20 11/27/23 hydrochlorothiazide 25 mg tablet 25 mg PO DAILY Edema 05/11/21 11/27/23 blood sugar diagnostic (True 10/26/21 11/27/23 Metrix Glucose Test Strip) blood-glucose meter (True Metrix 10/26/21 11/27/23 Glucose Meter kit) losartan 50 mg tablet 100 mg PO DAILY hypertension 10/26/21 11/27/23 potassium chloride 20 mEq 40 meq PO BID Supplement 10/26/21 11/27/23 tablet,extended release buspirone 10 mg tablet 10 mg PO BID Anxiety 02/13/22 11/27/23 diltiazem HCl 300 mg 300 mg PO DAILY heart 02/13/22 11/27/23 capsule,extended release 24 hr (Cartia XT) nitroglycerin 0.4 mg sublingual 0.4 mg sublingual Q5M PRN Chest 02/13/22 11/27/23 tablet Pain furosemide 40 mg tablet 40 mg PO DAILY Edema 04/24/22 11/27/23 canagliflozin 300 mg tablet 300 mg PO DAILY 10/03/22 11/27/23 (Invokana) wtvqexpc-rvolzibuo-ldxjzcng 3.5 1 drp Eye-Left ONCE eye infection 01/22/23 11/27/23 mg/mL-10,000 unit/mL-0.1% eye drops carvedilol 25 mg tablet 25 mg PO BID High blood pressure 08/27/23 11/27/23 calcipotriene 0.005 % topical topical 11/27/23 11/27/23 ointment fluorouracil 5 % topical cream applic topical 11/27/23 11/27/23 Allergies Allergy/AdvReac Type Severity Reaction Status Date / Time nifedipine Allergy swelling, Verified 11/27/23 08:52 mood changes cephalexin AdvReac alters mood Verified 11/27/23 08:52 Worker's Comp Is this a Worker's Comp case?: No [facility] <María Chopra, RADHA - Last Filed: 12/14/23 13:17> [facility] Disclaimer: The information contained in this section may have been updated after the patient was seen, as this information can be updated by other users. Medical History Tinnitus Impacted cerumen Onychoincurvatum Sleep apnea Asthma History of transient ischemic attack (TIA) Atrial fibrillation Hypothyroid Diabetes mellitus, type 2 MRSA (methicillin resistant staph aureus) culture positive Skin lesion of right ear Skin lesion of left ear Skin lesion of face Plantar fasciitis of right foot Obesity, Class II, BMI 35-39.9 Acquired hammer toes of both feet Concussion Hyperlipidemia Acquired hypothyroidism HTN (hypertension) CHF exacerbation CAD (coronary artery disease) TIA (transient ischemic attack) COPD (chronic obstructive pulmonary disease) Diabetes mellitus type 2 in obese Chronic a-fib Anemia Lower gastrointestinal bleeding Esophageal abnormality Degenerative arthritis Diverticulosis Brain atrophy Obstructive Sleep Apnea-Hypopnea Syndrome Surgical History History of local excision of skin lesion Status post myringotomy with tube placement of both ears S/P sinus surgery History of cataract surgery Hx of knee surgery History of placement of ear tubes History of vasectomy Family History Sister Thyroid cancer Social History Smoking Status: Never smoker second hand exposure: No alcohol intake: current alcohol intake frequency: holidays/special occasions only counseling provided: none substance use type: denies use current occupational status: retired Travel in the last 8 weeks: None household members: spouse housing: house current occupational exposures/hazards: No caffeine: No Medical Decision Making <María Chopra, [employer] - Last Filed: 12/14/23 13:17> Medical Records Screening: Per USPSTF and CDC recommendations, given the prevalence of disease in our region, it is our hospital?s policy to screen for HIV and viral Hepatitis for all patients aged 18 and over and those with ongoing risk factors. Vital Signs: 12/14/23 12:21 12/14/23 12:41 Temperature 97.8 F Temperature Source Oral Pulse Rate [Left Radial] 103 H Respiratory Rate 20 Blood Pressure [Left Arm] 189/91 H 176/97 H Blood Pressure Mean [Left Arm] 123 123 02 Sat by Pulse Oximetry 95 Manual blood pressure at 1300 180/90 with large cuff. Lab Data 12/14/23 13:09 12/14/23 13:09 <[facility] [employer] - Last Filed: 12/14/23 15:57> Vital Signs: 12/14/23 12:21 12/14/23 12:41 Temperature 97.8 F Temperature Source Oral Pulse Rate [Left Radial] 103 H Respiratory Rate 20 Blood Pressure [Left Arm] 189/91 H 176/97 H Blood Pressure Mean [Left Arm] 123 123 02 Sat by Pulse Oximetry 95 Reevaluation(s) Time: 15:30 Reevaluation #1: Patient states symptoms improved, blood pressure improved 157/93 Medical Decision Narrative: Insert in summary patient is a 73 who presents to the emergency department for evaluation of neck stiffness, dizziness, lightheadedness. Patient is hemodynamically stable upon arrival, afebrile. Physical exam shows tenderness to the neck and occipital area. Differential diagnosis includes cervical spasm. Initial workup will be conducted with. Initial inventions include [crystalloid bolus, medications, p.o. challenge, etc.]. Initial workup reviewed by me [hematologic labs remarkable for? Imaging remarkable for? Urinalysis remarkable for?]. Upon repeat evaluation [patient had except for resolution of symptoms, had persistent pain for which additional interventions were conducted (describe interventions), tolerated p.o., was ambulatory, etc.]. Given this [patient was appropriate for discharge at this time and will be discharged with a prescription for? This case was discussed with hospital medicine regarding management? They will meet the patient to their service for continued evaluation at this time? Etc.] Places where you can increase complexity: I informally interpreted patient's chest x-ray or CT and is remarkable for? EKG A-fib with a rate 82 Documented with management professionals shows rate and rhythm with time Consideration of test but deferring. Example: I consider chest x-ray on this patient however given that they have no oxygen requirement are clear to auscultation all lung allison we deferred. Social determinants of health: Given that patient is undomiciled increases complexity. Given that patient has polysubstance abuse compounds all aspects of care.
--- NOTE | 2023-12-14 13:52 | PC.NURSE ---
Sabine Woody APRN at bedside
--- NOTE | 2023-12-14 14:11 | ED_ITS ---
<Statement entered by Mulu Anderson MD - 12/14/23 22:03> I was consulted by the MUNDO, and we discussed the complexity of the problems being addressed. I approved the treatment and management plan for this patient's care in the emergency department, thus performing a substantive portion of the medical decision making. Mulu Anderson MD, MEENA, FACEP <Statement entered by Misty Watt DO - 12/14/23 16:02> I was consulted by the MUNDO, and we discussed the complexity of the problems being addressed. I approved the treatment and management plan for this patient's care in the emergency department, thus performing a substantive portion of the medical decision making. Misty Watt DO Discharge Plan Disposition Patient Disposition: Home, Self-Care Condition: Good Prescriptions Prescriptions: No Action tamsulosin 0.4 mg capsule 1 mg PO HS potassium chloride 20 mEq tablet extended release 40 meq PO BID Rx Instructions: 3 tabs bid (DME) blood-glucose meter [True Metrix Glucose Meter] Kit See Rx Instructions .Route Rx Instructions: As directed (DME) True Metrix Glucose Test Strip Strip See Rx Instructions .Route Rx Instructions: As directed neomycin-polymyxin B-dexameth 3.5mg/mL-10,000 unit/mL-0.1 % drops,suspension 1 drp Eye-Left ONCE Invokana 300 mg tablet 300 mg PO DAILY Patient Comments: TAKE 1 TABLET BY MOUTH ONCE DAILY omeprazole 20 mg capsule,delayed release(DR/EC) 20 mg PO DAILY 30 Days Patient Comments: hydrochlorothiazide 25 mg tablet 25 mg PO DAILY losartan 50 mg tablet 100 mg PO DAILY furosemide 40 mg tablet 40 mg PO DAILY carvedilol 25 mg tablet 25 mg PO BID Rx Instructions: 1/2 tablet fluorouracil 5 % cream topical Patient Comments: APPLY A THIN LAYER TO ARMS TWICE DAILY FOR 2 WEEKS, THEN APPLY TO FACE/SCALP ONCE DAILY FOR ONE WEEK calcipotriene 0.005 % ointment topical Patient Comments: APPLY A THIN LAYER OF OINTMENT TOPICALLY TO AFFECTED AREA WITH 5-FLUOROURACIL levothyroxine 100 MCG tablet 100 mcg PO DAILY latanoprost 0.005 % bottle 1 drp EYE-BOTH HS Patient Comments: magnesium oxide 400 MG tablet 400 mg PO DAILY mvjkqnopheyl-rbsv-eqcis acid 1 EACH tablet 1 each PO DAILY apixaban 5 MG tablet 5 mg PO BID pravastatin 20 MG tablet 20 mg PO DAILY diltiazem HCl [Cartia XT] 300 mg Capsule,Extended Release 24hr 300 mg PO DAILY nitroglycerin 0.4 mg Tablet, Sublingual 0.4 mg SUBLINGUAL Q5M PRN (Reason: Chest Pain) Rx Instructions: do not exceed 3 doses per episode buspirone 10 mg tablet 10 mg PO BID Referrals Follow up/Referrals: Riley Delatorre MD [Primary Care Provider] - See instructions Activity Restrictions/Add. Instructions Additional Instructions/Restrictions: Follow-up with primary care this week Follow-up with ENT on Saturday as scheduled If symptoms worsen or do not improve return to the ER Monitor blood pressure righted on a log to take to primary care. Clinical Impressions Clinical Impression: Neck pain High blood pressure Qualifiers: Hypertension type: other secondary hypertension Qualified Code(s): I15.8 - Other secondary hypertension Instructions Patient Instructions: Essential Hypertension, DI for Neck Pain Print Language Print Language: Frisian Discharge ED Provider: Mulu Anderson General Adult HPI <Misty Watt DO - Last Filed: 12/15/23 07:01> General Chief complaint: PAIN Stated complaint: neck pain Time Seen by Provider: 12/14/23 12:47 Mode of Arrival: Wheelchair Source of Information: Patient and Spouse Limitations: No Limitations Description of Symptoms (Recalled from ER Triage Doc. by RN): stiff neck. since saturday. had procedure done on to remove skin cancer. Related Data Home Medications ?Medication ?Instructions ?Recorded ?Confirmed omeprazole 20 mg capsule,delayed 20 mg PO DAILY Reflux/Acid reflux 03/22/17 11/27/23 release 30 days latanoprost 0.005 % eye drops 1 drp Eye-Both HS Glaucoma 06/23/17 11/27/23 levothyroxine 100 mcg tablet 100 mcg PO DAILY thyroid 06/23/17 11/27/23 magnesium oxide 400 mg PO DAILY Supplement 01/07/18 11/27/23 apixaban 5 mg tablet 5 mg PO BID Blood thinner 05/19/20 11/27/23 multivitamin-ferrous 1 each PO DAILY Supplement 05/19/20 11/27/23 fumarate-folic acid 18 mg-400 mcg tablet pravastatin 20 mg tablet 20 mg PO DAILY High cholesterol 06/24/20 11/27/23 tamsulosin 0.4 mg capsule 1 mg PO HS urination 10/27/20 11/27/23 hydrochlorothiazide 25 mg tablet 25 mg PO DAILY Edema 05/11/21 11/27/23 blood sugar diagnostic (True 10/26/21 11/27/23 Metrix Glucose Test Strip) blood-glucose meter (True Metrix 10/26/21 11/27/23 Glucose Meter kit) losartan 50 mg tablet 100 mg PO DAILY hypertension 10/26/21 11/27/23 potassium chloride 20 mEq 40 meq PO BID Supplement 10/26/21 11/27/23 tablet,extended release buspirone 10 mg tablet 10 mg PO BID Anxiety 02/13/22 11/27/23 diltiazem HCl 300 mg 300 mg PO DAILY heart 02/13/22 11/27/23 capsule,extended release 24 hr (Cartia XT) nitroglycerin 0.4 mg sublingual 0.4 mg sublingual Q5M PRN Chest 02/13/22 11/27/23 tablet Pain furosemide 40 mg tablet 40 mg PO DAILY Edema 04/24/22 11/27/23 canagliflozin 300 mg tablet 300 mg PO DAILY 10/03/22 11/27/23 (Invokana) bxpjpamq-sllrjdfsj-xfstgvkl 3.5 1 drp Eye-Left ONCE eye infection 01/22/23 11/27/23 mg/mL-10,000 unit/mL-0.1% eye drops carvedilol 25 mg tablet 25 mg PO BID High blood pressure 08/27/23 11/27/23 calcipotriene 0.005 % topical topical 11/27/23 11/27/23 ointment fluorouracil 5 % topical cream applic topical 11/27/23 11/27/23 Allergies Allergy/AdvReac Type Severity Reaction Status Date / Time nifedipine Allergy swelling, Verified 11/27/23 08:52 mood changes cephalexin AdvReac alters mood Verified 11/27/23 08:52 <Petra Woody ([facility]), [employer] - Last Filed: 12/14/23 18:16> History of Present Illness HPI narrative: 73-year-old male presents to the ER with complaints of stiff neck, dizziness, lightheadedness, pain in neck and head patient denies any known injury. Patient does have a history of mini strokes. Patient states symptoms have been going on since last night but became worse this morning. Patient denies weakness, fever, chest pain. Patient has a history of A-fib on Eliquis. Patient states neck and shoulders are tender to palpate. And pain increases with movement. [facility] <Misty Watt DO - Last Filed: 12/15/23 07:01> [facility] Disclaimer: The information contained in this section may have been updated after the patient was seen, as this information can be updated by other users. Medical History Tinnitus Impacted cerumen Onychoincurvatum Sleep apnea Asthma History of transient ischemic attack (TIA) Atrial fibrillation Hypothyroid Diabetes mellitus, type 2 MRSA (methicillin resistant staph aureus) culture positive Skin lesion of right ear Skin lesion of left ear Skin lesion of face Plantar fasciitis of right foot Obesity, Class II, BMI 35-39.9 Acquired hammer toes of both feet Concussion Hyperlipidemia Acquired hypothyroidism HTN (hypertension) CHF exacerbation CAD (coronary artery disease) TIA (transient ischemic attack) COPD (chronic obstructive pulmonary disease) Diabetes mellitus type 2 in obese Chronic a-fib Anemia Lower gastrointestinal bleeding Esophageal abnormality Degenerative arthritis Diverticulosis Brain atrophy Obstructive Sleep Apnea-Hypopnea Syndrome Surgical History History of local excision of skin lesion Status post myringotomy with tube placement of both ears S/P sinus surgery History of cataract surgery Hx of knee surgery History of placement of ear tubes History of vasectomy Family History Sister Thyroid cancer Social History Smoking Status: Never smoker second hand exposure: No alcohol intake: current alcohol intake frequency: holidays/special occasions only counseling provided: none substance use type: denies use current occupational status: retired Travel in the last 8 weeks: None household members: spouse housing: house current occupational exposures/hazards: No caffeine: No Other Medical History Have you received the Flu Vaccine for this season: Yes Have you received the Pneumonia Vaccine: Yes <[facility] [employer] - Last Filed: 12/14/23 18:16> ROS Obtained: Yes Systems reviewed as appropriate & no additional complaints except as documented ENT Ears, Nose, Mouth, and Throat: Reports system reviewed and no additional complaints, except as documented, Reports dizziness and Reports neck pain Musculoskeletal Musculoskeletal: Reports system reviewed and no additional complaints, except as documented, Reports as per HPI, Reports joint stiffness and Reports neck pain Neurologic Neurologic: Reports system reviewed and no additional complaints, except as documented, Reports as per HPI and Reports dizziness Physical Exam <Misty Watt DO - Last Filed: 12/15/23 07:01> Expanded Head Exam Head image: 2 1. Small incision no redness or drainage noted Expanded Neck Exam Neck image: 2 1. Tender 2. Tender 3. Tender 4. Tender <Petra Woody ([facility]), [employer] - Last Filed: 12/14/23 18:16> General General appearance: alert Head Head exam: atraumatic Expanded Head Exam Head image: 2 1. Small incision no redness or drainage noted Eye Eye exam: Present normal appearance and PERRL ENT ENT exam: Present normal exam, normal oropharynx and mucous membranes moist Neck Neck exam: Present normal inspection and tenderness Expanded Neck Exam Neck exam focused ED: Present midline tenderness Neck image: 2 1. Tender 2. Tender 3. Tender 4. Tender Chest Chest inspection: Present normal inspection Respiratory Respiratory exam: Present normal lung sounds bilaterally Cardiovascular Cardiovascular exam: Present irregular rhythm Abdominal Exam Abdominal exam: Present soft and normal bowel sounds Extremities Exam Extremities exam: Present normal inspection, full ROM and normal capillary refill Back Exam Back exam: Present normal inspection and full ROM; Absent tenderness Neurological Exam Neurological exam: Present alert, oriented X3, CN II-XII intact and normal gait Skin Skin exam: Present warm and intact Lymphatic Lymphatic Findings: no adenopathy Medical Decision Making <Misty Watt DO - Last Filed: 12/15/23 07:01> Medical Records Screening: Per USPSTF and CDC recommendations, given the prevalence of disease in our region, it is our hospital?s policy to screen for HIV and viral Hepatitis for all patients aged 18 and over and those with ongoing risk factors. Vital Signs: 12/14/23 12:21 12/14/23 12:41 12/14/23 13:24 Temperature 97.8 F 97.7 F Temperature Source Oral Oral Pulse Rate Pulse Rate [Left Radial] 103 H 89 Respiratory Rate 20 18 Blood Pressure Blood Pressure [Left Arm] 189/91 H 176/97 H Blood Pressure [Right Arm] 214/109 H Blood Pressure Mean Blood Pressure Mean [Left Arm] 123 123 Blood Pressure Mean [Right Arm] 144 Blood Pressure Source Blood Pressure Position 02 Sat by Pulse Oximetry 95 98 Oxygen Delivery Method Room Air 12/14/23 13:33 12/14/23 13:34 12/14/23 13:51 Temperature Temperature Source Pulse Rate 86 82 Pulse Rate [Left Radial] Respiratory Rate 18 18 Blood Pressure 225/124 H 200/90 H 197/97 H Blood Pressure [Left Arm] Blood Pressure [Right Arm] Blood Pressure Mean 146 150 Blood Pressure Mean [Left Arm] Blood Pressure Mean [Right Arm] Blood Pressure Source Manual Cuff/ Auscultation Blood Pressure Position Supine 02 Sat by Pulse Oximetry 96 98 Oxygen Delivery Method 12/14/23 14:00 12/14/23 14:55 12/14/23 15:23 Temperature Temperature Source Pulse Rate 85 84 81 Pulse Rate [Left Radial] Respiratory Rate 18 18 18 Blood Pressure 193/105 H 197/103 H 185/95 H Blood Pressure [Left Arm] Blood Pressure [Right Arm] Blood Pressure Mean 134 139 140 Blood Pressure Mean [Left Arm] Blood Pressure Mean [Right Arm] Blood Pressure Source Blood Pressure Position 02 Sat by Pulse Oximetry 98 98 98 Oxygen Delivery Method 12/14/23 16:01 12/14/23 16:31 12/14/23 17:00 Temperature Temperature Source Pulse Rate 82 78 76 Pulse Rate [Left Radial] Respiratory Rate 18 18 18 Blood Pressure 168/94 H 189/118 H 186/107 H Blood Pressure [Left Arm] Blood Pressure [Right Arm] Blood Pressure Mean 118 134 129 Blood Pressure Mean [Left Arm] Blood Pressure Mean [Right Arm] Blood Pressure Source Blood Pressure Position 02 Sat by Pulse Oximetry 95 95 97 Oxygen Delivery Method 12/14/23 17:12 12/14/23 17:31 12/14/23 17:58 Temperature Temperature Source Pulse Rate 84 75 87 Pulse Rate [Left Radial] Respiratory Rate 18 18 Blood Pressure 200/102 H 187/107 H 181/105 H Blood Pressure [Left Arm] Blood Pressure [Right Arm] Blood Pressure Mean 121 118 125 Blood Pressure Mean [Left Arm] Blood Pressure Mean [Right Arm] Blood Pressure Source Blood Pressure Position 02 Sat by Pulse Oximetry 98 98 97 Oxygen Delivery Method Room Air 12/14/23 18:17 12/14/23 18:19 Temperature 98.4 F Temperature Source Oral Pulse Rate 81 74 Pulse Rate [Left Radial] Respiratory Rate 20 18 Blood Pressure 197/89 H 197/89 H Blood Pressure [Left Arm] Blood Pressure [Right Arm] Blood Pressure Mean 125 Blood Pressure Mean [Left Arm] Blood Pressure Mean [Right Arm] Blood Pressure Source Blood Pressure Position 02 Sat by Pulse Oximetry 96 Oxygen Delivery Method Room Air Lab Data Lab Results 12/14/23 13:09: WBC 9.5, RBC 5.50, Hgb 15.2, Hct 46.8, MCV 85.1, MCH 27.6, MCHC 32.4, RDW 16.3, Plt Count 209, MPV 8.1, Neut % (Auto) 79.0, Lymph % (Auto) 11.0, Terrell % (Auto) 7.7, Eos % (Auto) 1.5, Baso % (Auto) 0.8, Neut # (Auto) 7.5, Lymph # (Auto) 1.0, Terrell # (Auto) 0.7, Eos # (Auto) 0.1, Baso # (Auto) 0.1, Total Counted 100, Neutrophils % (Manual) 78 H, Lymphocytes % (Manual) 11, Monocytes % (Manual) 9, Eosinophils % (Manual) 2, Platelet Estimate Normal, RBC Morphology Not Reportable, Polychromasia 1+, Hypochromasia 1+, Poikilocytosis 1+, Anisocytosis 1+, Microcytosis 1+, Macrocytosis 1+, ESR 11, Sodium 137, Potassium 2.8 L*, Chloride 98, Carbon Dioxide 30, Anion Gap 11.8, BUN 16, Creatinine 0.80, Estimated Creat Clear 90, Estimated GFR 95, Est GFR ( Amer) 115, Glucose 254 H, Calcium 9.3, Total Bilirubin 1.1, AST 19, ALT 20, Alkaline Phosphatase 121, Total Creatine Kinase 46 L, CK-MB (CK-2) 1.9, CK-MB (CK-2) Rel Index 4.1 H, Troponin I < 0.01, C-Reactive Protein 20.6 H, Total Protein 7.0, Albumin 4.0, Globulin 3.1, Albumin/Globulin Ratio 1.3 12/14/23 13:18: HIV 1&2 Antibody Rapid Nonreactive 12/14/23 13:09 12/14/23 13:09 Orders (Tests/Meds): ED MEDICATIONS Discontinued Medications Generic Name Dose Route Start Last Admin Trade Name Linda PRN Reason Stop Dose Admin Acetaminophen 1,000 mg 12/14/23 14:46 12/14/23 14:56 Acetaminophen 1,000mg/100ml Vial IV 12/14/23 14:47 1,000 mg ONCE ONE Administration Diazepam 2 mg 12/14/23 14:45 12/14/23 14:59 Diazepam 2mg Tablet PO 12/14/23 14:46 Not Given ONCE ONE Diazepam 2.5 mg 12/14/23 14:59 12/14/23 15:00 Diazepam 5mg Tablet PO 12/14/23 15:00 2.5 mg ONCE ONE Administration Lactated Ringer's 500 mls @ 999 mls/hr 12/14/23 14:45 12/14/23 14:56 Lactated Ringer's 500ml IV 12/14/23 15:15 999 mls/hr .Q31M ONE Administration Potassium Chloride/Water 100 mls @ 100 mls/hr 12/14/23 14:46 12/14/23 17:08 Potassium Chloride 10meq/100ml Ivpb IV 12/14/23 16:45 100 mls/hr Q1H BEE Administration Iopamidol 80 ml 12/14/23 15:22 12/14/23 15:23 Iopamidol-370 (76%);100ml Bottle IV 12/14/23 15:23 80 ml ONCE ONE Administration Ketorolac Tromethamine 15 mg 12/14/23 14:45 12/14/23 14:57 Ketorolac 30mg/Ml Vial IV 12/14/23 14:46 15 mg ONCE ONE Administration Lidocaine 1 each 12/14/23 14:45 12/14/23 14:56 Lidocaine 5% Transdermal Patch TP 12/14/23 14:46 1 each ONCE ONE Administration Potassium Chloride 40 meq 12/14/23 14:45 12/14/23 14:56 Potassium Chloride 20meq Tab PO 12/14/23 14:46 40 meq ONCE ONE Administration Sodium Chloride 10 ml 12/14/23 15:22 12/14/23 15:23 Sodium Chloride 0.9% 10ml Syr (Rad Only) IV 12/14/23 15:23 10 ml ONCE ONE Administration Sodium Chloride 50 ml 12/14/23 15:22 12/14/23 15:22 0.9 % Sodium Chloride 50 Ml Vial IV 12/14/23 15:23 50 ml ONCE ONE Administration ORDERS Category Date Time Status CT angio head Stat Cat Scan 12/14/23 14:[address] angio neck Stat Cat Scan 12/14/23 14:[address] cervical spine wo con Stat Cat Scan 12/14/23 14:[address] head/brain wo con Stat Cat Scan 12/14/23 14:13 Completed CBC Man Diff [Complete Blood Count Man Dif] Stat Lab 12/14/23 13:09 Completed CMP [Comprehensive Metabolic Panel] Stat Lab 12/14/23 13:09 Completed CRP [C-Reactive Protein] Stat Lab 12/14/23 13:09 Completed Cardiac Enzymes Stat Lab 12/14/23 13:09 Completed Erythrocyte Sedimentation Rate Stat Lab 12/14/23 13:09 Completed HIV (1&2) Antibody Rapid Stat Lab 12/14/23 13:18 Completed Hep C Ab with Reflex to RNA Stat Lab 12/14/23 13:18 Received ECG Data Tracing #1: I reviewed this ECG and interpreted as documented below: Atrial fibrillation with a ventricular of [address] changes concerning for ischemia. Some motion artifact degrades study ECG initial impression date: 12/14/23 ECG initial impression time: 14:52 <Petra Woody ([facility]), [employer] - Last Filed: 12/14/23 18:16> Medical Records Medical records reviewed: Yes I reviewed the patient's medical records. Atul Inquiry Pt receiving controlled substance: No Vital Signs: 12/14/23 12:21 12/14/23 12:41 12/14/23 13:24 Temperature 97.8 F 97.7 F Temperature Source Oral Oral Pulse Rate Pulse Rate [Left Radial] 103 H 89 Respiratory Rate 20 18 Blood Pressure Blood Pressure [Left Arm] 189/91 H 176/97 H Blood Pressure [Right Arm] 214/109 H Blood Pressure Mean Blood Pressure Mean [Left Arm] 123 123 Blood Pressure Mean [Right Arm] 144 Blood Pressure Source Blood Pressure Position 02 Sat by Pulse Oximetry 95 98 Oxygen Delivery Method Room Air 12/14/23 13:33 12/14/23 13:34 12/14/23 13:51 Temperature Temperature Source Pulse Rate 86 82 Pulse Rate [Left Radial] Respiratory Rate 18 18 Blood Pressure 225/124 H 200/90 H 197/97 H Blood Pressure [Left Arm] Blood Pressure [Right Arm] Blood Pressure Mean 146 150 Blood Pressure Mean [Left Arm] Blood Pressure Mean [Right Arm] Blood Pressure Source Manual Cuff/ Auscultation Blood Pressure Position Supine 02 Sat by Pulse Oximetry 96 98 Oxygen Delivery Method 12/14/23 14:00 12/14/23 14:55 12/14/23 15:23 Temperature Temperature Source Pulse Rate 85 84 81 Pulse Rate [Left Radial] Respiratory Rate 18 18 18 Blood Pressure 193/105 H 197/103 H 185/95 H Blood Pressure [Left Arm] Blood Pressure [Right Arm] Blood Pressure Mean 134 139 140 Blood Pressure Mean [Left Arm] Blood Pressure Mean [Right Arm] Blood Pressure Source Blood Pressure Position 02 Sat by Pulse Oximetry 98 98 98 Oxygen Delivery Method 12/14/23 16:01 12/14/23 16:31 12/14/23 17:00 Temperature Temperature Source Pulse Rate 82 78 76 Pulse Rate [Left Radial] Respiratory Rate 18 18 18 Blood Pressure 168/94 H 189/118 H 186/107 H Blood Pressure [Left Arm] Blood Pressure [Right Arm] Blood Pressure Mean 118 134 129 Blood Pressure Mean [Left Arm] Blood Pressure Mean [Right Arm] Blood Pressure Source Blood Pressure Position 02 Sat by Pulse Oximetry 95 95 97 Oxygen Delivery Method 12/14/23 17:12 12/14/23 17:31 12/14/23 17:58 Temperature Temperature Source Pulse Rate 84 75 87 Pulse Rate [Left Radial] Respiratory Rate 18 18 Blood Pressure 200/102 H 187/107 H 181/105 H Blood Pressure [Left Arm] Blood Pressure [Right Arm] Blood Pressure Mean 121 118 125 Blood Pressure Mean [Left Arm] Blood Pressure Mean [Right Arm] Blood Pressure Source Blood Pressure Position 02 Sat by Pulse Oximetry 98 98 97 Oxygen Delivery Method Room Air 12/14/23 18:17 12/14/23 18:19 Temperature 98.4 F Temperature Source Oral Pulse Rate 81 74 Pulse Rate [Left Radial] Respiratory Rate 20 18 Blood Pressure 197/89 H 197/89 H Blood Pressure [Left Arm] Blood Pressure [Right Arm] Blood Pressure Mean 125 Blood Pressure Mean [Left Arm] Blood Pressure Mean [Right Arm] Blood Pressure Source Blood Pressure Position 02 Sat by Pulse Oximetry 96 Oxygen Delivery Method Room Air Lab Data Lab Results 12/14/23 13:09: WBC 9.5, RBC 5.50, Hgb 15.2, Hct 46.8, MCV 85.1, MCH 27.6, MCHC 32.4, RDW 16.3, Plt Count 209, MPV 8.1, Neut % (Auto) 79.0, Lymph % (Auto) 11.0, Terrell % (Auto) 7.7, Eos % (Auto) 1.5, Baso % (Auto) 0.8, Neut # (Auto) 7.5, Lymph # (Auto) 1.0, Terrell # (Auto) 0.7, Eos # (Auto) 0.1, Baso # (Auto) 0.1, Total Counted 100, Neutrophils % (Manual) 78 H, Lymphocytes % (Manual) 11, Monocytes % (Manual) 9, Eosinophils % (Manual) 2, Platelet Estimate Normal, RBC Morphology Not Reportable, Polychromasia 1+, Hypochromasia 1+, Poikilocytosis 1+, Anisocytosis 1+, Microcytosis 1+, Macrocytosis 1+, ESR 11, Sodium 137, Potassium 2.8 L*, Chloride 98, Carbon Dioxide 30, Anion Gap 11.8, BUN 16, Creatinine 0.80, Estimated Creat Clear 90, Estimated GFR 95, Est GFR ( Amer) 115, Glucose 254 H, Calcium 9.3, Total Bilirubin 1.1, AST 19, ALT 20, Alkaline Phosphatase 121, Total Creatine Kinase 46 L, CK-MB (CK-2) 1.9, CK-MB (CK-2) Rel Index 4.1 H, Troponin I < 0.01, C-Reactive Protein 20.6 H, Total Protein 7.0, Albumin 4.0, Globulin 3.1, Albumin/Globulin Ratio 1.3 12/14/23 13:18: HIV 1&2 Antibody Rapid Nonreactive Orders (Tests/Meds): ED MEDICATIONS Discontinued Medications Generic Name Dose Route Start Last Admin Trade Name Freq PRN Reason Stop Dose Admin Acetaminophen 1,000 mg 12/14/23 14:46 12/14/23 14:56 Acetaminophen 1,000mg/100ml Vial IV 12/14/23 14:47 1,000 mg ONCE ONE Administration Diazepam 2 mg 12/14/23 14:45 12/14/23 14:59 Diazepam 2mg Tablet PO 12/14/23 14:46 Not Given ONCE ONE Diazepam 2.5 mg 12/14/23 14:59 12/14/23 15:00 Diazepam 5mg Tablet PO 12/14/23 15:00 2.5 mg ONCE ONE Administration Lactated Ringer's 500 mls @ 999 mls/hr 12/14/23 14:45 12/14/23 14:56 Lactated Ringer's 500ml IV 12/14/23 15:15 999 mls/hr .Q31M ONE Administration Potassium Chloride/Water 100 mls @ 100 mls/hr 12/14/23 14:46 12/14/23 17:08 Potassium Chloride 10meq/100ml Ivpb IV 12/14/23 16:45 100 mls/hr Q1H BEE Administration Iopamidol 80 ml 12/14/23 15:22 12/14/23 15:23 Iopamidol-370 (76%);100ml Bottle IV 12/14/23 15:23 80 ml ONCE ONE Administration Ketorolac Tromethamine 15 mg 12/14/23 14:45 12/14/23 14:57 Ketorolac 30mg/Ml Vial IV 12/14/23 14:46 15 mg ONCE ONE Administration Lidocaine 1 each 12/14/23 14:45 12/14/23 14:56 Lidocaine 5% Transdermal Patch TP 12/14/23 14:46 1 each ONCE ONE Administration Potassium Chloride 40 meq 12/14/23 14:45 12/14/23 14:56 Potassium Chloride 20meq Tab PO 12/14/23 14:46 40 meq ONCE ONE Administration Sodium Chloride 10 ml 12/14/23 15:22 12/14/23 15:23 Sodium Chloride 0.9% 10ml Syr (Rad Only) IV 12/14/23 15:23 10 ml ONCE ONE Administration Sodium Chloride 50 ml 12/14/23 15:22 12/14/23 15:22 0.9 % Sodium Chloride 50 Ml Vial IV 12/14/23 15:23 50 ml ONCE ONE Administration ORDERS Category Date Time Status CT angio head Stat Cat Scan 12/14/23 14:[address] angio neck Stat Cat Scan 12/14/23 14:[address] cervical spine wo con Stat Cat Scan 12/14/23 14:[address] head/brain wo con Stat Cat Scan 12/14/23 14:13 Completed CBC Man Diff [Complete Blood Count Man Dif] Stat Lab 12/14/23 13:09 Completed CMP [Comprehensive Metabolic Panel] Stat Lab 12/14/23 13:09 Completed CRP [C-Reactive Protein] Stat Lab 12/14/23 13:09 Completed Cardiac Enzymes Stat Lab 12/14/23 13:09 Completed Erythrocyte Sedimentation Rate Stat Lab 12/14/23 13:09 Completed HIV (1&2) Antibody Rapid Stat Lab 12/14/23 13:18 Completed Hep C Ab with Reflex to RNA Stat Lab 12/14/23 13:18 Received Reevaluation(s) Time: 15:25 Reevaluation #1: Patient states pain improved this slight tenderness now. Patient resting comfortably sleeping when room entered. Time: 16:16 Reevaluation #3: Sleeping comfortably Medical Decision Narrative: Insert in in summary patient is a 73-year-old male who presents to the emergency department for evaluation of neck pain, stiffness, dizziness, and lightheadedness. Patient is hemodynamically stable upon arrival, afebrile. On physical exam tenderness to posterior neck. Differential diagnosis includes cervical spasm. Initial workup will be conducted with labs CT neck, CT head, CTA head and neck. Discussed CT results with patient and . Initial inventions include 2 runs of potassium, Valium, Tylenol lidocaine patch. Initial workup reviewed labs which showed hypokalemia 2 runs of potassium given.Upon repeat evaluation patient states pain improved with medications. Patient was able to tolerate a supper tray. Given this patient was appropriate for discharge at this time follow-up with ENT on Saturday as scheduled.return to the ER if needed. Monitor blood pressure CT shows possible chronic sinusitis?Per patient sees ENT on Saturday here at [facility] has chronic sinusitis and has had a couple of sinus surgeries in the past. 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
--- NOTE | 2023-12-14 14:12 | PC.NURSE ---
Rounded on patient, tech took patient a warm blanket and a pillow per patients request.
--- NOTE | 2023-12-14 14:13 | CT_ITS ---
PROCEDURE INFORMATION: Exam: CT Head Without Contrast Exam date and time: 12/14/2023 3:13 PM Age: 73 years old Clinical indication: Dizziness; Additional info: Dizzy TECHNIQUE: Imaging protocol: Computed tomography of the head without contrast. Radiation optimization: All CT scans at this facility use at least one of these dose optimization techniques: automated exposure control; mA and/or kV adjustment per patient size (includes targeted exams where dose is matched to clinical indication); or iterative reconstruction. COMPARISON: MR HEAD/BRAIN WO CON 12/19/2021 3:55 PM FINDINGS: Brain: No acute infarct, hemorrhage, mass, or mass effect. Moderate chronic white matter microvascular ischemic change. Cerebral ventricles: Normal ventricles. No appreciable extra-axial fluid. Paranasal sinuses: Mucosal thickening in the right frontal, ethmoid, and maxillary sinuses, suggestive of ostiomeatal unit blockage. Hyperattenuating mucosa in the right maxillary sinus, suggestive of fungal etiology. Mastoid air cells: Clear. Orbital cavities: Orbits are unremarkable. Sella is unremarkable. Bones: Unremarkable. Soft tissues: Unremarkable. IMPRESSION: 1. No acute intracranial abnormality. 2. Moderate chronic white matter microvascular ischemic change. 3. Mucosal thickening in the right frontal, ethmoid, and maxillary sinuses, suggestive of ostiomeatal unit blockage. Hyperattenuating mucosa in the right maxillary sinus, suggestive of fungal etiology. Consider ENT consult.
--- NOTE | 2023-12-14 14:13 | CT_ITS ---
PROCEDURE INFORMATION: Exam: CTA Neck With Contrast Exam date and time: 12/14/2023 3:17 PM Age: 73 years old Clinical indication: Pain; Headache TECHNIQUE: Imaging protocol: Computed tomographic angiography of the neck with contrast. Exam focused on the cervical segments of the vasculature. 3D rendering (Not supervised by radiologist): MIP and/or 3D reconstructed images were created by the technologist. Radiation optimization: All CT scans at this facility use at least one of these dose optimization techniques: automated exposure control; mA and/or kV adjustment per patient size (includes targeted exams where dose is matched to clinical indication); or iterative reconstruction. Contrast material: ISOVUE 370; Contrast volume: 80 ml; Contrast route: INTRAVENOUS (IV); COMPARISON: CT SOFT TISSUE NECK W CON 01/13/2021 2:50 PM FINDINGS: Right common carotid artery: No stenosis. No dissection or occlusion. Right internal carotid artery: No stenosis of the extracranial segment. No dissection or occlusion. Right external carotid artery: No occlusion or stenosis of the origin. Left common carotid artery: No stenosis. No dissection or occlusion. Left internal carotid artery: No stenosis of the extracranial segment. No dissection or occlusion. Left external carotid artery: No occlusion or stenosis of the origin. Right vertebral artery: No stenosis. No dissection or occlusion. Left vertebral artery: No stenosis. No dissection or occlusion. Pulmonary arteries: No appreciable pulmonary emboli in the imaged pulmonary trunk, bilateral upper lobar and distal branches. Thyroid: Thyroid gland is normal. Lymph nodes: Right hilar lymph node measuring 12 mm in short axis. Likely reactive. Soft tissues: Normal. No significant soft tissue swelling. Bones/joints: No acute fracture. Lungs: Lung apices are clear. IMPRESSION: 1. No large vessel occlusion or hemodynamically significant stenosis in the bilateral carotid and vertebral arteries. 2. Bilateral cerebellar tonsillar ectopia/Chiari 1 malformation. REFERENCES: NASCET CRITERIA. The degree of stenosis in the cervical segment of the internal carotid artery is based on NASCET criteria. Normal is no stenosis. Mild is less than 50% stenosis. Moderate is 50-69% stenosis. Severe is 70% to 99% stenosis. Total occlusion is no detectable patent lumen.
--- NOTE | 2023-12-14 14:13 | ECG_ITS ---
APPROVED REPORT Exam: Resting ECG HR:86 bpm ECG Measurements Heart Rate 86 AXES QRSd 106 QRS 76 QT 409 T -14 QTc 452 Conclusion ATRIAL FIBRILLATION SEPTAL MYOCARDIAL INFARCTION , PROBABLY OLD [40+ ms Q WAVE IN V1/V2] MODERATE T-WAVE ABNORMALITY, CONSIDER INFERIOR ISCHEMIA [-0.1+ mV T-WAVE IN II/aVF] Electronically signed by : KELBY VELIZ, 12/14/2023 16:27:07
--- NOTE | 2023-12-14 14:13 | CT_ITS ---
PROCEDURE INFORMATION: Exam: CTA Head With Contrast, Arteriography Exam date and time: 12/14/2023 3:17 PM Age: 73 years old Clinical indication: Dizziness and giddiness; Additional info: Dizzy TECHNIQUE: Imaging protocol: Computed tomographic angiography of the head with contrast. Exam focused on the arteries. 3D rendering (Not supervised by radiologist): MIP and/or 3D reconstructed images were created by the technologist. Radiation optimization: All CT scans at this facility use at least one of these dose optimization techniques: automated exposure control; mA and/or kV adjustment per patient size (includes targeted exams where dose is matched to clinical indication); or iterative reconstruction. Contrast material: ISOUVE 370; Contrast volume: 80 ml; Contrast route: INTRAVENOUS (IV); COMPARISON: CT ANGIO HEAD 12/14/2023 3:17 PM FINDINGS: ANTERIOR CIRCULATION: Right internal carotid artery: Intracranial segment is patent with no significant stenosis. No aneurysm. Right middle cerebral artery: No occlusion or significant stenosis. No aneurysm. Right anterior cerebral artery: No occlusion or significant stenosis. No aneurysm. Left internal carotid artery: Intracranial segment is patent with no significant stenosis. No aneurysm. Left middle cerebral artery: No occlusion or significant stenosis. No aneurysm. Left anterior cerebral artery: No occlusion or significant stenosis. No aneurysm. POSTERIOR CIRCULATION: Right vertebral artery: No occlusion or significant stenosis. No aneurysm. Left vertebral artery: No occlusion or significant stenosis. No aneurysm. Basilar artery: No occlusion or significant stenosis. No aneurysm. Right posterior cerebral artery: No occlusion or significant stenosis. No aneurysm. Left posterior cerebral artery: No occlusion or significant stenosis. No aneurysm. Aorta: Conventional anatomy of the aortic arch. Brain: No large vessel occlusion or hemodynamically significant stenosis in the intracranial arteries. No acute intracranial abnormality. No abnormal postcontrast enhancement intracranially. Moderate chronic white matter microvascular ischemic change. Bilateral cerebellar tonsillar ectopia/Chiari 1 malformation. Cerebral ventricles: No ventriculomegaly. Bones/joints: Cervical spine is unremarkable. Soft tissues: Unremarkable. Thyroid: Thyroid gland is normal. Lymph nodes: Right hilar lymph node measuring 12 mm in short axis. Likely reactive. Other findings: No appreciable pulmonary emboli in the imaged pulmonary trunk, bilateral upper lobar and distal branches. No large vessel occlusion or hemodynamically significant stenosis in the bilateral carotid and vertebral arteries. Lung apices are clear. IMPRESSION: 1. No large vessel occlusion or hemodynamically significant stenosis in the intracranial arteries. 2. No large vessel occlusion or hemodynamically significant stenosis in the bilateral carotid and vertebral arteries. 3. Bilateral cerebellar tonsillar ectopia/Chiari 1 malformation.
--- NOTE | 2023-12-14 14:13 | CT_ITS ---
PROCEDURE INFORMATION: Exam: CT Cervical Spine Without Contrast Exam date and time: 12/14/2023 3:15 PM Age: 73 years old Clinical indication: Neck pain TECHNIQUE: Imaging protocol: Computed tomography of the cervical spine without contrast. Radiation optimization: All CT scans at this facility use at least one of these dose optimization techniques: automated exposure control; mA and/or kV adjustment per patient size (includes targeted exams where dose is matched to clinical indication); or iterative reconstruction. COMPARISON: CT CERVICAL SPINE WO CON 12/14/2023 3:15 PM FINDINGS: Bones: No acute fracture or malalignment. No worrisome lytic or blastic osseous lesion. Mild multilevel disc space narrowing, marginal osteophyte formation, uncovertebral and facet hypertrophy. Paranasal sinuses: Robust mucosal thickening in the right maxillary sinus. Mastoid air cells: Mucosal thickening in the right inferior mastoid air cells. Lungs: Lung apices are normal. Soft tissues: No acute abnormality. Mild atlantoaxial joint capsule thickening. IMPRESSION: 1. No acute fracture or malalignment. 2. Mild multilevel degenerative change. 3. Mucosal thickening in the right inferior mastoid air cells. Can be seen with chronic mastoiditis. Recommend correlation..
[2023-12-14 14:22] LABS: MANUAL DIFFERENTIAL MANUAL DIFFERENTIAL (MANUAL DIFF)
[2023-12-14 14:26] LABS: Basophils # 0.1 K/mm3 (0-0.2); Basophils % 0.8 % (0.1-2.0); Eosinophils # 0.1 K/mm3 (0.0-0.4); Eosinophils % 1.5 % (0.1-12.0); Hematocrit 46.8 % (42.0-52.0); Hemoglobin 15.2 g/dL (14.1-18.0); Mean Corpuscular HGB Conc 32.4 g/dL (31.8-35.4); Mean Corpuscular Hemoglobin 27.6 pg (27.0-31.2); Mean Corpuscular Volume 85.1 fl (80-94); Mean Platelet Volume 8.1 fl (7.4-10.4); Monocytes # 0.7 K/mm3 (0.1-1.0); Monocytes % 7.7 % (1.7-9.3); Neutrophils # 7.5 K/mm3 (1.8-7.8); Platelet Count 209 K/mm3 (142-424); Red Cell Distribution Width 16.3 % (11.5-17.5); White Blood Count 9.5 K/mm3 (4.8-10.8)
[2023-12-14 14:28] LABS: Chloride 98 mmol/L (98-107); Sodium 137 mmol/L (136-145)
[2023-12-14 14:31] LABS: Alanine Aminotransferase 20 U/L (12-78); Alkaline Phosphatase 121 U/L (38-126); Aspartate Amino Transferase 19 U/L (17-59); Bilirubin,Total 1.1 mg/dl (0.2-1.3); Blood Urea Nitrogen 16 mg/dl (9-20); Creatine Kinase 46 U/L (55-170); Creatinine Clearance Estimated 90 mL/min (50-200); Estimated Glomerular Filt Rate 95 ml/min (>60); GFR (African American) 115 ML/MIN (>60)
[2023-12-14 14:32] LABS: Calcium 9.3 mg/dl (8.4-10.2); Glucose 254 mg/dl (74-100); Potassium 2.8 mmoL/L (3.5-5.1)
--- NOTE | 2023-12-14 14:32 | PC.NURSE ---
Dr. Watt notified of Potassium of 2.8.
[2023-12-14 14:38] LABS: C-Reactive Protein 20.6 mg/L (0-4)
[2023-12-14 14:44] LABS: CKMB Relative Index 4.1 U/L (0-4.0); Creatine Kinase MB 1.9 ng/ml (0.0-2.03)
[2023-12-14 14:50] LABS: Troponin I < 0.01 ng/ml (0.00-0.034)
[2023-12-14 14:53] LABS: Anion Gap 11.8 mEq/L (5-15); Carbon Dioxide 30 mmol/L (22.0-30.0)
[2023-12-14 14:54] LABS: Albumin/Globulin Ratio 1.3 (1.1-1.8); Globulin 3.1 g/dL (1.3-3.2)
[2023-12-14] MEDS: POTASSIUM CHLORIDE 20MEQ TAB 40 MEQ PO (14:56)
[2023-12-14] MEDS: RINGERS SOLUTION,LACTATED 500 ML 999 ML IV (14:56)
[2023-12-14] MEDS: LIDOCAINE 5% TRANSDERMAL PATCH 1 EACH TP (14:56)
[2023-12-14] MEDS: ACETAMINOPHEN 1,000MG/100ML VIAL 1000 MG IV (14:56)
[2023-12-14] MEDS: KCl 10mEq/100ml 100 ML 100 MEQ IV ×2 (14:57→17:08)
[2023-12-14] MEDS: KETOROLAC 30MG/ML VIAL 15 MG IV (14:57)
[2023-12-14] MEDS: diazePAM 5MG TABLET 2.5 MG PO (15:00)
[2023-12-14 15:07] LABS: HIV (1&2) Antibody Rapid NONREACTIVE (NONREACTIVE)
[2023-12-14] MEDS: 0.9 % SODIUM CHLORIDE 50 ML VIAL IV (15:22)
[2023-12-14] MEDS: IOPAMIDOL-370 (76%);100ML BOTTLE 80 ML IV (15:23)
[2023-12-14] MEDS: SODIUM CHLORIDE 0.9% 10ML SYR (RAD ONLY) 10 ML IV (15:23)
[2023-12-14 15:34] LABS: Erythrocyte Sedimentation Rate 11 mm/hr (0-20)
[2023-12-14 15:51] LABS: Eosinophils % 2 % (0-3); Lymphocytes % 11 % (10-50); Monocytes % 9 % (2-9); Neutrophils % 78 % (42-76); Total Cells Counted 100
[2023-12-14 15:52] LABS: Anisocytosis 1+; Hypochromasia 1+; Macrocytosis 1+; Microcytosis 1+; Platelet Estimate Normal; Poikilocytosis 1+; Polychromasia 1+
[2023-12-17 05:15] LABS: HCV Ab Non Reactive (Non Reactive)
== END 2023-12-14 18:40 | disposition home or self-care (01) ==
LOC: UTC 12:09 → ER 13:08
PROVIDERS: Emergency Medicine; Nurse Practitioner Family; Emergency Provider Student in an Organized Health Care Education/Training Program; PCP Internal Medicine Adolescent Medicine
DX: M54.2 Cervicalgia (principal); R51.9 Headache, unspecified; R42 Dizziness and giddiness; I10 Essential (primary) hypertension
CPT/HCPCS: 70450; 70496; 70498; 72125; 80053; 82550; 82553; 84484; 85007; 85014; 85018; 85048; 85049; 85651; 86140; 86803; 87389; 93005; 99285; J0131; J1885; J3480; J7120; Q9967

== ENCOUNTER 2024-01-03 13:28 | Emergency (ER) | payer MEDICARE, SELFPAY ==
--- NOTE | 2024-01-03 14:06 | ED_ITS ---
Discharge Plan Disposition Patient Disposition: Home, Self-Care Condition: Good Prescriptions Prescriptions: New clindamycin HCl 300 mg capsule 300 mg PO Q8H Qty: 30 0RF No Action tamsulosin 0.4 mg capsule 1 mg PO HS potassium chloride 20 mEq tablet extended release 40 meq PO BID Rx Instructions: 3 tabs bid (DME) blood-glucose meter [True Metrix Glucose Meter] Kit See Rx Instructions .Route Rx Instructions: As directed (DME) True Metrix Glucose Test Strip Strip See Rx Instructions .Route Rx Instructions: As directed neomycin-polymyxin B-dexameth 3.5mg/mL-10,000 unit/mL-0.1 % drops,suspension 1 drp Eye-Left ONCE Invokana 300 mg tablet 300 mg PO DAILY Patient Comments: TAKE 1 TABLET BY MOUTH ONCE DAILY methocarbamol 500 mg tablet 500 mg PO HS Kerendia 10 mg tablet 10 mg PO DAILY amoxicillin-pot clavulanate 875-125 mg tablet 1 tab PO BID 10 Days Qty: 20 0RF omeprazole 20 mg capsule,delayed release(DR/EC) 20 mg PO DAILY 30 Days Patient Comments: hydrochlorothiazide 25 mg tablet 25 mg PO DAILY losartan 50 mg tablet 100 mg PO DAILY furosemide 40 mg tablet 40 mg PO DAILY carvedilol 25 mg tablet 25 mg PO BID Rx Instructions: 1/2 tablet fluorouracil 5 % cream topical Patient Comments: APPLY A THIN LAYER TO ARMS TWICE DAILY FOR 2 WEEKS, THEN APPLY TO FACE/SCALP ONCE DAILY FOR ONE WEEK calcipotriene 0.005 % ointment topical Patient Comments: APPLY A THIN LAYER OF OINTMENT TOPICALLY TO AFFECTED AREA WITH 5-FLUOROURACIL levothyroxine 100 MCG tablet 100 mcg PO DAILY latanoprost 0.005 % bottle 1 drp EYE-BOTH HS Patient Comments: magnesium oxide 400 MG tablet 400 mg PO DAILY tlcclfubtily-glzk-qatdt acid 1 EACH tablet 1 each PO DAILY apixaban 5 MG tablet 5 mg PO BID pravastatin 20 MG tablet 20 mg PO DAILY diltiazem HCl [Cartia XT] 300 mg Capsule,Extended Release 24hr 300 mg PO DAILY nitroglycerin 0.4 mg Tablet, Sublingual 0.4 mg SUBLINGUAL Q5M PRN (Reason: Chest Pain) Rx Instructions: do not exceed 3 doses per episode buspirone 10 mg tablet 10 mg PO BID Referrals Follow up/Referrals: Riley Delatorre MD [Primary Care Provider] - See instructions Activity Restrictions/Add. Instructions Additional Instructions/Restrictions: Watch the affected area for signs of worseing infection, such as worsening redness, swelling, drainage, fever. etc. Take tylenol for pain. Follow up with your regular doctor. Resume your normal dose of potassium chloride this evening. GO TO THE ER FOR ANY WORSENING SYMPTOMS OR CONCERNS. Clinical Impressions Clinical Impression: Cellulitis of hand, left, Hypokalemia Instructions Patient Instructions: Cellulitis Print Language Print Language: Czech Discharge ED Provider: Shmuel Briceño [facility] General Stated complaint: Pain and swelling L hand Time Seen by Provider: 01/03/24 14:06 History of Present Illness Provider Complaint: He states that for the past 3 days he has had redness and tenderness of the back of his right hand and wrist. He denies any injury. He is a diabetic. He denies any history of gout. He denies any fever/chills/malaise. Related Data Home Medications ?Medication ?Instructions ?Recorded ?Confirmed omeprazole 20 mg capsule,delayed 20 mg PO DAILY Reflux/Acid reflux 03/22/17 12/24/23 release 30 days latanoprost 0.005 % eye drops 1 drp Eye-Both HS Glaucoma 06/23/17 12/24/23 levothyroxine 100 mcg tablet 100 mcg PO DAILY thyroid 06/23/17 12/24/23 magnesium oxide 400 mg PO DAILY Supplement 01/07/18 12/24/23 apixaban 5 mg tablet 5 mg PO BID Blood thinner 05/19/20 12/24/23 multivitamin-ferrous 1 each PO DAILY Supplement 05/19/20 12/24/23 fumarate-folic acid 18 mg-400 mcg tablet pravastatin 20 mg tablet 20 mg PO DAILY High cholesterol 06/24/20 12/24/23 tamsulosin 0.4 mg capsule 1 mg PO HS urination 10/27/20 12/24/23 hydrochlorothiazide 25 mg tablet 25 mg PO DAILY Edema 05/11/21 12/24/23 blood sugar diagnostic (True 10/26/21 12/24/23 Metrix Glucose Test Strip) blood-glucose meter (True Metrix 10/26/21 12/24/23 Glucose Meter kit) losartan 50 mg tablet 100 mg PO DAILY hypertension 10/26/21 12/24/23 potassium chloride 20 mEq 40 meq PO BID Supplement 10/26/21 12/24/23 tablet,extended release buspirone 10 mg tablet 10 mg PO BID Anxiety 02/13/22 12/24/23 diltiazem HCl 300 mg 300 mg PO DAILY heart 02/13/22 12/24/23 capsule,extended release 24 hr (Cartia XT) nitroglycerin 0.4 mg sublingual 0.4 mg sublingual Q5M PRN Chest 02/13/22 12/24/23 tablet Pain furosemide 40 mg tablet 40 mg PO DAILY Edema 04/24/22 12/24/23 canagliflozin 300 mg tablet 300 mg PO DAILY 10/03/22 12/24/23 (Invokana) aakptoii-zhpezgrid-smuwxzvp 3.5 1 drp Eye-Left ONCE eye infection 01/22/23 12/24/23 mg/mL-10,000 unit/mL-0.1% eye drops carvedilol 25 mg tablet 25 mg PO BID High blood pressure 08/27/23 12/24/23 calcipotriene 0.005 % topical topical 11/27/23 12/24/23 ointment fluorouracil 5 % topical cream applic topical 11/27/23 12/24/23 finerenone 10 mg tablet (Kerendia) 10 mg PO DAILY 12/24/23 12/24/23 methocarbamol 500 mg tablet 500 mg PO HS 12/24/23 12/24/23 Previous Rx's ?Medication ?Instructions ?Recorded amoxicillin 875 mg-potassium 1 tab PO BID 10 days #20 tabs 12/24/23 clavulanate 125 mg tablet clindamycin HCl 300 mg capsule 300 mg PO Q8H #30 caps 01/03/24 Allergies Allergy/AdvReac Type Severity Reaction Status Date / Time nifedipine Allergy swelling, Verified 12/24/23 12:14 mood changes cephalexin AdvReac alters mood Verified 12/24/23 12:14 [facility] Disclaimer: The information contained in this section may have been updated after the patient was seen, as this information can be updated by other users. Medical History (Updated 01/03/24 @ 15:33 by Shmuel Briceño APRN) Congestion of both ears Headache Tinnitus Impacted cerumen Onychoincurvatum Sleep apnea Asthma History of transient ischemic attack (TIA) Atrial fibrillation Hypothyroid Diabetes mellitus, type 2 MRSA (methicillin resistant staph aureus) culture positive Skin lesion of right ear Skin lesion of left ear Skin lesion of face Plantar fasciitis of right foot Obesity, Class II, BMI 35-39.9 Acquired hammer toes of both feet Concussion Hyperlipidemia Acquired hypothyroidism HTN (hypertension) CHF exacerbation CAD (coronary artery disease) TIA (transient ischemic attack) COPD (chronic obstructive pulmonary disease) Diabetes mellitus type 2 in obese Chronic a-fib Anemia Lower gastrointestinal bleeding Esophageal abnormality Degenerative arthritis Diverticulosis Brain atrophy Obstructive Sleep Apnea-Hypopnea Syndrome Surgical History History of local excision of skin lesion Status post myringotomy with tube placement of both ears S/P sinus surgery History of cataract surgery Hx of knee surgery History of placement of ear tubes History of vasectomy Family History Sister Thyroid cancer Social History (Updated 12/24/23 @ 12:16 by SANA Mckinley) Smoking Status: Former smoker tobacco type: cigarettes packs per day: 1 second hand exposure: No alcohol intake: current alcohol intake frequency: holidays/special occasions only counseling provided: none substance use type: denies use current occupational status: retired Travel in the last 8 weeks: None household members: spouse housing: house current occupational exposures/hazards: No caffeine: No ROS Obtained: Yes All systems reviewed & no additional complaints except as documented Constitutional Constitutional: Denies chills and Denies fever(s) Eyes Eyes: Denies eye discharge ENT Ears, Nose, Mouth, and Throat: Denies dizziness, Denies otalgia and Denies sore throat Cardiovascular Cardiovascular: Denies chest pain Respiratory Respiratory: Denies shortness of breath, Denies chest congestion, Denies cough, Denies stridor and Denies wheezing Gastrointestinal Gastrointestingal: Denies nausea or vomiting Musculoskeletal Musculoskeletal: Reports system reviewed and no additional complaints, except as documented and Denies arthralgias Integumentary/Breasts Skin/Breast: Reports as per HPI, Reports redness and Denies wounds Neurologic Neurologic: Denies dizziness and Denies paresthesias Allergic/Immunologic Allergic/Immunologic: Denies wheezing Physical Exam General General appearance: alert and in no apparent distress Head Head exam: atraumatic, normocephalic and normal inspection Eye Eye exam: Present normal appearance, PERRL and EOMI ENT ENT exam: Present normal exam, normal oropharynx, mucous membranes moist, TM's normal bilaterally and normal external ear exam Neck Neck exam: Present normal inspection, full ROM and trachea midline; Absent meningismus or lymphadenopathy Chest Chest inspection: Present normal inspection and symmetric chest wall rise; Absent tenderness Respiratory Respiratory exam: Present normal lung sounds bilaterally; Absent respiratory distress Cardiovascular Cardiovascular exam: Present regular rate and normal rhythm; Absent JVD Abdominal Exam Abdominal exam: Present soft and normal bowel sounds; Absent distention, tenderness or guarding Extremities Exam Extremities exam: Present normal inspection, full ROM and normal capillary refill; Absent calf tenderness Back Exam Back exam: Present normal inspection; Absent tenderness Neurological Exam Neurological exam: Present alert and oriented X3 Psychiatric Psychiatric exam: Present normal affect and normal mood Skin Skin exam: Present erythema (there is an area of redness and warmth on the dorsal surface of his right hand and wrist. No swelling, no open wounds or drainage. ) Lymphatic Lymphatic Findings: no adenopathy Medical Decision Making Medical Records Screening: Per USPSTF and CDC recommendations, given the prevalence of disease in our region, it is our hospital?s policy to screen for HIV and viral Hepatitis for all patients aged 18 and over and those with ongoing risk factors. Atul Inquiry Pt receiving controlled substance: No Lab Data 01/03/24 14:39 01/03/24 14:39
[2024-01-03 14:09] VITALS: BP 174/95; PULSE 87; RESP 20; TEMP 36.6; O2SAT 97; BMI 31.4
[2024-01-03 14:58] LABS: Chloride 105 mmol/L (98-107); Potassium 3.2 mmoL/L (3.5-5.1); Sodium 138 mmol/L (136-145)
[2024-01-03 15:01] LABS: Anion Gap 7.2 mEq/L (5-15); Blood Urea Nitrogen 13 mg/dl (9-20); Calcium 9.2 mg/dl (8.4-10.2); Carbon Dioxide 29 mmol/L (22.0-30.0); Creatinine Clearance Estimated 87 mL/min (50-200); Estimated Glomerular Filt Rate 83 ml/min (>60); GFR (African American) 100 ML/MIN (>60); Glucose 170 mg/dl (74-100)
[2024-01-03 15:12] LABS: Basophils # 0.1 K/mm3 (0-0.2); Basophils % 0.6 % (0.1-2.0); Eosinophils # 0.2 K/mm3 (0.0-0.4); Eosinophils % 1.5 % (0.1-12.0); Hematocrit 44.7 % (42.0-52.0); Lymphocytes # 1.1 K/mm3 (0.7-4.5); Lymphocytes % 10.7 % (10-50); Mean Corpuscular HGB Conc 33.5 g/dL (31.8-35.4); Mean Corpuscular Hemoglobin 27.7 pg (27.0-31.2); Mean Corpuscular Volume 82.8 fl (80-94); Mean Platelet Volume 8.1 fl (7.4-10.4); Monocytes # 0.7 K/mm3 (0.1-1.0); Neutrophils # 8.2 K/mm3 (1.8-7.8); Neutrophils % 80.3 % (37.0-80.0); Platelet Count 205 K/mm3 (142-424); Red Cell Distribution Width 16.2 % (11.5-17.5); White Blood Count 10.2 K/mm3 (4.8-10.8)
[2024-01-03] MEDS: POTASSIUM CHLORIDE 20MEQ TAB 20 MEQ PO (15:40)
[2024-01-03 15:50] VITALS: BP 174/95; PULSE 87; RESP 20; TEMP 36.6
== END 2024-01-03 15:50 | disposition home or self-care (01) ==
PROVIDERS: Emergency Provider Nurse Practitioner Family; PCP Internal Medicine Adolescent Medicine
DX: L03.114 Cellulitis of left upper limb (principal); E87.6 Hypokalemia
CPT/HCPCS: 80048; 84550; 85025; 99213; G0381

== ENCOUNTER 2024-02-05 14:08 | Outpatient (CLI) | payer MEDICARE, SELFPAY ==
--- NOTE | 2024-02-05 14:16 | CT_ITS ---
FINAL REPORT TECHNIQUE: Thin section axial images were obtained through the paranasal sinuses without contrast. CLINICAL HISTORY: Chronic Sinusitis and Severe headaches per pt FINDINGS: There is complete opacification of the right maxillary sinus, the anterior right ethmoid air cells and partial opacification of the right frontal sinus. The right maxillary infundibulum is occluded. There is mild mucoperiosteal thickening of the left maxillary sinus and the left maxillary infundibulum is also occluded. There is fluid in the bilateral left, greater than right, mastoid air cells. There is no acute osseous abnormality. Remaining soft tissues are within normal limits. IMPRESSION: Chronic sinusitis of the right maxillary, ethmoid air cells and frontal sinus with occlusion of the bilateral maxillary infundibula. Bilateral mastoiditis. Reviewed, Interpreted and Dictated by Wendy Slaughter MD Transcribed by Lilo Zimmerman Authenticated and [facility]
== END 2024-02-05 23:59 | disposition home or self-care (01) ==
LOC: RAD 14:10
PROVIDERS: PCP Internal Medicine Adolescent Medicine; Visit Provider Nurse Practitioner
DX: R51.9 Headache, unspecified (principal); J32.9 Chronic sinusitis, unspecified
CPT/HCPCS: 70486

== ENCOUNTER 2024-03-12 06:08 | Day surgery (SDC) | payer MEDICARE, SELFPAY ==
[2024-03-10 10:27] VITALS: BMI 30.7
[2024-03-12 06:31] VITALS: BP 148/88; PULSE 79; RESP 18; TEMP 36.4; O2SAT 97; BMI 31.1
[2024-03-12 06:42] LABS: POC Glucose,Bedside 184 (70-110)
[2024-03-12] MEDS: NEOSPORIN OINTMENT 0.9GM UDP 1 EACH TP (07:06)
[2024-03-12] MEDS: LIDOCAINE 1% 20ML MDV 20 ML (07:06)
--- NOTE | 2024-03-12 07:24 | EXP.OP.NOTE ---
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 His occipital scalp region was prepped and draped in a sterile fashion. After infiltration with local anesthetic an elliptical incision was made around the lesion. The lesion was excised in toto and passed off for pathologic evaluation. Electrocautery was utilized to achieve hemostasis. Skin was reapproximated with interrupted 4-0 nylon. Dressings were applied and the patient was discharged in stable condition. Condition: stable Disposition: no change Specimens:: Mid occipital scalp squamous cell carcinoma Complications:: No immediate
[2024-03-12 07:30] VITALS: BP 169/85; PULSE 67; RESP 18; O2SAT 98
== END 2024-03-12 07:36 | disposition home or self-care (01) ==
PROVIDERS: PCP Internal Medicine Adolescent Medicine; Visit Provider Surgery
PROC: (CPT 11621; principal; 2024-03-12 07:30)
DX: C44.42 Squamous cell carcinoma of skin of scalp and neck (principal); E11.9 Type 2 diabetes mellitus without complications; Z79.84 Long term (current) use of oral hypoglycemic drugs
CPT/HCPCS: 11621; 82962

== ENCOUNTER 2024-04-14 12:39 | Outpatient (CLI) | payer MEDICARE, SELFPAY ==
--- NOTE | 2024-04-14 13:37 | ECG_ITS ---
APPROVED REPORT Exam: Resting ECG HR:70 bpm ECG Measurements Heart Rate 70 AXES QRSd 91 QRS 58 QT 401 T 72 QTc 422 Conclusion ATRIAL FIBRILLATION SEPTAL MYOCARDIAL INFARCTION , PROBABLY OLD [40+ ms Q WAVE IN V1/V2] ABNORMAL ECG UNCONFIRMED REPORT Electronically signed by : Riley Delatorre MD 04/14/2024 20:08:17
[2024-04-14 13:53] LABS: Basophils # 0.1 K/mm3 (0-0.2); Basophils % 0.6 % (0.1-2.0); Eosinophils # 0.2 K/mm3 (0.0-0.4); Eosinophils % 1.6 % (0.1-12.0); Hematocrit 44.8 % (42.0-52.0); Hemoglobin 14.4 g/dL (14.1-18.0); Lymphocytes # 1.1 K/mm3 (0.7-4.5); Lymphocytes % 10.9 % (10-50); Mean Corpuscular HGB Conc 32.1 g/dL (31.8-35.4); Mean Corpuscular Volume 83.9 fl (80-94); Mean Platelet Volume 10.4 fl (7.4-10.4); Monocytes % 10.3 % (1.7-9.3); Neutrophils # 7.5 K/mm3 (1.8-7.8); Neutrophils % 76.2 % (37.0-80.0); Platelet Count 223 K/mm3 (142-424); Red Blood Count 5.34 M/mm3 (4.60-6.20); Red Cell Distribution Width 15.9 % (11.5-17.5); White Blood Count 9.8 K/mm3 (4.8-10.8)
[2024-04-14 13:58] LABS: Chloride 101 mmol/L (98-107); Potassium 3.7 mmoL/L (3.5-5.1); Sodium 136 mmol/L (136-145)
[2024-04-14 14:01] LABS: Anion Gap 11.7 mEq/L (5-15); Blood Urea Nitrogen 19 mg/dl (9-20); Calcium 9.3 mg/dl (8.4-10.2); Carbon Dioxide 27 mmol/L (22.0-30.0); Creatinine Clearance Estimated 87 mL/min (50-200); Estimated Glomerular Filt Rate 83 ml/min (>60); GFR (African American) 100 ML/MIN (>60); Glucose 197 mg/dl (74-100)
== END 2024-04-14 23:59 | disposition home or self-care (01) ==
LOC: PREOP 12:40
PROVIDERS: Nurse Anesthetist, Certified Registered; PCP Internal Medicine Adolescent Medicine; Visit Provider Otolaryngology
DX: I48.91 Unspecified atrial fibrillation (principal); I25.2 Old myocardial infarction; R94.31 Abnormal electrocardiogram [ECG] [EKG]
CPT/HCPCS: 80048; 85025; 93005

== ENCOUNTER 2024-04-22 09:28 | Day surgery (SDC) | payer MEDICARE, SELFPAY ==
[2024-04-14 13:42] VITALS: BMI 31.1
[2024-04-22] VITALS (10 sets, daily range): BP systolic 126–147; BP diastolic 57–84; PULSE 55–73; RESP 16–18; TEMP 36.2–36.5; O2SAT 96–98
--- NOTE | 2024-04-22 09:58 | EXP.ANES.CKL ---
[facility] Disclaimer: The information contained in this section may have been updated after the patient was seen, as this information can be updated by other users. Medical History Tympanosclerosis of left ear Retained myringotomy tube in left ear Chronic sinus infection Retracted tympanic membrane Congestion of both ears Headache Tinnitus Impacted cerumen Onychoincurvatum Sleep apnea Asthma History of transient ischemic attack (TIA) Atrial fibrillation Hypothyroid Diabetes mellitus, type 2 MRSA (methicillin resistant staph aureus) culture positive Skin lesion of right ear Skin lesion of left ear Skin lesion of face Plantar fasciitis of right foot Obesity, Class II, BMI 35-39.9 Acquired hammer toes of both feet Concussion Hyperlipidemia Acquired hypothyroidism HTN (hypertension) CHF exacerbation CAD (coronary artery disease) TIA (transient ischemic attack) COPD (chronic obstructive pulmonary disease) Diabetes mellitus type 2 in obese Chronic a-fib Anemia Lower gastrointestinal bleeding Esophageal abnormality Degenerative arthritis Diverticulosis Brain atrophy Obstructive Sleep Apnea-Hypopnea Syndrome Surgical History History of local excision of skin lesion Status post myringotomy with tube placement of both ears S/P sinus surgery History of cataract surgery Hx of knee surgery History of placement of ear tubes History of vasectomy Family History Sister Thyroid cancer Other Cancer Social History (Updated 04/22/24 @ 09:56 by Debbie Ni RN) Smoking Status: Former smoker tobacco type: cigarettes packs per day: 1 second hand exposure: No alcohol intake: current alcohol intake frequency: holidays/special occasions only counseling provided: none substance use type: denies use current occupational status: retired Travel in the last 8 weeks: None household members: spouse housing: house current occupational exposures/hazards: No caffeine: Yes Have you lived/traveled outside [place] in past 30 days?: No Contact w/someone who lives/traveled outside US past 30 days?: No Exposure to someone with infectious disease in past 14 days?: No Do you have a fever (greater than 100.4 F or 38 C)?: No Have you tested positive for COVID-19: No Exposed to someone with COVID-19 in past 14 days?: No Do you have a sore throat?: No Do you have a cough?: No Do you have any weakness?: No Are you experiencing any nausea/vomitting?: No Do you have any diarrhea?: No Are you experiencing any unusual bleeding?: No Do you have any muscle aches/pain?: No Do you have any abdominal pain?: No Are you experiencing loss of taste or smell?: No [facility] Anesthesia Checklist Patient Identification Patient Identification: Arm Band and Verbal (Name & ) Structural Data Admitted From: Home Planned Operative Procedure/s: BMT Consent for Planned Operative Procedure(s) Verified: Yes Verified Documents: Surgical Consent NPO Status Verified Time NPO: 00:00 Additional verifications Patient : No Anesthesia Reactions: No Hx Blood Transfusions: Yes (08/19/2017) Blood Transfusion Reaction: No Previous Colonoscopy: No Cardiovascular Assessment Pulse Strength: Baseline Pulse Rhythm: Irregular Peripheral Edema: No Airway Assessment Mallampati Score:: Class II C-Spine Mobility Assessed: Yes TMJ Mobility Assessed: Yes Dentition: Good Dentition Neurological Assessment Level of Consciousness: Awake, Alert and Appropriate Hx Seizures: No Numbness or tingling in extremities: No Anesthesia Plan Anesthesia Risk discussed: Yes Anesthesia Plan: Verified ASA Class: III Anesthesia Type: General
[2024-04-22 10:07] LABS: POC Glucose,Bedside 199 (70-110)
[2024-04-22] MEDS: CIPRO 0.3%-DEX 0.1% OTIC SUSP 7.5ML 7.5 ML OT (10:32)
--- NOTE | 2024-04-22 10:38 | EXP.OP.NOTE ---
Date of procedure: 04/22/24 Pre-op Diagnosis:: Chronic serous otitis media Post-op Diagnosis:: Chronic serous otitis media Procedure performed:: Bilateral tympanostomy and tube placement Surgeon:: Gume Edwards MD STRUCTURAL FITTER:: Chris Singleton Anesthesia: GETA Estimated blood loss (mL): 0 Operative findings:: Mucoid middle ear effusion left middle ear space, right middle ear space was clear. Both tympanic membranes were retracted Operative note:: The patient was brought to the operating room and after adequate general anesthesia the ears were draped in the usual sterile fashion and operating microscope employed to visualize the tympanic membranes. Tympanostomies were made in the anterior-inferior quadrant and suction employed to clear the middle ear space of effusion. This was done bilaterally. T tubes were then placed and Ciprodex drops applied and the procedure concluded. All counts correct and blood loss minimal Condition: stable Disposition: PACU Complications:: No complications
--- NOTE | 2024-04-22 10:42 | EXP.ANES.I ---
[facility] Anesthesia Record Part I Anesthesia Record I Intake, IV Amount: 300 Hydration: Adequate Estimated blood loss (mL): 0 Urine output (mL): 0 Blood Products used (#): none Blood Pressure: 128/79 SaO2: 96 Pulse Rate: 62 Airway Patency: Patent Respiratory Rate: 16 Temperature: 97.1 F Patient is:: Drowsy and Stable Stable to PACU at:: 10:40
[2024-04-22 11:06] LABS: POC Glucose,Bedside 213 (70-110)
--- NOTE | 2024-04-22 13:02 | EXP.ANES.II ---
[facility] Anesthesia Record Part II Anesthesia Record Part II Discharge Time: 11:10 Destination: Surgical Day Care (OP Surgery) PACU nurse assessment reviewed?: Yes Patient Condition:: Good Anesthesia Complications:: None Swallowing reflex intact?: Yes Airway Patency: Patent Cyanosis?: No Blood Pressure: 141/63 SaO2: 97 Respiratory Rate: 16 Pulse Rate: 55 Temperature: 97.1 F Mental Status: Alert & Oriented Pain level:: 0 Nausea and/or vomitting:: None Intake, IV Amount: 0 Hydration: Adequate
== END 2024-04-22 11:41 | disposition home or self-care (01) ==
PROVIDERS: PCP Internal Medicine Adolescent Medicine; Visit Provider Otolaryngology
PROC: (CPT 69436; principal; 2024-04-22 11:50)
DX: H65.23 Chronic serous otitis media, bilateral (principal); E11.9 Type 2 diabetes mellitus without complications; Z79.84 Long term (current) use of oral hypoglycemic drugs
CPT/HCPCS: 69436; 82962; J1100; J2405; J3010

== ENCOUNTER 2024-09-05 12:22 | Emergency (ER) | payer MEDICARE, SELFPAY ==
--- OUTSIDE RECORDS SUMMARY | 2024-06-13 17:30 | XMS_ITS ---
Author Organization [facility] Address [address] [place] [address] Care Team Providers Care Funeral Location Manager Name Role Phone Riley Delatorre Primary Care Provider [phone] Migration, Provider Unavailable Unavailable Allergies Allergen (clinical drug ingredient) Drug/Non Drug Allergy documented on EMR Reaction Allergy Type Onset Date Status nifedipine NIFEdipine diaphoresis/jovan y/irritability Drug Allergy Active [facility] Conversion Encounter Medications Medication SIG (Take, Route, Frequency, Duration) Notes Start Date End Date Status Pravastatin Sodium 20 MG 1 tab(s) orally once a day; Duration: 90 days Active Omeprazole 20 MG 1 cap(s) orally twice a day; Duration: 90 days Active Eliquis 5 MG Take 1 tablet by mouth twice daily; Duration: 90 days Active busPIRone HCl 10 MG 1 tab(s) orally 2 times a day; Duration: 90 days 02/19/2022 Active LANCET 33 GAUGE- FOR USE WITH DIABETIC TESTING SUPPLIES FINGERSTICK ONCE DAILY *Please review for potential replacement for e-prescription and drug interaction check* Active Carvedilol 25 MG 1/2 tab orally 2 times a day; Duration: 90 days Active Kerendia 10 MG 1 tab orally once a day; Duration: 90 days 05/20/2023 Active Losartan Potassium 50 MG 2 tab(s) orally once a day; Duration: 90 days Active Invokana 300 MG 1 tab(s) orally once a day; Duration: 90 days 09/25/2022 Active Tamsulosin HCl 0.4 MG 1 cap(s) orally once a day; Duration: 90 days Active Abilify 5 MG 1 tab(s) orally once a day at bedtime; Duration: 90 days Active TRUE TRACK QD; Duration: 1 BOX test strips *Please review for potential replacement for e-prescription and drug interaction check* 04/30/2016 Active TRUE TRACK LANCETS FOR DIABETIC TESTING BID; Duration: 30 DAYS diagnosis: E11.9 *Please review for potential replacement for e-prescription and drug interaction check* 04/30/2016 Active TrueTrack Test NA TEST SUGAR DX: E11.9 BID; Duration: 30 DAYS *Please review and pick correct strength-formulati on from Fierce & Frugalan options. If intended option is not shown, discontinue and re-order from Quick Search* 09/17/2017 Active TRUE METRIX TEST STRIPS N/A 1 TEST STRIP FINGERSTICK TWICE DAILY *Please review for potential replacement for e-prescription and drug interaction check* 10/26/2021 Active Fluorouracil 5 % 1 lili applied topically 2 times a day Active Calcipotriene 0.005 % 1 lili applied topically once a day Active Centrum THERAPEUTIC MULTIPLE VITAMINS WITH MINERALS 1 TAB(S) ORALLY ONCE A DAY *Please review and pick correct strength-formulati on from LUBB-TEXspan options. If intended option is not shown, discontinue and re-order from Quick Search* Active Magnesium 400MG 1 TABLET ORALLY DAILY *Please review and pick correct strength-formulati on from LUBB-TEXspan options. If intended option is not shown, discontinue and re-order from Quick Search* Active RELION 30 JOHN LANCETS DIRECTED *Please review for potential replacement for e-prescription and drug interaction check* 08/24/2020 Active Rybelsus 3 MG 1 tab(s) orally once a day; Duration: 30 day(s) 04/09/2024 Active Nitroglycerin 0.4 MG 1 tab(s) sublingually every 5 minutes prn Active Latanoprost 0.005 % 1 gtt in each eye once a day (in the evening); Duration: 30 days Active Levothyroxine Sodium 100 MCG 1 tab(s) orally once a day; Duration: 90 days Active Encounters Encounter Location Date Provider Diagnosis [facility] [address] [place] [address] 06/13/2024 Provider Migration Type 2 diabetes mellitus with diabetic chronic kidney disease E11.22 and Acquired hypothyroidism E03.9 Assessments Encounter Date Diagnosis (ICD Code) Assessment Notes Treatment Notes Treatment Clinical Notes Section Notes 06/13/2024 Type 2 diabetes mellitus with diabetic chronic kidney disease (ICD-10 - E11.22) 06/13/2024 Acquired hypothyroidism (ICD-10 - E03.9) Plan Of Treatment Medication Medication Name Sig Start Date Stop Date Notes Abilify 5 MG 1 tab(s) orally once a day at bedtime; Duration: 90 days Rybelsus 3 MG 1 tab(s) orally once a day; Duration: 30 day(s) 04/09/2024 Nitroglycerin 0.4 MG 1 tab(s) sublingual ly every 5 minutes prn Latanoprost 0.005 % 1 gtt in each eye on ce a day (in the evening); Duration: 30 days Levothyroxine Sodium 100 MCG 1 tab(s) or ally once a day; Duration: 90 days Next Appt Details Provider Name:Riley Delatorre, 10/01/2024 10:00:00 AM, [address] [place] [address], [phone], Progress Notes * Ruben OATES PDOB:[birth year] (74 yo M)Acc No.[id number]:06/13/2024 Patient: Ruben ORTA Provider: Jackeline Gibson :1950 A ge:73 Y S ex:Male Date:06/13/2024 Address:[address] [place], [place] [id number] Pcp:Riley Delatorre Subjective: * Chief Complaints: * 1 . Multum To Medispan Conversion Encounter. * Medical History: * Medications: T aking Fluorouracil 5 % Cream 1 lili applied topically 2 times a day , Taking Calcipotriene 0.005 % Ointment 1 lili applied topically once a day , Taking Centrum THERAPEUTIC MULTIPLE VITAMINS WITH MINERALS TABLET 1 TAB(S) ORALLY ONCE A DAY , Notes to Pharmacist: *Please review and pick correct strength-formulation from Medispan options. If intended option is not shown, discontinue and re-order from Quick Search*, Taking Magnesium 400MG 1 TABLET ORALLY DAILY , Notes to Pharmacist: *Please review and pick correct strength-formulation from Fierce & Frugalan options. If intended option is not shown, discontinue and re-order from Quick Search*, Taking RELION 30 JOHN LANCETS DIRECTED , Notes to Pharmacist: *Please review for potential replacement for e-prescription and drug interaction check*, Taking TRUE TRACK QD , Notes to Pharmacist: test strips *Please review for potential replacement for e-prescription and drug interaction check*, Taking TRUE TRACK LANCETS FOR DIABETIC TESTING BID , Notes to Pharmacist: diagnosis: E11.9 *Please review for potential replacement for e-prescription and drug interaction check*, Taking TrueTrack Test NA NA TEST SUGAR DX: E11.9 BID , Notes to Pharmacist: *Please review and pick correct strength-formulation from PT PAL options. If intended option is not shown, discontinue and re-order from Quick Search*, Taking TRUE METRIX TEST STRIPS N/A N/A 1 TEST STRIP FINGERSTICK TWICE DAILY , Notes to Pharmacist: *Please review for potential replacement for e-prescription and drug interaction check*, Taking Tamsulosin HCl 0.4 MG Capsule 1 cap(s) orally once a day , Taking Carvedilol 25 MG Tablet 1/2 tab orally 2 times a day , Taking Kerendia 10 MG Tablet 1 tab orally once a day , Taking Losartan Potassium 50 MG Tablet 2 tab(s) orally once a day , Taking Invokana 300 MG Tablet 1 tab(s) orally once a day , Taking Pravastatin Sodium 20 MG Tablet 1 tab(s) orally once a day , Taking Omeprazole 20 MG Capsule Delayed Release 1 cap(s) orally twice a day , Taking Eliquis 5 MG Tablet Take 1 tablet by mouth twice daily , Taking busPIRone HCl 10 MG Tablet 1 tab(s) orally 2 times a day , Taking LANCET 33 GAUGE- FOR USE WITH DIABETIC TESTING SUPPLIES FINGERSTICK ONCE DAILY , Notes to Pharmacist: *Please review for potential replacement for e-prescription and drug interaction check* * Allergies: N IFEdipine: diaphoresis/shaky/irritability. Objective: * Vitals: Assessment: * Assessment: 1. T ype 2 diabetes mellitus with diabetic chronic kidney disease - E11.22 (Primary) 2 . A cquired hypothyroidism - E03.9 Plan: * Treatment: 2. A cquired hypothyroidism Refill Levothyroxine Sodium Tablet, 100 MCG, 1 tab(s), orally, once a day, 90 days, 90, Refills 1.? 3. O thers Refill Nitroglycerin Tablet Sublingual, 0.4 MG, 1 tab(s), sublingually, every 5 minutes prn, 1 Pack, Refills 5; S tart Abilify Tablet, 5 MG, 1 tab(s), orally, once a day at bedtime, 90 days, 90, Refills 1; R efill Latanoprost Solution, 0.005 %, 1 gtt, in each eye, once a day (in the evening), 30 days, 1, Refills 5. * * Electronic signature of Prov ider Migration on 09/05/2024 at 01:10 PM EDT Sign off status: Pending * Provider: Jackeline hair Migration Date: 0 06/13/2024 Generated for Ivone william/Alexis/Enrique on: 0 09/05/2024 01:10 PM EDT
[2024-09-05 12:55] VITALS: BP 167/80; PULSE 76; RESP 18; TEMP 36.7; O2SAT 98; BMI 31.4
--- OUTSIDE RECORDS SUMMARY | 2024-09-05 13:10 | XMS_ITS | Patient Health Record ---
Author Organization [facility] PE D LUIS Address [address] [place] [address] Care Team Providers Care Bellperson Name Role Phone Riley Delatorre Primary Care Provider Migration, Provider Unavailable Unavailable Allergies Allergen (clinical drug ingredient) Drug/Non Drug Allergy documented on EMR Reaction Allergy Type Onset Date Status nifedipine NIFEdipine diaphoresis/jovan y/irritability Drug Allergy Active Results Component Value Reference Range Notes BASIC METABOLIC PANEL (83160 ) Reviewed date:09/19/2023 08:57:52 AM Interpretation: Performing Lab:[facility], [facility], [facility] CenterEiekOH[address] Venu Chen Notes/Report: NON-FASTING GLUCOSE 188 65-99 mg/dL Fasting reference interval For someone without known diabetes, a glucose value >125 mg/dL indicates that they may have diabetes and this should be confirmed with a follow-up test. UREA NITROGEN (BUN) 22 7-25 mg/dL CREATININE 1.11 0.70-1.28 mg/dL EGFR 70 > OR = 60 mL/min/1.73m2 BUN/CREATININE RATIO SEE NOTE: 6-22 (calc) Not Reported: BUN and Creatinine are within reference range. SODIUM 140 135-146 mmol/L POTASSIUM 4.0 3.5-5.3 mmol/L CHLORIDE 102 98-110 mmol/L CARBON DIOXIDE 28 20-32 mmol/L CALCIUM 9.6 8.6-10.3 mg/dL Microalbumin (In-House) Reviewed date:09/17/2023 08:25:33 PM Interpretation:Abnormal Performing Lab: Notes/Report: Abnormal ALB 80mg CRE 100mg A:C 30-300mg THYROID PANEL WITH TSH (7444 ) Reviewed date:03/30/2024 11:15:07 AM Interpretation: Performing Lab:SURYA, reQwip-Nexess [id number] [facility] [place], [id number] Venu Chen Notes/Report: NON-FASTING; NON-FASTING; NON-FASTING; NON-FASTING; NON-FAST FASTING:NO FASTING: NO T3 UPTAKE 32 22-35 % T4 (THYROXINE), TOTAL 10.9 4.9-10.5 mcg/dL FREE T4 INDEX (T7) 3.5 1.4-3.8 TSH 1.27 0.40-4.50 mIU/L LIPID PANEL, STANDARD (7600) Reviewed date:03/30/2024 11:15:07 AM Interpretation: Performing Lab:SURYA, reQwip-Nexess [id number] [facility] [place], [id number] Venu Chen Notes/Report: NON-FASTING; NON-FASTING; NON-FASTING; NON-FASTING; NON-FAST FASTING:NO FASTING: NO CHOLESTEROL, TOTAL 158 <200 mg/dL HDL CHOLESTEROL 54 > OR = 40 mg/dL TRIGLYCERIDES 86 <150 mg/dL LDL-CHOLESTEROL 86 Reference range: <100 Desirable range <100 mg/dL for primary prevention; <70 mg/dL for patients with CHD or diabetic patients with > or = 2 CHD risk factors. LDL-C is now calculated using the Ryan-Christie calculation, which is a validated novel method providing better accuracy than the Friedewald equation in the estimation of LDL-C. Ryan CHAUDHARI et al. DK. 2013;310(19): 5322-1828 (http://education.CommunityForce.com/faq/NQI589) CHOL/HDLC RATIO 2.9 <5.0 (calc) NON HDL CHOLESTEROL 104 <130 mg/dL (calc) For patients with diabetes plus 1 major ASCVD risk factor, treating to a non-HDL-C goal of <100 mg/dL (LDL-C of <70 mg/dL) is considered a therapeutic option. COMPREHENSIVE METABOLIC PANE Shea ([id number]) Reviewed date:03/30/2024 11:15:07 AM Interpretation: Performing Lab:CB, reQwip-Nexess [id number] [facility], [facility] CenterXanfIN[address] eVnu Chen Notes/Report: NON-FASTING; NON-FASTING; NON-FASTING; NON-FASTING; NON-FAST FASTING:NO FASTING: NO GLUCOSE 232 65-139 mg/dL Non-fasting reference interval UREA NITROGEN (BUN) 23 7-25 mg/dL CREATININE 1.20 0.70-1.28 mg/dL EGFR 64 > OR = 60 mL/min/1.73m2 BUN/CREATININE RATIO SEE NOTE: 6-22 (calc) Not Reported: BUN and Creatinine are within reference range. SODIUM 142 135-146 mmol/L POTASSIUM 4.2 3.5-5.3 mmol/L CHLORIDE 101 98-110 mmol/L CARBON DIOXIDE 28 20-32 mmol/L CALCIUM 10.2 8.6-10.3 mg/dL PROTEIN, TOTAL 6.9 6.1-8.1 g/dL ALBUMIN 4.0 3.6-5.1 g/dL GLOBULIN 2.9 1.9-3.7 g/dL (calc) ALBUMIN/GLOBULIN RATIO 1.4 1.0-2.5 (calc) BILIRUBIN, TOTAL 0.9 0.2-1.2 mg/dL ALKALINE PHOSPHATASE 130 35-144 U/L AST 7 10-35 U/L ALT 9 9-46 U/L CBC (INCLUDES DIFF/PLT) (639 9) Reviewed date:03/30/2024 11:15:07 AM Interpretation: Performing Lab:SURYA reQwip-Nexess [id number] [facility], [facility] CenterRxmpGX[address] Venu Chen Notes/Report: NON-FASTING; NON-FASTING; NON-FASTING; NON-FASTING; NON-FAST FASTING:NO FASTING: NO WHITE BLOOD CELL COUNT 9.3 3.8-10.8 Thousand/ uL RED BLOOD CELL COUNT 5.72 4.20-5.80 Million/uL HEMOGLOBIN 15.7 13.2-17.1 g/dL HEMATOCRIT 48.1 38.5-50.0 % MCV 84.1 80.0-100.0 fL MCH 27.4 27.0-33.0 pg MCHC 32.6 32.0-36.0 g/dL condition. For adults, a slight decrease in the calculated MCHC value (in the range of 30 to 32 g/dL) is most likely not clinically significant; however, it should be interpreted with caution in correlation with other red cell parameters and the patient's clinical RDW 15.2 11.0-15.0 % PLATELET COUNT 246 140-400 Thousand/uL MPV 10.4 7.5-12.5 fL ABSOLUTE NEUTROPHILS 7347 2802-5728 cells/uL ABSOLUTE LYMPHOCYTES 3729 022-2235 cells/uL ABSOLUTE MONOCYTES 679 200-950 cells/uL ABSOLUTE EOSINOPHILS 177 15-500 cells/uL ABSOLUTE BASOPHILS 74 0-200 cells/uL NEUTROPHILS 79 LYMPHOCYTES 11.0 MONOCYTES 7.3 EOSINOPHILS 1.9 BASOPHILS 0.8 HEMOGLOBIN A1c (496) Reviewed date:03/30/2024 11:15:07 AM Interpretation: Performing Lab:SUYRA reQwip-Tractione[address], [id number] Venu Chen Notes/Report: NON-FASTING; NON-FASTING; NON-FASTING; NON-FASTING; NON-FAST FASTING:NO FASTING: NO HEMOGLOBIN A1c 9.9 <5.7 % of total Hgb For someone without known diabetes, a hemoglobin A1c value of 6.5% or greater indicates that they may have diabetes and this should be confirmed with a follow-up test. For someone with known diabetes, a value <7% indicates that their diabetes is well controlled and a value greater than or equal to 7% indicates suboptimal control. A1c targets should be individualized based on duration of diabetes, age, comorbid conditions, and other considerations. Currently, no consensus exists regarding use of hemoglobin A1c for diagnosis of diabetes for children. THYROID PANEL WITH TSH (7444 ) Reviewed date:06/28/2024 03:18:59 PM Interpretation: Performing Lab:SURYA reQwip-Nexess [id number], [id number] Venu Chen Notes/Report: NON-FASTING; NON-FASTING; NON-FASTING; NON-FASTING; NON-FAST FASTING:NO FASTING: NO T3 UPTAKE 32 22-35 % T4 (THYROXINE), TOTAL 9.5 4.9-10.5 mcg/dL FREE T4 INDEX (T7) 3.0 1.4-3.8 TSH 1.18 0.40-4.50 mIU/L ALBUMIN, RANDOM URINE W/CREA TININE (6517) Reviewed date:06/28/2024 03:18:59 PM Interpretation: Performing Lab:SURYA, reQwip-Nexess [id number] [facility], [facility] CenterFgnaHP[address] Venu Chen Notes/Report: NON-FASTING; NON-FASTING; NON-FASTING; NON-FASTING; NON-FAST FASTING:NO FASTING: NO CREATININE, RANDOM URINE 18 20-320 mg/dL ALBUMIN, URINE 16.7 See Note: mg/dL Reference Range: Reference Range Not established ALBUMIN/CREATININE RATIO, RANDOM URINE 928 <30 mg/g creat The ADA defines abnormalities in albumin excretion as follows: Albuminuria Category Result (mg/g creatinine) Normal to Mildly increased <30 Moderately increased 30-299 Severely increased > OR = 300 The ADA recommends that at least two of three specimens collected within a 3-6 month period be abnormal before considering a patient to be within a diagnostic category. LIPID PANEL, STANDARD (1080) Reviewed date:06/28/2024 03:18:59 PM Interpretation: Performing Lab:SURYA, reQwip-Tractione[address] [facility], [place] ClxoCM[address] Venu Chen Notes/Report: NON-FASTING; NON-FASTING; NON-FASTING; NON-FASTING; NON-FAST FASTING:NO FASTING: NO CHOLESTEROL, TOTAL 155 <200 mg/dL HDL CHOLESTEROL 49 > OR = 40 mg/dL TRIGLYCERIDES 130 <150 mg/dL LDL-CHOLESTEROL 83 Reference range: <100 Desirable range <100 mg/dL for primary prevention; <70 mg/dL for patients with CHD or diabetic patients with > or = 2 CHD risk factors. LDL-C is now calculated using the Ryan-Christie calculation, which is a validated novel method providing better accuracy than the Friedewald equation in the estimation of LDL-C. Ryan CHAUDHARI et al. DK. 2013;310(19): 8109-0331 (http://education.CommunityForce.com/faq/DSJ732) CHOL/HDLC RATIO 3.2 <5.0 (calc) NON HDL CHOLESTEROL 106 <130 mg/dL (calc) For patients with diabetes plus 1 major ASCVD risk factor, treating to a non-HDL-C goal of <100 mg/dL (LDL-C of <70 mg/dL) is considered a therapeutic option. COMPREHENSIVE METABOLIC PANE L (85877) Reviewed date:06/28/2024 03:18:59 PM Interpretation: Performing Lab:SURYA reQwip-Nexess [id number] [id number] Venu Chen Notes/Report: NON-FASTING; NON-FASTING; NON-FASTING; NON-FASTING; NON-FAST FASTING:NO FASTING: NO GLUCOSE 385 65-139 mg/dL Verified by repeat analysis. Non-fasting reference interval UREA NITROGEN (BUN) 19 7-25 mg/dL CREATININE 1.10 0.70-1.28 mg/dL EGFR 71 > OR = 60 mL/min/1.73m2 BUN/CREATININE RATIO SEE NOTE: - (calc) Not Reported: BUN and Creatinine are within reference range. SODIUM 139 135-146 mmol/L POTASSIUM 4.5 3.5-5.3 mmol/L CHLORIDE 100 98-110 mmol/L CARBON DIOXIDE 28 20-32 mmol/L CALCIUM 9.6 8.6-10.3 mg/dL PROTEIN, TOTAL 6.8 6.1-8.1 g/dL ALBUMIN 4.0 3.6-5.1 g/dL GLOBULIN 2.8 1.9-3.7 g/dL (calc) ALBUMIN/GLOBULIN RATIO 1.4 1.0-2.5 (calc) BILIRUBIN, TOTAL 0.6 0.2-1.2 mg/dL ALKALINE PHOSPHATASE 127 35-144 U/L AST 7 10-35 U/L ALT 10 9-46 U/L BASIC METABOLIC PANEL (75242 ) Reviewed date:12/30/2023 09:42:37 AM Interpretation: Performing Lab:SURYA reQwip-Nexess [id number] [employer] [facility], [facility] [id number] Venu Chen Notes/Report: NON-FASTING; NON-FASTING GLUCOSE 206 65-99 mg/dL Fasting reference interval For someone without known diabetes, a glucose value >125 mg/dL indicates that they may have diabetes and this should be confirmed with a follow-up test. UREA NITROGEN (BUN) 14 7-25 mg/dL CREATININE 1.10 0.70-1.28 mg/dL EGFR 71 > OR = 60 mL/min/1.73m2 BUN/CREATININE RATIO SEE NOTE: 08-30 (calc) Not Reported: BUN and Creatinine are within reference range. SODIUM 143 135-146 mmol/L POTASSIUM 3.9 3.5-5.3 mmol/L CHLORIDE 101 98-110 mmol/L CARBON DIOXIDE 31 20-32 mmol/L CALCIUM 9.5 8.6-10.3 mg/dL CBC (INCLUDES DIFF/PLT) (639 9) Reviewed date:06/28/2024 03:18:59 PM Interpretation: Performing Lab:SURYA reQwip-Nexess [id number] [facility] [place], [facility] CenterNyljAT[address] Venu Chen Notes/Report: NON-FASTING; NON-FASTING; NON-FASTING; NON-FASTING; NON-FAST FASTING:NO FASTING: NO WHITE BLOOD CELL COUNT 7.9 3.8-10.8 Thousand/ uL RED BLOOD CELL COUNT 5.75 4.20-5.80 Million/uL HEMOGLOBIN 15.8 13.2-17.1 g/dL HEMATOCRIT 49.9 38.5-50.0 % MCV 86.8 80.0-100.0 fL MCH 27.5 27.0-33.0 pg MCHC 31.7 32.0-36.0 g/dL For adults, a slight decrease in the calculated MCHC value (in the range of 30 to 32 g/dL) is most likely not clinically significant; however, it should be interpreted with caution in correlation with other red cell parameters and the patient's clinical condition. RDW 15.3 11.0-15.0 % PLATELET COUNT 230 140-400 Thousand/uL MPV 10.7 7.5-12.5 fL ABSOLUTE NEUTROPHILS 6115 9025-1588 cells/uL ABSOLUTE LYMPHOCYTES 498 268-6929 cells/uL ABSOLUTE MONOCYTES 553 200-950 cells/uL ABSOLUTE EOSINOPHILS 190 15-500 cells/uL ABSOLUTE BASOPHILS 71 0-200 cells/uL NEUTROPHILS 77.4 LYMPHOCYTES 12.3 MONOCYTES 7.0 EOSINOPHILS 2.4 BASOPHILS 0.9 URINALYSIS, COMPLETE (1225) Reviewed date:06/28/2024 03:18:59 PM Interpretation: Performing Lab:SURYA reQwip-Tractione1355 [employer], [facility] CenterIbpoGG[address] Venu Chen Notes/Report: NON-FASTING; NON-FASTING; NON-FASTING; NON-FASTING; NON-FAST FASTING:NO FASTING: NO COLOR YELLOW YELLOW APPEARANCE CLEAR CLEAR SPECIFIC GRAVITY 1.023 1.001-1.035 PH 7.0 5.0-8.0 GLUCOSE 3+ NEGATIVE BILIRUBIN NEGATIVE NEGATIVE KETONES NEGATIVE NEGATIVE OCCULT BLOOD TRACE NEGATIVE PROTEIN 1+ NEGATIVE NITRITE NEGATIVE NEGATIVE LEUKOCYTE ESTERASE NEGATIVE NEGATIVE WBC NONE SEEN < OR = 5 /HPF RBC NONE SEEN < OR = 2 /HPF SQUAMOUS EPITHELIAL CELLS NONE SEEN < OR = 5 /HPF BACTERIA NONE SEEN NONE SEEN /HPF HYALINE CAST NONE SEEN NONE SEEN /LPF NOTE This urine was analyzed for the presence of WBC, RBC, bacteria, casts, and other formed elements. Only those elements seen were reported. HEMOGLOBIN A1c (496) Reviewed date:12/30/2023 09:42:37 AM Interpretation: Performing Lab:SURYA reQwip-Nexess [id number] [employer], [place] [id number] Venu Chen Notes/Report: NON-FASTING; NON-FASTING HEMOGLOBIN A1c 8.6 <5.7 % of total Hgb For someone without known diabetes, a hemoglobin A1c value of 6.5% or greater indicates that they may have diabetes and this should be confirmed with a follow-up test. For someone with known diabetes, a value <7% indicates that their diabetes is well controlled and a value greater than or equal to 7% indicates suboptimal control. A1c targets should be individualized based on duration of diabetes, age, comorbid conditions, and other considerations. Currently, no consensus exists regarding use of hemoglobin A1c for diagnosis of diabetes for children. HEMOGLOBIN A1c (496) Reviewed date:06/28/2024 03:18:59 PM Interpretation: Performing Lab:SURYA reQwip-Nexess [id number] [employer] [facility], [place] [id number] Venu Chen Notes/Report: NON-FASTING; NON-FASTING; NON-FASTING; NON-FASTING; NON-FAST FASTING:NO FASTING: NO HEMOGLOBIN A1c 10.6 <5.7 % For someone without known diabetes, a hemoglobin A1c value of 6.5% or greater indicates that they may have diabetes and this should be confirmed with a follow-up test. For someone with known diabetes, a value <7% indicates that their diabetes is well controlled and a value greater than or equal to 7% indicates suboptimal control. A1c targets should be individualized based on duration of diabetes, age, comorbid conditions, and other considerations. Currently, no consensus exists regarding use of hemoglobin A1c for diagnosis of diabetes for children. Medications Medication SIG (Take, Route, Frequency, Duration) Notes Start Date End Date Status Tamsulosin HCl 0.4 MG 1 cap(s) orally once a day; Duration: 90 days Active Losartan Potassium 50 MG 2 tab(s) orally once a day; Duration: 90 days Active Kerendia 10 MG 1 tab orally once a day; Duration: 90 days 05/20/2023 Active Carvedilol 25 MG 1/2 tab orally 2 times a day; Duration: 90 days Active TRUE METRIX TEST STRIPS N/A 1 TEST STRIP FINGERSTICK TWICE DAILY *Please review for potential replacement for e-prescription and drug interaction check* 10/26/2021 Active TrueTrack Test NA TEST SUGAR DX: E11.9 BID; Duration: 30 DAYS *Please review and pick correct strength-formulati on from [employer] Plus options. If intended option is not shown, discontinue and re-order from Quick Search* 09/17/2017 Active TRUE TRACK LANCETS FOR DIABETIC TESTING BID; Duration: 30 DAYS diagnosis: E11.9 *Please review for potential replacement for e-prescription and drug interaction check* 04/30/2016 Active TRUE TRACK QD; Duration: 1 BOX test strips *Please review for potential replacement for e-prescription and drug interaction check* 04/30/2016 Active busPIRone HCl 10 MG 1 tab(s) orally 2 times a day; Duration: 90 days 02/19/2022 Active Invokana 300 MG 1 tab(s) orally once a day; Duration: 90 days 09/25/2022 Active Eliquis 5 MG Take 1 tablet by mouth twice daily; Duration: 90 Active Rybelsus 7 MG 1 tablet at least 30 minutes before first food, beverage or other oral medicine of the day Orally Once a day; Duration: 90 days 07/02/2024 Active Triamcinolone Acetonide 0.1 % 1 application Externally Two times a Week Active Latanoprost 0.005 % 1 gtt in each eye once a day (in the evening); Duration: 30 days Active Cartia XT 300 MG 1 capsule Orally Once a day Active Levothyroxine Sodium 100 MCG 1 tab(s) orally once a day; Duration: 90 days Active Nystatin 327596 UNIT/GM 1 application Externally 3 TIMES A DAY Active Abilify 5 MG 1 tab(s) orally once a day at bedtime; Duration: 90 days Active Furosemide 40 MG 1 tablet Orally Once a day Active Nitroglycerin 0.4 MG 1 tab(s) sublingually every 5 minutes prn Active LANCET 33 GAUGE- FOR USE WITH DIABETIC TESTING SUPPLIES FINGERSTICK ONCE DAILY *Please review for potential replacement for e-prescription and drug interaction check* Active Omeprazole 20 MG 1 cap(s) orally twice a day; Duration: 90 days Active Pravastatin Sodium 20 MG 1 tab(s) orally once a day; Duration: 90 days Active Magnesium 400MG 1 TABLET ORALLY DAILY *Please review and pick correct strength-formulati on from Sensing [employer] Plus options. If intended option is not shown, discontinue and re-order from Quick Search* Active Centrum THERAPEUTIC MULTIPLE VITAMINS WITH MINERALS 1 TAB(S) ORALLY ONCE A DAY *Please review and pick correct strength-formulati on from [employer] Plus options. If intended option is not shown, discontinue and re-order from Quick Search* Active Immunizations Vaccine Route Administration Date Status Comme nts Adacel (Tdap) IM Intramuscular 11/05/2016 Administered Arexvy IM Intramuscular 12/26/2023 Administered Fluvirin--Influenza vaccine 3+ year Unknown 03/21/2007 Administered Fluvirin--Influenza vaccine 3+ year Unknown 01/28/2008 Administered Fluvirin--Influenza vaccine 3+ year Unknown 01/30/2010 Administered Fluvirin--Influenza vaccine 3+ year Unknown 12/11/2010 Administered Fluvirin--Influenza vaccine 3+ year Unknown 11/27/2011 Administered Fluvirin--Influenza vaccine 3+ year Unknown 02/04/2013 Administered Fluzone High Dose IM Intramuscular 11/25/2018 Administered Fluzone High Dose IM Intramuscular 01/12/2020 Administered Fluzone High Dose IM Intramuscular 11/29/2020 Administered Fluzone High Dose IM Intramuscular 12/14/2021 Administered Fluzone High Dose IM Intramuscular 12/06/2022 Administered Fluzone High Dose IM Intramuscular 12/26/2023 Administered Influenza (Fluzone)--Medicare only IM Intramuscular 11/27/2016 Administered Influenza (Fluzone)--Medicare only IM Intramuscular 11/12/2017 Administered Influenza-Fluzone 3+years (NON-MEDICARE) IM Intramuscular 01/18/2015 Administered Pneumococcal Vaccine Unknown 03/21/2007 Administered Pneumovax 23 IM Intramuscular 12/27/2016 Administered Prevnar PCV-13 (Pneumococcal conjugate 13) IM Intramuscular 12/22/2015 Administered Prevnar PCV-20 (Pneumococcal conjugate 20) IM Intramuscular 03/15/2022 Administered Social History Tobacco Use: Social History Observation Description Date Details (start date - stop date) Never Smoker NA - NA Smoking: Question Answer Notes Are you a: nonsmoker Additional Findings: Tobacco Non-User Current no n-smoker Section Notes: Nonsmoker, No alcohol - live s with his of many years, has no children. 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 Retired from [employer] at [employer] system Nonsmoker, No alcohol - live s with his of many years, has no children. 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 Retired from [employer] at [employer] system Nonsmoker, No alcohol - live s with his of many years, has no children. 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 Nonsmoker, No alcohol - live s with his of many years, has no children. 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 Nonsmoker, No alcohol - live s with his of many years, has no children. 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 Nonsmoker, No alcohol - live s with his of many years, has no children. 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 Nonsmoker, No alcohol - live s with his of many years, has no children. 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 Nonsmoker, No alcohol - live s with his of many years, has no children. 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 Nonsmoker, No alcohol - live s with his of many years, has no children. 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 Nonsmoker, No alcohol - live s with his of many years, has no children. 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 Nonsmoker, No alcohol - live s with his of many years, has no children. 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 Nonsmoker, No alcohol - live s with his of many years, has no children. 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 Nonsmoker, No alcohol - live s with his of many years, has no children. 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 Nonsmoker, No alcohol - live s with his of many years, has no children. 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 Nonsmoker, No alcohol - live s with his of many years, has no children. 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 Nonsmoker, No alcohol - live s with his of many years, has no children. 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 Nonsmoker, No alcohol - live s with his of many years, has no children. 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 Nonsmoker, No alcohol - live s with his of many years, has no children. 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 Nonsmoker, No alcohol - live s with his of many years, has no children. 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 Nonsmoker, No alcohol - live s with his of many years, has no children. 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 Nonsmoker, No alcohol - live s with his of many years, has no children. 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 Nonsmoker, No alcohol - live s with his of many years, has no children. 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 A Problems Problem Type SNOMED Code ICD Code Onset Dates Problem Status W/U Status Risk Notes Problem Diabetic renal disease (979546028) Type 2 diabetes mellitus with diabetic chronic kidney disease (E11.22) Active confirmed Problem Peripheral circulatory disorder associated with diabetes mellitus (010820503) Type 2 diabetes mellitus with other circulatory complications (E11.59) Active confirmed Problem Type II diabetes mellitus without complication (523932231) Type 2 diabetes mellitus without complications (E11.9) Active confirmed Problem Hypertensive heart failure (30360838) Hypertensive heart disease with heart failure (I11.0) Active confirmed Problem Atherosclerotic heart disease of [place] coronary artery without angina pectoris (845687566483993) Atherosclerotic heart disease of [place] coronary artery without angina pectoris (I25.10) Active confirmed Problem Cervicalgia (20482662) Cervicalgia (M54.2) Active confirmed Problem Chronic kidney disease stage 2 (833659252) Chronic kidney disease, stage 2 (mild) (N18.2) Active confirmed Problem Long-term current use of inhaled steroid (060427003) long term care administrator (current) use of inhaled steroids (Z79.51) Active confirmed Problem Sialadenitis (30467495) Sialadenitis (K11.20) Active confirmed Problem Hyperlipidemia (11280650) Hyperlipemia, idiopathic familial (E78.5) Active confirmed Problem Essential hypertension (92986821) Hypertension, essential (I10) Active confirmed Problem Obese class II (333734865971035) BMI 38.0-38.9,adult (Z68.38) Active confirmed Problem Acquired hypothyroidism (769075236) Acquired hypothyroidism (E03.9) Active confirmed Problem Heart failure (04048760) CHF (NYHA class II, ACC/AHA stage C) (I50.9) Active confirmed Problem Mood disorder (96356458) Mood disorder (F39) Active confirmed Problem Recurrent major depression in remission (99337497) Recurrent major depressive disorder, in partial remission (F33.41) Active confirmed Problem Oropharyngeal dysphagia (37962016) Oropharyngeal dysphagia (R13.12) Active confirmed Problem Benign neoplasm of colon (76900348) Adenomatous polyp of colon, unspecified part of colon (D12.6) Active confirmed Problem Inflammation of joint of shoulder region (892862288) Shoulder arthritis (M19.019) Active confirmed Problem Heart failure (94015320) Chronic congestive heart failure, unspecified heart failure type (I50.9) Active confirmed Problem Disorder of lumbar disc (648210902) Lumbar disc disease (M51.9) Active confirmed Problem Chronic atrial fibrillation (disorder) (003078222) Chronic atrial fibrillation, unspecified (I48.20) Active confirmed Problem Chronic atrial fibrillation (295885735) Chronic atrial fibrillation (I48.20) Active confirmed Problem Chronic kidney disease stage 3B (disorder) (507672497) Chronic kidney disease, stage 3b (N18.32) Active confirmed Problem Gastroesophageal reflux disease (626832999) Gastroesophageal reflux disease, unspecified whether esophagitis present (K21.9) Active confirmed Vital Signs Heart Rate 78 /min 07/02/2024 Temperature 98.3 degrees Fahrenheit 07/02/2024 Oximetry 97%RA 10/15/2023 Blood pressure diastolic 68 mm Hg 07/02/2024 Height 5 ft 8.5 in in 07/02/2024 Blood pressure systolic 112 mm Hg 07/02/2024 Weight 205 lbs 07/02/2024 BMI 30.71 kg/m2 07/02/2024 Encounters Encounter Location Date Provider Diagnosis [facility] [address] [facility] [address] [facility] [address] [place] [address] 06/13/2024 Provider Migration Type 2 diabetes mellitus with diabetic chronic kidney disease E11.22 and Acquired hypothyroidism E03.9 [facility] [address] [address] 09/17/2023 Riley Delatorre Type 2 diabetes marissa itus without complications E11.9 ; Hypertension, essential I10 ; Chronic kidney disease, stage II (mild) N18.2 ; Seborrheic keratosis L82.1 ; Cutaneous horn L85.8 and Routine medical exam Z00.[address] [address] 10/15/2023 Riley Delatorre Acute bronchopneumon ia J18.[address] [address] 11/21/2023 Riley Delatorre Fungal infection B49 [facility] [address] [address] 11/28/2023 Riley Delatorre Candidal balanitis B37.[address] [facility] [address] [address] 12/17/2023 Riley Delatorre Cervicalgia M54.2 ; Hypokalemia E87.6 and Hypertension, essential I10 [facility] [address] [place] [address] 12/21/2023 Riley Delatorre Strain of cervical portion of both trapezius muscles S16.1XXA [facility] [address] [address] 12/26/2023 Riley Delatorre Type 2 diabetes marissa itus with diabetic chronic kidney disease E11.22 ; Cervicalgia M54.2 ; Acute non-recurrent sinusitis, unspecified location J01.90 and Immunization(s) administered Z23 [facility] [address] [address] 01/09/2024 Riley Delatorre Gastroesophageal ref lux disease, unspecified whether esophagitis present K21.9 and Chronic atrial fibrillation, unspecified I48.20 [facility] [address] [address] 01/14/2024 Riley Delatorre Esophageal dysphagia R13.[address] [facility] [address] [address] 03/26/2024 Riley Delatorre Hyperlipemia, idiopa thic familial E78.5 ; Hypertension, essential I10 ; Acquired hypothyroidism E03.9 ; Type 2 diabetes mellitus with diabetic chronic kidney disease E11.22 and Right lower quadrant pain R10.31 [facility] [address] [address] 04/09/2024 Riley Delatorre Type 2 diabetes marissa itus with diabetic chronic kidney disease E11.22 and Chronic kidney disease, stage 2 (mild) N18.[address] [facility] [address] [address] 06/25/2024 Riley Delatorre Type 2 diabetes marissa itus with diabetic chronic kidney disease E11.22 ; Acquired hypothyroidism E03.9 and CHF (NYHA class II, ACC/AHA stage C) I50.9 [facility] [address] [place] [address] 07/02/2024 Riley Besson Type 2 diabetes marissa itus with other circulatory complications E11.59 ; Chronic kidney disease, stage 3b N18.32 ; Atherosclerotic heart disease of [place] coronary artery without angina pectoris I25.10 and Chronic atrial fibrillation, unspecified I48.20 [facility] [address] [place] [address] 09/16/2023 Riley Besson [facility] [address] [place] [address] 09/23/2023 Riley Besson [facility] [address] [place] [address] 10/01/2023 Riley Besson [facility] [address] [place] [address] 10/29/2023 Riley Besson [facility] [address] [place] [address] 11/07/2023 Riley Besson [facility] [address] [place] [address] 11/12/2023 Riley Besson [facility] [address] [place] [address] 11/13/2023 Riley Besson Type 2 diabetes marissa itus with other circulatory complications E11.59 and Chronic kidney disease, stage II (mild) N18.2 [facility] [address] [place] [address] 11/25/2023 Riley Besson Acquired hypothyroid ism E03.9 [facility] [address] [place] [address] 12/09/2023 Riley Besson [facility] [address] [place] [address] 12/10/2023 Riley Besson [facility] [address] [place] [address] 12/19/2023 Riley Besson [facility] [address] [place] [address] 12/30/2023 Riley Besson [facility] [address] [place] [address] 12/31/2023 Riley Besson [facility] [address] [place] [address] 01/15/2024 Riley Besson [facility] [address] [place] [address] 02/12/2024 Riley Besson Chronic kidney disea se, stage II (mild) N18.2 [facility] [address] [place] [address] 02/27/2024 Riley Besson [facility] [address] [place] [address] 03/09/2024 Riley Besson [facility] [address] [place] [address] 03/17/2024 Riley Besson [facility] [address] [place] [address] 03/30/2024 Riley Besson [facility] [address] [place] [address] 05/26/2024 Riley Besson [facility] [address] [place] [address] 05/29/2024 Riley Besson [facility] [address] [place] [address] 06/02/2024 Riley Besson Acquired hypothyroid ism E03.9 [facility] [address] [place] [address] 06/09/2024 Riley Besson [facility] [address] [place] [address] 06/15/2024 Riley Besson [facility] [address] [place] [address] 06/16/2024 Riley Besson [facility] [address] [place] [address] 08/05/2024 Riley Besson [facility] [address] [facility] [place] [address] 08/11/2024 Riley Besson Chronic kidney disea se, stage II (mild) N18.2 [facility] [address] [place] [address] 08/31/2024 Rileyjodi Delatorre Assessments Encounter Date Diagnosis (ICD Code) Assessment Notes Treatment Notes Treatment Clinical Notes Section Notes 09/17/2023 Type 2 diabetes mellitus without complications (ICD-10 - E11.9) - Micro-albumin obtained today, continues to be high however improved from prior (80 today, 150 prior). Pt is on appropriate therapy including ACEi/ARB, SGLT2i, and Kerendia. Will check BMP to ensure lyte balance - continue w/ current therapy otherwise 09/17/2023 Hypertension, essential (ICD-10 - I10) - stable, continue w/ current therapy. 11/21/2023 Fungal infection (ICD-10 - B49) - patient with 2 small, clean based ulcers on head of penis, no recent sexual activity - given location in fold, patient having diabetes and being on invokana, suspect fungal at this time PLAN - start nystatin ointment three times daily - stop invokana - follow up in 1 week to assess response to treatment 11/25/2023 Acquired hypothyroidism (ICD-10 - E03.9) 11/28/2023 Candidal balanitis (ICD-10 - B37.42) - presents today for 1 week follow up of balanitis, believed to be candidal - patient is uncircumscribed, has diabetes and was on invokana. Invokana was d/cd and patient was started on nystain cream TID - today patient denies systemic sytems, denies urethral discharge, on exam significant improvement on previously seen ulcers - discussed with patient and that circumcision is not necessary at this time PLAN - cont topical nystatin TID - RTC 4 weeks for follow up 12/17/2023 Cervicalgia (ICD-10 - M54.2) - developed bilateral paraspinal muscle pain in neck, exam consistent with paraspinal muscle tenderness. Had CT scans at [facility] that were normal besides a Chiari I malforation. Pain resolved in ED with diazepam, lidocaine patch, and Tylenol - had normal WBC at [facility], no fever or other concerns for infection Plan - trial methocarbamol. Has regular follow up appt next week 12/17/2023 Hypokalemia (ICD-10 - E87.6) - K 2.8 in the ED. Given IV potassium - on Lasix 40mg BID. Has stopped taking home PO K replacement. On losartan and Kerendia Plan - will recheck K at follow-up next week 10/15/2023 Acute bronchopneumonia (ICD-10 - J18.0) Aggressive therapy with injectable ceftriaxone followed by atypical coverage. Steroid injection to help with air movement. If no improvement in 4 to 5 days call for follow-up appointment and chest x-ray 11/13/2023 Type 2 diabetes mellitus with other circulatory complications (ICD-10 - E11.59) 12/21/2023 Strain of cervical portion of both trapezius muscles (ICD-10 - S16.1XXA) I mixed 2 mL of dexamethasone and 1 mL of lidocaine without epinephrine and did trigger point injections bilaterally in 6 different sites. The sites were along the cervical and shoulder portion of the trapezius. Well-tolerated. Discussed with patient that I would expect improvement in the next 3 to 4 days but also do heating pads. He has an appointment next week with me for follow-up 12/26/2023 Type 2 diabetes mellitus with diabetic chronic kidney disease (ICD-10 - E11.22) Well-controlled at last check. Tolerating meds without w/o side effects. Due for A1c and BMP today. Will personally review labs and adjust meds if needed. 12/26/2023 Cervicalgia (ICD-10 - M54.2) Improved after trigger point injections at last visit 01/09/2024 Gastroesophageal reflux disease, unspecified whether esophagitis present (ICD-10 - K21.9) His pain is a burning mid-chest sensation that worsens after eating which is suggestive of GERD. He takes omeprazole at night. EKG without ischemic changes. Discussed increasing omeprazole to 20mg BID with first dose being on an empty stomach 30min before a meal. Will follow up at his upcoming appointment in January. 04/09/2024 Type 2 diabetes mellitus with diabetic chronic kidney disease (ICD-10 - E11.22) Poor A1c control, add GLP, samples given for 2 months, detailed instructions given about how and when to take the medicine 04/09/2024 Chronic kidney disease, stage 2 (mild) (ICD-10 - N18.2) Kidney function improving. No changes in plan, remain on [place] and SGLT2 06/02/2024 Acquired hypothyroidism (ICD-10 - E03.9) 06/13/2024 Type 2 diabetes mellitus with diabetic chronic kidney disease (ICD-10 - E11.22) 06/13/2024 Acquired hypothyroidism (ICD-10 - E03.9) 06/25/2024 Type 2 diabetes mellitus with diabetic chronic kidney disease (ICD-10 - E11.22) Obtaining labs today including hemoglobin A1C, has not been taking Rybelsus for 3 weeks. Will follow up on Saturday to go over all medications and labs in person. Please bring all medications to appointment. 06/25/2024 Acquired hypothyroidism (ICD-10 - E03.9) 01/14/2024 Esophageal dysphagia (ICD-10 - R13.19) No evidence of active bleeding. Given his weight loss and esophageal symptoms needs EGD. This will be arranged [facility] 02/12/2024 Chronic kidney disease, stage II (mild) (ICD-10 - N18.2) 03/26/2024 Hyperlipemia, idiopathic familial (ICD-10 - E78.5) Chronic, controlled. Continue pravastatin. Repeat lipid panel today. Will personally review all labs. 03/26/2024 Hypertension, essential (ICD-10 - I10) Chronic, controlled. Continue current regimen. 07/02/2024 Type 2 diabetes mellitus with other circulatory complications (ICD-10 - E11.59) Significant elevation of A1c. Patient has been on GLP agents in the past, they became very expensive. He wonders about switching to the pill variety so he does not have to do injections. I gave him 3 mg Rybelsus samples. 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 07/02/2024 Chronic kidney disease, stage 3b (ICD-10 - N18.32) On finerenone, on SGLT2 inhibitor. Will follow closely. 08/11/2024 Chronic kidney disease, stage II (mild) (ICD-10 - N18.2) 07/02/2024 Atherosclerotic heart disease of [place] coronary artery without angina pectoris (ICD-10 - I25.10) No evidence of chest pain. Follows with cardiology 03/26/2024 Acquired hypothyroidism (ICD-10 - E03.9) Chronic, controlled. Repeat TSH pending today. Continue synthroid. 06/25/2024 CHF (NYHA class II, ACC/AHA stage C) (ICD-10 - I50.9) 01/09/2024 Chronic atrial fibrillation, unspecified (ICD-10 - I48.20) EKG in office today showed atrial fibrillation rate controlled with no ischemic changes. On Eliquis. 12/26/2023 Acute non-recurrent sinusitis, unspecified location (ICD-10 - J01.90) Diagnosed by ENT after ED visit - CT scan showed sinus opacification. With headache, was started on Augmentin by ENT. Will follow up with them in 1 week for further evaluation and possible treatment. 11/13/2023 Chronic kidney disease, stage II (mild) (ICD-10 - N18.2) 12/17/2023 Hypertension, essential (ICD-10 - I10) - BP 160/95 in office - on losartan 100mg daily and Coreg 12.5mg BID - has afib, rate in office today approximatley 80-90 Plan - encouraged to keep home log. Will f/u at appt next week 09/17/2023 Chronic kidney disease, stage II (mild) (ICD-10 - N18.2) - Micro-albumin obtained today, continues to be high however improved from prior (80 today, 150 prior). Pt is on appropriate therapy including ACEi/ARB, SGLT2i, and Kerendia. Will check BMP to ensure lyte balance and renal function 09/17/2023 Seborrheic keratosis (ICD-10 - L82.1) - has an upcoming appt with dermatology in the upcoming months. significant hx of sun exposure in the past 12/26/2023 Immunization(s) administered (ICD-10 - Z23) 03/26/2024 Type 2 diabetes mellitus with diabetic chronic kidney disease (ICD-10 - E11.22) Chronic, uncontrolled. Continue Synjardy and repeat A1c today. Albuminuria present, continue ARB and SGLT2i. 07/02/2024 Chronic atrial fibrillation, unspecified (ICD-10 - I48.20) Unclear etiology of whether or not he is actually having A-fib or just feels badly. He follows with cardiology in August. I wonder about his suitability for a Watchman device. I have asked him to talk with his secretary specialist about that. 03/26/2024 Right lower quadrant pain (ICD-10 - R10.31) Subacute, intermittent. Reports ~3 wk hx of intermittent RLQ pain. No redflag symtpoms noted. Having regular BMs every 1-2 days, no blood in stool, and weight stable. No hernia noticed on exam. Potential MSK related pain. Will check CBC and BMP. 09/17/2023 Cutaneous horn (ICD-10 - L85.8) - cutaneous horn in mid chest area, bothersome due to catching into clothes - pt has an upcoming appt with derm surgeon tomorrow - adivsed to discuss removal tomorrw. pt agreeable. 09/17/2023 Routine medical exam (ICD-10 - Z00.00) Overall patient is doing well, labs up-to-date. Has a living will in place, is healthcare surrogate. Fall risk discussed. No evidence of cognitive impairment with 3/3 word recall. Up-to-date with colonoscopy, not a candidate for low-dose CT or AAA screening. Vaccines up-to-date. Plan Of Treatment Pending Test Test Name Order Date N-Digoxin Level 08/23/2011 N-Magnesium 04/08/2007 Urinalysis 03/09/2010 X ray : Spines, Cervical 11/11/2007 N-BMP 08/23/2011 N-CMP 07/02/2008 N-Lipid Panel 07/02/2008 N-HbA1C 07/02/2008 EKG : In House 06/23/2007 EKG : In House 04/26/2010 Physical Therapy 06/25/2017 Physical Therapy 06/04/2014 Speech Therapy Eval and Treatment 2020 [facility] STUDY OF UPPER EXTREMITIES N-PSA Screening 03/21/2007 N-rennin( serum) 04/26/2010 H-CBC with AUTO DIFF 05/08/2017 H-PT/INR 05/08/2017 H-CMP 05/08/2017 H-HGBA1C 05/08/2017 H-HGBA1C 10/02/2016 H-TSH 05/08/2017 H-VANILLYLMANDELIC ACID 04/16/2011 C-URINE CULTURE 01/30/2010 TSH 03/15/2022 CBC With Differential/Platelet 3 Lipid Panel 03/15/2022 Hemoglobin A1c 03/15/2022 Doppler: Duplex Renal Artery 05/07/2011 VMA, Random Urine 10/07/2018 M-Complete Blood Count Auto Diff 08/28/2 018 M-Complete Blood Count Auto Diff 019 M-Comprehensive Metabolic Panel 05/17/19 19 M-Hemoglobin A1C 05/16/2018 M-Cortisol,Random 10/07/2018 URINALYSIS, COMPLETE W/REFLEX TO CULTURE (3020) 06/25/2024 Future Test Test Name Order Date H-BMP 05/02/2016 M-Complete Blood Count Auto Diff 018 M-Comprehensive Metabolic Panel 11/19/19 18 M-Hemoglobin A1C 01/13/2018 M-Lipid Panel 01/13/2018 M-Thyroid Stimulating Hormone 01/13/2018 M-Complete Blood Count Man Dif 0 H-BALCC 01/23/2021 Next Appt Details Provider Name:Riley Delatorre, 10/01/2024 10:00:00 AM, [address], [id number], Insurance Providers Payer Name Payer Address Payer Phone Subscriber Number Group Number Insured Name Patient Relationship to Insured Coverage Start Date Coverage End Date [facility] MEDIC[facility] [address] [address] [place] [address] [id number] Ruben Villatoro Self - patient is the insured [employer] [address] [place] [address] [phone] [id number] Ruben Villatoro Self - patient is the insured Medications Administered Medication Instructions Date of Administration Dosage Notes Bumetanide/Bumex 04/23/2016 1 mg 2ml right gluteus 2ml left gluteus Ceftriaxone 500 12/29/2013 500 mL Ceftriaxone 500 10/15/2023 500 mg Dexamethasone 4mg Injection 10/15/2023 4 mg Triamcinolone Acetonide 40mg Injection 09/22/2018 1 mL Kenalog 01/21/2013 1 Kenalog 12/29/2013 1 mL Promethazine HCL 10/07/2012 50 mg Medical (General) History Medical History History ICD Code Type II DM Hypertension Hyperlipidemia Chest pain syndrome with armen ar LHC in 06/2008 - normal nuclear stress test February 2019 Allergic Rhinitis gerd TKR in summer 2009 atrial fibrillation with rapid ventricul ar response in the past Azotemia w/ hyperkalemia colonoscopy August 2017 with m ultiple tubular adenoma, complicated by bleeding necessitating transfusion and admission -repeat colonoscopy January 2021 with multiple tubular adenoma TIA Surgical History Surgery Date(Month/Year) Left knee replacement One testicle removed colonoscopy 08/2017 salo ear tubes 11/2018 colonoscopy 2020 pre - cancer on scalp 2021 pre-cancer on scalp Hospitalization History Reason Date(Month/Year) dizziness/falling 03/2018 fluid 02/2018 TIA 01/07/2018 post-op bleeding (colonoscopy) 08/2017 fall 06/2017 hyperkalemia 04/2016 Heart problems left knee replacement
--- OUTSIDE RECORDS SUMMARY | 2024-09-05 13:10 | XMS_ITS | Referral Summary ---
Author Organization [employer] Address [address] [place] [address] Care Team Providers Care Wood Cabinetmaker Name Role Phone Riley Delatorre MD Primary Care Provider + [phone] Allergies Active Allergy Reactions Criticality Noted Date Comments Cephalexin High 05/17/2022 Nifedipine Low 05/11/2022 Medications carvediloL (COREG) 25 MG tablet Take 0.5 tablets (12.5 mg total) by mouth 2 (two) times daily. Active dilTIAZem (CARDIZEM CD) 300 MG 24 hr capsule Take 1 capsule (300 mg total) by mouth daily. Active apixaban (ELIQUIS) 5 mg Tab tablet Take 1 tablet (5 mg total) by mouth 2 (two) times daily. Active furosemide (LASIX) 40 MG tablet Take 1 tablet (40 mg total) by mouth 2 (two) times daily. Active fluorouraciL (EFUDEX) 5 % cream fluorouracil 5 % topical cream APPLY A SUFFICIENT AMOUNT TO COVER THE LESIONS IN THE AFFECTED AREA(S) BY TOPICAL ROUTE 2 TIMES PER DAY Active nystatin (MYCOSTATIN) 100,000 unit/gram cream as directed applied topically 3 times a day to affected area for 14 day(s) Active omeprazole (PriLOSEC) 20 MG capsule 1 cap(s) orally twice a day for 90 days Active pravastatin (PRAVACHOL) 20 MG tablet Take 1 tablet (20 mg total) by mouth daily. 3 Active busPIRone (BUSPAR) 10 MG tablet Take 1 tablet (10 mg total) by mouth 2 (two) times daily. 2 Active losartan (COZAAR) 50 MG tablet Take 2 tablets (100 mg total) by mouth daily. 3 Active levothyroxine (SYNTHROID, LEVOTHROID) 100 MCG tablet Take 1 tablet (100 mcg total) by mouth daily. 3 Active acetaminophen (TYLENOL) 500 MG tablet 2 tab(s) orally Q4H prn Active magnesium oxide 400 mg magnesium Cap Take 1 tablet by mouth daily. Active tamsulosin (FLOMAX) 0.4 mg Cap 24 hr capsule Take 1 capsule (0.4 mg total) by mouth daily. 3 Active True Metrix Glucose Test Strip Strp 1 strip 2 (two) times daily. 3 Active latanoprost (XALATAN) 0.005 % ophthalmic solution 1 drop nightly. 3 Active TRUEplus Lancets 33 gauge Misc Apply 1 Lancet topically 2 (two) times daily. 3 Active finerenone (Kerendia) 10 mg Tab Take 1 tablet by mouth daily. 4 Active ARIPiprazole (ABILIFY) 5 MG tablet Take 1 tablet (5 mg total) by mouth nightly. 4 Active Invokana 300 mg tablet Take 1 tablet (300 mg total) by mouth daily. 4 Active empagliflozin-me tformin (Synjardy XR) 25-1,000 mg TBph Take 1 tablet by mouth daily. Active multivit-min/fol ic/vit K/lycop (MEN'S 50 PLUS MULTIVITAMIN ORAL) Take 1 tablet by mouth daily. Active amiodarone (PACERONE) 200 MG tablet Take 1 tablet (200 mg total) by mouth every other day. Active ammonium lactate (AMLACTIN) 12 % cream Apply topically 2 (two) times daily. 5 Active semaglutide (Rybelsus) 3 mg tab 1 tab(s) orally once a day for 30 day(s) 5 Active Active Problems Problem Noted Date Diagnosed Date Atrial fibrillation 12/29/2020 Chronic kidney disease 12/29/2020 Congestive heart failure 12/29/2020 Diabetes mellitus 12/29/2020 Hyperlipidemia 12/29/2020 Hypertension 12/29/2020 Hypothyroidism 12/29/2020 Social History Tobacco Use Types Packs/Day Years Used Date Smoking Tobacco: Former Smokeless Tobacco: Current Tobacco Cessation:Counseling Given: No Alcohol Use Standard Drinks/Week Comments Never 0 (1 standard drink = 0.6 oz pur e alcohol) Caffeine Use Family and Community Support Answer Pasquale e Recorded Help with Day to Day Activities Not on file 03/29/2023 Feeling Lonely or Isolated Not on file 03/29 Educational Attainment Answer Date Israel rded Speak language other than [place] at home Not on file 03/29/2023 Want help with school or training Not on file 03/29/2023 Substance Use Answer Date Recorded Used prescription meds for non-medical reasons N ot on file 03/29/2023 Used illegal drugs past 12 months Not on file 03/29/2023 Sex and Gender Information Value Date Recorded Sex Assigned at Not on file Legal Sex Male 5:41 PM CDT Gender Identity Not on file Sexual Orientation Not on file Last Filed Vital Signs Vital Sign Reading Time Taken Comments Blood Pressure 154/80 05/21/2024 11:00 AM EDT Pulse 75 05/21/2024 11:00 AM EDT Temperature - - Respiratory Rate 20 05/21/2024 11:00 AM EDT Oxygen Saturation 98% 05/21/2024 11:00 AM EDT Inhaled Oxygen Concentration - - Weight 94.3 kg (208 lb) 05/21/2024 11:00 AM EDT Height 172.7 cm (5' 8 ) 05/21/2024 11:00 AM EDT Body Mass Index 31.63 05/21/2024 11:00 AM EDT Plan of Treatment Upcoming Encounters Date Type Department Care Team (Late st Contact Info) Description 11/23/2024 9:00 AM EDT Office Visit [facility] Cardiology - [address] [place] [address] Chung Brock MD [address] [facility] [address] [place] [address] Insurance [facility] MEDIC[facility] PPO Care Teams Wood Cabinetmaker Relationship Specialty Start Date End Date Riley Delatorre MD [address] [place] [address] PCP - General Adolescent Medicine 05/17/22
--- OUTSIDE RECORDS SUMMARY | 2024-09-05 13:10 | XMS_ITS | Clinical Summary ---
Author Organization [employer] Address [address] [place] [address] Care Team Providers Care Houseperson Name Role Phone Riley Delatorre MD Primary Care Provider + [phone] Allergies Active Allergy Reactions Criticality Noted Date [...] 12/29/2020 Hyperlipidemia 12/29/2020 Hypertension 12/29/2020 Hypothyroidism 12/29/2020 Family History Medical History Relation Name Comments Cancer Father Kiera Earlywinnir Lung Diabetes Father Kiera Earlywine Lung cancer Father Kiera Earlywine Thyroid disease Father Kiera Earlywinnir Atrial fibrillation Mother Relation Name Status Comments Father Kiera Oates Mother Social History Tobacco Use Types Packs/Day Years [...] Date Israel rded Speak language other than Mauritanian at home Not on file 03/29/2023 Want [...] Description 11/23/2024 9:00 AM EDT Office Visit [facility] Cardiology - [address] [phone] Chung Brock MD [address] [facility] [address] [place] [address] Health Maintenance Due Date Last Done Comments Medicare Initial AWV [id number] CT Colonography 1950 Colonoscopy 1950 Colorectal Cancer Screening 1950 Diabetic Kidney Health Evalu ation (KED) 1950 FOBT/FIT 1950 Fit-DNA (Cologuard) 1950 Sigmoidoscopy 1950 Diabetic Eye Exam 1960 Diabetic foot exam 1960 Depression Screening (12+) 1962 Tobacco Cessation Counseling and Screening (12+) 1962 Hepatitis C Screening 1968 Abdominal Aortic Aneurysm (A AA) Screen 08/26/2015 Hemoglobin A1C 05/11/2022 COVID-19 VACCINE (2023-2 5 season) 2023 02/01/2021, 06/09/2020, 05/12/2020 Falls Risk Screening 03/11/2024 Influenza Vaccine (Season Ended) 2024 11/29/2020, 01/12/2020, 11/25/2018, Additional history exists Respiratory Syncytial Virus (RSV) Adult or (1 - 1-dose 75+ series) 2025 DTAP/TDAP/TD VACCINES (3 - T d or Tdap) 11/28/2027 11/27/2017, 11/05/2016 Pneumococcal 50+ years Completed 12/27/2016, 2015 Shingles Vaccine (Zoster) Completed 07/23/2022, Insurance [facility] MEDICARE PPO Care Teams Houseperson Relationship Specialty Start Date End Date Riley Delatorre MD [address] [place] [address] PCP - General Adolescent Medicine 05/17/22
--- OUTSIDE RECORDS SUMMARY | 2024-09-05 13:10 | XMS_ITS | Data Portability ---
Author Organization [facility], [place] [facility] Address [address] [facility] [address] [place] [address] Care Team Providers Care Security Flex Utility Officer Name Role Phone MICKI SUMMERS Primary Care Provider Assessment No assessment recorded. Plan of Treatment Reminders Order Date Submit Date Provider Last Modified By Organization Details Last Modified Time Details Appointments None recorded. Lab None recorded. Referral None recorded. Procedures None recorded. Surgeries None recorded. Imaging event monitor 2018 019 [facility], [address] [facility], [facility], [place], [address], 9 15:13:08 electrocar diogram 2018 019 [email or web address] Not available 9 10:52:52 Medication Orders lisinopril 20 mg tablet 2018 019 INTERFACE [facility], [address] [place] [address], [address], 9 12:54:55 Patient TargetsNo targets recorded. Patient InstructionsNo instructions recorded. Reason for Referral None Reported. Results Created Date Observation Date Name Description Value Unit Range Abnormal Flag Note LastModifiedBy Organization Detail LastModifiedTime 02/17/2002/16/2019 CBC w/ auto diff white blood cells 8.9 K/uL 3.8-10 .8 normal Not Available [facility] [address] [facility], [place], [address], 02/16/2019 13:03:39 02/17/20 19 02/16/2019 CBC w/ auto diff red blood cells 3.91 M/uL 4.20-5 .80 low Not Available [facility] [address] [place] [address], [address], 02/16/2019 13:03:39 02/17/20 19 02/16/2019 CBC w/ auto diff hemoglobin 11.9 g/dL 14.0-1 8.0 low Not Available [facility] [address] [place] [address], [address], 02/16/2019 13:03:39 02/17/20 19 02/16/2019 CBC w/ auto diff hematocrit 35.1 % 40.0-5 2.0 low Not Available [facility] [address] [place] [address], [address], 02/16/2019 13:03:39 02/17/20 19 02/16/2019 CBC w/ auto diff MCV 90 fL 80-100 normal Not Available [facility] [address] [place] [address], [address], 02/16/2019 13:03:39 02/17/20 19 02/16/2019 CBC w/ auto diff MCH 30 pg 26-35 normal Not Available [facility] [address] [place] [address], [address], 02/16/2019 13:03:39 02/17/20 19 02/16/2019 CBC w/ auto diff MCHC 34 g/dL 32-36 normal Not Available [facility] [address] [place] [address], [address], 02/16/2019 13:03:39 02/17/20 19 02/16/2019 CBC w/ auto diff RDW 16.2 % 11.0-1 5.0 high Not Available [facility] [address] [place] [address], [address], 02/16/2019 13:03:39 02/17/20 19 02/16/2019 CBC w/ auto diff MPV 8.0 fL 6.2-10 .5 normal Not Available [facility] [address] [place] [address], [address], 02/16/2019 13:03:39 02/17/20 19 02/16/2019 CBC w/ auto diff platelet count 240 K/uL 130-40 0 normal Not Available [facility] [address] [place] [address], [address], 02/16/2019 13:03:39 02/17/20 19 02/16/2019 CBC w/ auto diff neutrophil,a bsolute 6.8 K/uL 1.6-8. 4 normal Not Available [facility] [address] [place] [address], [address], 02/16/2019 13:03:39 02/17/20 19 02/16/2019 CBC w/ auto diff lymphocyte,a bsolute 0.8 K/uL 0.4-5. 1 normal Not Available [facility] [address] [place] [address], [address], 02/16/2019 13:03:39 02/17/20 19 02/16/2019 CBC w/ auto diff monocyte,abs olute 1.0 K/uL 0.0-1. 2 normal Not Available [facility] [address] [place] [address], [address], 02/16/2019 13:03:39 02/17/20 19 02/16/2019 CBC w/ auto diff eosinophil,a bsolute 0.2 K/uL 0.0-0. 8 normal Not Available [facility] [address] [place] [address], [address], 02/16/2019 13:03:39 02/17/20 19 02/16/2019 CBC w/ auto diff basophil,abs olute 0.1 K/uL 0.0-0. 3 normal Not Available [facility] [address] [place] [address], [address], 02/16/2019 13:03:39 02/17/20 19 02/16/2019 CBC w/ auto diff % neutrophils 76.7 % 42.0-7 8.0 normal Not Available [facility] [address] [place] [address], [address], 02/16/2019 13:03:39 02/17/20 19 02/16/2019 CBC w/ auto diff % lymphocytes 9.0 % 11.0-4 7.0 low Not Available [facility] [address] [place] [address], [address], 02/16/2019 13:03:39 02/17/20 19 02/16/2019 CBC w/ auto diff % monocytes 10.7 % 0.0-11 .0 normal Not Available [facility] [address] [place] [address], [address], 02/16/2019 13:03:39 02/17/20 19 02/16/2019 CBC w/ auto diff % eosinophils 2.5 % 0.0-7. 0 normal Not Available [facility] [address] [place] [address], [address], 02/16/2019 13:03:39 02/17/20 19 02/16/2019 CBC w/ auto diff % basophils 1.1 % 0.0-3. 0 normal Not Available [facility] [address] [place] [address], [address], 02/16/2019 13:03:39 02/17/20 19 02/16/2019 CBC w/ auto diff nucleated red cells 0.0 % 0.0-0. 9 normal Not Available [facility] [address] [place] [address], [address], 02/16/2019 13:03:39 02/17/20 19 02/16/2019 CBC w/ auto diff nucleated RBCs, absolute 0.00 K/uL not estab. normal Not Available [facility] [address] [place] [address], [address], 02/16/2019 13:03:39 02/17/20 19 02/16/2019 BNP (B-ty pe natri ureti c pepti de), serum or plasm a BNP 312 pg/mL 5-100 high Blood raza ntrat ions of Brain Natri ureti c Pepti de (BNP) may be eleva andrea in patie nts who are exper ienci ng a heart attac k, patie nts that are mohamud dates for renal dialy sis, and patie nts that have had renal dialy sis. The BNP test shoul d not be used as absol [place] nce for CHF. Resul ts shoul d be inter prete d along with clini lalitha findi ngs and other labor atory test resul ts. Not Available [facility] [address] [place] [address], [address], 02/16/2019 13:40:13 02/17/20 19 02/16/2019 CMP, serum or plasm a glucose 95 mg/dL 74-100 normal Not Available [facility] [address] [place] [address], [address], 02/16/2019 15:09:48 02/17/20 19 02/16/2019 CMP, serum or plasm a blood urea nitrogen 13 mg/dL 6-20 normal Not Available [facility] [address] [place] [address], [address], 02/16/2019 15:09:48 02/17/20 19 02/16/2019 CMP, serum or plasm a creatinine 1.19 mg/dL 0.70-1 .25 normal Not Available [facility] [address] [place] [address], [address], 02/16/2019 15:09:48 02/17/20 19 02/16/2019 CMP, serum or plasm a BUN/creatini ne ratio 11 (calc ) 10-20 normal Not Available [facility] [address] [place] [address], [address], 02/16/2019 15:09:48 02/17/20 19 02/16/2019 CMP, serum or plasm a sodium 141 mmol/ L 136-14 5 normal Not Available [facility] [address] [place], [address], 02/16/2019 15:09:48 02/17/20 19 02/16/2019 CMP, serum or plasm a potassium 4.4 mmol/ L 3.4-5. 0 normal Not Available [facility] [address] [place] [address], [address], 02/16/2019 15:09:48 02/17/20 19 02/16/2019 CMP, serum or plasm a chloride 104 mmol/ L 98-107 normal Not Available [facility] [address] [place] [address], [address], 02/16/2019 15:09:48 02/17/20 19 02/16/2019 CMP, serum or plasm a carbon dioxide 25 mmol/ L 20-32 normal Not Available [facility] [address] [place] [address], [address], 02/16/2019 15:09:48 02/17/20 19 02/16/2019 CMP, serum or plasm a anion gap 12 (calc ) 7-25 normal Not Available [facility] [address] [place] [address], [address], 02/16/2019 15:09:48 02/17/20 19 02/16/2019 CMP, serum or plasm a calcium 9.4 mg/dL 8.6-10 .2 normal Not Available [facility] [address] [place] [address], [address], 02/16/2019 15:09:48 02/17/20 19 02/16/2019 CMP, serum or plasm a total protein 6.6 g/dL 6.4-8. 3 normal Not Available [facility] [address] [place] [address], [address], 02/16/2019 15:09:48 02/17/20 19 02/16/2019 CMP, serum or plasm a albumin 3.7 g/dL 3.5-5. 2 normal Not Available [facility] [address] [place] [address], [address], 02/16/2019 15:09:48 02/17/20 19 02/16/2019 CMP, serum or plasm a globulin 2.9 g/dL_ (calc ) 1.5-4. 5 normal Not Available [facility] [address] [place] [address], [address], 02/16/2019 15:09:48 02/17/20 19 02/16/2019 CMP, serum or plasm a albumin/glob ulin ratio 1.3 (calc ) 1.1-2. 5 normal Not Available [facility] [address] [place] [address], [address], 02/16/2019 15:09:48 02/17/20 19 02/16/2019 CMP, serum or plasm a bilirubin, total 0.5 mg/dL 0.1-1. 2 normal Not Available [facility] [address] [place] [address], [address], 02/16/2019 15:09:48 02/17/20 19 02/16/2019 CMP, serum or plasm a alkaline phosphatase 98 U/L 40-130 normal Not Available [facility] [address] [place] [address], [address], 02/16/2019 15:09:48 02/17/20 19 02/16/2019 CMP, serum or plasm a AST 15 U/L 0-40 normal Not Available [facility] [address] [place] [address], [address], 02/16/2019 15:09:48 02/17/20 19 02/16/2019 CMP, serum or plasm a ALT 34 U/L 0-41 normal Not Available [facility] [address] [place] [address], [address], 02/16/2019 15:09:48 02/17/20 19 02/16/2019 CMP, serum or plasm a GFR 72 >= 60 normal Not Available [facility] [address] [place], [address], 02/16/2019 15:09:48 02/17/2002/16/2019 CMP, serum or plasm a GFR non- 62 >= 60 normal NOT E NEW calcu latio n for GFR is based on the Natio nal Kidne y Found ation CKD-E PI equat ion and allow s for repor ting GFR value s great er than 60 mL/mi n/1.7 3 m2. This calcu latio n has not been valid ated for patie nts less than 18 yrs., pregn ant women and Hispa nics. Chron ic kidne y disea se is defin ed as kidne y damag e or GFR less than 60 mL/mi n/1.7 3 m2 for 3 month s or longe r. Not Available [facility] [address] [place], [address], 02/16/2019 15:09:48 06/03/19 19 05/30/2018 elect peng [email or web address] am No observ ation record ed. [email or web address] [facility] [address], [place], [address], 06/02/2018 09:15:04 06/07/19 19 03/12/2018 trans -thor acic echoc ardio gram (TTE) (PROC ) No observ ation record ed. BARCODE Not Available 2018 15:59:59 02/13/20 19 02/11/2019 elect peng sanz am No observ ation record ed. [email or web address] Cardiology [facility] [address], [place], [address], 02/12/2019 10:33:17 02/17/20 19 03/08/2019 cardi ac telem etry No observ ation record ed. [email or web address] [facility] [address], [place], [address], 04/15/2019 10:17:12 02/17/20 19 03/08/2019 cardi ac telem etry No observ ation record ed. [email or web address] [facility] [address], [place], [address], 04/15/2019 10:17:12 02/19/20 19 03/08/2019 cardi ac telem etry No observ ation record ed. [email or web address] [facility] [address], [place], [address], 04/15/2019 10:17:12 02/20/20 19 03/08/2019 cardi ac telem etry No observ ation record ed. [email or web address] [facility] [address], [place], [address], 04/15/2019 10:17:12 02/21/20 19 03/08/2019 cardi ac telem etry No observ ation record ed. [email or web address] [facility] [address], [place], [address], 04/15/2019 10:17:11 02/22/20 19 03/08/2019 cardi ac telem etry No observ ation record ed. [email or web address] [facility] [address], [place], [address], 04/15/2019 10:17:11 02/23/20 19 03/08/2019 cardi ac telem etry No observ ation record ed. [email or web address] [facility] [address], [place], [address], 04/15/2019 10:17:11 02/24/20 19 03/08/2019 cardi ac telem etry No observ ation record ed. [email or web address] [facility] [address], [place], [address], 04/15/2019 10:17:10 02/25/20 19 03/08/2019 cardi ac telem etry No observ ation record ed. [email or web address] [facility] [address], [place], [address], 04/15/2019 10:17:10 02/26/20 19 03/08/2019 cardi ac telem etry No observ ation record ed. [email or web address] [facility] [address], [place], [address], 04/15/2019 10:17:10 02/27/20 19 03/08/2019 cardi ac telem etry No observ ation record ed. [email or web address] [facility] [address], [place], [address], 04/15/2019 10:17:10 02/28/20 19 03/08/2019 cardi ac telem etry No observ ation record ed. [email or web address] [facility] [address], [place], [address], 04/15/2019 10:17:09 02/29/20 19 03/08/2019 cardi ac telem etry No observ ation record ed. [email or web address] [facility] [address], [place], [address], 04/15/2019 10:17:09 03/01/20 19 03/08/2019 cardi ac telem etry No observ ation record ed. [email or web address] [facility] [address], [place], [address], 04/15/2019 10:17:09 03/02/20 19 03/08/2019 cardi ac telem etry No observ ation record ed. [email or web address] [facility] [address], [place], [address], 04/15/2019 10:17:08 03/03/20 19 03/08/2019 cardi ac telem etry No observ ation record ed. [facility] [address], [place], [address], 04/15/2019 10:17:08 03/04/20 19 03/08/2019 cardi ac telem etry No observ ation record ed. [email or web address] [facility] [address], [place], [address], 04/15/2019 10:17:08 03/05/20 19 03/08/2019 cardi ac telem etry No observ ation record ed. [email or web address] [facility] [address], [place], [address], 04/15/2019 10:17:07 03/06/20 19 03/08/2019 cardi ac telem etry No observ ation record ed. [email or web address] [facility] [address], [place], [address], 04/15/2019 10:17:07 03/07/20 19 03/08/2019 cardi ac telem etry No observ ation record ed. [email or web address] [facility] [address], [place], [address], 04/15/2019 10:17:07 03/08/20 19 03/08/2019 cardi ac telem etry No observ ation record ed. [email or web address] [facility] [address], [place], [address], 04/15/2019 10:17:07 03/09/20 19 03/08/2019 cardi ac telem etry No observ ation record ed. [email or web address] [facility] [address], [place], [address], 04/15/2019 10:17:06 03/10/20 19 03/08/2019 cardi ac telem etry No observ ation record ed. [employer] [address], [place], [address], 04/15/2019 10:17:06 03/10/20 19 02/16/2019 event monit or No observ ation record ed. [email or web address] Liss Voss MD [address] [facility] [address], [place], [address], 03/10/2019 15:13:08 Result Notes None recorded. Problems Name Problem SNOMED Code Status Onset Date Resolution Date Notes Provider Name and Address Organization Details Recorded Time Atrial fibrilla tion 34768896 Completed 201507/20/2016 From Automate d Load;Pro vider: Liss Voss;Sta tus: Active LISS VOSS MD [address] [place] [address], [address] , [facility] 7 08:43:59 Hyperlip idemia 38966566 Active 2015 From Automate d Load;Pro vider: Edgardo VossSta tus: Active Not Available [facility] 6 09:41:23 Endogeno us lipoid pneumoni tis 14729482 Completed 201508/17/2016 From Automate d Load;Pro vider: Liss Voss;Sta tus: Active LISS VOSS MD [address] [place] [address], [address] , [facility] 7 08:44:48 Actinic keratosi s 836729594 Active 2015 From Automate d Load;Pro vider: Mahendra Baker tatus: Active Not Available [facility] 6 09:41:23 Itching 569647081 Active 2015 From Automate d Load;Pro vider: Mahendra Baker tatus: Active Not Available [facility] 6 09:41:23 Persiste nt atrial fibrilla tion 175649411 Completed 201507/20/2016 From Automate d Load;Pro vider: Liss Voss;Sta tus: Active LISS VOSS MD [address] [place] [address], [address] , [facility] 7 08:43:55 Paroxysm al atrial fibrilla tion 601764203 Active 2016 LISS VOSS MD [address] [place] [address], [phone] , [facility] 7 09:35:11 Automati c implanta ble cardiac defibril lator in situ 105268954 Completed 201604/20/2016 LISS VOSS MD [address] [place] [address], [phone] , [facility] 7 10:29:34 Long-ter m drug therapy Active 2016 Amiodaro ne LISS VOSS MD [address] [place] [address], [address] , [facility] 7 08:44:14 Anticoag ulant therapy Active 2016 Eliquis LISS VOSS MD [address] [place] [address], [address] , [facility] 7 08:45:02 [facility] hyperten adan 97559366 Active 2016 LISS VOSS MD [address] [place] [address], [phone] , [facility] 7 08:44:43 Problem Notes None recorded. Procedures Surgical History Date Name Laterality Status Provider Name and Address Organization Details Recorded Time 02/17/20 19 Stress Test - Nuclear Lexiscan completed LISS VOSS MD [address] [place] [address], [phone], [facility] 02/16/2019 16:57:25 09/21/19 18 EKG completed CADE MCGHEE PA-C [address] [place] [address], [address], [facility] 09/20/2017 11:55:55 07/23/19 18 EKG completed CADE MCGHEE PA-C [address] [place] [address], [address], [facility] 07/22/2017 15:56:51 09/09/19 15 Cardioversion completed Ellen Villa [facility] 04/18/2016 15:56:01 03/11/19 13 Cardiac Catheterization completed Aarti Gunn [facility] [place] 07/20/2016 08:41:47 06/30/19 09 Cardiac Catheterization completed Ellen Villa [facility] 04/18/2016 15:56:33 colonoscopy completed Val Conner [facility] [email or web address] 01/01/2018 09:37:00 Other completed Aarti Gunn [facility] 04/12/2016 14:27:34 Other completed Aarti [facility] 04/12/2016 14:27:54 Imaging Results None recorded. Procedure Notes None recorded. Medical Equipment None Reported. Allergies No known drug allergies Medications Name Sig Start Date Stop Date Status Note LastModified by Organization Details LastModified Time Compound Gentamici n 80 mg - Mupirocin 20 mg - Budesonid e 1 mg capsules #60 active Not Available Not Available Not Available losartan 50 mg tablet Take 1 tablet every day by oral route. 09/20 completed Not Available Not Available Not Available furosemid e 40 mg tablet Take 1 tablet twice a day by oral route. 2018 active Not Available Not Available Not Avai lable latanopro st 0.005 % eye drops INSTILL 1 DROP INTO AFFECTED EYE(S) BY OPHTHALM IC ROUTE ONCE DAILY INTHE EVENING active Not Available Not Available No t Available carvedilo l 25 mg tablet Take 1 tablet by mouth twice daily 2019 active Not Available Not Available Not Avai lable carvedilo l 12.5 mg tablet Two times a day 08/17 completed Instruct ions: TAKE ONE TABLET BY MOUTH TWICE DAILY;Fr equency: bid;Medi cation Descript ion: carvedil ol; Dosage:1 ; Route:or al; refills: 12; Quantity :60 tablet Not Available Not Available Not Available Cardura 8 mg tablet Two times a day 04/20 completed Frequenc y: bid;Medi cation Descript ion: doxazosi n; Dosage:1 /2; Route:or al; refills: 3; Quantity :90 tablet Not Available Not Available Not Available citalopra m 40 mg tablet Daily 09/20 completed Frequenc y: daily;Me dication Descript ion: citalopr am; Dosage:1 ; Route:or al; refills: 0; Quantity :30 tablet Not Available Not Available Not Available Cardura 4 mg tablet Take 1 tablet twice a day by oral route. active Not Available Not Available No t Available Cartia XT 300 mg capsule,e xtended release Take 1 capsule every day by oral route. active Not Available Not Available No t Available amiodaron e 200 mg tablet Take 1.5 tablets every day by oral route as directed for 90 days. 2019 active Not Available Not Available Not Avai lable meloxicam 15 mg tablet Take 1 tablet every day by oral route. 06/30 completed Not Available Not Available Not Available lisinopri l 20 mg tablet Take 1 tablet every day by oral route. 2018 active Not Available Not Available Not Avai lable fluoroura cil 5 % topical cream APPLY A SUFFICIE NT AMOUNT TO COVER THE LESIONS IN THE AFFECTED AREA(S) BY TOPICAL ROUTE 2 TIMES PER DAY active Not Available Not Available No t Available aspirin 81 mg tablet,de layed release Take 1 tablet every day by oral route. 01/01 completed Not Available Not Available Not Available spironola ctone 25 mg tablet Take 1 tablet every day by oral route. 06/30 completed Not Available Not Available Not Available levothyro xine 100 mcg tablet Take 1 tablet every day by oral route. active Not Available Not Available No t Available citalopra m 20 mg tablet Take 1 tablet every day by oral route. 01/01 completed Not Available Not Available Not Available potassium chloride ER 20 mEq tablet,ex tended release(p art/cryst ) Two times a day 04/20 completed Instruct ions: TAKE ii TABS BY MOUTH TWICE DAILY;Fr equency: bid;Medi cation Descript ion: potassiu m chloride ; Dosage:2 ; Route:or al; refills: 5; Quantity :180 tablet, extended release Not Available Not Available Not Available imiquimod 5 % topical cream packet 04/20 completed Duration : 120 days;Ins truction s: Apply to rough areas on forearms twice weekly for 16 weeks.;M leoncio sanders Descript ion: imiquimo d topical; Route:to pical; refills: 3; Quantity :24 cream Not Available Not Available Not Available meclizine 25 mg tablet Three times a day 01/01 completed Duration : 30 days;Miles quency: tid;Alt Frequenc y: prn;Medi cation Descript ion: meclizin e; Dosage:1 ; Route:or al; refills: 2; Quantity :90 tablet Not Available Not Available Not Available diazepam 2 mg tablet Take 1 tablet twice a day by oral route. 01/01 completed Not Available Not Available Not Available Lasix 20 mg tablet Two times a day 09/20 completed Duration : 30 days;Miles quency: bid;Medi cation Descript ion: furosemi de; Dosage:1 ; Route:or al; refills: 5; Quantity :30 tablet Not Available Not Available Not Available Catapres 0.1 mg tablet Two times a day 04/20 completed Frequenc y: bid;Medi cation Descript ion: clonidin e; Dosage:1 ; Route:or al; refills: 5; Quantity :60 tablet Not Available Not Available Not Available Coricidin 2 mg-325 mg tablet As Directed 09/20 completed Frequenc y: as direct.; Alt Frequenc y: prn;Medi cation Descript ion: acetamin ophen-ch lorpheni ramine; Route:or al; refills: 0; Quantity :6 tablet Not Available Not Available Not Available nitroglyc geneva 0.4 mg sublingua l tablet DISSOLVE ONE TABLET UNDER THE TONGUE EVERY 5 MINUTES NEEDED FOR CHEST PAIN. DO NOT EXCEED A TOTAL OF 3 DOSES IN 15 MINUTES. If no relief, call 911. 2017 active Not Available Not Available Not Avai lable omeprazol e 20 mg capsule,d elayed release Daily 2008 active Frequenc y: daily;Me dication Descript ion: omeprazo le; Dosage:1 ; Route:or al; refills: 0 Not Available Not Available Not Available pravastat in 20 mg tablet Bedtime active Frequenc y: hs;Medic ation Descript ion: pravasta tin; Route:or al; refills: 0 Not Available Not Available Not Available lisinopri l 5 mg tablet Take 1 tablet every day by oral route. 05/30 completed Not Available Not Available Not Available hydrochlo rothiazid e 25 mg tablet Take 1 tablet every day by oral route. 06/06 completed Not Available Not Available Not Available lisinopri l 40 mg tablet Daily 04/20 completed Instruct ions: 1, daily;Fr equency: daily;Me dication Descript ion: lisinopr il; Dosage:1 ; Route:or al; refills: 1; Quantity :90 tablet Not Available Not Available Not Available losartan 100 mg tablet Take 1 tablet every day by oral route. active Not Available Not Available No t Available Tylenol Extra Strength 500 mg tablet 09/20 completed Alt Frequenc y: prn as dir;Medi cation Descript ion: acetamin ophen; Route:or al; refills: 0 Not Available Not Available Not Available amiodaron e 300 mg tablet Take 1 tablet every day by oral route. active Not Available Not Available No t Available clonidine PRN sysBP.17 0, BID 02/16 completed Not Available Not Available Not Available amiodaron e 09/20 completed Not Available Not Available Not Available albuterol sulfate 2 puffs four times a day active Not Available Not Available No t Available Tylenol prn active Not Available Not Avail able Not Available Klor-Con 20meq QD active Not Available Not Av ailable Not Available Corin prn 02/11 completed Not Available Not Available Not Available multivita min Daily active Frequenc y: daily;Me dication Descript ion: multivit erwin; Dosage:1 ; Route:or al; refills: 0; Quantity :30 tablet Not Available Not Available Not Available ProAir HFA 90 mcg/actua tion aerosol inhaler As Directed 09/20 completed Frequenc y: as direct.; Alt Frequenc y: prn;Medi cation Descript ion: albutero l; Dosage:2 inhalati ons; Route:in halation ; refills: 0 Not Available Not Available Not Available Januvia 50 mg tablet Take 1 tablet every day by oral route. active Not Available Not Available No t Available Janumet 50 mg-1,000 mg tablet Bedtime 06/06 completed Frequenc y: hs;Medic ation Descript ion: metformi n-sitagl iptin; Route:or al; refills: 0 Not Available Not Available Not Available exenatide microsphe res 2mg 01/01 completed Not Available Not Available Not Available sitaglipt in phos 50 mg-metfor min ER 1,000 mg tablet,ex tend rel 24h mp Take 1 tablet every day by oral route. 04/20 completed Not Available Not Available Not Available Eliquis 5 mg tablet Take 1 tablet twice a day by oral route. active Not Available Not Available No t Available Eliquis 2.5 mg tablet Take 1 tablet twice a day by oral route. 03/15 completed Not Available Not Available Not Available Eliquis 02/16 completed Mailed samples of Eliquis 5mgLot: [id number] Exp: boxes Not Available Not Available Not Available Entresto 49 mg-51 mg tablet Take 1 tablet twice a day by oral route. 06/20 completed Not Available Not Available Not Available Citrucel qd active Not Available Not Avai lable Not Available Bydureon BCise 2 mg/0.85 mL subcutane ous auto-inje ctor Inject by subcutan eous route. 09/20 completed Not Available Not Available Not Available magnesium 400 mg (as magnesium oxide) tablet Take 1 tablet every day by oral route. active Not Available Not Available No t Available Vitals Date Recorded Body height Body mass index (BMI) Body weight Heart rate Oxygen saturation Oxygen saturation in Arterial blood by Pulse oximetry Systolic blood pressure Diastolic blood pressure Provider Name and Address Organization Details Last Updated DateTime 9 172.72 cm 40.4 kg/m2 826310. 13 g 63 /min 92 % 92 % 186 mm[Hg] 82 mm[Hg] [facility] 9 11:48:52 Date Recorded Body height Body mass index (BMI) Body weight Heart rate Oxygen saturation Oxygen saturation in Arterial blood by Pulse oximetry Systolic blood pressure Diastolic blood pressure Provider Name and Address Organization Details Last Updated DateTime 9 172.72 cm 39.4 kg/m2 185107. 42 g 66 /min 98 % 98 % 162 mm[Hg] 100 mm[Hg] [facility] 9 11:02:16 Date Recorded Body height Body mass index (BMI) Body weight Heart rate Systolic blood pressure Diastolic blood pressure Provider Name and Address Organization Details Last Updated DateTime 9 172.72 cm 39.1 kg/m2 618402. 24 g 64 /min 156 mm[Hg] 80 mm[Hg] Val Con[facility] 9 09:29:58 Social History Question Answer Notes LastModified by [employer] Details LastModified Time Tobacco Smoking Status [facility] 15:55:18 Marital Status Information not available 04/12/2016 What Was The Date Of Your Most Recent Tobacco Screening? 02/11/2019 [email or web address] Information not available 02/11/2019 How Many Children Do You Have? 0 Information not available 04/12/2016 How Much Tobacco Do You Smoke? 1 PPD Information not available 04/12/2016 How Many Years Have You Smoked Tobacco? 35 Information not available 04/12/2016 Sex: Unknown Functional Status Question Answer Note LastModified by [facility] [employer] Details LastModified Time What is your level of alcohol consumption? None Information not available 04/12/2016 Do you or have you ever used smokeless tobacco? 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 Never used electronic cigarettes [email or web address] Information not available 02/11/2019 Mental Status None recorded. Family History Relationship Description Onset Age of this Age Resolved Age Notes LastModified by Organization Details LastModified Time Unspecified Relation Family history of malignant neoplasm Not available 2016 14:23:55 Unspecified Relation Depressive disorder Not available 2016 14:24:04 Unspecified Relation Diabetes mellitus Not available 2016 14:24:12 Unspecified Relation Heart disease Not available 2016 14:24:51 Unspecified Relation Hypertensive disorder Not available 2016 14:24:59 Notes:mother and father dece ased Medical History Condition Response Diabetes Y Rheumatic Fever N Bleeding Disorder N Thyroid Disease N Atrial Fibrillation Y Hiatal hernia N Tuberculosis N AIDS/HIV N Black Lung N Cancer N Stroke N Thyroid Problems N Lung Disease N Asthma Y Nervous Illness N Peripheral Vascular Disease N Vascular Disease N Jaundice N Warfarin Management N Ulcers N Heart Disease N Hypertension Y Past Encounters Encounter ID Performer Location Encounter Start Date Encounter Closed Date Diagnosis/Indication Diagnosis SNOMED-CT Code Diagnosis ICD10 Code Diagnosis Note [id number] LISS VOSS MD CARDIOLOG Y [facility] CL[facility] [address] [place] [address] 04/20/2016 08:36:47 04/20/2016 09:40:50 Paroxysmal atrial fibrillation 699500787 I48.0 I received the patient's electrocar diogram and it shows that he's in stable normal sinus rhythm with normal QTC.The patient remains in normal sinus rhythm on current therapy. No evidence of antiarrhyt hmic drug toxicity. Details of management and medication risk for antiarrhyt hmics and anticoagul ants reviewed.M edication changes, as well as new medication s were reviewed and discussed in detail including benefit and risk of therapy. The patient is otherwise doing well on current management . No new active problems identified . Chronic problems are all stable. Patient is to continue current regimen without change. All questions answered and regimen reviewed. Patient is to call for any change in status. [id number] LISS VOSS MD CARDIOLOG Y [facility] CL[facility] [address] [place] [address] 07/20/2016 08:25:23 07/20/2016 10:29:03 Paroxysmal atrial fibrillation 765064607 I48.0 I received the patient's electrocar diogram and it shows that he's in stable normal sinus rhythm with normal QTC.The patient remains in normal sinus rhythm on current therapy. No evidence of antiarrhyt hmic drug toxicity. Details of management and medication risk for antiarrhyt hmics and anticoagul ants reviewed.M edication changes, as well as new medication s were reviewed and discussed in detail including benefit and risk of therapy. The patient is otherwise doing well on current management . No new active problems identified . Chronic problems are all stable. Patient is to continue current regimen without change. All questions answered and regimen reviewed. Patient is to call for any change in status. Long-term drug therapy 505542420 Z79.899 Amiodarone .Patient shows no evidence of toxicity to the antiarrhyt hmic drug program. Electrocar diogram shows stable QTc interval. Risk of medication and monitoring reviewed with patient. Anticoagulant therapy 18 3520060 Z79.01 I asked the patient to bring copies of most recent laboratory studies. If his kidney function is normal, his Eliquis doses to light for him. Chest pain 02195732 R07. 9 I don't feel that his discomfort in his right arm is angina but I asked him to try nitroglyce rin if he has discomfort . Essential hypertension 05896333 I10 His blood pressure remains elevated. His indicates that they're watching salt restrictio n carefully. I advised increasing carvedilol to 25 mg twice a day with careful attention regarding his heart rate.Maddie salvador prescripti on sent to patient's pharmacy. [id number] LISS VOSS MD CARDIOLOG Y [facility] [address] [address] [place] [address] 08/17/2016 08:16:40 08/17/2016 09:25:56 Paroxysmal atrial fibrillation 396920254 I48.0 I received the patient's electrocar diogram and it shows that he's in stable normal sinus rhythm with normal QTC.The patient remains in normal sinus rhythm on current therapy. No evidence of antiarrhyt hmic drug toxicity. Details of management and medication risk for antiarrhyt hmics and anticoagul ants reviewed.M edication changes, as well as new medication s were reviewed and discussed in detail including benefit and risk of therapy. The patient is otherwise doing well on current management . No new active problems identified . Chronic problems are all stable. Patient is to continue current regimen without change. All questions answered and regimen reviewed. Patient is to call for any change in status. Hyperlipidemia 49573069 E78.5 Laboratory studies were reviewed lipid parameters are at target. Long-term drug therapy 013459927 Z79.899 Amiodarone .Patient shows no evidence of toxicity to the antiarrhyt hmic drug program. Electrocar diogram shows stable QTc interval. Risk of medication and monitoring reviewed with patient. Anticoagulant therapy 18 3837478 Z79.01 Laboratory studies reveal that his creatinine is 1.1. His Eliquis dose needs to be increased to 5 mg twice a day in light of his normal kidney function.E lectronic prescripti on sent to patient's pharmacy. Essential hypertension 18726356 I10 The pressure has been much better controlled but he still has occasional breakthrou ghs. I had previously stopped his clonidine but I advised him at this time to take when necessary clonidine for systolic blood pressure greater than 170 and to continue his current regimen otherwise. [id number] LISS VOSS MD CARDIOLOG Y [facility] CL[facility] [address] [place] [address] 03/15/2017 09:36:09 03/15/2017 13:16:29 Paroxysmal atrial fibrillation 482340303 I48.0 I received the patient's electrocar diogram and it shows that he's in stable normal sinus rhythm with normal QTC.The patient remains in normal sinus rhythm on current therapy. No evidence of antiarrhyt hmic drug toxicity. Details of management and medication risk for antiarrhyt hmics and anticoagul ants reviewed.M edication changes, as well as new medication s were reviewed and discussed in detail including benefit and risk of therapy. The patient is otherwise doing well on current management . No new active problems identified . Chronic problems are all stable. Patient is to continue current regimen without change. All questions answered and regimen reviewed. Patient is to call for any change in status. EKG: Sinus rhythm, QTC interval in safe range for antiarrhyt hmic therapy. Hyperlipidemia 36244264 E78.5 Laboratory studies were reviewed lipid parameters are at target. Long-term drug therapy 685319257 Z79.899 Amiodarone .Patient shows no evidence of toxicity to the antiarrhyt hmic drug program. Electrocar diogram shows stable QTc interval. Risk of medication and monitoring reviewed with patient. Anticoagulant therapy 18 4700449 Z79.01 Laboratory studies reveal that his creatinine is 1.1. His Eliquis dose needs to be increased to 5 mg twice a day in light of his normal kidney function.E lectronic prescripti on sent to patient's pharmacy. Essential hypertension 91659851 I10 The pressure has been much better controlled but he still has occasional breakthrou ghs. I had previously stopped his clonidine but I advised him at this time to take when necessary clonidine for systolic blood pressure greater than 170 and to continue his current regimen otherwise. I advised the patient on importance of blood pressure management .I discussed the importance of salt restrictio n. Per FDA recommenda tions, I advise limit of 2000 -2400 mg daily of sodium. Increase sodium intake is often associated with worsening of hypertensi on and or heart failure. [id number] CADE MCGHEE PA-C CARDIOLOG Y [facility] CL[facility] [address] [place] [address] 07/22/2017 14:48:50 07/22/2017 16:05:07 Essential hypertension 82730173 I10 Paroxysmal atrial fibrillation [id number] I48.0 [id number] CADE MCGHEE PA-C CARDIOLOG Y [facility] CL[facility] [address] [place] [address] 09/20/2017 10:37:45 09/24/2017 12:48:28 Paroxysmal atrial fibrillation 343775020 I48.0 Long-term drug therapy 953535106 Z79.899 Essential hypertension 02616982 I10 [id number] LISS VOSS MD CARDIOLOG Y [facility] CL[facility] [address] [place] [address] 01/01/2018 09:17:08 01/01/2018 10:25:51 Paroxysmal atrial fibrillation 298843676 I48.0 The patient remains in normal sinus rhythm on current therapy. No evidence of antiarrhyt hmic drug toxicity. Details of management and medication risk for antiarrhyt hmics and anticoagul ants reviewed.M edication changes, as well as new medication s were reviewed and discussed in detail including benefit and risk of therapy. The patient is otherwise doing well on current management . No new active problems identified . Chronic problems are all stable. Patient is to continue current regimen without change. All questions answered and regimen reviewed. Patient is to call for any change in status. Long-term drug therapy 434742503 Z79.899 Amiodarone .Patient shows no evidence of toxicity to the antiarrhyt hmic drug program. Electrocar diogram shows stable QTc interval. Risk of medication and monitoring reviewed with patient. Essential hypertension 47280228 I10 The pressure has been much better controlled but he still has occasional breakthrou ghs. I had previously stopped his clonidine but I advised him at this time to take when necessary clonidine for systolic blood pressure greater than 170 and to continue his current regimen otherwise. I advised the patient on importance of blood pressure management .I discussed the importance of salt restrictio n. Per FDA recommenda tions, I advise limit of 2000 -2400 mg daily of sodium. Increase sodium intake is often associated with worsening of hypertensi on and or heart failure. Long-term current use of anticoagulant 384828255 Z79.01 the patient was restarted on Eliquis and his blood count is been carefully monitored. I advised him discontinu e taking aspirin as long as he is on Eliquis. [id number] LISS VOSS MD CARDIOLOG Y [facility] CL[facility] [address] [place] [address] 05/30/2018 11:40:39 05/30/2018 13:28:08 Paroxysmal atrial fibrillation 499434013 I48.0 The patient remains in normal sinus rhythm on current therapy. No evidence of antiarrhyt hmic drug toxicity. Details of management and medication risk for antiarrhyt hmics and anticoagul ants reviewed.M edication changes, as well as new medication s were reviewed and discussed in detail including benefit and risk of therapy. The patient is otherwise doing well on current management . No new active problems identified . Chronic problems are all stable. Patient is to continue current regimen without change. All questions answered and regimen reviewed. Patient is to call for any change in status. Long-term drug therapy 946550698 Z79.899 Amiodarone .Patient shows no evidence of toxicity to the antiarrhyt hmic drug program. Electrocar diogram shows stable QTc interval. Risk of medication and monitoring reviewed with patient. Essential hypertension 10082387 I10 The pressure has been much better controlled but he still has occasional breakthrou ghs. I had previously stopped his clonidine but I advised him at this time to take when necessary clonidine for systolic blood pressure greater than 170 and to continue his current regimen otherwise. I advised the patient on importance of blood pressure management .I discussed the importance of salt restrictio n. Per FDA recommenda tions, I advise limit of 2000 -2400 mg daily of sodium. Increase sodium intake is often associated with worsening of hypertensi on and or heart failure. Long-term current use of anticoagulant 652052603 Z79.01 the patient was restarted on Eliquis and his blood count is been carefully monitored. I advised him discontinu e taking aspirin as long as he is on Eliquis. Congestive heart failure 13615450 I50.9 I indicated to the patient and his that I am unable to comment on therapy until I see the results of testing. Entresto is indicated for congestive heart failure related to systolic dysfunctio n. If his ejection fraction was normal, ideal therapy would be maintenanc e of euvolemia and blood pressure control. Typically diastolic heart failure does not respond the same medication s that are helpful for systolic heart failure. They will return to see me next week and bring all appropriat e studies make comment on treatment. [id number] LISS VOSS MD CARDIOLOG Y [facility] CL[facility] [address] [place] [address] 06/06/2018 13:13:14 06/06/2018 14:32:53 Paroxysmal atrial fibrillation 065203978 I48.0 The patient remains in normal sinus rhythm on current therapy. No evidence of antiarrhyt hmic drug toxicity. Details of management and medication risk for antiarrhyt hmics and anticoagul ants reviewed.M edication changes, as well as new medication s were reviewed and discussed in detail including benefit and risk of therapy. The patient is otherwise doing well on current management . No new active problems identified . Chronic problems are all stable. Patient is to continue current regimen without change. All questions answered and regimen reviewed. Patient is to call for any change in status. Long-term drug therapy 065158678 Z79.899 Amiodarone .Patient shows no evidence of toxicity to the antiarrhyt hmic drug program. Electrocar diogram shows stable QTc interval. Risk of medication and monitoring reviewed with patient. Essential hypertension 72087061 I10 The pressure has been much better controlled but he still has occasional breakthrou ghs. I had previously stopped his clonidine but I advised him at this time to take when necessary clonidine for systolic blood pressure greater than 170 and to continue his current regimen otherwise. I advised the patient on importance of blood pressure management .I discussed the importance of salt restrictio n. Per FDA recommenda tions, I advise limit of 2000 -2400 mg daily of sodium. Increase sodium intake is often associated with worsening of hypertensi on and or heart failure. Long-term current use of anticoagulant 204155428 Z79.01 the patient was restarted on Eliquis and his blood count is been carefully monitored. I advised him discontinu e taking aspirin as long as he is on Eliquis. Chronic di astolic heart failure 350631014 I50.32 Review of laboratory studies and echocardio gram from [facility] revealed the patient had normal cardiac ejection fraction. By definition , he has diastolic heart failure and therefore is not a candidate for Entresto. Diastolic heart failure is managed with maintenanc e of euvolemic status and blood pressure control. Therapy generally used for systolic heart failure is not effective. I discussed in detail with the patient is the importance of salt restrictio n.DASH diet given. He is also to control his fluid intake and I recommend daily weight for monitoring of fluid balance. With discontinu ation of Entresto, I advise patient to watch his blood pressure carefully and medication adjustment may be necessary. [id number] LISS VOSS MD CARDIOLOG Y [facility] [address] [place] [address] 06/20/2018 12:19:01 06/20/2018 13:27:11 Chronic diastolic heart failure 950212881 I50.32 Review of laboratory studies and echocardio gram from [facility] revealed the patient had normal cardiac ejection fraction. By definition , he has diastolic heart failure and therefore is not a candidate for Entresto. Diastolic heart failure is managed with maintenanc e of euvolemic status and blood pressure control. Therapy generally used for systolic heart failure is not effective. I discussed in detail with the patient is the importance of salt restrictio n.DASH diet given. He is also to control his fluid intake and I recommend daily weight for monitoring of fluid balance. With discontinu ation of Entresto, I advise patient to watch his blood pressure carefully and medication adjustment may be necessary. Paroxysmal atrial fibrillation 615713845 I48.0 The patient remains in normal sinus rhythm on current therapy. No evidence of antiarrhyt hmic drug toxicity. Details of management and medication risk for antiarrhyt hmics and anticoagul ants reviewed.M edication changes, as well as new medication s were reviewed and discussed in detail including benefit and risk of therapy. The patient is otherwise doing well on current management . No new active problems identified . Chronic problems are all stable. Patient is to continue current regimen without change. All questions answered and regimen reviewed. Patient is to call for any change in status. Long-term drug therapy 410045982 Z79.899 Amiodarone .Patient shows no evidence of toxicity to the antiarrhyt hmic drug program. Electrocar diogram shows stable QTc interval. Risk of medication and monitoring reviewed with patient.I have decreased his dosage to 300 mg daily. Essential hypertension 75711177 I10 The pressure has been much better controlled but he still has occasional breakthrou ghs. I had previously stopped his clonidine but I advised him at this time to take when necessary clonidine for systolic blood pressure greater than 170 and to continue his current regimen otherwise. I advised the patient on importance of blood pressure management .I discussed the importance of salt restrictio n. Per FDA recommenda tions, I advise limit of 2000 -2400 mg daily of sodium. Increase sodium intake is often associated with worsening of hypertensi on and or heart failure. Long-term current use of anticoagulant 465352950 Z79.01 the patient was restarted on Eliquis and his blood count is been carefully monitored. I advised him discontinu e taking aspirin as long as he is on Eliquis. [id number] LISS VOSS MD CARDIOLOG Y [address] [place] [address] 06/30/2018 10:52:02 06/30/2018 12:31:08 Chronic diastolic heart failure 607885284 I50.32 Review of laboratory studies and echocardio gram from [facility] revealed the patient had normal cardiac ejection fraction. By definition , he has diastolic heart failure and therefore is not a candidate for Entresto. Diastolic heart failure is managed with maintenanc e of euvolemic status and blood pressure control. Therapy generally used for systolic heart failure is not effective. I discussed in detail with the patient is the importance of salt restrictio n.DASH diet given. He is also to control his fluid intake and I recommend daily weight for monitoring of fluid balance. With discontinu ation of Entresto, I advise patient to watch his blood pressure carefully and medication adjustment may be necessary. Paroxysmal atrial fibrillation [id number] I48.0 The patient remains in normal sinus rhythm on current therapy. No evidence of antiarrhyt hmic drug toxicity. Details of management and medication risk for antiarrhyt hmics and anticoagul ants reviewed.M edication changes, as well as new medication s were reviewed and discussed in detail including benefit and risk of therapy. The patient is otherwise doing well on current management . No new active problems identified . Chronic problems are all stable. Patient is to continue current regimen without change. All questions answered and regimen reviewed. Patient is to call for any change in status. Long-term drug therapy [id number] Z79.899 Amiodarone .Patient shows no evidence of toxicity to the antiarrhyt [facility] drug program. Electrocar diogram shows stable QTc interval. Risk of medication and monitoring reviewed with patient.I have decreased his dosage to 300 mg daily. Essential hypertension [id number] I10 The pressure has been much better controlled but he still has occasional breakthrou ghs. I had previously stopped his clonidine but I advised him at this time to take when necessary clonidine for systolic blood pressure greater than 170 and to continue his current regimen otherwise. I advised the patient on importance of blood pressure management .I discussed the importance of salt restrictio n. Per FDA recommenda tions, I advise limit of 2000 -2400 mg daily of sodium. Increase sodium intake is often associated with worsening of hypertensi on and or heart failure.Bl ood pressure still remains too high and I have recommende d adding lisinopril . Long-term current use of anticoagulant [id number] Z79.01 the patient was restarted on Eliquis and his blood count is been carefully monitored. I advised him discontinu e taking aspirin as long as he is on Eliquis. [id number] LISS VOSS MD CARDIOLOG Y [facility] CLOS[facility] [address] [place] [address] 08/08/2018 10:49:28 08/08/2018 11:29:33 Chronic diastolic heart failure [id number] I50.32 Review of laboratory studies and echocardio gram from [facility] revealed the patient had normal cardiac ejection fraction. By definition , he has diastolic heart failure and therefore is not a candidate for Entresto. Diastolic heart failure is managed with maintenanc e of euvolemic status and blood pressure control. Therapy generally used for systolic heart failure is not effective. I discussed in detail with the patient is the importance of salt restrictio n.DASH diet given. He is also to control his fluid intake and I recommend daily weight for monitoring of fluid balance. Paroxysmal atrial fibrillation [id number] I48.0 The patient remains in normal sinus rhythm on current therapy. No evidence of antiarrhyt hmic drug toxicity. Details of management and medication risk for antiarrhyt hmics and anticoagul ants reviewed.M edication changes, as well as new medication s were reviewed and discussed in detail including benefit and risk of therapy. The patient is otherwise doing well on current management . No new active problems identified . Chronic problems are all stable. Patient is to continue current regimen without change. All questions answered and regimen reviewed. Patient is to call for any change in status. Long-term drug therapy [id number] Z79.899 Amiodarone .Patient shows no evidence of toxicity to the antiarrhyt hmic drug program. Electrocar diogram shows stable QTc interval. Risk of medication and monitoring reviewed with patient.I have decreased his dosage to 300 mg daily. Essential hypertension [id number] I10 The pressure has been much better controlled but he still has occasional breakthrou ghs. I had previously stopped his clonidine but I advised him at this time to take when necessary clonidine for systolic blood pressure greater than 170 and to continue his current regimen otherwise. I advised the patient on importance of blood pressure management .I discussed the importance of salt restrictio n. Per FDA recommenda tions, I advise limit of 2000 -2400 mg daily of sodium. Increase sodium intake is often associated with worsening of hypertensi on and or heart failure.Bl ood pressure still remains too high and I have recommende d adding lisinopril . Long-term current use of anticoagulant [id number] Z79.01 the patient was restarted on Eliquis and his blood count is been carefully monitored. I advised him discontinu e taking aspirin as long as he is on Eliquis. [id number] LISS VOSS MD CARDIOLOG Y [facility] CL[facility] [address] [place] [address] 02/11/2019 09:07:51 02/11/2019 10:52:52 Paroxysmal atrial fibrillation [id number] I48.0 The patient remains in normal sinus rhythm on current therapy. No evidence of antiarrhyt hmic drug toxicity. Details of management and medication risk for antiarrhyt hmics and anticoagul ants reviewed.M edication changes, as well as new medication s were reviewed and discussed in detail including benefit and risk of therapy. The patient is otherwise doing well on current management . No new active problems identified . Chronic problems are all stable. Patient is to continue current regimen without change. All questions answered and regimen reviewed. Patient is to call for any change in status. Chronic di astolic heart failure [id number] I50.32 Review of laboratory studies and echocardio gram from [facility] revealed the patient had normal cardiac ejection fraction. By definition , he has diastolic heart failure and therefore is not a candidate for Entresto. Diastolic heart failure is managed with maintenanc e of euvolemic status and blood pressure control. Therapy generally used for systolic heart failure is not effective. I discussed in detail with the patient is the importance of salt restrictio n.DASH diet given. He is also to control his fluid intake and I recommend daily weight for monitoring of fluid balance. Long-term drug therapy [id number] Z79.899 Amiodarone .Patient shows no evidence of toxicity to the antiarrhyt [facility] drug program. Electrocar diogram shows stable QTc interval. Risk of medication and monitoring reviewed with patient.I have decreased his dosage to 300 mg daily. Essential hypertension [id number] I10 The pressure has been much better controlled but he still has occasional breakthrou ghs. I had previously stopped his clonidine but I advised him at this time to take when necessary clonidine for systolic blood pressure greater than 170 and to continue his current regimen otherwise. I advised the patient on importance of blood pressure management .I discussed the importance of salt restrictio n. Per FDA recommenda tions, I advise limit of 2000 -2400 mg daily of sodium. Increase sodium intake is often associated with worsening of hypertensi on and or heart failure.Bl ood pressure still remains too high and I have recommende d adding lisinopril . Long-term current use of anticoagulant [id number] Z79.01 the patient was restarted on Eliquis and his blood count is been carefully monitored. I advised him discontinu e taking aspirin as long as he is on Eliquis. Atypical chest pain [id number] R07.89 His chest discomfort is atypical for angina and he had an unremarkab le catheteriz ation study in 2013. I advise a Lexiscan nuclear stress test. Syncope [id number] R55 His syncopal episodes sound orthostati c in descriptio n. Since he notes that he is occasional ly have palpitatio ns, I've ordered a 21 day event recorder to see if he's having recurrence of his atrial fibrillati on or excessive bradycardi a. When he presents first nuclear stress test I will also check a CMP, BNP and CBC. [id number] LISS VOSS MD HEART [address] [place] [address] 02/16/2019 11:06:37 02/17/2019 13:32:46 [id number] LISS VOSS MD HEART [address] [place] [address] 02/16/2019 11:07:50 02/17/2019 07:10:32 Palpitations [id number] R00.2 Syncope [id number] R55 His syncopal episodes sound orthostati c in descriptio n. Since he notes that he is occasional ly have palpitatio ns, I've ordered a 21 day event recorder to see if he's having recurrence of his atrial fibrillati on or excessive bradycardi a. When he presents first nuclear stress test I will also check a CMP, BNP and CBC. Health Concerns Section Related Observation LastModified by Organization Detai ls LastModified Time None Recorded Concern Status LastModified by Organization Details LastModified Time None Recorded Advance Directives Directive None Recorded Payers Insurance Date Sequence Insurance Name Policy Number Policy [place] Covered Member ID Sutton Member ID Guarantor Name 03/10/2019 1 [employer] (MEDICARE REPLACEMENT/ ADVANTAGE - PPO) Ruben Oates [id number] Ruben Oates Notes Date Note Type Note Provider Name and Address Organization Details Recorded Time 06/30/2018 text/html WM /parox AF/ CV September 08, 2014 . Comorbid: DM,HLP,HTN,TONIO. Cath May 2012: [place]. Amiodarone increased to 300 mg daily for recurrent AF with conversion on meds.The patient denies typical angina, CHF, dyspnea, palpitations, orthopnea, PND and syncope.Colonoscopy: multiple polyps precancerous and diverticulosis with active bleeding. Dr. Mcwilliams had suggested that he continue off Eliquis due to recurrent bleeding after colonoscopy which required transfusion. Complained of palpitations increased his amiodarone to 300 mg a day. His palpitations have resolved. His blood count is improved and he was restarted on Eliquis 5 mg twice a day. He saw his physician with complaints of swelling in his lower extremities and was advised to decrease fluid intake. The patient admits to due to dry mouth he drinks a very large amount of fluids ball-type daily. His edema is improved after following his physician's recommendations.The patient denies typical angina, CHF, dyspnea, palpitations, orthopnea, PND, syncope. LISS VOSS MD [address] [place] [address], [phone], [facility] 06/30/2018 12:54:54 08/08/2018 text/html WM /parox AF(CHADS2-VASc score 6)/amiodarone/Eliqui s/ CV September 08, 2014 . Comorbid: DM,HLP,HTN,TONIO. Cath May 2012: [place]. Amiodarone increased to 300 mg daily for recurrent AF with conversion on meds.The patient denies typical angina, CHF, dyspnea, palpitations, orthopnea, PND and syncope.Colonoscopy: multiple polyps precancerous and diverticulosis with active bleeding. Dr. Mcwilliams had suggested that he continue off Eliquis due to recurrent bleeding after colonoscopy which required transfusion. Complained of palpitations increased his amiodarone to 300 mg a day. His palpitations have resolved. His blood count is improved and he was restarted on Eliquis 5 mg twice a day. He saw his physician with complaints of swelling in his lower extremities and was advised to decrease fluid intake. The patient admits to due to dry mouth he drinks a very large amount of fluids daily. His edema is improved after following his physician's recommendations. He still struggles with salt avoidance.The patient denies typical angina, CHF, dyspnea, palpitations, orthopnea, PND, syncope. LISS VOSS MD [address] [place] [address], [phone], [facility] 08/08/2018 11:28:37 02/11/2019 text/html WM /parox AF(CHADS2-VASc score 6)/amiodarone/Eliqui s/ CV September 08, 2014 . Comorbid: DM,HLP,HTN,TONIO. Cath May 2012: [place] CAD. Amiodarone increased to 300 mg daily for recurrent AF with conversion on meds.The patient complains that he has had some episodes of syncope and dizziness which sound orthostatic in nature. He also notes occasional sensation of skipping of his heart. He describes nonexertional discomfort mid chest sometimes lasting throughout the day and associate with some discomfort in his left neck. He has taken nitroglycerin on several occasions with no clear response.He was recently told by his physician that he was mild CHF and diuretics adjusted. LISS VOSS MD [facility] [place], [address], [facility] 02/11/2019 09:52:27
--- NOTE | 2024-09-05 13:44 | HMH.EDGENADL ---
Discharge Plan Disposition Patient Disposition: Home, Self-Care Prescriptions Prescriptions: No Action tamsulosin 0.4 mg capsule 1 mg PO HS (DME) blood-glucose meter [True Metrix Glucose Meter] Kit See Rx Instructions .Route Rx Instructions: As directed (DME) True Metrix Glucose Test Strip Strip See Rx Instructions .Route Rx Instructions: As directed Kerendia 10 mg tablet 10 mg PO DAILY ammonium lactate 12 % cream 1 applic topical BID 30 Days Qty: 385 2RF Invokana 300 mg tablet PO Patient Comments: TAKE 1 TABLET BY MOUTH ONCE DAILY omeprazole 20 mg capsule,delayed release(DR/EC) 20 mg PO DAILY 30 Days Patient Comments: losartan 50 mg tablet 100 mg PO DAILY furosemide 40 mg tablet 40 mg PO DAILY aripiprazole 5 mg tablet 5 mg PO DAILY Synjardy XR 25-1,000 mg tablet, IR - ER, biphasic 24hr 1 tab PO ONCE carvedilol 25 mg tablet 25 mg PO BID Rx Instructions: 1/2 tablet fluorouracil 5 % cream 5 applic topical DAILY Patient Comments: APPLY A THIN LAYER TO ARMS TWICE DAILY FOR 2 WEEKS, THEN APPLY TO FACE/SCALP ONCE DAILY FOR ONE WEEK calcipotriene 0.005 % ointment 0.005 applic topical DAILY Patient Comments: APPLY A THIN LAYER OF OINTMENT TOPICALLY TO AFFECTED AREA WITH 5-FLUOROURACIL levothyroxine 100 MCG tablet 100 mcg PO DAILY latanoprost 0.005 % bottle 1 drp EYE-BOTH HS Patient Comments: vmweummignrz-dvps-yhqpa acid 1 EACH tablet 1 each PO DAILY apixaban 5 MG tablet 5 mg PO BID pravastatin 20 MG tablet 20 mg PO DAILY diltiazem HCl [Cartia XT] 300 mg Capsule,Extended Release 24hr 300 mg PO DAILY nitroglycerin 0.4 mg Tablet, Sublingual 0.4 mg SUBLINGUAL Q5M PRN (Reason: Chest Pain) Rx Instructions: do not exceed 3 doses per episode buspirone 10 mg tablet 10 mg PO BID Referrals Follow up/Referrals: Indra Mcwilliams II, MD [Staff Physician, Gastroenterology] - See instructions Riley Delatorre MD [Primary Care Provider, Internal Medicine] - See instructions Activity Restrictions/Add. Instructions Additional Instructions/Restrictions: As discussed no evidence of any external hemorrhoids or emergent medical condition today. Given your chronic constipation and concern for possible encopresis I recommend that you try fufb-vxf-lpmnvhl MiraLAX over the next week. You may start off with half a cap twice a day and take enough to where you are having a soft bowel movement daily. You may double the dose every few days as needed. Please follow-up with Dr. Mcwilliams for further evaluation and management. Return with a significant pain significant bleeding or other concerns. You may also wear a brief until this is further differentiated by Dr. Mcwilliams. Clinical Impressions Clinical Impression: Bowel incontinence, Constipation Print Language Print Language: Romanian Discharge ED Provider: Mulu [place] General Adult HPI General Chief complaint: Recheck/Abnormal Lab/Rx Stated complaint: sent from [facility] problems Time Seen by Provider: 09/05/24 13:28 Mode of Arrival: Ambulatory Source of Information: Patient Description of Symptoms (Recalled from ER Triage Doc. by RN): c/o reports that he is passing gas he is having some stool in his underwear for 2 weeks, reports that he has light brown, denies seeing blood. Denies any abdominal pain. Pt reports that for the past 2 weeks he has not had a normal bm and has been straining to get a little bit of stool out. History of Present Illness HPI narrative: Patient is a 74-year-old male presenting today with bowel incontinence. States that every once a while he is seeing some streaks of stool in his underwear. Has been dealing with chronic constipation for a long time. Was recently started on Metamucil. No significant pain no bleeding. He was told that he had external hemorrhoids in the past by Dr. Mcwilliams. Related Data Home Medications ?Medication ?Instructions ?Recorded ?Confirmed omeprazole 20 mg capsule,delayed 20 mg PO DAILY Reflux/Acid reflux 03/22/17 08/27/24 release 30 days latanoprost 0.005 % eye drops 1 drp Eye-Both HS Glaucoma 06/23/17 08/27/24 levothyroxine 100 mcg tablet 100 mcg PO DAILY thyroid 06/23/17 08/27/24 apixaban 5 mg tablet 5 mg PO BID Blood thinner 05/19/20 08/27/24 multivitamin-ferrous 1 each PO DAILY Supplement 05/19/20 08/27/24 fumarate-folic acid 18 mg-400 mcg tablet pravastatin 20 mg tablet 20 mg PO DAILY High cholesterol 06/24/20 08/27/24 tamsulosin 0.4 mg capsule 1 mg PO HS urination 10/27/20 08/27/24 blood sugar diagnostic (True 10/26/21 08/27/24 Metrix Glucose Test Strip) blood-glucose meter (True Metrix 10/26/21 08/27/24 Glucose Meter kit) losartan 50 mg tablet 100 mg PO DAILY hypertension 10/26/21 08/27/24 buspirone 10 mg tablet 10 mg PO BID Anxiety 02/13/22 08/27/24 diltiazem HCl 300 mg 300 mg PO DAILY heart 02/13/22 08/27/24 capsule,extended release 24 hr (Cartia XT) nitroglycerin 0.4 mg sublingual 0.4 mg sublingual Q5M PRN Chest 02/13/22 08/27/24 tablet Pain furosemide 40 mg tablet 40 mg PO DAILY Edema 04/24/22 08/27/24 carvedilol 25 mg tablet 25 mg PO BID High blood pressure 08/27/23 08/27/24 calcipotriene 0.005 % topical 0.005 applic topical DAILY 11/27/23 08/27/24 ointment fluorouracil 5 % topical cream 5 applic topical DAILY 11/27/23 08/27/24 finerenone 10 mg tablet (Kerendia) 10 mg PO DAILY 12/24/23 08/27/24 aripiprazole 5 mg tablet 5 mg PO DAILY 01/22/24 08/27/24 empagliflozin 25 mg-metformin ER 1 tab PO ONCE 01/22/24 08/27/24 1,000 mg tablet,extended release 24hr (Synjardy XR) canagliflozin 300 mg tablet mg PO 08/27/24 08/27/24 (Invokana) Previous Rx's ?Medication ?Instructions ?Recorded ammonium lactate 12 % topical cream 1 applic topical BID dry skin, 05/11/24 callus care 30 days #385 grams Allergies Allergy/AdvReac Type Severity Reaction Status Date / Time nifedipine Allergy swelling, Verified 08/27/24 11:21 mood changes cephalexin AdvReac alters mood Verified 08/27/24 11:21 [facility] Disclaimer: The information contained in this section may have been updated after the patient was seen, as this information can be updated by other users. Medical History (Updated 09/05/24 @ 13:44 by Mulu [place] MD) Tympanosclerosis of left ear Retained myringotomy tube in left ear Chronic sinus infection Retracted tympanic membrane Congestion of both ears Headache Tinnitus Impacted cerumen Onychoincurvatum Sleep apnea Asthma History of transient ischemic attack (TIA) Atrial fibrillation Hypothyroid Diabetes mellitus, type 2 MRSA (methicillin resistant staph aureus) culture positive Skin lesion of right ear Skin lesion of left ear Skin lesion of face Plantar fasciitis of right foot Obesity, Class II, BMI 35-39.9 Acquired hammer toes of both feet Concussion Hyperlipidemia Acquired hypothyroidism HTN (hypertension) CHF exacerbation CAD (coronary artery disease) TIA (transient ischemic attack) COPD (chronic obstructive pulmonary disease) Diabetes mellitus type 2 in obese Chronic a-fib Anemia Lower gastrointestinal bleeding Esophageal abnormality Degenerative arthritis Diverticulosis Brain atrophy Obstructive Sleep Apnea-Hypopnea Syndrome Surgical History (Updated 08/27/24 @ 11:37 by SANA Cervantes) Myringotomy tube status History of local excision of skin lesion Status post myringotomy with tube placement of both ears S/P sinus surgery History of cataract surgery Hx of knee surgery History of placement of ear tubes History of vasectomy Family History Sister Thyroid cancer Other Cancer Social History Smoking Status: Former smoker tobacco type: cigarettes packs per day: 1 second hand exposure: No alcohol intake: current alcohol intake frequency: holidays/special occasions only counseling provided: none substance use type: denies use current occupational status: retired Travel in the last 8 weeks?: None household members: spouse housing: house current occupational exposures/hazards: No caffeine: Yes Have you lived/traveled outside [place] in past 30 days?: No Contact w/someone who lives/traveled outside US past 30 days?: No Exposure to someone with infectious disease in past 14 days?: No Do you have a fever (greater than 100.4 F or 38 C)?: No Have you tested positive for COVID-19?: No Exposed to someone with COVID-19 in past 14 days?: No Do you have a sore throat?: No Do you have a cough?: No Do you have any weakness?: No Do you have any diarrhea?: No Are you experiencing any unusual bleeding?: No Do you have any muscle aches/pain?: No Do you have any abdominal pain?: No Are you experiencing loss of taste or smell?: No Other Medical History Have you received the Flu Vaccine for this season: Yes Have you received the Pneumonia Vaccine: Yes ROS Obtained: Yes All systems reviewed & no additional complaints except as documented Physical Exam General General appearance: alert and in no apparent distress Respiratory Respiratory exam: Present normal lung sounds bilaterally Cardiovascular Cardiovascular exam: Present regular rate Rectal Exam Rectal exam: Present normal inspection and normal rectal tone; Absent bloody stool, hemorrhoids or mass Neurological Exam Neurological exam: Present alert and oriented X3 Medical Decision Making Medical Records Screening: Per USPSTF and CDC recommendations, given the prevalence of disease in our region, it is our hospital?s policy to screen for HIV and viral Hepatitis for all patients aged 18 and over and those with ongoing risk factors. Atul Inquiry Pt receiving controlled substance: No Vital Signs: 09/05/24 12:55 Temperature 98.0 F Temperature Source Oral Pulse Rate [Left Radial] 76 Respiratory Rate 18 Blood Pressure [Right Arm] 167/80 H Blood Pressure Mean [Right Arm] 109 02 Sat by Pulse Oximetry 98 Oxygen Delivery Method Room Air Medical Decision Narrative: Patient with above history and physical normal external rectal exam. No evidence of any mass or bleeding or external hemorrhoids. Patient has not tried any gnlo-mcs-haabofq medications of the Metamucil at home. Given the fact that he had chronic constipation I did suggest that he try some MiraLAX to see if he has some loosening of the stool which may prevent some encopresis. He is also advised to wear briefs and to follow-up with Dr. Mcwilliams. It is possible this is just yna-zf-ofq-mill bowel incontinence with some muscular weakness. Nonetheless he is very stable from emergency standpoint for outpatient follow-up Critical Care Critical Care Time Critical Care Time: No
[2024-09-05 14:00] VITALS: BP 118/70; PULSE 80; RESP 20; TEMP 36.8; O2SAT 98
== END 2024-09-05 14:06 | disposition home or self-care (01) ==
PROVIDERS: Emergency Provider Student in an Organized Health Care Education/Training Program; PCP Internal Medicine Adolescent Medicine
DX: K59.00 Constipation, unspecified (principal); R15.1 Fecal smearing; Z87.891 Personal history of nicotine dependence
CPT/HCPCS: 99282

== ENCOUNTER 2024-12-09 11:08 | Day surgery (SDC) | payer MEDICARE, SELFPAY ==
[2024-12-08 08:31] VITALS: BMI 32.5
--- NOTE | 2024-12-08 17:43 | EXP.HP ---
History of Present Illness *Admission Date: 12/09/24 *History of present illness: Mr. Oates is a 74-year-old gentleman who is here for diagnostic colonoscopy. He went to the ED on September 05, 2024 with change in bowel habits and constipation as well as some bowel incontinence and rectal bleeding with blood in the underwear. He did have a colonoscopy in January [address] Herman Kam M.D. and had more than 10 adenomatous polyps 1 of which was a tubulovillous adenoma. Procedure report indicates moderate to poor bowel prep with scattered diverticulosis and multiple large complex polyps. His colonoscopy with mi in August 2017 showed 10 colon polyps ranging in size from 5 to 15 mm all of which were adenomatous. The patient continues to struggle with bowel function with hard stools and then sometimes fecal incontinence. He is noted the blood. He reports no abdominal pain, nausea or vomiting. He was initially given MiraLAX but this was changed to Metamucil. He is overdue for colonoscopy. He did have a prostate nodule in August 2017 and PSA was normal. He has not had any subsequent PSA. [facility] Disclaimer: The information contained in this section may have been updated after the patient was seen, as this information can be updated by other users. Medical History Cerumen debris on tympanic membrane of both ears Tympanic ventilation tube in external ear canal Tympanosclerosis of left ear Retained myringotomy tube in left ear Chronic sinus infection Retracted tympanic membrane Congestion of both ears Headache Tinnitus Impacted cerumen Onychoincurvatum Sleep apnea Asthma History of transient ischemic attack (TIA) Atrial fibrillation Hypothyroid Diabetes mellitus, type 2 MRSA (methicillin resistant staph aureus) culture positive Skin lesion of right ear Skin lesion of left ear Skin lesion of face Plantar fasciitis of right foot Obesity, Class II, BMI 35-39.9 Acquired hammer toes of both feet Concussion Hyperlipidemia Acquired hypothyroidism HTN (hypertension) CHF exacerbation CAD (coronary artery disease) TIA (transient ischemic attack) COPD (chronic obstructive pulmonary disease) Diabetes mellitus type 2 in obese Chronic a-fib Anemia Lower gastrointestinal bleeding Esophageal abnormality Degenerative arthritis Diverticulosis Brain atrophy Obstructive Sleep Apnea-Hypopnea Syndrome Severe TONIO currently on BiPAP 14/10 cm. Significant improvement of AHI: 10.6, (previously 18) but large air leak due to poor mask fitting, needs a different fullface mask, medium size. Surgical History Myringotomy tube status History of local excision of skin lesion Status post myringotomy with tube placement of both ears S/P sinus surgery History of cataract surgery Hx of knee surgery History of placement of ear tubes History of vasectomy Family History Sister Thyroid cancer Other Cancer Social History (Updated 12/08/24 @ 08:34 by Herminia Oliver RN) Smoking Status: Former smoker tobacco type: cigarettes packs per day: 1 second hand exposure: No alcohol intake: never counseling provided: none substance use type: denies use current occupational status: retired Travel in the last 8 weeks?: None household members: spouse housing: house current occupational exposures/hazards: No caffeine: No Have you lived/traveled outside [place] in past 30 days?: No Contact w/someone who lives/traveled outside US past 30 days?: No Exposure to someone with infectious disease in past 14 days?: No Do you have a fever (greater than 100.4 F or 38 C)?: No Have you tested positive for COVID-19?: No Exposed to someone with COVID-19 in past 14 days?: No Do you have a sore throat?: No Do you have a cough?: No Do you have any weakness?: No Do you have any diarrhea?: No Are you experiencing any unusual bleeding?: No Do you have any muscle aches/pain?: No Do you have any abdominal pain?: No Are you experiencing loss of taste or smell?: No Other Medical History Have you received the Flu Vaccine for this season: Yes Have you received the Pneumonia Vaccine: Yes Review of Systems Review of Systems Review of systems (narrative): Negative *Cardiovascular Comments: Negative *Gastrointestinal Comments: Negative *Genitourinary Comments: Negative *Musculoskeletal Comments: Negative *Neurologic Comments: Negative Meds Home Medications and Allergies Home Medications ?Medication ?Instructions ?Recorded ?Confirmed ?Type omeprazole 20 mg capsule,delayed 20 mg PO DAILY Reflux/Acid reflux 03/22/17 12/09/24 History release 30 days latanoprost 0.005 % eye drops 1 drp Eye-Both HS Glaucoma 06/23/17 12/09/24 History levothyroxine 100 mcg tablet 100 mcg PO DAILY thyroid 06/23/17 12/09/24 History apixaban 5 mg tablet 5 mg PO BID Blood thinner 05/19/20 12/09/24 History multivitamin-ferrous 1 each PO DAILY Supplement 05/19/20 12/09/24 History fumarate-folic acid 18 mg-400 mcg tablet pravastatin 20 mg tablet 20 mg PO DAILY High cholesterol 06/24/20 12/09/24 History tamsulosin 0.4 mg capsule 1 mg PO HS urination 10/27/20 12/09/24 History blood sugar diagnostic (True 10/26/21 12/09/24 History Metrix Glucose Test Strip) blood-glucose meter (True Metrix 10/26/21 12/09/24 History Glucose Meter kit) losartan 50 mg tablet 100 mg PO DAILY hypertension 10/26/21 12/09/24 History buspirone 10 mg tablet 10 mg PO BID Anxiety 02/13/22 12/09/24 History nitroglycerin 0.4 mg sublingual 0.4 mg sublingual Q5M PRN Chest 02/13/22 12/09/24 History tablet Pain furosemide 40 mg tablet 40 mg PO DAILY Edema 04/24/22 12/09/24 History carvedilol 25 mg tablet 25 mg PO BID High blood pressure 08/27/23 12/09/24 History calcipotriene 0.005 % topical 0.005 applic topical DAILY 11/27/23 12/09/24 History ointment fluorouracil 5 % topical cream 5 applic topical DAILY 11/27/23 12/09/24 History finerenone 10 mg tablet (Kerendia) 10 mg PO DAILY 12/24/23 12/09/24 History aripiprazole 5 mg tablet 5 mg PO DAILY 01/22/24 12/09/24 History canagliflozin 300 mg tablet 300 mg PO DAILY 10/13/24 12/09/24 History (Invokana) diltiazem HCl 300 mg 300 mg PO DAILY 10/13/24 12/09/24 History capsule,extended release 24 hr (Cartia XT) magnesium 200 mg tablet 400 mg PO DAILY 10/13/24 12/09/24 History psyllium seed (sugar) oral powder 1 tbsp PO DAILY 10/13/24 12/09/24 History (Metamucil (sugar) oral powder) semaglutide 7 mg tablet (Rybelsus) 7 mg PO DAILY 10/13/24 12/09/24 History diclofenac sodium 1 % topical gel 4 g topical QID PRN pain #100 11/16/24 12/09/24 Rx grams triamcinolone acetonide 0.1 % 0.1 applic topical NEEDED PRN . 11/17/24 12/09/24 History topical cream New Prescriptions to Start Prescriptions: Allergies Allergy/AdvReac Type Severity Reaction Status Date / Time nifedipine Allergy swelling, Verified 12/08/24 08:33 mood changes cephalexin AdvReac alters mood Verified 12/08/24 08:33 Exam Data for Last 24 hours I & O for Last 24 hours: Intake & Output 12/05/24 12/06/24 12/07/24 12/08/24 23:59 23:59 23:59 23:59 Weight 214 lb *Routine HEENT Exam Head: Present normocephalic Eye: Present EOMI and PERRL ENT: Present mucous membranes moist *Routine Neck Exam Neck: Present supple *Routine Respiratory Exam Respiratory: Present CTA bilaterally *Routine Cardiovascular Exam Cardiovascular: Present RRR *Routine Abdominal Exam Abdominal: Present soft and normoactive bowel sounds; Absent tenderness *Routine Rectal Exam Rectal:: deferred *Routine Genitalia Exam Genitalia:: deferred *Routine Extremities Exam Extremities: Absent cyanosis, clubbing or edema *Routine Skin Exam Skin: Present warm; Absent rash *Routine Neurological Exam Neurological: Present alert and oriented X3 Assessment and Plan *Assessment and plan (1) Constipation: Status: Acute Category: Medical Code(s): K59.00 - Constipation, unspecified (2) Fecal incontinence with incomplete defecation: Status: Acute Category: Medical Code(s): R15.9 - Full incontinence of feces; R15.0 - Incomplete defecation (3) Outlet dysfunction constipation: Status: Acute Category: Medical Code(s): K59.02 - Outlet dysfunction constipation (4) Rectal bleeding: Status: Acute Category: Medical Code(s): K62.5 - Hemorrhage of anus and rectum (5) Personal history of adenomatous and serrated colon polyps: Status: Acute Category: Medical Code(s): Z86.0101 - Personal history of adenomatous and serrated colon polyps (6) Tubulovillous adenoma of colon: Status: Acute Category: Medical Code(s): D12.6 - Benign neoplasm of colon, unspecified (7) Change in bowel habits: Status: Acute Category: Medical Code(s): R19.4 - Change in bowel habit Plan A/P: 1. Change in bowel habits with incomplete defecation, fecal incontinence, rectal bleeding and personal history of multiple and advanced adenomatous colon polyps is the preprocedural diagnosis. The patient will be anesthetized/sedated using MAC sedation. The patient has been seen and examined. Cardiac and lung assessment prior to the examination is stable. Proceed with planned diagnostic colonoscopy.
--- NOTE | 2024-12-09 07:13 | HMH.PROCNOTE ---
[facility] Procedure Note Date: 12/09/24 Time: 12:53 Procedure Note:: Colonoscopy Procedure Report: Colonoscopy with cold snare polypectomy and cold biopsies Endoscopist: Indra Mcwilliams II, MD Referring physician: Riley Delatorre M.D. Date of Procedure: December 09, 2024 Equipment: [employer] [id number] adult colonoscope Sedation: MAC sedation Indication: Mr. Oates is a 74-year-old gentleman who is here for diagnostic colonoscopy. He went to the ED on September 05, 2024 with change in bowel habits and constipation as well as some bowel incontinence and rectal bleeding with blood in the underwear. He did have a colonoscopy in January [address] Herman Kam M.D. and had more than 10 adenomatous polyps 1 of which was a tubulovillous adenoma. Procedure report indicates moderate to poor bowel prep with scattered diverticulosis and multiple large complex polyps. His colonoscopy with nh in August 2017 showed 10 colon polyps ranging in size from 5 to 15 mm all of which were adenomatous. The patient continues to struggle with bowel function with hard stools and then sometimes fecal incontinence. He is noted the blood. He reports no abdominal pain, nausea or vomiting. He was initially given MiraLAX but this was changed to Metamucil. He is overdue for colonoscopy. He did have a prostate nodule in August 2017 and PSA was normal. He has not had any subsequent PSA. Procedure: Prior to the procedure, a history and physical exam was performed, and patient's medications and allergies were reviewed. The risks, benefits and alternatives of the sedation and procedure were discussed with the patient. All questions were answered and informed consent was obtained. The patient was brought to the procedure room. Patient identification and proposed procedure were verified by the physician and the nurse. The patient was placed in a left lateral decubitus position and the scope was passed under direct vision. Throughout the procedure, the patient's blood pressure, pulse, and oxygen saturations were monitored continuously. The colonoscopy was accomplished without difficulty. The patient tolerated the procedure well. Findings: On digital rectal examination there was normal rectal tone. There were no external hemorrhoids. The colonoscope was introduced through the anal canal to the rectum and advanced to the cecum. The ileocecal valve and appendiceal orifice were identified. The scope was advanced a short distance into the ileum which appeared grossly normal. The scope was then withdrawn into the colon. There were 5 colon polyps (cecum x 2 (4 and 4 mm), ascending x 1 (5 mm) and transverse x 2 (3 and 6 mm)). These were all removed via cold snare polypectomy. Random cold biopsies were taken from the right colon to rule out microscopic colitis. The remaining cecum, ascending and transverse colon and mucosa were grossly normal. There were extensively scattered diverticuli throughout the descending and sigmoid colon (LEFT colon). The rectum itself was normal. Upon retroflexion within the rectum there were grade 1-2 internal hemorrhoids. The preparation was excellent throughout with [place] Preparation Score of 9. The cecal time was 14 minutes. Impression: 1. Colonic polyps x 5 2. Extensive left-sided diverticulosis 3. Grade 1-2 internal hemorrhoids Plan: I will follow-up the biopsies and discuss the findings with the patient and family. The patient does have bowel control difficulties with fecal urgency, incomplete defecation and fecal incontinence.
[2024-12-09 11:53] VITALS: BP 150/73; PULSE 75; RESP 18; TEMP 36.3; O2SAT 97
[2024-12-09] MEDS: LACTATED RINGERS 1000ML 1,000 ML 50 ML IV (11:53)
--- NOTE | 2024-12-09 12:13 | P.PNANES_ITS ---
[facility] Disclaimer: The information contained in this section may have been updated after the patient was seen, as this information can be updated by other users. Medical History Cerumen debris on tympanic membrane of both ears Tympanic ventilation tube in external ear canal Tympanosclerosis of left ear Retained myringotomy tube in left ear Chronic sinus infection Retracted tympanic membrane Congestion of both ears Headache Tinnitus Impacted cerumen Onychoincurvatum Sleep apnea Asthma History of transient ischemic attack (TIA) Atrial fibrillation Hypothyroid Diabetes mellitus, type 2 MRSA (methicillin resistant staph aureus) culture positive Skin lesion of right ear Skin lesion of left ear Skin lesion of face Plantar fasciitis of right foot Obesity, Class II, BMI 35-39.9 Acquired hammer toes of both feet Concussion Hyperlipidemia Acquired hypothyroidism HTN (hypertension) CHF exacerbation CAD (coronary artery disease) TIA (transient ischemic attack) COPD (chronic obstructive pulmonary disease) Diabetes mellitus type 2 in obese Chronic a-fib Anemia Lower gastrointestinal bleeding Esophageal abnormality Degenerative arthritis Diverticulosis Brain atrophy Obstructive Sleep Apnea-Hypopnea Syndrome Severe TONIO currently on BiPAP 14/10 cm. Significant improvement of AHI: 10.6, (previously 18) but large air leak due to poor mask fitting, needs a different fullface mask, medium size. Surgical History Myringotomy tube status History of local excision of skin lesion Status post myringotomy with tube placement of both ears S/P sinus surgery History of cataract surgery Hx of knee surgery History of placement of ear tubes History of vasectomy Family History Sister Thyroid cancer Other Cancer Social History (Updated 12/08/24 @ 08:34 by Herminia Oliver RN) Smoking Status: Former smoker tobacco type: cigarettes packs per day: 1 second hand exposure: No alcohol intake: never counseling provided: none substance use type: denies use current occupational status: retired Travel in the last 8 weeks?: None household members: spouse housing: house current occupational exposures/hazards: No caffeine: No Have you lived/traveled outside [place] in past 30 days?: No Contact w/someone who lives/traveled outside [place] past 30 days?: No Exposure to someone with infectious disease in past 14 days?: No Do you have a fever (greater than 100.4 F or 38 C)?: No Have you tested positive for COVID-19?: No Exposed to someone with COVID-19 in past 14 days?: No Do you have a sore throat?: No Do you have a cough?: No Do you have any weakness?: No Do you have any diarrhea?: No Are you experiencing any unusual bleeding?: No Do you have any muscle aches/pain?: No Do you have any abdominal pain?: No Are you experiencing loss of taste or smell?: No [facility] Anesthesia Checklist Patient Identification Patient Identification: Arm Band Structural Data Admitted From: Home Planned Operative Procedure/s: Colonoscopy Consent for Planned Operative Procedure(s) Verified: Yes Verified Documents: Surgical Consent and History and Physical NPO Status Verified Time NPO: 00:00 Additional verifications Anesthesia Reactions: No Hx Blood Transfusions: Yes (08/19/2017) Blood Transfusion Reaction: No Airway Assessment Mallampati Score:: Class II C-Spine Mobility Assessed: Yes TMJ Mobility Assessed: Yes Dentition: Good Dentition Neurological Assessment Level of Consciousness: Awake, Alert and Appropriate Anesthesia Plan Anesthesia Risk discussed: Yes Anesthesia Plan: Verified ASA Class: III Anesthesia Type: MAC
[2024-12-09 13:00] VITALS: BP 123/69; PULSE 69; RESP 17; TEMP 36.1; O2SAT 97
[2024-12-09 13:10] VITALS: BP 131/87; PULSE 72; RESP 17; TEMP 36.1; O2SAT 97
[2024-12-09 13:20] VITALS: BP 147/92; PULSE 69; RESP 18; TEMP 36.1; O2SAT 96
[2024-12-09 13:30] VITALS: BP 137/88; PULSE 62; RESP 17; TEMP 36.1; O2SAT 97
[2024-12-09 23:07] LABS: POC Glucose,Bedside 160 gm/dL (70-110)
== END 2024-12-09 13:54 | disposition home or self-care (01) ==
PROVIDERS: PCP Internal Medicine Adolescent Medicine; Visit Provider Internal Medicine Gastroenterology
PROC: 0DJD8ZZ Inspection of Lower Intestinal Tract, Via Natural or Artificial Opening Endoscopic (ICD-10-PCS; CPT 45378; principal; 2024-12-09 13:30)
DX: D12.3 Benign neoplasm of transverse colon (principal); D12.0 Benign neoplasm of cecum; D12.2 Benign neoplasm of ascending colon; K57.30 Diverticulosis of large intestine without perforation or abscess without bleeding; K64.0 First degree hemorrhoids; K64.1 Second degree hemorrhoids; K59.02 Outlet dysfunction constipation; D12.6 Benign neoplasm of colon, unspecified; K62.5 Hemorrhage of anus and rectum; I25.10 Atherosclerotic heart disease of native coronary artery without angina pectoris; E03.9 Hypothyroidism, unspecified; I48.91 Unspecified atrial fibrillation; I10 Essential (primary) hypertension; E11.9 Type 2 diabetes mellitus without complications; E78.5 Hyperlipidemia, unspecified; Z79.01 Long term (current) use of anticoagulants; Z88.1 Allergy status to other antibiotic agents; Z87.891 Personal history of nicotine dependence; Z86.0101 Personal history of adenomatous and serrated colon polyps
CPT/HCPCS: 45380; 45385; 82962; 88305; J2003; J2704; J7120